=== PATIENT | male | born 1950 | race Caucasian/White ===

== ENCOUNTER → 2019-07-20 | Outpatient (CLI) | payer MEDICARE, BC, SELFPAY ==
[2019-07-20 12:43] LABS: Absolute Neutrophil Count 2.7 X10^3/uL (2.0-7.7); Basophil# 0.05 X10^3/uL; Basophil% 1.1 % (0-1); Eosinophil# 0.22 X10^3/uL; Eosinophils% 4.7 % (0-5); Hematocrit 40.1 % (40-54); Hemoglobin 12.9 g/dL (13.0-16.5); Lymphocyte % 25.7 % (19-41); Mean Corp Hgb Conc 32.2 g/dL (32-36); Mean Corpuscular Hgb 29.8 pg (27.0-32.0); Mean Corpuscular Volume 92.6 fL (80-94); Mean Platelet Vol. 10.9 fl (6.2-12.0); Monocyte# 0.52 X10^3/uL; Monocyte% 11.1 % (0-10); NRBC Flagged by Analyzer 0 % (0-5); Neutrophil # 2.67 X10^3/uL (2.7-7.7); Neutrophil % 57.2 % (47-70); Platelet Count 226 K/mm3 (150-450); RBC Distribution Width CV 13.9 % (11.6-14.6); RBC Distribution Width SD 47.8 fl (35.1-43.9); Red Blood Count 4.33 M/mm3 (4.6-6.2); White Blood Count 4.7 K/mm3 (4.4-11.0)
[2019-07-20 13:26] LABS: BUN 16 mg/dL (7-18); Creatinine, Serum 0.96 mg/dL (0.70-1.30); EST Glomerular Filtration Rate 83 mL/min (>60); Glucose 88 mg/dL (74-106)
[2019-07-20 13:27] LABS: ALB/GLOB Ratio 0.9 RATIO (0.9-2.4); AST(SGOT) 24 U/L (15-37); Alanine Aminotransfer ALT/SGPT 24 U/L (16-61); Albumin, Serum 3.5 g/dL (3.2-5.0); Alkaline Phosphatase 84 U/L (45-117); Anion Gap 6 (5-15); BUN/Creat Ratio 16.8 RATIO (10-20); Calcium,Total 8.5 mg/dL (8.5-10.1); Chloride 108 mmol/L (98-107); Cholesterol 190 mg/dL (200); Est Glom Filt Rate - Afr Amer 101 mL/min (>60); Globulin 3.7 g/dL (2.2-4.2); High Density Lipoprotein 50 mg/dL; PSA,Total - Annual Screen 0.31 ng/mL (0.00-4.00); Potassium 4.1 mmol/L (3.5-5.1); Protein, Total 7.2 g/dL (6.4-8.2); Sodium Level 139 mmol/L (136-145); Triglycerides 67 mg/dL; Very Low Density Lipoprotein 13 mg/dL (5-40)
[2019-07-20 13:55] LABS: Hepatitis C Antibody Non-Reactive (Nonreactive)
== END | disposition home or self-care (01) ==
LOC: BFHLAB 09:26
PROVIDERS: PCP Family Medicine; Visit Provider Family Medicine
DX: I10 Essential (primary) hypertension (principal); Z12.5 Encounter for screening for malignant neoplasm of prostate; Z01.83 Encounter for blood typing; Z92.89 Personal history of other medical treatment
CPT/HCPCS: 36415; 80053; 80061; 84153; 85025; 86803; 86900; 86901; G0103

== ENCOUNTER 2019-11-04 13:02 | Inpatient (IN) | payer MEDICARE, BC, SELFPAY ==
[2019-11-04] VITALS (11 sets, daily range): BP systolic 137–161; BP diastolic 70–123; PULSE 55–86; RESP 10–20; TEMP 36.6–36.9; O2SAT 94–99; BMI 35.9; BMI 35.6; BMI 35.7
--- NOTE | 2019-11-04 13:44 | EKG12_ITS ---
Test Reason : CP Blood Pressure : / mmHG Vent. Rate : 080 BPM Atrial Rate : 080 BPM P-R Int : 182 ms QRS Dur : 098 ms QT Int : 416 ms P-R-T Axes : 044 027 024 degrees QTc Int : 479 ms Normal sinus rhythm with sinus arrhythmia Nonspecific ST abnormality Abnormal ECG Confirmed by REBECA TANNER, MICHAEL ([id number]), editor index DEION BERNARDO ([id number]) on 11/05/2019 1:03:02 PM Referred By: AVELINO Confirmed By:MICHAEL JOSE MD
--- NOTE | 2019-11-04 13:44 | RAD_ITS ---
STUDY: X-RAY CHEST REASON FOR EXAM: Male, 69 years old. chest pain and sob TECHNIQUE: Single AP portable view of the chest. COMPARISON: None. FINDINGS: awake overnight monitor leads are present. The lungs are clear and expanded. There is no demonstrated pleural abnormality. Normal size heart. Normal mediastinum and xu. Normal visualized pulmonary arteries. Normal visualized aortic arch and descending thoracic aorta. Normal visualized thoracic spine. Normal visualized ribs, clavicles, and shoulders. There is no demonstrated abnormality of the visualized soft tissue structures of the upper abdomen. RAD/Chest 1 View (Portable) IMPRESSION: Normal x-ray examination of the chest. Electronically Signed: Juan M Pineda MD at 14:16 EDT , Service support ,
--- NOTE | 2019-11-04 13:46 | ED.VISSUMM ---
- ER Visit Summary Date of Service: 11/04/19 Chief Complaint: Chest pain History of Present Illness: The patient is a 69 M who presents with chest pain that has been getting worse over the past 2 to 3 days. Patient states his pain is worse with exertion. Patient states his pain is been waxing and waning. Patient states he was doing some outside work today when his pain began. Patient admits to some shortness of breath with this. Patient denies any nausea or vomiting. Patient denies any diaphoresis. Patient admits to some lightheadedness. Patient states today while he was doing his work his pain began then he stopped and rested and his pain improved. Patient states that when he went back to doing some activities his pain would return. Patient states he has a history of costochondritis but this feels different than that. Patient denies any cardiac or PE risk factors. Patient states he does have some pain in his neck and upper back. Physical Examination: Vital signs are stable. Patient is afebrile. Patient is in no acute distress. Oral mucosa is pink and moist. Neck is supple. Trachea is midline. There is no JVD noted. Heart was regular rate and rhythm. Lungs are clear and equal bilaterally. Abdomen is soft. Bowel sounds are normal. There is no tenderness. There is no rebound or guarding noted. Skin is warm dry. Cranial nerves II through XII are intact. There are no focal motor or sensory deficits noted. Extremities are intact. There is no calf tenderness or edema. Test Results: EKG showed a normal sinus rhythm with a rate of 80. There is some T wave inversion in leads III and aVF. There are no prior EKGs available for comparison. Portable chest x-ray was obtained. There is no acute cardiopulmonary process. CBC, basic metabolic profile, and troponin were obtained were all within normal limits. Emergency Department Course and Treatment: Patient was not given aspirin due to his allergy which causes hives. Patient was given sublingual nitroglycerin. Patient has a HEART score of 5. Patient was advised of his results. I recommended admission to the hospital overnight for observation for further chest pain evaluation. Patient is agreeable with this. Case was discussed with the hospitalist. He will admit the patient to his service. Patient understood and was agreeable with the plan. All questions were answered. Disposition: Admit to hospital Impression: 1. Chest pain This note was generated with Personal [employer] software. It may contain incorrect words, spelling, and punctuation that were not noted in review of the chart prior to signing ED Disposition - Plan for ED Patient: Disposition: Acute Care Hospital [facility] Diagnosis: Chest pain Referrals: Abisai Bryant DO [Primary Care Provider] -
[2019-11-04 14:04] LABS: Absolute Lymphocyte Count 1.55 X10^3/uL (0.83-4.51); Basophil# 0.03 X10^3/uL; Basophil% 0.5 % (0-1); Eosinophil# 0.23 X10^3/uL; Eosinophils% 3.5 % (0-5); Hemoglobin 13.8 g/dL (13.0-16.5); Lymphocyte # 1.55 X10^3/ul (4.0); Lymphocyte % 23.8 % (19-41); Mean Corp Hgb Conc 33.7 g/dL (32-36); Mean Corpuscular Hgb 30.7 pg (27.0-32.0); Mean Corpuscular Volume 91.3 fL (80-94); Mean Platelet Vol. 10.7 fl (6.2-12.0); Monocyte% 10.8 % (0-10); NRBC Flagged by Analyzer 0 % (0-5); Neutrophil # 3.98 X10^3/uL (2.7-7.7); Neutrophil % 61.1 % (47-70); Platelet Count 219 K/mm3 (150-450); RBC Distribution Width CV 14.7 % (11.6-14.6); Red Blood Count 4.49 M/mm3 (4.6-6.2); White Blood Count 6.5 K/mm3 (4.4-11.0)
[2019-11-04 14:13] LABS: Anion Gap 6 (5-15); BUN 15 mg/dL (7-18); BUN/Creat Ratio 12.5 RATIO (10-20); Calcium,Total 9.2 mg/dL (8.5-10.1); Chloride 107 mmol/L (98-107); EST Glomerular Filtration Rate 64 mL/min (>60); Est Glom Filt Rate - Afr Amer 77 mL/min (>60); Estimated Creatinine Clearance 63.77 ml/min; Glucose 151 mg/dL (74-106); Potassium 4.1 mmol/L (3.5-5.1); Sodium Level 139 mmol/L (136-145)
--- NOTE | 2019-11-04 16:31 | HP.PCM_ITS ---
Problem List (1) Chest pain Status: Acute (2) Osteoarthritis Status: Chronic (3) Obstructive sleep apnea Status: Chronic (4) GERD (gastroesophageal reflux disease) Status: Chronic History of Present Illness Date of Admission: 11/04/19 Chief Complaint: Chest pain. The patient is a 69 year old M with past medical history as mentioned above presented to the emergency room because of chest pain. His symptoms started this morning, retrosternal chest pain, brought in by exertion, described as indigestion, 4 out of 10 in severity, not radiating, aggravated by taking a deep breath and associated with shortness of breath. He does have a history of GERD but he mentioned that the pain that he has today is different from the usual heartburn indigestion that he has with GERD. He has been having similar pain intermittently over the last week which is also brought in by exertion. In the emergency department, his blood pressure was not elevated, other vital signs were stable. Routine blood work was unremarkable. EKG revealed normal sinus rhythm, normal QRS, normal TX interval, normal QTC, no acute segment changes. First troponin is negative. Chest x-ray showed no acute findings. He is being admitted for chest pain for evaluation. Past Medical History Past Medical History (Chronic Problems): Chronic Problems Osteoarthritis (Chronic) Obstructive sleep apnea (Chronic) GERD (gastroesophageal reflux disease) (Chronic) Allergies aspirin Allergy (Verified 11/04/19 13:03) Rash Penicillins [PCN] Allergy (Verified 11/04/19 13:03) Rash wool Allergy (Verified 11/04/19 13:03) Rash Home Medications: Ambulatory Orders Medication Instructions Recorded Ascorbate Calcium [Vitamin C] PO DAILY 11/04/19 Diclofenac [Voltaren] 75 mg PO DAILY 11/04/19 Fexofenadine HCl 60 mg PO DAILY 11/04/19 Glucosamine/Chondr Calderón A Sod 480 ml PO BID 11/04/19 [Glucosamine-Chondroitin Liq] Pantoprazole Sodium [Protonix] 40 mg PO DAILY 11/04/19 Surgical History: total knee arthroplasty, - - Left shoulder surgery, left foot surgery. Psychiatric History: No pertinent psych hx Lives: Spouse/ Significant Other Smoking Status: Never smoker Alcohol: None Drugs: None - *Family History Maternal History Items: Unknown - Patient is adopted. Paternal History Items: No pertinent history - Patient is adopted. Review of Systems Constitutional: Denies: Anorexia, Chills, Fever, Weakness Eyes: Denies: Blurred vision, Double vision, Drainage, Redness HEENT: Denies: Difficulty Hearing, Ear Pain, Eye Pain, Nasal Congestion, Sore Throat Cardiovascular: Reports: Chest Pain, Chest Pressure. Denies: Edema, Heaviness, Light Headedness, Orthopnea, Paroxysmal Noc. Dyspnea, Syncope Respiratory: Reports: Shortness of Breath. Denies: Cough, Hemoptysis, Pleuritic Pain, Sputum production, Wheezing Gastrointestinal: Denies: Abdominal Pain, Constipation, Diarrhea, Nausea, Vomiting Genitourinary: Denies: Dysuria, Frequency, Hematuria Musculoskeletal: Denies: Arm Pain, Back Pain, Foot Pain Skin: Denies: Dryness, Rash Neurological: Denies: Balance problems, Double vision, Change in Speech, Slurred speech, Confusion, Headaches, Incoordination, Numbness Psychiatric: Denies: Anxiety, Depression Endocrine: Denies: Change in Body Habitus, Polydipsia, Polyuria VTE Information - Inpt Only VTE Present on Admission: No VTE Mechan Device Prophylaxis: None VTE Pharm Prophylaxis ordered?: Yes Patient Problems: Active and Suspected Problems Chest pain (Acute) - Physical Exam Vitals/I&O's: Vital Signs Temp Pulse Resp BP Pulse Ox 98.5 F 55 L 11 L 137/83 H 98 11/04/19 13:12 11/04/19 16:10 11/04/19 16:10 11/04/19 16:10 11/04/19 16:10 Oxygen Delivery Method Room Air Weight: 265 lb Body Mass Index (BMI) 35.9 General: Alert, Oriented x3, Cooperative, No apparent distress HEENT: Atraumatic, PERRLA, EOMI, Normocephalic Oral: Moist Mucosa, No Gingival or Mucosal Lesions/ Ulcerations Neck: Supple, No JVD, Negative Carotid Bruits, Trachea Midline, Thyroid Normal Size and Texture Lungs: Clear to auscultation, Normal air movement, No rhonchi, No wheeze, No rales, Diminished Cardiovascular: Regular rate, Regular Rhythm, Normal S1, Normal S2, PMI Normal Abdomen: Bowel Sounds Present, Soft, Non Tender, Non-Distended, No Hepato- splenomegaly, Obese Extremities: No clubbing, No cyanosis, No edema Skin: No rashes, No breakdown Lymphatic: No Cervical, Supraclavicular, or Inguinal Adenopathy Neurological: Cranial nerves II-XII grossly intact, Motor Exam 5/5 strength throughout Psych/Mental Status: Normal Affect, Appropriate, Alert and oriented to time, place, person, mood and affect Laboratory Results 11/04/19 13:10: WBC 6.5, RBC 4.49 L, Hgb 13.8, Hct 41.0, MCV 91.3, MCH 30.7, MCHC 33.7, RDW Std Deviation 49.0 H, RDW Coeff of Rose 14.7 H, Plt Count 219, MPV 10.7, Immature Gran % (Auto) 0.300, Neut % (Auto) 61.1, Lymph % (Auto) 23.8, [place] % (Auto) 10.8 H, Eos % (Auto) 3.5, Baso % (Auto) 0.5, Absolute Neuts (auto) 4.0, Absolute Lymphs (auto) 1.55, Nucleated RBC % 0 11/04/19 13:10: Sodium 139, Potassium 4.1, Chloride 107, Carbon Dioxide 26.0, Anion Gap 6, BUN 15, Creatinine 1.20, Estim Creat Clear Calc 63.77, Est GFR (MDRD) Af Amer 77, Est GFR (MDRD) Non-Af 64, BUN/Creatinine Ratio 12.5, Glucose 151 H, Calcium 9.2, Troponin I < 0.015 Clinical Impression(s) from Imaging Studies Chest X-Ray 11/04/19 13:44 IMPRESSION: Normal x-ray examination of the chest. Electronically Signed: Juan M Pineda MD at 14:16 EDT , Service support , Current Medications Nitroglycerin (Nitrostat) 0.4 mg SUBLINGUAL Q5M PRN PRN Reason: Chest pain Assessment/Plan All Active Problems Chest pain (Acute) This is a 69 years old male patient presented to the emergency room because of chest pain and he is being admitted for evaluation. #1 chest pain: Seems to be atypical, could be due to GERD as patient has been on Voltaren for osteoarthritis but he stated this pain is different from usual GERD symptoms that he had. EKG was unremarkable. Troponin is negative. Chest x-ray without acute findings. He has no risk factors for CAD except recent elevation of blood pressure but he is not on medications. Plan: Admit to PCU observation, cardiac monitoring, serial cardiac enzymes, repeat EKG tomorrow morning, patient is allergic to aspirin, nitroglycerin sublingual as needed, IV fluids, Tylenol PRN, nuclear stress test tomorrow morning if cardiac enzymes are negative, fasting blood profile. #2 elevated blood pressure: Patient mentioned that recently, he has been seeing his PCP and his blood pressure sometimes elevated. In the ED, pressure was up to 160 systolic. Plan: Start lisinopril/HCTZ, IV hydralazine PRN. #3 hyperglycemia: Blood glucose on admission is 151. Will check hemoglobin A1c. #4 GERD: Continue PPI, start Mylanta as needed. #5 obstructive sleep apnea: Continue CPAP with the same home settings. #6 DVT prophylaxis: Subcu Lovenox. This note was generated with YODIL dictation software. It may contain incorrect words, spelling, and punctuation that were not noted in checking the note before signing. OBSV E&M: [id number] Initial observation care L3
[2019-11-04] MEDS: 0.9% Normal Saline 1,000 ML 75 ML IV (17:19)
[2019-11-04] MEDS: Acetaminophen 325 MG Tablet 650 MG PO (17:24)
[2019-11-04 17:38] LABS: Hemoglobin A1c 5.8 % (4.2-6.3)
--- NOTE | 2019-11-04 17:49 | EKG12_ITS ---
Test Reason : CP REPEAT Blood Pressure : / mmHG Vent. Rate : 055 BPM Atrial Rate : 055 BPM P-R Int : 194 ms QRS Dur : 098 ms QT Int : 480 ms P-R-T Axes : 042 019 -18 degrees QTc Int : 459 ms Sinus bradycardia T wave abnormality, consider inferior ischemia Abnormal ECG When compared with ECG of 04-NOV-2019 13:17, MANUAL COMPARISON REQUIRED, DATA IS UNCONFIRMED Confirmed by REBECA TANNER, MICHAEL ([id number]), social media editor DEION BERNARDO ([id number]) on 11/06/2019 3:57:12 PM Referred By: CULLEN Confirmed By:MICHAEL JOSE MD
--- NOTE | 2019-11-04 18:34 | CON.PCM_ITS ---
Problem List (1) MYOCARDIAL INFARCT Status: Acute Reason for Consult Date of Consultation: 11/04/19 Reason for Consultation: Acute myocardial infarct History of Present Illness: The patient is a 69 year old M [] Patient experienced chest tightness substernally with shortness of breath at 10:30 AM today. It did not go away with resting. He was seen emergency room at 1:30 PM. EKG at that time showed possible inferior wall myocardial infarct with minimal ST elevation. First set of enzymes was normal. The second set of enzymes has come back before consulting me was elevated. Repeat EKG has improved. Chest pain now down to minimal. Hemodynamically has been stable. 10 days ago patient started having functional class III angina relieved by resting in 10 minutes. Patient is known to have labile hypertension not on medication. He is a non-smoker and nondrinker. He denies any history of myocardial infarct or CVA. He claims that aspirin gives him indigestion. He is not actually allergic to it. Iodine prep on the left knee surgery 3 years ago gave him rash. Past Medical History Allergies/Adverse Reactions: Allergies Penicillins [PCN] Allergy (Verified 11/04/19 13:03) Rash wool Allergy (Verified 11/04/19 13:03) Rash aspirin Adverse Reaction (Verified 11/04/19 18:42) Upset Stomach Home Medications: Ambulatory Orders Medication Instructions Recorded Ascorbate Calcium [Vitamin C] PO DAILY 11/04/19 Diclofenac [Voltaren] 75 mg PO DAILY 11/04/19 Fexofenadine HCl 60 mg PO DAILY 11/04/19 Glucosamine/Chondr Calderón A Sod 480 ml PO BID 11/04/19 [Glucosamine-Chondroitin Liq] Pantoprazole Sodium [Protonix] 40 mg PO DAILY 11/04/19 Past Medical History (Chronic Problems): Chronic Problems Osteoarthritis (Chronic) Obstructive sleep apnea (Chronic) GERD (gastroesophageal reflux disease) (Chronic) Surgical History: total knee arthroplasty, - - Left shoulder surgery, left foot surgery. Psychiatric History: No pertinent psych hx - *Family History Maternal History Items: Unknown - Patient is adopted. Paternal History Items: No pertinent history - Patient is adopted. Lives: Spouse/ Significant Other Smoking Status: Never smoker Alcohol: None Drugs: None Review of Systems - Review of Systems Cardiovascular: Reports: Chest Discomfort, Shortness of Breath Respiratory: Denies: Cough, Sputum Production, Hemoptysis Gastrointestinal: Denies: Hematemesis, Hematochezia, Melena Genitourinary: Denies: Dysuria, Hematuria Muscoloskeletal: Reports: Joint Pain Objective: Vital Signs Temp Pulse Resp BP Pulse Ox 98.5 F 60 18 160/95 H 97 11/04/19 17:14 11/04/19 17:36 11/04/19 17:14 11/04/19 17:14 11/04/19 17:14 Oxygen Delivery Method Room Air Weight: 263 lb 3.2 oz Body Mass Index (BMI) 35.6 General: Healthy Appearing, Alert, Oriented x 3, No Acute Distress Neck: Supple, No JVD Lungs: Clear to auscultation Cardiovascular: Regular Rhythm, Normal S1, Normal S2, No Murmurs Vascular: No Carotid Bruits, Normal Radial Pulses, Normal Dorsalis Pedal Pulse, Normal Posterior Tibial Pulses Abdomen: Bowel Sounds Present, Soft, Non Tender 11/04/19 13:10: WBC 6.5, RBC 4.49 L, Hgb 13.8, Hct 41.0, MCV 91.3, MCH 30.7, MCHC 33.7, Plt Count 219, MPV 10.7, Immature Gran % (Auto) 0.300, Neut % (Auto) 61.1, Lymph % (Auto) 23.8, [place] % (Auto) 10.8 H, Eos % (Auto) 3.5, Baso % (Auto) 0.5, Absolute Neuts (auto) 4.0, Nucleated RBC % 0 11/04/19 13:10: Sodium 139, Potassium 4.1, Chloride 107, Carbon Dioxide 26.0, Anion Gap 6, BUN 15, Creatinine 1.20, Est GFR (MDRD) Af Amer 77, Est GFR (MDRD) Non-Af 64, BUN/Creatinine Ratio 12.5, Glucose 151 H, Calcium 9.2, Troponin I < 0.015 11/04/19 17:14: Hemoglobin A1c 5.8 11/04/19 17:14: Troponin I 1.970 H* Rhythm: EKG: ECHO: Stress Test: Cardiac Cath: PCI: CT Surgery: Holter monitor: EPS: PPM: CXR: Chest CT Scan: Assessment/Plan #1 possible acute inferior wall myocardial infarct with minimal chest pain at the moment, will proceed with cardiac catheterization tomorrow morning. Patient has eaten a full dinner. The chest pain has improved to a minimum discomfort. Second EKG showed improvement. I would not perform the cardiac catheterization tonight. Because of the allergy to iodine, prednisone and Pepcid will be initiated. Patient will be given 4 baby aspirin to chew tonight. Enoxaparin will be given subcu tonight. Should the chest pain recur, I would definitely go in tonight. The risk and benefit of the procedure have been explained to the patient. Patient has given the consent #2 history of labile hypertension
[2019-11-04] MEDS: Aspirin 81 MG TAB.CHEW 324 MG PO (19:42)
[2019-11-04] MEDS: predniSONE 20 MG Tablet PO (19:42)
[2019-11-04] MEDS: Enoxaparin 80 MG/0.8 ML Syringe SC (19:43)
[2019-11-04] MEDS: 0.45% Normal Saline 1,000 ML 60 ML IV (19:44)
[2019-11-04] MEDS: TICAGRELOR 90 MG TABLET 180 MG PO (20:12)
[2019-11-04] MEDS: 0.9% Saline Lock 10 ML Syringe IV (20:21)
[2019-11-04] MEDS: Atorvastatin Calcium 40 MG Tablet PO (21:41)
[2019-11-04] MEDS: Famotidine 20 MG Tablet PO (21:41)
[2019-11-04] MEDS: Pantoprazole Sodium 40 MG Tablet PO (21:42)
[2019-11-04 22:40] LABS: Magnesium 2.5 mg/dL (1.6-2.6)
[2019-11-05] VITALS (32 sets, daily range): BP systolic 106–181; BP diastolic 62–112; PULSE 60–86; RESP 8–24; TEMP 36.6–37.1; O2SAT 92–100
[2019-11-05] MEDS: 0.9% Saline Lock 10 ML Syringe IV ×2 (03:23→11:26)
[2019-11-05] MEDS: Ondansetron 4 MG/2 ML Vial IV (03:23)
[2019-11-05] MEDS: Acetaminophen 325 MG Tablet 650 MG PO ×2 (03:23→21:41)
--- NOTE | 2019-11-05 05:21 | CCHN_ITS ---
Hospitalist Note Patient with episode on monitor of VT at approximately 5:08 AM noted to have been stable and doing well approximately 10 minutes prior to this with recent evaluation per staff with no complaints including no chest pain or dyspnea however at approximately 5:10 AM following onset of VT with evaluation per staff patient noted to be unresponsive with no pulse with CPR initiation. Patient became again responsive with resumption of pulse and appropriate management of his airway after approximately 2 minutes. Will initiate IV amiodarone bolus and transition to the ICU. [place] Work[employer] Helper updated and cardiology called and also updated on current events. Patient has planned cardiac catheterization this am.
--- NOTE | 2019-11-05 05:22 | ECHOCS_ITS ---
Reason For Study: CAD/ASHD Procedure This was a 2D Doppler, Color Flow transthoracic echocardiogram. The study was technically difficult. Due to body habitus. Contrast injection was performed. Exam performed portable in ICU/CCU. Left Ventricle Normal left ventricle. Left ventricular systolic function is normal. The estimated ejection fraction is 60 %. No regional wall motion abnormalities noted. Right Ventricle Normal RV size. Normal systolic function. Atria The left atrium is mildly enlarged. The right atrium is mildly enlarged. Mitral Valve Normal mitral valve. Tricuspid Valve Normal tricuspid valve. Aortic Valve The aortic valve is not well visualized. Pulmonic Valve The pulmonic valve is not well visualized. Great Vessels Mild to moderately dilated aortic root. The pulmonary artery is normal size. Normal inferior vena cava. Pericardium/Pleural No pericardial effusion. Medication Diluted definity 3.0ml given slow IV push to enhance endocardial definition. MMode/2D Measurements & Calculations LVIDd: 4.3 cm IVSd: 1.1 cm Ao root diam: 4.0 cm LVIDs: 2.9 cm LVPWd: 1.1 cm FS: 32.1 % LAV(MOD-bp): 77.2 ml LA A4 area: 22.8 cm2 LA dimension(2D): 4.3 cm LAV(MOD-bp) Indexed: 32.3 ml/m2 LAV(MOD-sp2): 82.3 ml LAV(MOD-sp4): 71.8 ml RA A4 area: 20.7 cm2 Time Measurements MV dec time: 0.20 sec Doppler Measurements & Calculations MV E max fidel: 67.8 cm/sec Lat Peak E' Fidel: 8.1 cm/sec Med Peak E' Fidel: 6.7 cm/sec MV A max fidel: 89.4 cm/sec E/E' lat: 8.4 E/E' med: 10.2 MV E/A: 0.76 Ao V2 max: 90.9 cm/sec LV V1 max: 81.3 cm/sec Ao max P.3 mmHg LV V1 max P.6 mmHg Interpretation Summary Normal left ventricle. Left ventricular systolic function is normal. The estimated ejection fraction is 60 %. The left atrium is mildly enlarged. Contrast injection was performed. Ordering Physician: Sonia Taylor Referring Physician: Abisai Bryant Performed By: Karly James, SHINE, RVT
[2019-11-05] MEDS: Amiodarone 360 MG in Dextrose 5% Viaflo Bag 192.8 ML 33.3 MG CONT INF (05:54)
--- NOTE | 2019-11-05 05:55 | EKG12_ITS ---
Test Reason : RAPID/CODE BLUE Blood Pressure : / mmHG Vent. Rate : 090 BPM Atrial Rate : 090 BPM P-R Int : 170 ms QRS Dur : 102 ms QT Int : 382 ms P-R-T Axes : 067 051 056 degrees QTc Int : 467 ms Normal sinus rhythm Probable ST elevation in inferior lead Nonspecific ST abnormality Abnormal ECG When compared with ECG of 05-NOV-2019 05:00, MANUAL COMPARISON REQUIRED, DATA IS UNCONFIRMED Confirmed by REBECA TANNER, MICHAEL ([id number]), editor greeting card DEION BERNARDO ([id number]) on 11/06/2019 3:56:15 PM Referred By: MIRIAM Confirmed By:MICHAEL JOSE MD
[2019-11-05 06:13] LABS: Absolute Neutrophil Count 10.8 X10^3/uL (2.0-7.7); Basophil# 0.04 X10^3/uL; Basophil% 0.3 % (0-1); Eosinophil# 0.02 X10^3/uL; Eosinophils% 0.2 % (0-5); Hematocrit 41.6 % (40-54); Hemoglobin 14.1 g/dL (13.0-16.5); Lymphocyte % 10.7 % (19-41); Mean Corp Hgb Conc 33.9 g/dL (32-36); Mean Corpuscular Hgb 30.4 pg (27.0-32.0); Mean Corpuscular Volume 89.7 fL (80-94); Mean Platelet Vol. 10.6 fl (6.2-12.0); Monocyte# 0.71 X10^3/uL; Monocyte% 5.4 % (0-10); NRBC Flagged by Analyzer 0 % (0-5); Neutrophil # 10.83 X10^3/uL (2.7-7.7); Platelet Count 241 K/mm3 (150-450); RBC Distribution Width CV 14.4 % (11.6-14.6); RBC Distribution Width SD 46.7 fl (35.1-43.9); Red Blood Count 4.64 M/mm3 (4.6-6.2); White Blood Count 13.1 K/mm3 (4.4-11.0)
[2019-11-05 06:27] LABS: International Normalized Ratio 1.2; Prothrombin Time (Protime)PT. 14.4 SECONDS (11.7-14.9)
[2019-11-05 06:28] LABS: Partial Thromboplast Time 29.7 Seconds (24.1-36.2)
[2019-11-05 06:29] LABS: Anion Gap 10 (5-15); BUN 14 mg/dL (7-18); BUN/Creat Ratio 12.7 RATIO (10-20); Calcium,Total 8.8 mg/dL (8.5-10.1); Chloride 104 mmol/L (98-107); Cholesterol 218 mg/dL (200); EST Glomerular Filtration Rate 71 mL/min (>60); Est Glom Filt Rate - Afr Amer 85 mL/min (>60); Estimated Creatinine Clearance 69.57 ml/min; Glucose 188 mg/dL (74-106); High Density Lipoprotein 47 mg/dL; Sodium Level 135 mmol/L (136-145); Triglycerides 110 mg/dL; Very Low Density Lipoprotein 22 mg/dL (5-40)
--- NOTE | 2019-11-05 07:15 | CON.PCM_ITS ---
Reason for Consult Date of Consultation: 11/05/19 Reason for Consultation: NSTEMI, status post cardiac arrest History of Present Illness: The patient is a 69-year-old male, with a history as outlined below, who presented to the emergency department on November 03 with complaints of chest pain. On presentation to the emergency department, the patient was noted to be afebrile and hemodynamically stable. He was maintaining appropriate oxygen saturations on room air. Laboratory evaluation revealed no evidence of a leukocytosis. Coagulation profile was within normal limits. Chemistry profile was unremarkable. Initial plain film chest x-ray revealed no acute cardiopulmonary process. The patient was evaluated by cardiology who planned to perform a cardiac catheterization on the morning of November 04. The patient was subsequently admitted to the progressive care unit for further management. During the database manager hours of November 04, the patient developed ventricular tachycardia and was noted to be nonresponsive by nursing staff. A CODE BLUE was called and ACLS was initiated. ROSC was subsequently achieved and the patient was then transferred to the medical intensive care unit for further management. Past Medical History Past Medical History (Chronic Problems): Chronic Problems (Last Updated 11/05/19 @ 12:05 by Ameena Thacker) Hyperlipidemia (Chronic) Obstructive sleep apnea (Chronic) GERD (gastroesophageal reflux disease) (Chronic) Medical History: Medical History (Last Updated 11/05/19 @ 12:05 by Ameena Thacker) History of non-ST elevation myocardial infarction (NSTEMI) (Acute) Onset Date: 11/04/19 I25.2 Atherosclerosis of coronary artery without angina pectoris (Acute) I25.10 Essential (primary) hypertension (Acute) I10 Hyperlipidemia (Chronic) E78.5 Obstructive sleep apnea (Chronic) G47.33 GERD (gastroesophageal reflux disease) (Chronic) K21.9 Obesity (BMI 30-39.9) E66.9 Osteoarthritis M19.90 Allergies Penicillins [PCN] Allergy (Verified 11/04/19 13:03) Rash wool Allergy (Verified 11/04/19 13:03) Rash aspirin Adverse Reaction (Verified 11/04/19 18:42) Upset Stomach Home Medications: Ambulatory Orders Medication Instructions Recorded Ascorbate Calcium [Vitamin C] PO DAILY 11/04/19 Diclofenac [Voltaren] 75 mg PO DAILY 11/04/19 Fexofenadine HCl 60 mg PO DAILY 11/04/19 Glucosamine/Chondr Calderón A Sod 480 ml PO BID 11/04/19 [Glucosamine-Chondroitin Liq] Pantoprazole Sodium [Protonix] 40 mg PO DAILY 11/04/19 Surgical History: Surgical History (Last Updated 11/05/19 @ 12:03 by Ameena Thacker) History of coronary artery stent placement (Acute) Z95.5 SJB-UAA-Uas-Distal RCA w/ 4.00 x 24 mm Synergy MR Stent 11/05/2019 History of foot surgery Z98.890 History of shoulder surgery Z98.890 History of total knee arthroplasty Z96.659 Surgical History: total knee arthroplasty, - - Left shoulder surgery, left foot surgery. Psychiatric History: No pertinent psych hx Lives: Spouse/ Significant Other Smoking Status: Never smoker Alcohol: None Drugs: None - *Family History Maternal Family History: Family History (Last Updated 11/05/19 @ 12:04 by Ameena Thacker) Other Adopted History Items: Unknown - Patient is adopted. Paternal Family History: Family History (Last Updated 11/05/19 @ 12:04 by Ameena Thacker) Other Adopted History Items: No pertinent history - Patient is adopted. Review of Systems Constitutional: Denies: Chills, Fever, Weight Change HEENT: Denies: Head Aches, Sinus Congestion, Sinus Drainage Cardiovascular: Reports: Chest Pain Respiratory: Denies: Cough, Shortness of breath at rest, Sputum production Gastrointestinal: Denies: Abdominal Pain, Nausea, Vomiting Genitourinary: Denies: Dysuria Musculoskeletal: Denies: Joint Pain, Joint Tenderness Skin: Denies: Rash, Wounds Neurological: Denies: Numbness, Tingling, Focal weakness Psychiatric: Denies: Anxiety, Depression, Homicidal Ideations, Suicidal Ideations Hematologic/ Lymphatic: Denies: Easy Bruising, Easy Bleeding Patient Problems: Active and Suspected Problems (Last Updated 11/05/19 @ 12:05 by Ameena Thacker) History of non-ST elevation myocardial infarction (NSTEMI) (Acute 11/04/19) Atherosclerosis of coronary artery without angina pectoris (Acute) History of coronary artery stent placement (Acute) YII-INM-Htt-Distal RCA w/ 4.00 x 24 mm Synergy MR Stent 11/05/2019 Essential (primary) hypertension (Acute) Objective: The patient's most recent lab work, culture data and imaging studies have all been personally reviewed. - Physical Exam Vitals/I&O's: Vital Signs Temp Pulse Resp BP Pulse Ox 97.8 F 85 24 H 167/95 H 99 11/05/19 03:18 11/05/19 05:54 11/05/19 05:29 11/05/19 05:54 11/05/19 05:29 Oxygen Flow Rate (L/min) 15 Oxygen Delivery Method Non-Rebreather Weight: 265 lb 14.04 oz Body Mass Index (BMI) 35.6 Intake and Output for Last 24 Hours 11/03/19 11/04/19 11/05/19 23:59 23:59 23:59 Intake Total 582.5 / 582.5 Balance 582.5 / 582.5 General: Alert, No apparent distress HEENT: Atraumatic, Normocephalic Oral: No Gingival or Mucosal Lesions/ Ulcerations Neck: Supple, No Nodes, Trachea Midline Lungs: Normal air movement Cardiovascular: Regular rate, Regular Rhythm, Normal S1, Normal S2 Abdomen: Bowel Sounds Present, Soft, Non Tender Extremities: No clubbing, No cyanosis, No edema Skin: No breakdown Musculoskeletal: No Muscle Wasting Lymphatic: No Cervical, Supraclavicular, or Inguinal Adenopathy Neurological: Neuro grossly intact Psych/Mental Status: Normal Affect, Appropriate Labs (Last 48 Hours) 11/04/19 11/04/19 11/04/19 13:10 13:10 17:14 WBC 6.5 RBC 4.49 L Hgb 13.8 Hct 41.0 MCV 91.3 MCH 30.7 MCHC 33.7 RDW Std Deviation 49.0 H RDW Coeff of Rose 14.7 H Plt Count 219 MPV 10.7 Immature Gran % (Auto) 0.300 Neut % (Auto) 61.1 Lymph % (Auto) 23.8 [place] % (Auto) 10.8 H Eos % (Auto) 3.5 Baso % (Auto) 0.5 Absolute Neuts (auto) 4.0 Absolute Lymphs (auto) 1.55 Nucleated RBC % 0 PT INR APTT Sodium 139 Potassium 4.1 Chloride 107 Carbon Dioxide 26.0 Anion Gap 6 BUN 15 Creatinine 1.20 Estim Creat Clear Calc 63.77 Est GFR (MDRD) Af Amer 77 Est GFR (MDRD) Non-Af 64 BUN/Creatinine Ratio 12.5 Glucose 151 H Hemoglobin A1c 5.8 Calcium 9.2 Magnesium Troponin I < 0.015 Triglycerides Cholesterol LDL Cholesterol VLDL Cholesterol HDL Cholesterol 11/04/19 11/04/19 11/04/19 17:14 20:23 20:23 WBC RBC Hgb Hct MCV MCH MCHC RDW Std Deviation RDW Coeff of Rose Plt Count MPV Immature Gran % (Auto) Neut % (Auto) Lymph % (Auto) [place] % (Auto) Eos % (Auto) Baso % (Auto) Absolute Neuts (auto) Absolute Lymphs (auto) Nucleated RBC % PT INR APTT Sodium Potassium Chloride Carbon Dioxide Anion Gap BUN Creatinine Estim Creat Clear Calc Est GFR (MDRD) Af Amer Est GFR (MDRD) Non-Af BUN/Creatinine Ratio Glucose Hemoglobin A1c Calcium Magnesium 2.5 Troponin I 1.970 H* 4.020 H* Triglycerides Cholesterol LDL Cholesterol VLDL Cholesterol HDL Cholesterol 11/05/19 11/05/19 11/05/19 06:10 06:10 06:10 WBC 13.1 H RBC 4.64 Hgb 14.1 Hct 41.6 MCV 89.7 MCH 30.4 MCHC 33.9 RDW Std Deviation 46.7 H RDW Coeff of Rose 14.4 Plt Count 241 MPV 10.6 Immature Gran % (Auto) 0.400 Neut % (Auto) 83.0 H Lymph % (Auto) 10.7 L [place] % (Auto) 5.4 Eos % (Auto) 0.2 Baso % (Auto) 0.3 Absolute Neuts (auto) 10.8 H Absolute Lymphs (auto) 1.40 Nucleated RBC % 0 PT 14.4 INR 1.2 APTT 29.7 Sodium 135 L Potassium 4.0 Chloride 104 Carbon Dioxide 21.0 Anion Gap 10 BUN 14 Creatinine 1.10 Estim Creat Clear Calc 69.57 Est GFR (MDRD) Af Amer 85 Est GFR (MDRD) Non-Af 71 BUN/Creatinine Ratio 12.7 Glucose 188 H Hemoglobin A1c Calcium 8.8 Magnesium Troponin I Triglycerides 110 Cholesterol 218 H LDL Cholesterol 149 H VLDL Cholesterol 22 HDL Cholesterol 47 11/05/19 06:10 WBC RBC Hgb Hct MCV MCH MCHC RDW Std Deviation RDW Coeff of Rose Plt Count MPV Immature Gran % (Auto) Neut % (Auto) Lymph % (Auto) [place] % (Auto) Eos % (Auto) Baso % (Auto) Absolute Neuts (auto) Absolute Lymphs (auto) Nucleated RBC % PT INR APTT Sodium Potassium Chloride Carbon Dioxide Anion Gap BUN Creatinine Estim Creat Clear Calc Est GFR (MDRD) Af Amer Est GFR (MDRD) Non-Af BUN/Creatinine Ratio Glucose Hemoglobin A1c Calcium Magnesium Troponin I 6.880 H* Triglycerides Cholesterol LDL Cholesterol VLDL Cholesterol HDL Cholesterol Clinical Impression(s) from Imaging Studies Chest X-Ray 11/04/19 13:44 IMPRESSION: Normal x-ray examination of the chest. Electronically Signed: Juan M Pineda MD at 14:16 EDT , Service support , Current Medications Acetaminophen (Tylenol) 650 mg PO Q6H PRN PRN PRN Reason: Pain Score 1-10/Temp > 100.7 F Last Admin: 11/05/19 03:23 Dose: 650 mg Documented by: Al Hydroxide/Mg Hydroxide (Mylanta Ii) 30 ml PO Q6H PRN PRN PRN Reason: Heartburn, indigestion Atorvastatin Calcium (Lipitor) 40 mg PO QHS [facility] Last Admin: 11/04/19 21:41 Dose: 40 mg Documented by: Famotidine (Pepcid) 20 mg PO BID [facility] Last Admin: 11/04/19 21:41 Dose: 20 mg Documented by: Hydralazine HCl (Apresoline Iv) 10 mg IV Q8H PRN PRN PRN Reason: for SBP>160 Hydrochlorothiazide () 12.5 mg PO DAILY [facility] Sodium Chloride () 1,000 mls @ 60 mls/hr IV .[id number] [facility] Last Infusion: 11/04/19 23:59 Dose: 60 mls/hr Documented by: Amiodarone HCl 360 mg/ (Dextrose) 200 mls @ 33.333 mls/hr CONT INF .Q6H [facility] Stop: 11/05/19 11:29 Last Admin: 11/05/19 05:54 Dose: 1 mg/min, 33.3 mls/hr Documented by: Amiodarone HCl 360 mg/ (Dextrose) 200 mls @ 16.667 mls/hr CONT INF .Q12H [facility] Stop: 11/06/19 05:28 Lisinopril (Zestril) 20 mg PO DAILY [facility] Loratadine (Claritin) 10 mg PO DAILY [facility] Nitroglycerin (Nitrostat) 0.4 mg SUBLINGUAL Q5M PRN PRN Reason: CARDIAC/CHEST PAIN Ondansetron HCl (Zofran) 4 mg IV Q8H PRN PRN PRN Reason: NAUSEA/VOMITING Last Admin: 11/05/19 03:23 Dose: 4 mg Documented by: Pantoprazole Sodium (Protonix) 40 mg PO BID [facility] Last Admin: 11/04/19 21:42 Dose: 40 mg Documented by: [facility] () [facility] Last Admin: 11/04/19 19:42 Dose: 20 mg Documented by: Sodium Chloride () 10 - 40 ml IV UD PRN PRN Reason: SALINE FLUSH Last Admin: 11/05/19 03:23 Dose: 10 ml Documented by: Assessment/Plan Active and Suspected Problems (Last Updated 11/05/19 @ 12:05 by Ameena Thacker) History of non-ST elevation myocardial infarction (NSTEMI) (Acute 11/04/19) Atherosclerosis of coronary artery without angina pectoris (Acute) History of coronary artery stent placement (Acute) ZNO-IWI-Otk-Distal RCA w/ 4.00 x 24 mm Synergy MR Stent 11/05/2019 Essential (primary) hypertension (Acute) RECOMMENDATIONS: 1. Continue primary medical management per cardiology recommendations. 2. Plans for cardiac catheterization this morning. 3. Continue amiodarone as ordered. 4. Encourage incentive spirometer use and mobilize patient as tolerated. IMPRESSIONS: 1. Chest pain/acute coronary syndrome/status post transient cardiac arrest Continue current medical management per cardiology recommendations. Plan for emergent cardiac catheterization this morning. Continue amiodarone given recent VT episode. The patient is currently maintaining appropriate oxygen saturations on room air. 2. Hypertension/GERD/obstructive sleep apnea Complicates care, management, recovery and prognosis. Continue home medications as indicated. Physical therapy evaluation following routine bedrest post catheterization. This note was generated with [employer] dictation software. It may contain incorrect words, spelling, and punctuation that were not noted in checking the note before signing. Inpatient E&M: 34296 Init Hosp L3
--- NOTE | 2019-11-05 09:28 | PCM.PN.CARD ---
Subjectve: Patient seen and evaluated. Was seen by [facility] graduation coach yesterday. Events noted. Patient apparently went into VT and required amiodarone Objective: Vital Signs Temp Pulse Resp BP Pulse Ox 98.8 F 75 13 131/87 H 100 11/05/19 08:00 11/05/19 08:00 11/05/19 08:00 11/05/19 08:00 11/05/19 08:00 Oxygen Flow Rate (L/min) 6 Oxygen Delivery Method Nasal Cannula Weight: 265 lb 14.04 oz Body Mass Index (BMI) 35.6 Intake and Output for Last 24 Hours 11/03/19 11/04/19 11/05/19 23:59 23:59 23:59 Intake Total 582.5 / 582.5 69.93 / 69.93 Output Total 100 / 100 Balance 582.5 / 582.5 -30.07 / -30.07 General: Awake, Alert, Oriented x 3 HEENT: PERRL, EOMI, Sclera Non Icteric Neck: Supple, Good ROM, No Lymph Node Enlargement Lungs: Clear to auscultation Cardiovascular: Regular Rhythm, Normal S1, Normal S2, No Murmurs, No Rubs, No Gallops Vascular: No Carotid Bruits, Normal Femoral Pulses, Normal Radial Pulses, Normal Dorsalis Pedal Pulse, Normal Posterior Tibial Pulses Abdomen: Bowel Sounds Present, Soft, Non Tender, No HSM, No Organomegaly Extremities: No Cyanosis, No Clubbing, No edema Musculoskeletal: No Erythema Skin: No Rashes Lymphatic: No Lymph Node Enlargement Neurological: No Focal Motor or Sensory Deficit Psych/Mental Status: Appropriate 11/04/19 13:10: WBC 6.5, RBC 4.49 L, Hgb 13.8, Hct 41.0, MCV 91.3, MCH 30.7, MCHC 33.7, Plt Count 219, MPV 10.7, Immature Gran % (Auto) 0.300, Neut % (Auto) 61.1, Lymph % (Auto) 23.8, [place] % (Auto) 10.8 H, Eos % (Auto) 3.5, Baso % (Auto) 0.5, Absolute Neuts (auto) 4.0, Nucleated RBC % 0 11/04/19 13:10: Sodium 139, Potassium 4.1, Chloride 107, Carbon Dioxide 26.0, Anion Gap 6, BUN 15, Creatinine 1.20, Est GFR (MDRD) Af Amer 77, Est GFR (MDRD) Non-Af 64, BUN/Creatinine Ratio 12.5, Glucose 151 H, Calcium 9.2, Troponin I < 0.015 11/04/19 17:14: Hemoglobin A1c 5.8 11/04/19 17:14: Troponin I 1.970 H* 11/04/19 20:23: Troponin I 4.020 H* 11/04/19 20:23: Magnesium 2.5 11/05/19 06:10: Sodium 135 L, Potassium 4.0, Chloride 104, Carbon Dioxide 21.0, Anion Gap 10, BUN 14, Creatinine 1.10, Est GFR (MDRD) Af Amer 85, Est GFR (MDRD) Non-Af 71, BUN/Creatinine Ratio 12.7, Glucose 188 H, Calcium 8.8, Triglycerides 110, Cholesterol 218 H, LDL Cholesterol 149 H, VLDL Cholesterol 22, HDL Cholesterol 47 11/05/19 06:10: WBC 13.1 H, RBC 4.64, Hgb 14.1, Hct 41.6, MCV 89.7, MCH 30.4, MCHC 33.9, Plt Count 241, MPV 10.6, Immature Gran % (Auto) 0.400, Neut % (Auto) 83.0 H, Lymph % (Auto) 10.7 L, [place] % (Auto) 5.4, Eos % (Auto) 0.2, Baso % (Auto) 0.3, Absolute Neuts (auto) 10.8 H, Nucleated RBC % 0 11/05/19 06:10: PT 14.4, INR 1.2, APTT 29.7 11/05/19 06:10: Troponin I 6.880 H* Rhythm: EKG: ECHO: Stress Test: Cardiac Cath: PCI: CT Surgery: Holter monitor: EPS: PPM: CXR: Chest CT Scan: Medical Necessity - Tobacco Use Smoking Status: Never smoker Assessment/Plan 1. Recent ST elevation myocardial infarction Patient appears to have had a recent myocardial infarction complicated by VT. Was pain-free in the ICU this morning Patient was brought urgently to the cardiac catheterization lab It demonstrated a totally occluded right coronary artery with [id number] collaterals. Mild disease noted in the left anterior descending artery and circumflex artery system. In light of the fact that the collaterals do not appear to be chronic and there is viability and with the recent VT I would recommend attempted angioplasty and stenting of the right coronary artery. Depending on the findings further recommendations will be made. 2. Left ventricular systolic dysfunction Patient has mild low ventricular systolic dysfunction estimated at 40 to 45% with near akinesis of the mid inferior wall. Would initiate BERT inhibitor Continue beta-gregg 3. Risk factor modification Patient to start high intensity statin. Thank you for allowing me to participate in the care of your patient. Please don't hesitate to call if any issues arise.
--- NOTE | 2019-11-05 09:44 | CL.D_ITS ---
Patient Name: WYATT OTT Study Date: 11/05/2019 Performing: Damian Lion MD Ht: 72.04 inches 183 cm : 1950 Wt: 266.76 lbs 121 kg Age: 69 Gender: male BSA: 2.41 PROCEDURE(S) PERFORMED [id number]/COR/LV [id number] W OR WO PTCA, SINGLE CORONARY ARTERY CLINICAL PROFILE AND INDICATIONS Indications: ACS <= 24 hrs Heart Failure: None Stress/Imaging Stress/Image Study Performed: No CONCLUSIONS Totally occluded mid to distal right coronary artery with [id number] collaterals and mild disease noted in the left anterior descending artery as well as the circumflex artery and ramus intermedius s ystem. Reduced left ventricular systolic function. RECOMMENDATIONS Referred for immediate PCI DESCRIPTION OF PROCEDURE The patient arrived to the procedure lab. The risks and benefits of the procedure as well as a full d escription of our services here and current unavailability of surgical backup were fully explained to the patient and/or their significant other prior to the catheterization. The Timeout was completed, verifying the correct patient and procedure. The patient's procedural site was prepped and draped in the usual fashion. Local anesthetic was given subcutaneously to right radial region with Lidocaine 2% . Using a modified Seldinger technique, arterial access was obtained via the right radial artery, a 6 Fr sheath was inserted. Right Coronary Artery selective angiography was then performed in multiple v iews using a 5 Fr. 4.0 [place] catheter. Left Coronary Artery selective angiography was performed in mu ltiple views using a 5 Fr. 4.0 [place] catheter. Left Ventriculography was performed in SUBRAMANIAN projection using a 5 Fr. Pigtail catheter. LV to AO pullback pressures were then recorded. CORONARY ANGIOGRAPHY DOMINANCE: Right Dominant LEFT HEART ASSESSMENT Left Ventricular Ejection Fraction: by LV Gram 45 % Inferior Mid Akinesis Depressed Left Ventricular systolic function LEFT MAIN: Angiographically normal LEFT ANTERIOR DESCENDING ARTERY: No significant disease noted CIRCUMFLEX ARTERY: MID CIRC: Moderate luminal irregularities up to 50% RAMUS: Mild luminal irregularities less than 30% RIGHT CORONARY ARTERY: DISTAL RCA: is occluded COLLATERAL FLOW: Collateral flow from Left to Right COMPLICATIONS PROCEDURE MEDICATIONS Versed 1 mg IV Fentanyl 50 mcg IV Oxygen: 2 L/min via nasal cannula Baby Aspirin (81mg) 4 Tabs PO,total of 324mg @ 11/05/2019 09:16:07 Heparin 7000 unit(s) IV 11/05/2019 09:39:57 SUMMARY OF HEMODYNAMIC DATA Time AIR REST ECG 08:45:02 AO 135/86 (109) SA 09:09:19 LV 124/17, 19 09:18:18 LV 119/8, 12 09:18:31 LV 0/4, 0 09:19:21 LVp 121/11, 17 09:19:26 AOp 122/72 (94) 09:19:31 Signed By Damian Lion MD On 11/05/2019 09:43:46 Damian Lion MD
--- NOTE | 2019-11-05 10:30 | EKG12_ITS ---
Test Reason : AM EKG Blood Pressure : / mmHG Vent. Rate : 061 BPM Atrial Rate : 061 BPM P-R Int : 186 ms QRS Dur : 100 ms QT Int : 466 ms P-R-T Axes : 045 035 -39 degrees QTc Int : 469 ms Normal sinus rhythm Normal ECG When compared with ECG of 04-NOV-2019 17:52, MANUAL COMPARISON REQUIRED, DATA IS UNCONFIRMED Confirmed by REBECA TANNER, MICHAEL ([id number]), managing editor DEION BERNARDO ([id number]) on 11/06/2019 3:56:30 PM Referred By: CULLEN Confirmed By:MICHAEL JOSE MD
--- NOTE | 2019-11-05 10:47 | CL.I_ITS ---
Patient Name: WYATT OTT Study Date: 11/05/2019 Performing: Carmen Mcgovern MD Ht: 72 inches 183 cm : 1950 Wt: 267.1 lbs 121 kg Age: 69 Gender: male BSA: 2.41 PROCEDURE(S) PERFORMED [id number] W OR WO PTCA, SINGLE CORONARY ARTERY CLINICAL PROFILE AND CO-MORBIDITIES Indications: ACS <= 24 hrs Heart Failure: None Stress/Imaging Stress/Image Study Performed: No CONCLUSIONS Successful PCI with Drug eluting stent and PTCA to the dRCA RECOMMENDATIONS ASA Indefinitlealice Brmaikelta for at least 12 months DESCRIPTION OF PROCEDURE The patient arrived to the procedure lab. The risks and benefits of the procedure as well as a full d escription of our services here and current unavailability of surgical backup were fully explained to the patient and/or their significant other prior to the catheterization. The Timeout was completed, verifying the correct patient and procedure. The patient's procedural site was prepped and draped in the usual fashion. Local anesthetic was given subcutaneously to right radial region with Lidocaine 2% Using a modified Seldinger technique,arterial access was obtained via the right radial artery, a 6Fr sheath was inserted. Right Coronary Artery selective angiography was then performed in multiple view s using a 5 Fr. 4.0 [place] catheter. Left Coronary Artery selective angiography was performed in multi ple views using a 5 Fr. 4.0 [place] catheter. Left Ventriculography was performed in SUBRAMANIAN projection usi ng a 5 Fr. Pigtail catheter. LV to AO pullback pressures were then recorded.The images were reviewed and options discussed. A decision was then made to proceed with an Intervention, IVUS o r other adjunct procedure. Arterial sheath was exchanged for a 6 Fr Sheath, 70cm long rt radial 6fr JR4 Guide catheter was i nserted and engaged into the RCA. Vickery AP inserted Pass # 1 Vickery AP Removed Vickery AP inserted Pa ss # 2 Vickery AP Removed Angiogram performed pre balloon dilatation. Emerge 3.00x12 Balloon catheter was inserted. PTCA balloon inflated at 10 atms for 18 secs. Angiogram performed post balloon dilatati on. Synergy 4.00x24 Drug Eluting stent was inserted. Angiogram performed post stent deployment. NC Em erge 4.00x12 Balloon catheter was inserted. Angiogram performed post balloon dilatation. The arteri al sheath was pulled and a TR Band was applied for hemostasis w/' 12ml air INTERVENTION INFORMATION LESION SITE: RCA (Distal) Lesion Complexity: High/C, chronic total occlusion: No, lesion at bifurcation: No, thrombus present: Yes, lesion length: 20 mm, culprit lesion: Yes, Previously treated lesion: No Pre Stenosis: 100 % Pre intervention GABBIE flow: 0 PROCEDURE: Thrombectomy, Drug Eluting Stent with pre and post dilatation Post Stenosis: 0 % Post intervention GABBIE flow: 3 Lesion Devices: Cardinal 6 Fr JR4 100cm Guide Catheter Loco .014 [employer] [place] Straight 190cm Medtronic 6 Fr. Vickery AP Aspiration Catheter Nader Sci EMERGE MR 3.00x12 BALLOON Nader Sci Synergy MR JANETH 4.00x24 Nader Sci NC EMERGE MR 4.00x12 BALLOON COMPLICATIONS No Complications PROCEDURE MEDICATIONS Versed 1 mg IV Fentanyl 50 mcg IV Versed 1 mg IV Oxygen: 2 L/min via nasal cannula Baby Aspirin (81mg) 4 Tabs PO,total of 324mg 11/05/2019 09:16:07 Brilinta 180 mg PO @ 11/05/2019 10:12:47 Heparin diluted in 23cc Heparinized saline. Patient given 10cc IA of this solution. 11/05/2019 09:07: 56 Heparin 7000 unit(s) IV 11/05/2019 09:39:57 Nitro 200 mcg IC 11/05/2019 10:02:24 Verapamil 2.5mg, Ntg 100mcgs, 2000 units of Heparin diluted in 23cc Heparinized saline. Patient give n 10cc IA of this solution. 11/05/2019 09:07:56 SUMMARY OF HEMODYNAMIC DATA Time AIR REST ECG 08:45:02 AO 135/86 (109) SA 09:09:19 LV 124/17, 19 09:18:18 LV 119/8, 12 09:18:31 LV 0/4, 0 09:19:21 LVp 121/11, 17 09:19:26 AOp 122/72 (94) 09:19:31 Signed By Carmen Mcgovern MD On 11/05/2019 10:46:06 Carmen Mcgovern MD
[2019-11-05] MEDS: 0.9% Normal Saline 1,000 ML 100 ML IV (10:57)
[2019-11-05] MEDS: predniSONE 20 MG Tablet PO ×2 (10:59→16:26)
[2019-11-05] MEDS: Pantoprazole Sodium 40 MG Tablet PO ×2 (11:00→21:42)
[2019-11-05] MEDS: Loratadine 10 MG Tablet PO (11:00)
[2019-11-05] MEDS: Famotidine 20 MG Tablet PO (11:00)
--- NOTE | 2019-11-05 12:20 | CASEMGMT ---
RN CM Assessment Note Presentation: non-STEMI, PCI with stent to dRCA Intro role of CM and purpose of RN CM assessment to pt's daughter. Unable to speak with pt this am. Called to home, was on phone and daughter offered to assist. Demographics, PCP and Pharmacy verified. Daughter states pt is very independent, does not use any ambulatory or oxygen DME, drives and plan is to have him return home on discharge. PCP: Dr. Bryant Specialists: Dr. Lion Preferred Pharmacy: [facility] Insurance: [facility] Prescription Benefit: yes. Brilinta- savings card placed on front of chart to be given to pt on dc. LNOK : Tanisha Soriano Living Arrangements: Lives independently with . Able to complete ADL without assist. No care needs identified. Transportation: drives DME: none HHC: none Patient DC goals: Home DC PLAN: Home on dc. RN CM advised to contact cm for any concerns/needs that may arise. Daughter states she will let her mother know to call if any concerns, but currently none. Herminia XAVIER RN ACM
[2019-11-05] MEDS: Lisinopril 20 MG Tablet PO (14:17)
[2019-11-05] MEDS: hydroCHLOROthiazide 12.5mg 12.5 MG PO (14:17)
[2019-11-05] MEDS: oxyCODONE 5 MG Tablet 10 MG PO (14:18)
--- NOTE | 2019-11-05 14:51 | CRPHASE1_ITS ---
Patient Communication PHII Cardiac Rehab Discussed with Patient:: Yes Guide to Cardiac Rehab Given to Patient:: Yes Cardiac Rehab Facility Choice List Given to Patient:: Yes Choice Program [facility] CR PHII:: Communication Given to CR - Booklet left with MECHANICAL METER TESTER for patient due to not being able to see patient at this time., Refer to [facility] Refer Phase II Cardiac Rehab:: Yes Sessions:: 36 sessions - 3 days/wk, 12 weeks Risk Factors/Lifestyle Family History: Family History (Last Updated 11/05/19 @ 12:04 by Ameena Thacker) Other Adopted Laboratory Values: Cardiac Rehab Phase I Labs Hemoglobin A1c 5.8 % (4.2-6.3) 11/04/19 17:14 Triglycerides 110 mg/dL (-199) 11/05/19 06:10 Cholesterol 218 mg/dL (200) H 11/05/19 06:10 LDL Cholesterol 149 mg/dL (0-130) H 11/05/19 06:10 HDL Cholesterol 47 mg/dL (40-) 11/05/19 06:10 Cardiac Rehabilitation Info Cardiac Rehabilitation Program Information: Cardiac Rehabilitation is important for patients like you who are recovering from a heart problem. Cardiac rehabilitation programs are recognized as integral to the continued care of the patient with coronary heart disease. The cardiac rehabilitation program is designed to optimize a patient's physical, psychological, and social functioning. Health ocular care technologist work in cardiac rehabilitation programs and assist you with getting the treatments you need to get stronger and healthier - like exercise, healthy eating habits, and medications. Cardiac rehabilitation has been show to help people with heart problems live longer and have better life enjoyment than people who do not go to cardiac rehabilitation. Please contact the Cardiac Rehabilitation Program at [facility] at in two weeks if you have not heard from them.
--- NOTE | 2019-11-05 14:52 | CRPH1.INSTRU ---
General Education CAD and cardiac anatomy and function:: Not instructed Explanation of diagnoses and procedures:: Not instructed Sign/Symptoms of [place]:: Not instructed Antiplatelet therapy: Not instructed Proper use of NTG-SL: Not instructed Emergency procedures and activation of EMS: Not instructed Compliance of all prescribed medications: Not instructed - CR staff not able to see pateint per his RN, booklet left with RN for patient.
[2019-11-05] MEDS: Docusate Sodium 100 MG Capsule PO (21:41)
[2019-11-05] MEDS: Atorvastatin Calcium 40 MG Tablet PO (21:42)
[2019-11-05] MEDS: TICAGRELOR 90 MG TABLET PO (21:42)
[2019-11-05] MEDS: Mag Hydrox/Al Hydrox/Simeth 30 ML UDC PO (21:47)
--- NOTE | 2019-11-05 22:54 | PN_ITS ---
Patient Problems: Active and Suspected Problems (Last Updated 11/05/19 @ 12:05 by Ameena Thacker) History of non-ST elevation myocardial infarction (NSTEMI) (Acute 11/04/19) Atherosclerosis of coronary artery without angina pectoris (Acute) History of coronary artery stent placement (Acute) WAD-UOD-Nod-Distal RCA w/ 4.00 x 24 mm Synergy MR Stent 11/05/2019 Essential (primary) hypertension (Acute) Subjective: Patient following a.m. cardiopulmonary arrest this morning at approximately 5:10 AM with CPR initiated x2 minutes with resumption of pulse with episode of VT prior to the indent with initiation of amiodarone and transition from PCU to ICU with cardiology update. Patient following ICU transition with improvement his mental status as previously been very confused and agitated following return of circulation. Patient with ongoing chest discomfort intermittent complaints worsened following recent CPR but also worse with any exertion or certain movements. Cardiac catheterization performed emergently with PCI as noted. Following PCI patient has had resolution of symptoms and is clinically been improving. Patient denies fevers, chills, nausea, emesis, abdominal pain, dyspnea. Objective: Physical Examination: General: Improved from previous examination following cardiopulmonary arrest, awake, alert, oriented x 3, more cooperative, seated upright in the ICU bed, NAD, still intermittent chest pain episodes with exertion. Skin: normal color, turgor, no icterus, cyanosis. HEENT: AT/NC, EOMI, PERRLA, MMM, no carotid bruits or JVD noted. Lungs: CTA bilaterally, moderate effort, mild decrease BL bases, no rales, ronchi or wheezing. Heart: Mildly bradycardic with regular rhythm; no gallop, rub audible, discomfort with any palpation of the anterior chest secondary to recent CPR. Abdomen: soft, obese, NTTP, ND, normal BS, no HSM. Extremities: no cyanosis, clubbing, or edema. Neurological: patient awake, alert, oriented x 3; cognitive function now returned to suspected baseline; pupils equally reactive to light and accomodation; cranial nerves II-XII grossly normal, moving all 4 extremities, no focal deficits, strength moderately to severely globally Mirella secondary to acute presentation and recent events. Psychiatric: affect appears fatigued, no acute evidence of depressive or anxiety feelings. Vitals/I&O's: Vital Signs Temp Pulse Resp BP Pulse Ox 98.5 F 64 17 111/63 95 11/05/19 16:00 11/05/19 18:00 11/05/19 18:00 11/05/19 18:00 11/05/19 18:00 Oxygen Flow Rate (L/min) 2 Oxygen Delivery Method Room Air Weight: 265 lb 14.04 oz Body Mass Index (BMI) 35.6 Intake and Output for Last 24 Hours 11/03/19 11/04/19 11/05/19 23:59 23:59 23:59 Intake Total 582.5 / 582.5 2183.21 / 2183.21 Output Total 550 / 550 Balance 582.5 / 582.5 1633.21 / 1633.21 Laboratory Results 11/05/19 06:10: Sodium 135 L, Potassium 4.0, Chloride 104, Carbon Dioxide 21.0, Anion Gap 10, BUN 14, Creatinine 1.10, Estim Creat Clear Calc 69.57, Est GFR (MDRD) Af Amer 85, Est GFR (MDRD) Non-Af 71, BUN/Creatinine Ratio 12.7, Glucose 188 H, Calcium 8.8, Triglycerides 110, Cholesterol 218 H, LDL Cholesterol 149 H, VLDL Cholesterol 22, HDL Cholesterol 47 11/05/19 06:10: WBC 13.1 H, RBC 4.64, Hgb 14.1, Hct 41.6, MCV 89.7, MCH 30.4, MCHC 33.9, RDW Std Deviation 46.7 H, RDW Coeff of Rose 14.4, Plt Count 241, MPV 10.6, Immature Gran % (Auto) 0.400, Neut % (Auto) 83.0 H, Lymph % (Auto) 10.7 L, Pett[place] % (Auto) 5.4, Eos % (Auto) 0.2, Baso % (Auto) 0.3, Absolute Neuts (auto) 10.8 H, Absolute Lymphs (auto) 1.40, Nucleated RBC % 0 11/05/19 06:10: PT 14.4, INR 1.2, APTT 29.7 11/05/19 06:10: Troponin I 6.880 H* Current Medications Acetaminophen (Tylenol) 650 mg PO Q6H PRN PRN PRN Reason: Pain Score 1-10/Temp > 100.7 F Last Admin: 11/05/19 21:41 Dose: 650 mg Documented by: Al Hydroxide/Mg Hydroxide (Mylanta Ii) 30 ml PO Q6H PRN PRN PRN Reason: Heartburn, indigestion Last Admin: 11/05/19 21:47 Dose: 30 ml Documented by: Aspirin (Ecotrin) 81 mg PO DAILY@0800 [facility] Atorvastatin Calcium (Lipitor) 40 mg PO QHS [facility] Last Admin: 11/05/19 21:42 Dose: 40 mg Documented by: Atropine Sulfate () 0.5 mg IV UD PRN PRN Reason: HR <50 bpm Docusate Sodium (Colace) 100 mg PO BID [facility] Last Admin: 11/05/19 21:41 Dose: 100 mg Documented by: Heparin Sodium (Beef Lung) (Heparin 500 Unit/5 Ml (100/Ml)) 500 unit IV UD PRN PRN Reason: HEPARIN FLUSH Hydralazine HCl (Apresoline Iv) 10 mg IV Q8H PRN PRN PRN Reason: for SBP>160 Hydrochlorothiazide () 12.5 mg PO DAILY [facility] Last Admin: 11/05/19 14:17 Dose: 12.5 mg Documented by: Labetalol HCl (Trandate) 5 mg IV X1 PRN PRN Reason: SBP > 160 when pulling sheath Stop: 11/07/19 10:29 Lisinopril (Zestril) 20 mg PO DAILY [facility] Last Admin: 11/05/19 14:17 Dose: 20 mg Documented by: Loratadine (Claritin) 10 mg PO DAILY [facility] Last Admin: 11/05/19 11:00 Dose: 10 mg Documented by: Nitroglycerin (Nitrostat) 0.4 mg SUBLINGUAL Q5M PRN PRN Reason: CARDIAC/CHEST PAIN Ondansetron HCl (Zofran) 4 mg IV Q8H PRN PRN PRN Reason: NAUSEA/VOMITING Last Admin: 11/05/19 03:23 Dose: 4 mg Documented by: Oxycodone HCl (Oxyir) 10 mg PO Q6H PRN PRN PRN Reason: Pain Score 6-10/10 Last Admin: 11/05/19 14:18 Dose: 10 mg Documented by: Pantoprazole Sodium (Protonix) 40 mg PO BID [facility] Last Admin: 11/05/19 21:42 Dose: 40 mg Documented by: Prednisone () 20 mg PO BIDCM [facility] Last Admin: 11/05/19 16:26 Dose: 20 mg Documented by: Sodium Chloride () 10 - 40 ml IV UD PRN PRN Reason: SALINE FLUSH Last Admin: 11/05/19 11:26 Dose: 10 ml Documented by: Sodium Chloride () 500 ml IV BOLUS PRN PRN Reason: VASO-VAGAL PROTOCOL Ticagrelor (Brilinta) 90 mg PO BID [facility] Last Admin: 11/05/19 21:42 Dose: 90 mg Documented by: Medical Necessity - Tobacco Use Smoking Status: Never smoker Assessment/Plan All Active Problems (Last Updated 11/05/19 @ 12:05 by Ameena Thacker) History of non-ST elevation myocardial infarction (NSTEMI) (Acute 11/04/19) Atherosclerosis of coronary artery without angina pectoris (Acute) History of coronary artery stent placement (Acute) Essential (primary) hypertension (Acute) Chest pain (Resolved) The patient is a 69 y/o M w/ PMHx: LINDSEY, GERD, Obesity who presents to the [facility] ED on 11/04/19 with history of retrosternal chest discomfort, worse with exertion with associated dyspepsia, non-radiating with associated dyspnea prompting ED presentation. 1. Chest Pain w/ Acute NSTEMI complicated by #2: Initially admitted to PCU, transferred to ICU 11/05/19 early AM following VT and cardiac arrest lasting 2 minutes with ROSC following, maintained on a monitored bed, continued serial cardiac enzymes w/ series <0.015->1/970->4.020->6.880, trend EKGs. Mag 2.5, therapeutic lovenox administered initially prior to catheterization. Continue medical management w/ asa, brillinta, lisinopril, add coreg but will defer change of patient regimen to cardiology discretion, statin w/ AM FLP. Cardiology consulted and following during admission. 11/05/2019 a.m. cardiac catheterization with evidence of a total occlusion of the mid to distal RCA with a left to right collaterals and mild disease in the left anterior descending artery as well as in the circumflex artery and ramus intermedius system with reduced LV systolic function 40 to 45% with near akinesis of the mid inferior wall with immediate PCI performed with patient transitioned again back to the ICU following, initiated and continued on an Integrilin drip. Patient with remote history during L knee surgery of possible allergy to iodine dye, thus Cardiology administered pepcid and prednisone therapy. ASA, NG, morphine. 2. Ventricular tachycardia with cardiopulmonary associated arrest with ROSC: Patient with 11/05/2019 early a.m. episode of VT followed by cardiac arrest with CPR x2 minutes with resumption of pulse following with transition to the ICU and initiation of amiodarone with cardiology update. Patient completed amiodarone and this was since discontinued per cardiology. Patient currently not on any beta-gregg therapy, will add low dose coreg given rate freqently 60s, but will defer alterations to cardiology discretion. ECHO w/ normal LV, normal LV systolic function, EF 60%, mildly enlarged LA. As noted patient underwent ca rdiac catheterization with PCI secondary to significant RCA disease. 3. Hyperglycemia: Admission glucose 151 with repeat 188, hemoglobin A1c obtained and noted to be 5.8%. 4. Hypertension: Continue home regimen including hydrochlorothiazide, lisinopril, add low dose coreg but will defer regimen alterations to cardiology discretion especially given heart rate consistently in the 60s, PRN hydralazine. 5. Hyperlipidemia: High dose statin added, FLP with triglycerides 110, total cholesterol 218, LDL 149, VLDL 22, HDL 47. 6. LINDSEY: Continue home CPAP. 7. GERD: Transition off protonix given cardiology usage of pepcid for possible allergy treatment if dye usage. 8. DVT prophylaxis: SCDs, previous to cardiac catheterization was administered therapeutic Lovenox, currently not on agent, recommend adding a.m. Lovenox if appropriate. 9. CODE STATUS: Full. Inpatient E&M: 64060 Subs Hosp L3
[2019-11-06] VITALS (12 sets, daily range): BP systolic 110–142; BP diastolic 62–84; PULSE 60–82; RESP 12–18; TEMP 36.6–37.2; O2SAT 95–100
[2019-11-06 04:56] LABS: Hematocrit 38.1 % (40-54); Hemoglobin 12.6 g/dL (13.0-16.5); Mean Corp Hgb Conc 33.1 g/dL (32-36); Mean Corpuscular Volume 90.7 fL (80-94); Mean Platelet Vol. 10.6 fl (6.2-12.0); Platelet Count 239 K/mm3 (150-450); RBC Distribution Width CV 14.7 % (11.6-14.6); White Blood Count 9.9 K/mm3 (4.4-11.0)
[2019-11-06 05:08] LABS: ALB/GLOB Ratio 0.8 RATIO (0.9-2.4); AST(SGOT) 118 U/L (15-37); Alanine Aminotransfer ALT/SGPT 43 U/L (16-61); Alkaline Phosphatase 78 U/L (45-117); Anion Gap 7 (5-15); BUN 17 mg/dL (7-18); BUN/Creat Ratio 17.3 RATIO (10-20); Calcium,Total 8.5 mg/dL (8.5-10.1); Chloride 104 mmol/L (98-107); Creatinine, Serum 0.98 mg/dL (0.70-1.30); EST Glomerular Filtration Rate 81 mL/min (>60); Est Glom Filt Rate - Afr Amer 97 mL/min (>60); Estimated Creatinine Clearance 78.08 ml/min; Globulin 3.8 g/dL (2.2-4.2); Glucose 117 mg/dL (74-106); Potassium 4.3 mmol/L (3.5-5.1); Protein, Total 6.8 g/dL (6.4-8.2); Sodium Level 136 mmol/L (136-145)
--- NOTE | 2019-11-06 07:09 | PN_ITS ---
Subjective: The patient was seen and examined at the bedside this morning. Events from the last 24 hours have been reviewed. The patient is currently afebrile, hemodynamically stable and maintaining appropriate oxygen saturations on room air. No overnight events were noted by the nursing staff. The patient did undergo cardiac catheterization yesterday with successful drug-eluting stent placement to the distal RCA. Objective: The patient's most recent lab work, culture data and imaging studies have all been personally reviewed. Surface echocardiogram revealed normal LV size and function with an ejection fraction of 60%. General: Alert, Cooperative, No apparent distress HEENT: Atraumatic, Normocephalic Oral: No Gingival or Mucosal Lesions/ Ulcerations Neck: Supple, No Nodes, Trachea Midline Lungs: Normal air movement Cardiovascular: Regular rate, Regular Rhythm, Normal S1, Normal S2 Abdomen: Bowel Sounds Present, Soft, Non Tender Extremities: No clubbing, No cyanosis, No edema Skin: No breakdown Musculoskeletal: No Muscle Wasting Lymphatic: No Cervical, Supraclavicular, or Inguinal Adenopathy Neurological: Neuro grossly intact Psych/Mental Status: Normal Affect, Appropriate Vital Signs Temp Pulse Resp BP Pulse Ox 98.9 F 61 15 117/68 96 11/06/19 04:00 11/06/19 06:00 11/06/19 06:00 11/06/19 06:00 11/06/19 06:00 Oxygen Flow Rate (L/min) 2 Oxygen Delivery Method Room Air Weight: 265 lb 10.512 oz Body Mass Index (BMI) 35.6 Intake and Output for Last 24 Hours 11/04/19 11/05/19 11/06/19 23:59 23:59 23:59 Intake Total 582.5 / 582.5 2183.21 / 2467.60 340.00 / 340.00 Output Total 550 / 1050 850 / 850 Balance 582.5 / 582.5 1633.21 / 1417.60 -510.00 / -510.00 Labs (Last 48 Hours) 11/04/19 11/04/19 11/04/19 13:10 13:10 17:14 WBC 6.5 RBC 4.49 L Hgb 13.8 Hct 41.0 MCV 91.3 MCH 30.7 MCHC 33.7 RDW Std Deviation 49.0 H RDW Coeff of Rose 14.7 H Plt Count 219 MPV 10.7 Immature Gran % (Auto) 0.300 Neut % (Auto) 61.1 Lymph % (Auto) 23.8 [place] % (Auto) 10.8 H Eos % (Auto) 3.5 Baso % (Auto) 0.5 Absolute Neuts (auto) 4.0 Absolute Lymphs (auto) 1.55 Nucleated RBC % 0 PT INR APTT Sodium 139 Potassium 4.1 Chloride 107 Carbon Dioxide 26.0 Anion Gap 6 BUN 15 Creatinine 1.20 Estim Creat Clear Calc 63.77 Est GFR (MDRD) Af Amer 77 Est GFR (MDRD) Non-Af 64 BUN/Creatinine Ratio 12.5 Glucose 151 H Hemoglobin A1c 5.8 Calcium 9.2 Magnesium Total Bilirubin AST ALT Alkaline Phosphatase Troponin I < 0.015 Total Protein Albumin Globulin Albumin/Globulin Ratio Triglycerides Cholesterol LDL Cholesterol VLDL Cholesterol HDL Cholesterol 11/04/19 11/04/19 11/04/19 17:14 20:23 20:23 WBC RBC Hgb Hct MCV MCH MCHC RDW Std Deviation RDW Coeff of Rose Plt Count MPV Immature Gran % (Auto) Neut % (Auto) Lymph % (Auto) [place] % (Auto) Eos % (Auto) Baso % (Auto) Absolute Neuts (auto) Absolute Lymphs (auto) Nucleated RBC % PT INR APTT Sodium Potassium Chloride Carbon Dioxide Anion Gap BUN Creatinine Estim Creat Clear Calc Est GFR (MDRD) Af Amer Est GFR (MDRD) Non-Af BUN/Creatinine Ratio Glucose Hemoglobin A1c Calcium Magnesium 2.5 Total Bilirubin AST ALT Alkaline Phosphatase Troponin I 1.970 H* 4.020 H* Total Protein Albumin Globulin Albumin/Globulin Ratio Triglycerides Cholesterol LDL Cholesterol VLDL Cholesterol HDL Cholesterol 11/05/19 11/05/19 11/05/19 06:10 06:10 06:10 WBC 13.1 H RBC 4.64 Hgb 14.1 Hct 41.6 MCV 89.7 MCH 30.4 MCHC 33.9 RDW Std Deviation 46.7 H RDW Coeff of Rose 14.4 Plt Count 241 MPV 10.6 Immature Gran % (Auto) 0.400 Neut % (Auto) 83.0 H Lymph % (Auto) 10.7 L [place] % (Auto) 5.4 Eos % (Auto) 0.2 Baso % (Auto) 0.3 Absolute Neuts (auto) 10.8 H Absolute Lymphs (auto) 1.40 Nucleated RBC % 0 PT 14.4 INR 1.2 APTT 29.7 Sodium 135 L Potassium 4.0 Chloride 104 Carbon Dioxide 21.0 Anion Gap 10 BUN 14 Creatinine 1.10 Estim Creat Clear Calc 69.57 Est GFR (MDRD) Af Amer 85 Est GFR (MDRD) Non-Af 71 BUN/Creatinine Ratio 12.7 Glucose 188 H Hemoglobin A1c Calcium 8.8 Magnesium Total Bilirubin AST ALT Alkaline Phosphatase Troponin I Total Protein Albumin Globulin Albumin/Globulin Ratio Triglycerides 110 Cholesterol 218 H LDL Cholesterol 149 H VLDL Cholesterol 22 HDL Cholesterol 47 11/05/19 11/06/19 11/06/19 06:10 04:45 04:45 WBC 9.9 RBC 4.20 L Hgb 12.6 L Hct 38.1 L MCV 90.7 MCH 30.0 MCHC 33.1 RDW Std Deviation 49.0 H RDW Coeff of Rose 14.7 H Plt Count 239 MPV 10.6 Immature Gran % (Auto) Neut % (Auto) Lymph % (Auto) [place] % (Auto) Eos % (Auto) Baso % (Auto) Absolute Neuts (auto) Absolute Lymphs (auto) Nucleated RBC % PT INR APTT Sodium 136 Potassium 4.3 Chloride 104 Carbon Dioxide 25.0 Anion Gap 7 BUN 17 Creatinine 0.98 Estim Creat Clear Calc 78.08 Est GFR (MDRD) Af Amer 97 Est GFR (MDRD) Non-Af 81 BUN/Creatinine Ratio 17.3 Glucose 117 H Hemoglobin A1c Calcium 8.5 Magnesium Total Bilirubin 0.70 AST 118 H ALT 43 Alkaline Phosphatase 78 Troponin I 6.880 H* Total Protein 6.8 Albumin 3.0 L Globulin 3.8 Albumin/Globulin Ratio 0.8 L Triglycerides Cholesterol LDL Cholesterol VLDL Cholesterol HDL Cholesterol Clinical Impression(s) from Imaging Studies Chest X-Ray 11/04/19 13:44 IMPRESSION: Normal x-ray examination of the chest. Electronically Signed: Juan M Pineda MD at 14:16 EDT , Service support , Medical Necessity - Tobacco Use Smoking Status: Never smoker Assessment/Plan All Active Problems (Last Updated 11/05/19 @ 12:05 by Ameena Thacker) History of non-ST elevation myocardial infarction (NSTEMI) (Acute 11/04/19) Atherosclerosis of coronary artery without angina pectoris (Acute) History of coronary artery stent placement (Acute) Essential (primary) hypertension (Acute) Chest pain (Resolved) RECOMMENDATIONS: 1. Encourage incentive spirometer use and mobilize patient as tolerated. 2. Continue medical management per cardiology recommendations. 3. As the patient is without further ICU or pulmonary needs, will sign off. Please call with any additional questions. IMPRESSIONS: 1. Chest pain/acute coronary syndrome/status post transient cardiac arrest Continue current medical management per cardiology recommendations. Cardiac catheterization did reveal a totally occluded mid to distal right coronary artery. The patient subsequently underwent drug-eluting stent placement to the distal RCA. The patient is currently maintaining appropriate oxygen saturations on room air. 2. Hypertension/GERD/obstructive sleep apnea Complicates care, management, recovery and prognosis. Continue home medications as indicated. Physical therapy evaluation following routine bedrest post catheterization. This note was generated with [employer] dictation software. It may contain incorrect words, spelling, and punctuation that were not noted in checking the note before signing. Inpatient E&M: 18508 Subs Hosp L2
--- NOTE | 2019-11-06 07:59 | PN.CARD_ITS ---
Subjectve: Patient seen and evaluated. Appears to be doing well. No complaints this morning. He does have mild chest pain from where he had his CPR Objective: Vital Signs Temp Pulse Resp BP Pulse Ox 97.8 F 72 18 142/84 H 96 11/06/19 07:45 11/06/19 07:45 11/06/19 07:45 11/06/19 07:45 11/06/19 07:45 Oxygen Flow Rate (L/min) 2 Oxygen Delivery Method Room Air Weight: 265 lb 10.512 oz Body Mass Index (BMI) 35.6 Intake and Output for Last 24 Hours 11/04/19 11/05/19 11/06/19 23:59 23:59 23:59 Intake Total 582.5 / 582.5 2183.21 / 2467.60 368.95 / 368.95 Output Total 550 / 1050 1050 / 1050 Balance 582.5 / 582.5 1633.21 / 1417.60 -681.05 / -681.05 General: Awake, Alert, Oriented x 3 HEENT: PERRL, EOMI, Sclera Non Icteric Neck: Supple, Good ROM, No Lymph Node Enlargement Lungs: Clear to auscultation Cardiovascular: Regular Rhythm, Normal S1, Normal S2, No Murmurs, No Rubs, No Gallops Vascular: No Carotid Bruits, Normal Femoral Pulses, Normal Radial Pulses, Normal Dorsalis Pedal Pulse, Normal Posterior Tibial Pulses Abdomen: Bowel Sounds Present, Soft, Non Tender, No HSM, No Organomegaly Extremities: No Cyanosis, No Clubbing, No edema Musculoskeletal: No Erythema Skin: No Rashes Lymphatic: No Lymph Node Enlargement Neurological: No Focal Motor or Sensory Deficit Psych/Mental Status: Appropriate 11/06/19 04:45: WBC 9.9, RBC 4.20 L, Hgb 12.6 L, Hct 38.1 L, MCV 90.7, MCH 30.0, MCHC 33.1, Plt Count 239, MPV 10.6 11/06/19 04:45: Sodium 136, Potassium 4.3, Chloride 104, Carbon Dioxide 25.0, Anion Gap 7, BUN 17, Creatinine 0.98, Est GFR (MDRD) Af Amer 97, Est GFR (MDRD) Non-Af 81, BUN/Creatinine Ratio 17.3, Glucose 117 H, Calcium 8.5, Total Bilirubin 0.70 Rhythm: EKG: ECHO: Stress Test: Cardiac Cath: PCI: CT Surgery: Holter monitor: EPS: PPM: CXR: Chest CT Scan: Medical Necessity - Tobacco Use Smoking Status: Never smoker Assessment/Plan 1. Recent ST elevation myocardial infarction * Patient appears to have had a recent myocardial infarction complicated by VT. * Patient was brought urgently to the cardiac catheterization lab yesterday * It demonstrated a totally occluded right coronary artery with [id number] collaterals. * Mild disease noted in the left anterior descending artery and circumflex artery system. He underwent angioplasty and stenting of the right coronary artery. This morning he appears to doing remarkably well. * Plan will be to discharge him on the current medications. 2. Left ventricular systolic dysfunction * Patient has mild low ventricular systolic dysfunction estimated at 40 to 45% with near akinesis of the mid inferior wall. * Would initiate BERT inhibitor * Continue beta-gregg * 3. Risk factor modification * Patient to start high intensity statin. * * Thank you for allowing me to participate in the care of your patient. Please don't hesitate to call if any issues arise. * Follow-up in my office will be arranged.
[2019-11-06] MEDS: hydroCHLOROthiazide 12.5mg 12.5 MG PO (09:15)
[2019-11-06] MEDS: Docusate Sodium 100 MG Capsule PO (09:15)
[2019-11-06] MEDS: Aspirin E.C. 81 MG Tablet PO (09:16)
[2019-11-06] MEDS: Loratadine 10 MG Tablet PO (09:16)
[2019-11-06] MEDS: TICAGRELOR 90 MG TABLET PO (09:16)
[2019-11-06] MEDS: Lisinopril 20 MG Tablet PO (09:16)
[2019-11-06] MEDS: Carvedilol 6.25 MG Tablet PO (09:16)
[2019-11-06] MEDS: predniSONE 20 MG Tablet PO (09:16)
[2019-11-06] MEDS: Famotidine 20 MG Tablet PO (09:16)
--- NOTE | 2019-11-06 10:29 | PCM.DC ---
- Discharge Diagnoses Current Active Problems: Current Active and Chronic Problems (Last Updated 11/05/19 @ 12:05 by Ameena Thacker) History of non-ST elevation myocardial infarction (NSTEMI) (Acute 11/04/19) Atherosclerosis of coronary artery without angina pectoris (Acute) History of coronary artery stent placement (Acute) [id number]-[id number]-Distal RCA w/ 4.00 x 24 mm Synergy MR Stent 11/05/2019 Essential (primary) hypertension (Acute) Hyperlipidemia (Chronic) Obstructive sleep apnea (Chronic) You will use the following diet at home:: Cardiac Your food should be the consistency of: Regular Your liquids should be the consistency of: Regular/Thin Discharge Activity: Return to Normal Activity Weight Bearing Status: Weight bearing as tolerated Call your doctor if you observe: Fever of 101 or Higher, Shortness of breath, Dizziness, Swelling in the ankles, Chest pain, Increased palpitations (irregular heartbeat) Instructions: ED Heart Disease Risk Factors, Understanding Coronary Artery Disease (CAD), Heart Attack, Symptoms of a Heart Attack, Exercising After a Heart Attack, Getting Started With Cardiac Rehab: Exercise, Know the Medications You're Taking Allergies/Adverse Reactions: Allergies iodine Allergy (Verified 11/06/19 03:41) Rash Penicillins [PCN] Allergy (Verified 11/04/19 13:03) Rash wool Allergy (Verified 11/04/19 13:03) Rash aspirin Adverse Reaction (Verified 11/04/19 18:42) Upset Stomach Medications to take at Discharge Ascorbate Calcium [Vitamin C] PO DAILY 11/04/19 Fexofenadine HCl 60 mg PO DAILY 11/04/19 Glucosamine/Chondr Calderón A Sod [Glucosamine-Chondroitin Liq] 480 ml PO BID 11/04/19 Pantoprazole Sodium [Protonix] 40 mg PO DAILY 11/04/19 Aspirin E.C. [Ecotrin] 81 mg PO DAILY@0800 #30 tab 11/06/19 Atorvastatin Calcium [Lipitor] 40 mg PO QHS #30 tab 11/06/19 Carvedilol [Coreg (Beta Kylie)] 6.25 mg PO BIDCM #60 tab 11/06/19 Lisinopril [Zestril] 20 mg PO DAILY #30 tab 11/06/19 Ticagrelor [Brilinta] 90 mg PO BID #60 tab 11/06/19 hydroCHLOROthiazide [Hydrochlorothiazide] 12.5 mg PO DAILY #30 cap 11/06/19 The following prescriptions were given: Ticagrelor [Brilinta] 90 mg PO BID #60 tab Transmission Status: Pending to [facility] Carvedilol [Coreg (Beta Kylie)] 6.25 mg PO BIDCM #60 tab Transmission Status: Pending to [facility] [address] [facility] Aspirin E.C. [Ecotrin] 81 mg PO DAILY@0800 #30 tab Transmission Status: Pending to [facility] hydroCHLOROthiazide [Hydrochlorothiazide] 12.5 mg PO DAILY #30 cap Transmission Status: Pending to [facility] Atorvastatin Calcium [Lipitor] 40 mg PO QHS #30 tab Transmission Status: Pending to [facility] Lisinopril [Zestril] 20 mg PO DAILY #30 tab Transmission Status: Pending to [facility] Primary Care Physician: Abisai Bryant DO [Primary Care Provider] - Please follow up with your Primary Care Physician in: 1-2 weeks Test Results: Test results from this visit will be discussed in further detail at your follow-up appointment, if applicable. Please Follow Up With: Damian Lion MD When: 1-2 weeks Please Follow Up With: Mayo Carbajal DO When: 1-2 weeks Proposed Discharge Date: 11/06/19
--- NOTE | 2019-11-06 10:35 | DS.PCM_ITS ---
Discharge Date and Diagnosis - Problem List Patient Problems: Active and Suspected Problems (Last Updated 11/05/19 @ 12:05 by Ameena Thacker) Essential (primary) hypertension (Acute) Date of Admission: 11/04/19 Date of Discharge: 11/06/19 - Primary Discharge Diagnosis Active and Suspected Problems (Last Updated 11/05/19 @ 12:05 by Ameena Thacker) History of non-ST elevation myocardial infarction (NSTEMI) (Acute 11/04/19) Atherosclerosis of coronary artery without angina pectoris (Acute) History of coronary artery stent placement (Acute) [id number]-Ecm-Distal RCA w/ 4.00 x 24 mm Synergy MR Stent 11/05/2019 Essential (primary) hypertension (Acute) - Secondary Discharge Diagnosis Chronic Problems (Last Updated 11/05/19 @ 12:05 by Ameena Thacker) Hyperlipidemia (Chronic) Obstructive sleep apnea (Chronic) GERD (gastroesophageal reflux disease) (Chronic) Hospital Course and Treatment Imaging Results: Diagnostic Data Chest X-Ray 11/04/19 13:44 IMPRESSION: Normal x-ray examination of the chest. Electronically Signed: Juan M Pineda MD at 14:16 EDT , Service support , Interpretation Summary Normal left ventricle. Left ventricular systolic function is normal. The estimated ejection fraction is 60 %. The left atrium is mildly enlarged. Contrast injection was performed. cardiology Operations: None Procedures: 2-D Echocardiogram, Cardiac catheterization Summary of Care Provided: The patient is a 69 year old M with a past medical history as outlined was admitted through the ED on 11/04/2019 with a complaint of chest pain which started on the morning of admission. It was worsened by exertion and retrosternal and rated at 4 out of 10 in intensity and aggravated by taking in a deep breath. He had assisted shortness of breath. He had thought that his pain was due to indigestion and had been having similar pain intermittently over the past week prior to admission. On admission vitals were stable and EKG showed no acute ST changes. Initial troponin was negative and chest x-ray showed no acute findings. He was admitted to be managed for chest pain rule out ACS. Cardiology was consulted. Patient subsequently developed V. tach the following morning and became unresponsive for about 2 minutes. He subsequently regained spontaneous circulation and was started on IV amiodarone bolus and transferred to the ICU. Cardiology was also updated. Bianca was consulted. He had cardiac cath which showed a totally occluded mid to distal RCA with [id number]-ss-[id number] collaterals and mild disease noted in the left anterior descending artery as well as the circumflex artery and ramus intermedius system with reduced left ventricular systolic function. He had PCI with stent placement in the distal RCA. Patient tolerated procedure well and remained stable afterwards. He was discharged home on 11/06/2019. He was discharged on p.o. aspirin, Brilinta, atorvastatin and lisinopril as well as carvedilol and hydrochlorothiazide. He is to follow-up with his primary care doctor and cardiology within 1 week. Seen and examined prior to discharge. He had no complaints and felt well. Review of systems otherwise negative. Labs and vitals reviewed. Home medication reviewed and reconciled. o/e: Vital Signs Temp Pulse Resp BP Pulse Ox 97.8 F 71 18 129/71 H 100 11/06/19 07:45 11/06/19 10:52 11/06/19 10:52 11/06/19 10:52 11/06/19 10:52 [] Patient Problems: Active and Suspected Problems (Last Updated 11/05/19 @ 12:05 by Ameena Thacker) Essential (primary) hypertension (Acute) - Physical Exam Vitals/I&O's: Vital Signs Temp Pulse Resp BP Pulse Ox 97.8 F 73 18 129/71 H 100 11/06/19 07:45 11/06/19 10:00 11/06/19 10:00 11/06/19 10:00 11/06/19 10:00 Oxygen Flow Rate (L/min) 2 Oxygen Delivery Method Room Air Weight: 265 lb 10.512 oz Body Mass Index (BMI) 35.6 Intake and Output for Last 24 Hours 11/04/19 11/05/19 11/06/19 23:59 23:59 23:59 Intake Total 582.5 / 582.5 2183.21 / 2467.60 368.95 / 368.95 Output Total 550 / 1050 1150 / 1150 Balance 582.5 / 582.5 1633.21 / 1417.60 -781.05 / -781.05 General: Alert, Oriented x3, Cooperative, No apparent distress HEENT: Atraumatic, PERRLA, EOMI, Normocephalic Oral: Moist Mucosa Neck: Supple, No JVD, Negative Carotid Bruits Lungs: Clear to auscultation, Normal air movement Cardiovascular: Regular rate, Regular Rhythm, Normal S1, Normal S2, No murmurs Abdomen: Bowel Sounds Present, Soft, Non Tender Extremities: No clubbing, No cyanosis, No edema Skin: No rashes, No breakdown Musculoskeletal: No Tenderness to Palpation of Joints or Extremities Lymphatic: No Cervical, Supraclavicular, or Inguinal Adenopathy Neurological: Cranial nerves II-XII grossly intact, Neuro grossly intact, Motor Exam 5/5 strength throughout Psych/Mental Status: Normal Affect, Appropriate, Alert and oriented to time, place, person, mood and affect Laboratory Results 11/06/19 04:45: WBC 9.9, RBC 4.20 L, Hgb 12.6 L, Hct 38.1 L, MCV 90.7, MCH 30.0, MCHC 33.1, RDW Std Deviation 49.0 H, RDW Coeff of Rose 14.7 H, Plt Count 239, MPV 10.6 11/06/19 04:45: Sodium 136, Potassium 4.3, Chloride 104, Carbon Dioxide 25.0, Anion Gap 7, BUN 17, Creatinine 0.98, Estim Creat Clear Calc 78.08, Est GFR (MDRD) Af Amer 97, Est GFR (MDRD) Non-Af 81, BUN/Creatinine Ratio 17.3, Glucose 117 H, Calcium 8.5, Total Bilirubin 0.70, AST 118 H, ALT 43, Alkaline Phosphatase 78, Total Protein 6.8, Albumin 3.0 L, Globulin 3.8, Albumin/Globulin Ratio 0.8 L Current Medications Acetaminophen (Tylenol) 650 mg PO Q6H PRN PRN PRN Reason: Pain Score 1-10/Temp > 100.7 F Last Admin: 11/05/19 21:41 Dose: 650 mg Documented by: Al Hydroxide/Mg Hydroxide (Mylanta Ii) 30 ml PO Q6H PRN PRN PRN Reason: Heartburn, indigestion Last Admin: 11/05/19 21:47 Dose: 30 ml Documented by: Aspirin (Ecotrin) 81 mg PO DAILY@0800 DIPAK Last Admin: 11/06/19 09:16 Dose: 81 mg Documented by: Atorvastatin Calcium (Lipitor) 40 mg PO QHS [facility] Last Admin: 11/05/19 21:42 Dose: 40 mg Documented by: Atropine Sulfate () 0.5 mg IV UD PRN PRN Reason: HR <50 bpm [facility] Last Admin: 11/06/19 09:16 Dose: 6.25 mg Documented by: Docusate Sodium (Colace) 100 mg PO BID [facility] Last Admin: 11/06/19 09:15 Dose: 100 mg Documented by: Famotidine (Pepcid) 20 mg PO BID [facility] Last Admin: 11/06/19 09:16 Dose: 20 mg Documented by: Heparin Sodium (Beef Lung) (Heparin 500 Unit/5 Ml (100/Ml)) 500 unit IV UD PRN PRN Reason: HEPARIN FLUSH Hydralazine HCl (Apresoline Iv) 10 mg IV Q8H PRN PRN PRN Reason: for SBP>160 Hydrochlorothiazide () 12.5 mg PO DAILY [facility] Last Admin: 11/06/19 09:15 Dose: 12.5 mg Documented by: Labetalol HCl (Trandate) 5 mg IV X1 PRN PRN Reason: SBP > 160 when pulling sheath Stop: 11/07/19 10:29 Lisinopril (Zestril) 20 mg PO DAILY [facility] Last Admin: 11/06/19 09:16 Dose: 20 mg Documented by: Loratadine (Claritin) 10 mg PO DAILY [facility] Last Admin: 11/06/19 09:16 Dose: 10 mg Documented by: Nitroglycerin (Nitrostat) 0.4 mg SUBLINGUAL Q5M PRN PRN Reason: CARDIAC/CHEST PAIN Ondansetron HCl (Zofran) 4 mg IV Q8H PRN PRN PRN Reason: NAUSEA/VOMITING Last Admin: 11/05/19 03:23 Dose: 4 mg Documented by: Oxycodone HCl (Oxyir) 10 mg PO Q6H PRN PRN PRN Reason: Pain Score 6-10/10 Last Admin: 11/05/19 14:18 Dose: 10 mg Documented by: [facility] () [facility] Last Admin: 11/06/19 09:16 Dose: 20 mg Documented by: Sodium Chloride () 10 - 40 ml IV UD PRN PRN Reason: SALINE FLUSH Last Admin: 11/05/19 11:26 Dose: 10 ml Documented by: Sodium Chloride () 500 ml IV BOLUS PRN PRN Reason: VASO-VAGAL PROTOCOL Ticagrelor (Brilinta) 90 mg PO BID [facility] Last Admin: 11/06/19 09:16 Dose: 90 mg Documented by: Discharge Diet: Low fat/ Low Cholesterol Discharge Activity: Return to Normal Activity Weight Bearing Status: Weight bearing as tolerated Call your doctor if you observe: Fever of 101 or Higher, Shortness of breath, Dizziness, Swelling in the ankles, Chest pain, Increased palpitations (irregular heartbeat) Home Medications: Medications to take at Discharge Ascorbate Calcium [Vitamin C] PO DAILY 11/04/19 Fexofenadine HCl 60 mg PO DAILY 11/04/19 Glucosamine/Chondr Calderón A Sod [Glucosamine-Chondroitin Liq] 480 ml PO BID 11/04/19 Pantoprazole Sodium [Protonix] 40 mg PO DAILY 11/04/19 Aspirin E.C. [Ecotrin] 81 mg PO DAILY@0800 #30 tab 11/06/19 Atorvastatin Calcium [Lipitor] 40 mg PO QHS #30 tab 11/06/19 Carvedilol [Coreg (Beta Kylie)] 6.25 mg PO BIDCM #60 tab 11/06/19 Lisinopril [Zestril] 20 mg PO DAILY #30 tab 11/06/19 Ticagrelor [Brilinta] 90 mg PO BID #60 tab 11/06/19 hydroCHLOROthiazide [Hydrochlorothiazide] 12.5 mg PO DAILY #30 cap 11/06/19 Following Prescrptions Were Given to Patient: Ticagrelor [Brilinta] 90 mg PO BID #60 tab Transmission Status: Received by [facility] Carvedilol [Coreg (Beta Kylie)] 6.25 mg PO BIDCM #60 tab Transmission Status: Received by [facility] Aspirin E.C. [Ecotrin] 81 mg PO DAILY@0800 #30 tab Transmission Status: Received by IVAN[facility] hydroCHLOROthiazide [Hydrochlorothiazide] 12.5 mg PO DAILY #30 cap Transmission Status: Received by IVANIA [facility] Atorvastatin Calcium [Lipitor] 40 mg PO QHS #30 tab Transmission Status: Received by MICHAELDominic SNYDER [facility] Lisinopril [Zestril] 20 mg PO DAILY #30 tab Transmission Status: Received by IVANIA [facility] Primary Care Physician: Abisai Bryant DO [Primary Care Provider] - Please follow up with your Primary Care Physician in: 1-2 weeks Please Follow Up With: Damian Lion MD When: 1-2 weeks Please Follow Up With: Mayo Carbajal DO When: 1-2 weeks Patient Instructions: Symptoms of a Heart Attack, Understanding Coronary Artery Disease (CAD), Heart Attack, Getting Started With Cardiac Rehab: Exercise, Exercising After a Heart Attack, Know the Medications You're Taking, ED Heart Disease Risk Factors Disposition: Home Minutes spent on discharge:: 40 Patient Condition:: Stable Medical Necessity - Tobacco Use Smoking Status: Never smoker Meaningful Use Info Meaningful Use Diagnoses (Choose all that apply): AMI - AMI/Post PCI/Angioplasty Aspirin given w/in 24hrs of arrival?: Yes ASA at discharge?: Yes Antiplatelet Therapy at Discharge:: Yes Statins at discharge?: Yes Ashutosh/ARB at discharge?: Yes Beta Kylie at discharge?: Yes Done w/ Acute VA measure.: Yes Documented LVEF (%): 60 Inpatient E&M: [id number] Disch Hosp
== END 2019-11-06 11:40 | disposition home or self-care (01) | DRG 246 ==
LOC: ED 15:29 → PCU 17:01 → ICU 11-05 05:35
PROVIDERS: Family Medicine; Internal Medicine Cardiovascular Disease; Specialist; Admitting Provider Hospitalist; Emergency Provider Emergency Medicine; PCP Family Medicine; Visit Provider Student in an Organized Health Care Education/Training Program
DX: I21.19 ST elevation (STEMI) myocardial infarction involving other coronary artery of inferior wall (principal); I46.2 Cardiac arrest due to underlying cardiac condition; I47.2 Ventricular tachycardia; I10 Essential (primary) hypertension; I25.10 Atherosclerotic heart disease of native coronary artery without angina pectoris; R73.9 Hyperglycemia, unspecified; M19.90 Unspecified osteoarthritis, unspecified site; G47.33 Obstructive sleep apnea (adult) (pediatric); K21.9 Gastro-esophageal reflux disease without esophagitis; E78.5 Hyperlipidemia, unspecified; E66.9 Obesity, unspecified; Z68.35 Body mass index [BMI] 35.0-35.9, adult; Z79.899 Other long term (current) drug therapy
CPT/HCPCS: 36415; 71045; 80048; 80053; 80061; 83036; 83735; 84484; 85025; 85027; 85610; 85730; 92928; 92950; 93005; 93306; 93458; 99152; 99153; 99285; J7030; Q9957; Q9967; A4216; C1725; C1757; C1769; C1874; C1887; C1894; C8929; C9600; J1327; J2405

== ENCOUNTER → 2019-11-13 10:02 | Outpatient (CLI) | payer MEDICARE, BC, SELFPAY ==
[2019-11-04 17:04] VITALS: BMI 35.6
--- NOTE | 2019-11-13 10:08 | PCM.CR.ITP ---
Diagnosis - General Information Admitting Diagnosis: AMI <12 MOTHS, PCI W/STENTING Secondary Diagnosis: HTN, HLD, LINDSEY, GERD Personal Learning Style:: Audio/Visual, Written Barriers to Learning: No Barriers Gave educational material for:: Treating Heart Disease, Emotions & Heart Disease, Stress Management & Relaxation, Sleep Disorders & Heart Disease, How The Heart Works, What it means to have Heart Disease, How Coronary Artery Disease is Diagnosed, Heart Procedures, What Heart Medications Do, Risk Factors & Modifications, Living an Active Life, Nutrition - Education/Goals Individual Counseling: Initial Assessment: Abnormal Cholesterol Levels, High Blood Pressure, Overweight/Obesity Cardiac Rehabilitation Goals: 1. Maintain the individual as the primary focus of care. 2. To improve the patient's quality of life. 3. Identification of cardiac risk factors and provide cardiac risk factor management. 4. Enhance the psychosocial status of the patient. 5. Reconditioning enough to allow the patient to resume customary activities. 6. Control symptoms of cardiac disease Personal Goals: Initial Assessment: Improve energy level, Get back to work, or to resume activities faster, Improve knowledge of cardiac disease, Improve muscle strength and endurance, Improve diet and eating habits (eat healthier), Control risk factors (learn risk factor modification) Scale for measuring improvement of personal goals: Enter appropriate number in Comments. 2 = Unchanged. 3 = Slightly Better. 4 = Moderate Improvement. 5 = Met my Goal - Diagnosis & Disease Process Outcomes/Goals: Pt IDs own risk factors & lifestyle modifications by Session 10, Verbalizes symptoms of angina & response by session 3., Pt independently manages Plan/Interventions: Assist Pt to ID & engage in lifestyle modification to reduce CVD risk, Instruct on individual risk factors, Review symptoms of angina & emergency actions, Review secondary diagnosis & identify educational needs. - Safety Referral to Physical Therapy: No Referral to [facility] Case Management: No Fall Risk Assessed:: Yes Assistive Devices:: None Exercise - Initial Assessment - Visit Date of Eval: 11/13/19 Session #:: 0 - INITIAL EVALUATION Mets: Pre-: >5 METS for 30 minutes by discharge - Physician Prescribed Exercise Modalities: Treadmill, Rower, Airdyne, NuStep Frequency: 3x/week for 12 weeks [36 sessions] Intensity: 60-80% of age predicted maximum heart rate reserve METs - Progression 0.5-1.0 weekly:: Current METSs:: 3.5 Resting Blood Pressure: 130/70 EKG Type: NORMAL SINUS RHYTHM - Outcomes & Goals Goals:: Verbalizes understanding of THR, RPE & goal METS by session 6, Documents in home exercise log/reports 30 min aerobic 5 day/wk by DC, Demonstrates accurate pulse taking by DC - Intervention & Plan Exercise Program Goals: Instruct on personal THR & RPE, Instruct on MET level & personal MET goal, Show patient to take own pulse /validate performance until accurate, Instruct on home exercise - Physical Activity Home Exercise Physical Activity - Home Exercise: Safe Exercise, Warm-up, Self-monitoring, Cool-Down, Home Exercise > 30 min Daily, Sitting Time <3 hours/daily - Outcomes & Goals Outcomes/Goals: Demonstrates correct Warm-up/exercise Cool-Down (S3) if = 2.5 METs, Verbalizes symptoms of exercise intolerance by Session 3 (S3), Demonstrate safe equipment use (S3) & follows exercise prescrition (6) - Intervention & Plan Plan/Intervention: Instruct warm-up & cool-down if exercising at > 2 METs, Instruct on symptoms of exercise intolerance & actions to take, Instruct & monitor on saf, Assess intial functional capacity & safety risk Nutrition - Initial Assessment - Program Goals Nutrition Program Goals: LDL <100 optimal. 100 - 129 Near optimal. 130 - 159 Borderline High. 160 - 189 High. Total Cholesterol <200 desirable. 200 - 239 Borderline High. >/= 240 High. HDL < 40 Low >/=60 High. Triglycerides <150 desirable. <199 optimal. VlDL 5 - 40. HgbA1C <7%. BMI <25 Patient has diagnosis of Hyperlipidemia (ICD E78)?: Yes - Visit Date of Assessment:: 11/13/19 Session #:: 0 - INITIAL EVALUATION - Cholesterol/Lipids Triglycerides (mg/dL): 110 Total Cholesterol (mg/dL): 218 LDL Cholesterol (mg/dL): 149 HDL Cholesterol (mg/dL): 47 Determine presence & major risk factors that modify LDL goal: Hypertension or hypertensive medication, Age men > 45 years; women >/= 55 years Outcomes/Goals: Pt IDs own risk factors & lifestyle modifications by Session 10, Pt independently manages Intervention/Plan: Instruct on personal lipid levels & lipid goals/NCEP guidelines, Instruct on cholesterol - Diabetes (Other Core Measures) Diabetes Type: Not Applicable - Weight Mgt (Other Care) Not Applicable: Yes Height: 6 ft Weight:: 267 lb BMI: 36.2 Diagnosis Overweight/Obesity BMI> 30% ICD-10 E66: Yes Diagnosis High BMI/Morbid Obesity BMI> 35% ICD-10 Z68: Yes Expected Body Weight: 243 lb Outcomes/Goals: Pt sets, maintains & shows weight loss goal & trend during rehab Intervention/Plan: Instruct on ideal BMI & set weight loss goal w/patient, Assist pt to ID & incorporate diet changes for weight loss by S9, Refer to Structured Weight Loss program as appropriate, Encourage goal of using 250-300dcal per session for weight loss - Healthy Eating Habits Will attend diet classes:: Yes Outcomes/Goals:: Consume diet rich in vegs,fruits,whole grain/high fiber,fish,lean meat, Limit sat/trans fats,cholesterol & added salts & sugars Intervention/Plan:: Assess current eating habits - Education Gave educational materials for:: Healthy eating Medical - Initial Assessment - Visit Date of Eval: 11/13/19 Session #:: 0 - INITIAL EVALUATION - Medication Compliance Preventative Medication(s):: Aspirin, Ticagrelor/P2Y12 inhibitor, Statin/lipid, Beta gregg H/O mental health issues: depression, anxiety, or addiction?: No Doesn?t believe in the benefits of treatment?: No Believes medications are unnecessary or harmful?: No Has a concern about medication side effects?: No Expresses concern over the cost of medications?: No Outcomes/Goals: Verbalizes medications,desired effect & common side effects @ DC, Pt self-reports following medication regimen, Keeps card in wallet w/medications listed by DC Interventions/plans: Instruct on medication effects & side effects, Review medication list w/patient every two weeks, Instruct importance of taking meds as ordered & assist problem solving - Tobacco Use Tobacco Use: Non-smoker - Hypertension Hypertension Diagnosis:: Hypertension ICD-10 I10 Resting Blood Pressure:: 130/70 Citizen Of [place] [employer] Hypertension Guidelines: Citizen [place] [employer] Hypertension Guidelines. Normal BP Less than 120/80. Elevated BP 120/80. Hypertension Stage 1: BP 130-139/80-89. Hypertesnion Stage 2: BP 140 or higher/90 or higher. Hypertension Crisis: BP higher than 180/120 Outcomes/Goals: Able to verbalize/achieve optimal blood pressure <130/80, Incorporates diet changes & exercise for blood pressure control by DC Interventions/plan: Instruct on optimal blood pressure, hypertension & medications, Instruct on effects of sodium, alcohol, stress, exercise &hypertension - Tobacco Cessation Referral Smoking Cessation Referral:: No Individual Education/Counseling:: No Education Schedule Given:: Yes Psychosocial - Initial Assess - VIsit Date of [place]: 11/13/19 Session #:: 0 - INITIAL EVALUATION Not Applicable: Yes History of previous Mental disease:: No - Target Goals Target Goals: Assess presence or absence of depression. Using a valid screening tool, maximizes coping skills. Positive support system - Psychosocial Test Tool Used:: [place] QOL Cardiac, PHQ-9 Questionnaire phq-9 Severity: Severity. 1-4 Minimal Depression. 5-9 Mild Depression. 10-14 Moderate Depression. 15-19 Moderately Sever Depression. 20-27 Severe Depression. Rule: - Referral to Behavioral Health PS - Interventions: Yes Referral to Physician if PHQ-9 if score is 5-9: - REFERRED TO PCP FOR POSITIVE MILD DEPRESSION ON PHQ-9, Yes Attend Stress Management Classes, No Referral to Behavioral Health if PHQ-9 score >9:, No Referral to [facility] - Outcomes/Goals: See list Psychosocial Outcomes/Goals:: ID's personal stressors & 2 strategies to manage stress by discharge - Intervention/Plan: See List Interventions/Plan:: Assess stressors,coping strategies & signs of derpression on admission, Instruct/assist pt to develop coping & personal stress Mgt strategies, Instruct patient to recognize signs & symptoms of depression, Instruct patient to recog Patient Health Questionnaire Initial Assessment 1. Little interest or pleasure in doing things: Nearly every day 2. Feeling down, depressed, or hopeless: Several days 3. Trouble falling or staying asleep, or sleeping too much: Not at all 4. Feeling tired or having little energy: Nearly every day 5. Poor appetite or overeating: Not at all 6. Feeling bad about yourself -- or that you are a failure or have let yourself or your family down: Not at all 7. Trouble concentrating on things, such as reading the newspaper or watching television: Several days 8. Moving or speaking so slowly that other people could have noticed. Or the opposite - being so fidgety or restless that you have been moving around a lot more than usual: Not at all 9. Thoughts that you would be better off , or of hurting yourself in some way: Not at all How difficult have these problems made it for you to do your work, take care of things at home, or get along with other people?: Somewhat difficult Total Score: 8 JESUS-Q SV Test - Statements CAD is a disease of the arteries in the heart: False Examples of risk factors for heart disease: True Angina is chest pain or discomfort: True The benefits of resistance training include: True Eating more meat and dairy products: False Anti-platelet medications such as aspirin are important: True The only effective way to manage stress: False An exercise warm-up slowly increases heart rate: I Don't Know Prepared, processed foods usually have high sodium: True Depression is common after a heart attack: True The statin medications lower cholesterol: I Don't Know To control blood pressure, lower the amount of sodium: I Don't Know If someone gets chest discomfort during walking: False Transfats are partially hydrogenated vegetable oils: True Sleep apnea that is not treated increases the risk: True To control cholesterol, one should become a vegetarian: False Someone knows if he/she is exercising at the right level: I Don't Know Diabetes cannot be prevented with exercise & health eating: True Stress is a large risk for heart attack: True A diet that can help lower blood pressure is rich in: True - Total Score Total Correct Responses: 14 Self-Efficacy Initial Assessment We would like to know how confident you are in doing certain activities. Please select your confidence level for:: Select your confidence level for the following using the scale 1-10 where 1 is not at all confident and 10 is totally confident. Your score is the average of all 6 responses. Fatigue: How confident are you that you can keep the fatigue caused by your disease from interfering with the things you want to do? Select Number: 5 Physical Discomfort or Pain: How confident are you that you can keep the physical discomfort or pain of your disease from interfering with the things you want to do? Select Number: 5 Emotional Distress: How confident are you that you can keep the emotional distress caused by your disease from interfering with the things you want to do? Select Number: 6 Other Symptoms or Health Problems: How confident are you that you can keep other symptoms or health problems from interfering with the things you want to do? Select Number: 6 Different Tasks and Activities: How confident are you that you can do the different tasks and activities needed to manage your health condition so as to reduce your need to see a doctor? Select Number: 5 Medication: How confident are you that you can do things other than just taking medication to reduce how much your illness affects your everyday life? Select Number: 5 Total Score:: 5 Nutrition Survey - Nutrition Survey Instructions Scoring Instructions: Scoring is as follows: Yes = 1 points. No = 0 point. Patient score that is >/=12 is considered to be at potential nutritional risk and could benefit from a referral to a registered dietitian. - Nutrition Survey Initial Have you lost >10 lbs over the past 2 months without trying?: No Are you following a special diet at home for diabetes, low fat, or low salt?: No Are you interested in meeting with a dietitian for help understanding your diet?: No Do you eat less than 3 meals a day?: No Do you eat fatty meats (fields, sausage, ribs, etc), fried foods, desserts, large amounts of salad dressings, margarine, butter, or cheese most days?: Yes Do you have food allergies? [Enter types in comment field]: No Do you eat in restaurants more than 3 times a week?: Yes Do you season food with salt, seasoning salt, or garlic salt?: Yes Do you used canned, boxed, frozen meals, or soups, seasoning packets?: No Total Score:: 3
--- NOTE | 2019-11-13 10:09 | PCM.CR.HP2 ---
CR - History & Physical - General Arrival date:: 11/13/19 Arrival time:: 10:00 Date of Referral:: 11/05/19 Date of CR Evaluation:: 11/13/19 Referring Physician: Dr. Damian Jose Primary Diagnosis: PCI w/stenting - History of Present Cardiac Event Onset Date: Enter Onset Date of cardiac illnesses in Comment field below Acute Myocardial Infarction within 12 months:: Yes - AMI < 12 months PTCA or coronary stenting:: Yes - 11/05/2019 Type of Symptoms:: CHEST PAIN OVER THE COURSE OF 2-3 DAYS, WORSENING WITH EXERTION, PATIENT PRESENTED TO OUR EMERGENCY ROOM DENIED [place] OR VOMITING Interventions with present event:: HEART CATH Were there any complications?: NONE - Medications Home Medications: Ambulatory Orders Medication Instructions Recorded Ascorbate Calcium [Vitamin C] PO DAILY 11/04/19 Fexofenadine HCl 60 mg PO DAILY 11/04/19 Glucosamine/Chondr Calderón A Sod 480 ml PO BID 11/04/19 [Glucosamine-Chondroitin Liq] Pantoprazole Sodium [Protonix] 40 mg PO DAILY 11/04/19 Aspirin E.C. [Ecotrin] 81 mg PO DAILY@0800 #30 tab 11/06/19 Atorvastatin Calcium [Lipitor] 40 mg PO QHS #30 tab 11/06/19 Carvedilol [Coreg (Beta Kylie)] 6.25 mg PO BIDCM #60 tab 11/06/19 Lisinopril [Zestril] 20 mg PO DAILY #30 tab 11/06/19 Ticagrelor [Brilinta] 90 mg PO BID #60 tab 11/06/19 hydroCHLOROthiazide 12.5 mg PO DAILY #30 cap 11/06/19 [Hydrochlorothiazide] - Allergies Allergies/Adverse Reactions: Allergies iodine Allergy (Verified 11/06/19 03:41) Rash Penicillins [PCN] Allergy (Verified 11/04/19 13:03) Rash wool Allergy (Verified 11/04/19 13:03) Rash aspirin Adverse Reaction (Verified 11/04/19 18:42) Upset Stomach - Sleep Disorder Evaluation Hx of Sleep Apnea: Yes Do you snore loudly (louder than talking or can be heard through closed doors)?: Yes - DIAGNOSED LINDSEY HAS HOME CPAP SYSTEM Do you often feel tired/ fatigued/ sleepy during daytime?: No Has anyone observed you stop breathing during sleep?: No History of Hypertension (for STOP score): Yes STOP Results: Positive Advanced Directives - Advanced Directives Power of Manager Of Software: No Living Will: No Advance Directives Information Provided: Yes Advance Directives on File: No DNR Order?:: No - MOLST See MOLST form: No Past Medical History - Past Medical Illness Medical History: Past Medical History (Last Updated 11/05/19 @ 12:05 by Ameena Thacker) History of non-ST elevation myocardial infarction (NSTEMI) (Acute) Onset Date: 11/04/19 I25.2 Atherosclerosis of coronary artery without angina pectoris (Acute) I25.10 Essential (primary) hypertension (Acute) I10 Hyperlipidemia (Chronic) E78.5 Obstructive sleep apnea (Chronic) G47.33 GERD (gastroesophageal reflux disease) (Chronic) K21.9 Obesity (BMI 30-39.9) E66.9 Osteoarthritis M19.90 - Past Surgical History Surgical History: Past Surgical History (Last Updated 11/05/19 @ 12:03 by Ameena Thacker) History of coronary artery stent placement (Acute) Z95.5 DMT-EFI-Keu-Distal RCA w/ 4.00 x 24 mm Synergy MR Stent 11/05/2019 History of foot surgery Z98.890 History of shoulder surgery Z98.890 History of total knee arthroplasty Z96.659 Surgical History: total knee arthroplasty, - - Left shoulder surgery, left foot surgery. 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 Recreational Activities: I am able to engage in most, but not all activities Social Environment - Status Marital Status: - Current Living Arrangements Living Environment:: Spouse - Children How many children do you have?: 2 - SON/DAUGHTER AND 6 GRANDCHILDREN Do any of your children live nearby?: Yes - Safety Do you feel safe in your surroundings?: Yes - Assistance Do you need any assistance at home?: NONE Review of Systems - Review of Systems Hints: Right click = Denies ([place]ash). Left click = Reports ([place]) Review of Present Symptoms: Reports: Shortness of Breath with Exertion, Dizziness/Lightheadedness - IF LAYING DOWN ADN GET UP TO [place], JUST DON'T FEEL I HAVE 100% OF MY BALANCE ALL THE TIME., Fatigue, Appetite - Normal, Appetite - Special Diet, Sleep - Normal. Denies: Shortness of Breath at Rest, Angina, Heart Arrhythmia/Irregularities, Sexual Changes - Pain Is Patient Pain Free?: No Pain Location: chest - RESULT OF CRACKED RIBS FROM CPR RESULT OF TN., lower extremity - NEW LEFT KNEE, PAST FEW MONTHS HAVE TAKEN ULTRAM FOR ARTHRITIS IN THE RIGHT KNEE AND HAS BEEN A PROBLEM. CAN HARDLY WALK ON IT SOMEDAYS BECAUSE OF THE ARTHRITIS. PROBABLY DUE TO HAVE IT REPLACED HERE SOON. Pain Level: 5/10 Risk Factor Assessment - Chief Complaint Chief Complaint: THE PATIENT IS A 69 YR OLD MALE OF DR. JOSE WHO PRESENTS TO CARDIAC REHAB TODAY FOLLOWING RECENT TN AND PCI INTERVENTION. - Vital Signs Temperature: 97.6 F Respiratory Rate: 16 Pulse Ox: 97 Blood Pressure: 130/70 - Pulse Pulse Rate: 68 Pulse Rhythm: Regular - Hypertension Blood Pressure Sitting - Left Arm: 130/70 - Blood Cholesterol/Lipids Total Cholesterol (mg/dL) Goal = less than 200 mg/dL: 218 HDL Cholesterol (mg/dL) Goal = less than 40 mg/dL: 47 LDL Cholesterol (mg/dL) Goal = less than 70 mg/dL: 149 Triglycerides (mg/dL) Goal = less than 150 mg/dL: 110 - Diabetes Nutrition Referral for Diabetes: No - Obesity Height: 6 ft Weight:: 267 lb Weight in Pounds: 267.0 lbs Weight Source: Stated by Patient Body Mass Index (BMI): 36.2 Nutritional Referral for Obesity: Yes - Risk Stratification Risk Guidelines: Lowest Risk: Risk Factor for Smoking, Risk Factor for Diabetes, Risk Factor for Sedentary Lifestyle, Risk Factor for Depression, Moderate Risk: Risk Factor for Dyslipidemia, Risk Factor for Hypertension, Highest Risk: Risk Factor for Obesity - For Smoking Smoking Risk Guidelines: Smoking Low Risk: None or quit greater than 6 months ago. Smoking Moderate Risk: Smoker or quit 6 months or less ago. Smoking High Risk: Smoker - For Dyslipidemia Dyslipidemia Risk Guidelines: Low Risk: Moderate Risk: High Risk: 15-25% fat 25.1-29% fat >/= 30% fat. <7% sat fat 7-9% sat fat >9% sat fat. <150 mg chol 150-299 mg chol >/= 300 mg chol. LDL <100 LDL 100-129 LDL >/= 130. Chol/HDL ratio <5.0 Chol/HDL ratio 5.0-6.0 Chol/HDL ratio >6.0. Triglycerides <100 Triglycerides 100-149 Triglycerides >/= 150 - For Diabetes Mellitus Diabetes Risk Guidelines: Diabetes Low Risk: HgA1c <6.5% and/or FBG <120. Diabetes Moderate Risk: HgA1c 6.6-7.9% and/or FBG 120-180. Diabetes High Risk: HgA1c >/= 8% and/or FBG >180 - For Obesity/Overweight Obesity/Overweight Risk Guidelines: Obesity Low Risk: BMI <25.0. Obesity Moderate Risk: BMI 25-29.9. Obesity High Risk: BMI >/= 30.0 - For Hypertension Hypertension Risk Guidelines: Hypertension Low Risk: Systolic <120 and Diastolic <80. Hypertension Moderate Risk: Systolic 120-139 and Diastolic 80-89. Hypertension High Risk: Systolic >/= 140 and Diastolic >/= 90 - For Sedentary Lifestyle Sedentary Lifestyle Risk Guidelines: Sedentary Lifestyle Low Risk: >/= 1,500 kcal/week. Sedentary Lifestyle Moderate Risk: 700-1,499 kcal/week. Sedentary Lifestyle High Risk: < 700 kcal/week - For Depression Depression Risk Guidelines: Depression Low Risk: Not clinically depressed. Depression Moderate Risk: Mildly depressed. Depression High Risk: Clinically depressed - Family History Family History: Family History (Last Updated 11/05/19 @ 12:04 by Ameena Thacker) Other Adopted Motivation - Motivation to Participate On a scale of 1 to 10, how prepared are you to commit to attending program?: 8 - NEED TO GET SOME ENERGY BACK AND TO GET BETTER What do you see as barriers to successfully being able to complete the program?: THE ARTHRITIS IN THE RIGHT KNEE. What do you see as the benefits of succesfully completing the program? In other words, what do you hope to get out of participating in the program?: HEALTHIER, GETTING BETTER! Are there issues you are dealing with that will interfere with completing the program?: ARTHIRTIS IN RIGHT KNEE, LACK OF STAMINA AND ENERGY. Do you have a spouse or signficant other, family or friends who will help support you to complete the program?: YES.
[2019-11-13 10:31] VITALS: BP 130/70; BMI 36.2
[2019-11-13 10:44] VITALS: BP 130/70; PULSE 68; RESP 16; TEMP 36.4; O2SAT 97; BMI 36.2
== END ==
PROVIDERS: PCP Family Medicine; Referring Provider Internal Medicine Cardiovascular Disease; Visit Provider Internal Medicine Cardiovascular Disease
DX: Z95.5 Presence of coronary angioplasty implant and graft (principal)

== ENCOUNTER 2019-11-16 06:14 | Outpatient (RCR) | payer MEDICARE, BC, SELFPAY ==
[2019-11-13 10:31] VITALS: BMI 36.2
[2019-11-13 10:44] VITALS: BMI 36.2
== END 2019-11-18 23:59 ==
LOC: CR 06:14
PROVIDERS: PCP Family Medicine; Visit Provider Internal Medicine Cardiovascular Disease
DX: I25.10 Atherosclerotic heart disease of native coronary artery without angina pectoris (principal); I25.2 Old myocardial infarction; Z95.5 Presence of coronary angioplasty implant and graft; I10 Essential (primary) hypertension; E78.5 Hyperlipidemia, unspecified; G47.33 Obstructive sleep apnea (adult) (pediatric); K21.9 Gastro-esophageal reflux disease without esophagitis
CPT/HCPCS: 93798

== ENCOUNTER 2019-12-17 08:00 | Outpatient (RCR) | payer MEDICARE, BC, SELFPAY ==
[2019-11-13 10:31] VITALS: BMI 36.2
[2019-11-13 10:44] VITALS: BMI 36.2
--- NOTE | 2019-12-17 13:20 | CR.ITP_ITS ---
Exercise - 30-day Assessment - Visit Date of Eval: 12/17/19 Session #:: 12 - Physician Prescribed Exercise Modalities: Treadmill, Airdyne, NuStep Frequency: 3x/week for 12 weeks [36 sessions] Intensity: 60-80% of age predicted maximum heart rate reserve Current METSs:: 4.5 Target Heart Rate:: 98-128 Current RPE:: 13-14 Maximum Excercise HR:: 111 Resting Blood Pressure: 138/84 Maximum Exercise Blood Pressure: 162/84 EKG Type: SINUS RHYTHM TO SINUS TACHYCARDIA WITH RARE PACs. - Outcomes & Goals Goals:: Verbalizes understanding of THR, RPE & goal METS by session 6, Documents in home exercise log/reports 30 min aerobic 5 day/wk by DC, Demonstrates accurate pulse taking by DC - Intervention & Plan Exercise Program Goals: Instruct on personal THR & RPE, Instruct on MET level & personal MET goal, Show patient to take own pulse /validate performance until accurate, Instruct on home exercise - 30-day Reassessments 30 day Reassessments:: Progressing - Physical Activity Home Exercise Physical Activity - Home Exercise: Safe Exercise, Warm-up, Self-monitoring, Cool-Down, Home Exercise > 30 min Daily, Sitting Time <3 hours/daily - Outcomes & Goals Outcomes/Goals: Demonstrates correct Warm-up/exercise Cool-Down (S3) if = 2.5 METs, Verbalizes symptoms of exercise intolerance by Session 3 (S3), Demonstrate safe equipment use (S3) & follows exercise prescrition (6) - Intervention & Plan Plan/Intervention: Instruct warm-up & cool-down if exercising at > 2 METs, Instruct on symptoms of exercise intolerance & actions to take, Instruct & monitor on saf, Assess intial functional capacity & safety risk - 30-day Reassessments 30 day Reassessments:: Progressing Nutrition - 30-Day Assessment - Program Goals Nutrition Program Goals: LDL <100 optimal. 100 - 129 Near optimal. 130 - 159 Borderline High. 160 - 189 High. Total Cholesterol <200 desirable. 200 - 239 Borderline High. >/= 240 High. HDL < 40 Low >/=60 High. Triglycerides <150 desirable. <199 optimal. VlDL 5 - 40. HgbA1C <7%. BMI <25 Patient has diagnosis of Hyperlipidemia (ICD E78)?: Yes - Visit Date of Assessment:: 12/17/19 Session #:: 12 - Cholesterol/Lipids Determine presence & major risk factors that modify LDL goal: Hypertension or hypertensive medication, Low HDL cholesterol <40 mg/dL*, Age men > 45 years; women >/= 55 years Outcomes/Goals: Pt IDs own risk factors & lifestyle modifications by Session 10, Verbalizes symptoms of angina & response by session 3., Pt independently manages Intervention/Plan: Instruct on personal lipid levels & lipid goals/NCEP guidelines, Instruct on cholesterol Referral to dietitian:: No - PATIENT DECLINED 30-day Reassessments:: Progressing - Diabetes (Other Core Measures) Diabetes Type: Not Applicable - Weight Mgt (Other Care) Not Applicable: No Height: 6 ft Weight:: 272 lb BMI: 36.8 Diagnosis Overweight/Obesity BMI> 30% ICD-10 E66: Yes Diagnosis High BMI/Morbid Obesity BMI> 35% ICD-10 Z68: Yes Outcomes/Goals: Pt sets, maintains & shows weight loss goal & trend during rehab Intervention/Plan: Instruct on ideal BMI & set weight loss goal w/patient, Assist pt to ID & incorporate diet changes for weight loss by S9, Encourage goal of using 250-300dcal per session for weight loss 30 day Reassessments:: Not Met - NO RECENT WEIGHT LOSS - Healthy Eating Habits Will attend diet classes:: Yes Outcomes/Goals:: Limit sat/trans fats,cholesterol & added salts & sugars Intervention/Plan:: Assess current eating habits 30-day Reassessments:: Progressing - Education Gave educational materials for:: Healthy eating Medical- 30-Day Assessment - Visit Date of Eval: 12/17/19 Session #:: 12 - Medication Compliance Preventative Medication(s):: Aspirin, Ticagrelor/P2Y12 inhibitor, Statin/lipid, Beta gregg H/O mental health issues: depression, anxiety, or addiction?: Yes Doesn?t believe in the benefits of treatment?: No Believes medications are unnecessary or harmful?: No Has a concern about medication side effects?: No Expresses concern over the cost of medications?: No Outcomes/Goals: Verbalizes medications,desired effect & common side effects @ DC, Pt self-reports following medication regimen, Keeps card in wallet w/med ications listed by DC Interventions/plans: Instruct on medication effects & side effects, Review medication list w/patient every two weeks, Instruct importance of taking meds as ordered & assist problem solving 30-day Reassessments:: Progressing - Tobacco Use Tobacco Use: Non-smoker - Hypertension Hypertension Diagnosis:: Hypertension ICD-10 I10 Resting Blood Pressure:: 138/84 [place] [employer] Hypertension Guidelines: [place] [employer] Hypertension Guidelines. Normal BP Less than 120/80. Elevated BP 120/80. Hypertension Stage 1: BP 130-139/80-89. Hypertesnion Stage 2: BP 140 or higher/90 or higher. Hypertension Crisis: BP higher than 180/120 Peak Exercise Blood Pressure:: 162/84 Outcomes/Goals: Able to verbalize/achieve optimal blood pressure <130/80, Incorporates diet changes & exercise for blood pressure control by DC Interventions/plan: Instruct on optimal blood pressure, hypertension & medications, Instruct on effects of sodium, alcohol, stress, exercise &hypertension 30 day Reassessments:: Progressing - Tobacco Cessation Referral Smoking Cessation Referral:: No Individual Education/Counseling:: No Education Schedule Given:: Yes Psychosocial - 30-Day Assess - VIsit Date of Eval: 12/17/19 Session #:: 12 Not Applicable: Yes - Target Goals Target Goals: Assess presence or absence of depression. Using a valid screening tool, maximizes coping skills. Positive support system - Psychosocial Test Tool Used:: [employer] QOL Cardiac, PHQ-9 Questionnaire phq-9 Severity: Severity. 1-4 Minimal Depression. 5-9 Mild Depression. 10-14 Moderate Depression. 15-19 Moderately Sever Depression. 20-27 Severe Depression. Rule: - Referral to Behavioral Health PS - Interventions: Yes Attend Stress Management Classes, No Referral to Behavioral Health if PHQ-9 score >9:, No Referral to [facility], No Referral to Physician if PHQ-9 if score is 5-9: - Outcomes/Goals: See list Psychosocial Outcomes/Goals:: ID's personal stressors & 2 strategies to manage stress by discharge - Intervention/Plan: See List Interventions/Plan:: Assess stressors,coping strategies & signs of derpression on admission, Instruct/assist pt to develop coping & personal stress Mgt strategies, Instruct patient to recognize signs & symptoms of depression, Instruct patient to recog Patient Health Questionnaire 30-Day Re-eval Assessment 1. Little interest or pleasure in doing things: More than half the days 2. Feeling down, depressed, or hopeless: Not at all 3. Trouble falling or staying asleep, or sleeping too much: More than half the days 4. Feeling tired or having little energy: Not at all 5. Poor appetite or overeating: Not at all 6. Feeling bad about yourself -- or that you are a failure or have let yourself or your family down: Several days 7. Trouble concentrating on things, such as reading the newspaper or watching television: Not at all 8. Moving or speaking so slowly that other people could have noticed. Or the opposite - being so fidgety or restless that you have been moving around a lot more than usual: Not at all 9. Thoughts that you would be better off , or of hurting yourself in some way: Not at all Total Score: 5 Self-Efficacy 30-Day Re-eval Assessment We would like to know how confident you are in doing certain activities. Please select your confidence level for:: Select your confidence level for the following using the scale 1-10 where 1 is not at all confident and 10 is totally confident. Your score is the average of all 6 responses. Fatigue: How confident are you that you can keep the fatigue caused by your disease from interfering with the things you want to do? Select Number: 6 Physical Discomfort or Pain: How confident are you that you can keep the physical discomfort or pain of your disease from interfering with the things you want to do? Select Number: 6 Emotional Distress: How confident are you that you can keep the emotional distress caused by your disease from interfering with the things you want to do? Select Number: 7 Other Symptoms or Health Problems: How confident are you that you can keep other symptoms or health problems from interfering with the things you want to do? Select Number: 8 Different Tasks and Activities: How confident are you that you can do the different tasks and activities needed to manage your health condition so as to reduce your need to see a doctor? Select Number: 7 Medication: How confident are you that you can do things other than just taking medication to reduce how much your illness affects your everyday life? Select Number: 6 Total Score:: 6
[2019-12-17 13:34] VITALS: BP 138/84; BP 162/84; BMI 36.8
== END 2019-12-18 23:59 ==
LOC: CR 08:00
PROVIDERS: PCP Family Medicine; Visit Provider Internal Medicine Cardiovascular Disease
DX: I25.10 Atherosclerotic heart disease of native coronary artery without angina pectoris (principal); I25.2 Old myocardial infarction; I10 Essential (primary) hypertension; E78.5 Hyperlipidemia, unspecified; G47.33 Obstructive sleep apnea (adult) (pediatric); K21.9 Gastro-esophageal reflux disease without esophagitis; Z95.5 Presence of coronary angioplasty implant and graft
CPT/HCPCS: 93798

== ENCOUNTER 2020-01-18 08:00 | Outpatient (RCR) | payer MEDICARE, BC, SELFPAY ==
[2019-11-30 10:31] VITALS: BMI 37.8
[2019-12-19 00:32] VITALS: BP 138/84; BP 162/84
--- NOTE | 2020-01-14 09:11 | CR.ITP_ITS ---
Diagnosis - General Information Barriers to Learning: No Barriers Stage of change r/t lifestyle modifications:: Action Gave educational material for:: Treating Heart Disease, Emotions & Heart Disease, Stress Management & Relaxation, Sleep Disorders & Heart Disease, How T he Heart Works, What it means to have Heart Disease, How Coronary Artery Disease is Diagnosed, Heart Procedures, What Heart Medications Do, Risk Factors & Modifications, Living an Active Life, Nutrition - Education/Goals Cardiac Rehabilitation Goals: 1. Maintain the individual as the primary focus of care. 2. To improve the patient's quality of life. 3. Identification of cardiac risk factors and provide cardiac risk factor management. 4. Enhance the psychosocial status of the patient. 5. Reconditioning enough to allow the patient to resume customary activities. 6. Control symptoms of cardiac disease Scale for measuring improvement of personal goals: Enter appropriate number in Comments. 2 = Unchanged. 3 = Slightly Better. 4 = Moderate Improvement. 5 = Met my Goal - Diagnosis & Disease Process Outcomes/Goals: Pt IDs own risk factors & lifestyle modifications by Session 10, Verbalizes symptoms of angina & response by session 3., Pt independently manages Plan/Interventions: Assist Pt to ID & engage in lifestyle modification to reduce CVD risk, Instruct on individual risk factors, Review symptoms of angina & emergency actions, Review secondary diagnosis & identify educational needs. 30 day Reassessments:: Progressing 30 day Reassessments:: Progressing - Safety Referral to Physical Therapy: No Referral to [facility] Case Management: No Fall Risk Assessed:: Yes Assistive Devices:: None Exercise - 60-day Assessment - Visit Date of Eval: 01/14/20 Session #:: 23 - Physician Prescribed Exercise Modalities: Treadmill, Airdyne, NuStep Frequency: 3x/week for 12 weeks [36 sessions] Intensity: 60-80% of age predicted maximum heart rate reserve Current METSs:: 5.0 Target Heart Rate:: 98-128 Current RPE:: 11-13 Maximum Excercise HR:: 119 Resting Blood Pressure: 112/60 Maximum Exercise Blood Pressure: 140/84 EKG Type: SINUS RHTYHM TO SINUS TACHYCARDIA WITHOUT ECTOPY. - Outcomes & Goals Goals:: Verbalizes understanding of THR, RPE & goal METS by session 6, Documents in home exercise log/reports 30 min aerobic 5 day/wk by DC, Demonstrates accurate pulse taking by DC - Intervention & Plan Exercise Program Goals: Instruct on personal THR & RPE, Instruct on MET level & personal MET goal, Show patient to take own pulse /validate performance until accurate, Instruct on home exercise - 30-day Reassessments 30 day Reassessments:: Progressing - Physical Activity Home Exercise Physical Activity - Home Exercise: Safe Exercise, Warm-up, Self-monitoring, Cool-Down, Home Exercise > 30 min Daily, Sitting Time <3 hours/daily - Outcomes & Goals Outcomes/Goals: Demonstrates correct Warm-up/exercise Cool-Down (S3) if = 2.5 METs, Verbalizes symptoms of exercise intolerance by Session 3 (S3), Demonstrate safe equipment use (S3) & follows exercise prescrition (6) - Intervention & Plan Plan/Intervention: Instruct warm-up & cool-down if exercising at > 2 METs, Instruct on symptoms of exercise intolerance & actions to take, Instruct & monitor on saf, Assess intial functional capacity & safety risk Nutrition - 60-Day Assessment - Program Goals Nutrition Program Goals: LDL <100 optimal. 100 - 129 Near optimal. 130 - 159 Borderline High. 160 - 189 High. Total Cholesterol <200 desirable. 200 - 239 Borderline High. >/= 240 High. HDL < 40 Low >/=60 High. Triglycerides <150 desirable. <199 optimal. VlDL 5 - 40. HgbA1C <7%. BMI <25 Patient has diagnosis of Hyperlipidemia (ICD E78)?: Yes - Visit Date of Assessment:: 01/14/20 Session #:: 23 - Cholesterol/Lipids Determine presence & major risk factors that modify LDL goal: Hypertension or hypertensive medication, Family history of premature CHD in Male < 55 years: female <65 yearsFa, Age men > 45 years; women >/= 55 years Outcomes/Goals: Pt IDs own risk factors & lifestyle modifications by Session 10, Verbalizes symptoms of angina & response by session 3., Pt independently manages Intervention/Plan: Instruct on personal lipid levels & lipid goals/NCEP guidelines, Instruct on cholesterol Referral to dietitian:: Yes 30-day Reassessments:: Progressing - Diabetes (Other Core Measures) Diabetes Type: Not Applicable - Weight Mgt (Other Care) Not Applicable: Yes Height: 6 ft Weight:: 267 lb 8 oz BMI: 36.3 Diagnosis Overweight/Obesity BMI> 30% ICD-10 E66: Yes Diagnosis High BMI/Morbid Obesity BMI> 35% ICD-10 Z68: Yes Outcomes/Goals: Pt sets, maintains & shows weight loss goal & trend during rehab Intervention/Plan: Instruct on ideal BMI & set weight loss goal w/patient, Assist pt to ID & incorporate diet changes for weight loss by S9, Refer to Structured Weight Loss program as appropriate, Encourage goal of using 250- 300dcal per session for weight loss 30 day Reassessments:: Progressing - Healthy Eating Habits Will attend diet classes:: Yes Outcomes/Goals:: Consume diet rich in vegs,fruits,whole grain/high fiber,fish,lean meat, Limit sat/trans fats,cholesterol & added salts & sugars Intervention/Plan:: Assess current eating habits 30-day Reassessments:: Progressing - Education Gave educational materials for:: Healthy eating Medical- 60-Day Assessment - Visit Date of Eval: 01/14/20 Session #:: 23 - Medication Compliance Preventative Medication(s):: Aspirin, Ticagrelor/P2Y12 inhibitor, Statin/lipid, Beta gregg H/O mental health issues: depression, anxiety, or addiction?: No Doesn?t believe in the benefits of treatment?: No Believes medications are unnecessary or harmful?: No Has a concern about medication side effects?: No Expresses concern over the cost of medications?: No Outcomes/Goals: Verbalizes medications,desired effect & common side effects @ DC, Pt self-reports following medication regimen, Keeps card in wallet w/medications listed by DC Interventions/plans: Instruct on medication effects & side effects, Review medication list w/patient every two weeks, Instruct importance of taking meds as ordered & assist problem solving 30-day Reassessments:: Progressing - Tobacco Use Tobacco Use: Non-smoker 30-day Reassessments:: Progressing - Hypertension Hypertension Diagnosis:: Hypertension ICD-10 I10 Resting Blood Pressure:: 112/60 [place] [employer] Hypertension Guidelines: [place] [employer] Hypertension Guidelines. Normal BP Less than 120/80. Elevated BP 120/80. Hypertension Stage 1: BP 130-139/80-89. Hypertesnion Stage 2: BP 140 or higher/90 or higher. Hypertension Crisis: BP higher than 180/120 Peak Exercise Blood Pressure:: 140/84 Outcomes/Goals: Able to verbalize/achieve optimal blood pressure <130/80, Inco rporates diet changes & exercise for blood pressure control by DC Interventions/plan: Instruct on optimal blood pressure, hypertension & medications, Instruct on effects of sodium, alcohol, stress, exercise &hypertension 30 day Reassessments:: Progressing - Tobacco Cessation Referral Smoking Cessation Referral:: No Individual Education/Counseling:: No Education Schedule Given:: Yes Psychosocial - 60-Day Assess - VIsit Date of Eval: 01/14/20 Session #:: 26 Not Applicable: Yes History of previous Mental disease:: No - Target Goals Target Goals: Assess presence or absence of depression. Using a valid screening tool, maximizes coping skills. Positive support system - Psychosocial Test Tool Used:: [place] QOL Cardiac, PHQ-9 Questionnaire phq-9 Severity: Severity. 1-4 Minimal Depression. 5-9 Mild Depression. 10-14 Moderate Depression. 15-19 Moderately Sever Depression. 20-27 Severe Depression. Rule: - Referral to Behavioral Health PS - Interventions: Yes Attend Stress Management Classes, No Referral to Behavioral Health if PHQ-9 score >9:, No Referral to [facility], No Referral to Physician if PHQ-9 if score is 5-9: - Outcomes/Goals: See list Psychosocial Outcomes/Goals:: ID's personal stressors & 2 strategies to manage stress by discharge - Intervention/Plan: See List Interventions/Plan:: Assess stressors,coping strategies & signs of derpression on admission, Instruct/assist pt to develop coping & personal stress Mgt strategies, Instruct patient to recognize signs & symptoms of depression, Instruct patient to recog - 30-day Reassessments: 30 day Reassessments:: Progressing Patient Health Questionnaire 60-Day Re-eval Assessment 1. Little interest or pleasure in doing things: Several days 2. Feeling down, depressed, or hopeless: Not at all 3. Trouble falling or staying asleep, or sleeping too much: Several days 4. Feeling tired or having little energy: Not at all 5. Poor appetite or overeating: Not at all 6. Feeling bad about yourself -- or that you are a failure or have let yourself or your family down: Several days 7. Trouble concentrating on things, such as reading the newspaper or watching television: Not at all 8. Moving or speaking so slowly that other people could have noticed. Or the opposite - being so fidgety or restless that you have been moving around a lot more than usual: Not at all 9. Thoughts that you would be better off , or of hurting yourself in some way: Not at all How difficult have these problems made it for you to do your work, take care of things at home, or get along with other people?: Not difficult at all Total Score: 3 Self-Efficacy 60-Day Re-eval Assessment We would like to know how confident you are in doing certain activities. Please select your confidence level for:: Select your confidence level for the following using the scale 1-10 where 1 is not at all confident and 10 is totally confident. Your score is the average of all 6 responses. Fatigue: How confident are you that you can keep the fatigue caused by your disease from interfering with the things you want to do? Select Number: 8 Physical Discomfort or Pain: How confident are you that you can keep the physical discomfort or pain of your disease from interfering with the things you want to do? Select Number: 8 Emotional Distress: How confident are you that you can keep the emotional distress caused by your disease from interfering with the things you want to do? Select Number: 9 Other Symptoms or Health Problems: How confident are you that you can keep other symptoms or health problems from interfering with the things you want to do? Select Number: 10 Different Tasks and Activities: How confident are you that you can do the different tasks and activities needed to manage your health condition so as to reduce your need to see a doctor? Select Number: 8 Medication: How confident are you that you can do things other than just taking medication to reduce how much your illness affects your everyday life? Select Number: 9 Total Score:: 8
[2020-01-14 09:21] VITALS: BP 112/60; BP 140/84; BMI 36.3
== END 2020-01-18 23:59 ==
LOC: CR 08:00
PROVIDERS: PCP Family Medicine; Referring Provider Internal Medicine Cardiovascular Disease; Visit Provider Internal Medicine Cardiovascular Disease
DX: I25.10 Atherosclerotic heart disease of native coronary artery without angina pectoris (principal); I25.2 Old myocardial infarction; I10 Essential (primary) hypertension; E78.5 Hyperlipidemia, unspecified; G47.33 Obstructive sleep apnea (adult) (pediatric); K21.9 Gastro-esophageal reflux disease without esophagitis; Z95.5 Presence of coronary angioplasty implant and graft
CPT/HCPCS: 93798

== ENCOUNTER → 2020-01-25 13:36 | Outpatient (CLI) | payer MEDICARE, BC, SELFPAY ==
[2019-11-30 10:31] VITALS: BMI 37.8
[2020-01-14 09:21] VITALS: BMI 36.3
[2020-01-25 15:19] LABS: Hematocrit 37.1 % (40-54); Mean Corp Hgb Conc 32.3 g/dL (32-36); Mean Corpuscular Hgb 31.1 pg (27.0-32.0); Mean Corpuscular Volume 96.1 fL (80-94); Mean Platelet Vol. 10.6 fl (6.2-12.0); Platelet Count 204 K/mm3 (150-450); RBC Distribution Width CV 15.4 % (11.6-14.6); RBC Distribution Width SD 54.4 fl (35.1-43.9); Red Blood Count 3.86 M/mm3 (4.6-6.2); White Blood Count 3.9 K/mm3 (4.4-11.0)
[2020-01-25 16:09] LABS: Anion Gap 7 (5-15); BUN 18 mg/dL (7-18); BUN/Creat Ratio 11.6 RATIO (10-20); Calcium,Total 8.2 mg/dL (8.5-10.1); Chloride 104 mmol/L (98-107); Creatinine, Serum 1.55 mg/dL (0.70-1.30); EST Glomerular Filtration Rate 47 mL/min (>60); Est Glom Filt Rate - Afr Amer 57 mL/min (>60); Glucose 93 mg/dL (74-106); Potassium 3.8 mmol/L (3.5-5.1); Sodium Level 137 mmol/L (136-145)
[2020-01-25 16:11] LABS: BNP,B-Type NATRIURETIC PEPTIDE 19.6 pg/mL (0-100)
== END ==
LOC: LAB.FUTURE 13:38 → LAB 13:41
PROVIDERS: PCP Family Medicine; Referring Provider Nurse Practitioner Family; Visit Provider Nurse Practitioner Family
DX: R06.02 Shortness of breath (principal); I10 Essential (primary) hypertension; I25.10 Atherosclerotic heart disease of native coronary artery without angina pectoris; I25.2 Old myocardial infarction; Z86.79 Personal history of other diseases of the circulatory system; Z95.5 Presence of coronary angioplasty implant and graft; E78.5 Hyperlipidemia, unspecified; G47.33 Obstructive sleep apnea (adult) (pediatric); K21.9 Gastro-esophageal reflux disease without esophagitis
CPT/HCPCS: 36415; 80048; 83880; 85027; 93798

== ENCOUNTER 2020-02-06 08:00 | Outpatient (RCR) | payer MEDICARE, BC, SELFPAY ==
[2019-11-30 10:31] VITALS: BMI 37.8
[2020-01-14 09:21] VITALS: BMI 36.3
[2020-01-19 00:31] VITALS: BP 112/60; BP 140/84
== END 2020-02-18 23:59 ==
LOC: CR 08:00
PROVIDERS: PCP Family Medicine; Referring Provider Internal Medicine Cardiovascular Disease; Visit Provider Internal Medicine Cardiovascular Disease
DX: I25.10 Atherosclerotic heart disease of native coronary artery without angina pectoris (principal); I25.2 Old myocardial infarction; I10 Essential (primary) hypertension; E78.5 Hyperlipidemia, unspecified; G47.33 Obstructive sleep apnea (adult) (pediatric); K21.9 Gastro-esophageal reflux disease without esophagitis; Z95.5 Presence of coronary angioplasty implant and graft
CPT/HCPCS: 93798

== ENCOUNTER → 2020-02-07 | Outpatient (CLI) | payer MEDICARE, BC, SELFPAY ==
[2019-11-30 10:31] VITALS: BMI 37.8
[2020-01-14 09:21] VITALS: BMI 36.3
--- NOTE | 2020-02-07 12:26 | STRESSREP_ITS ---
Stress Test Report Exercise myocardial perfusion stress test 69-year-old man with a history of previous inferior wall myocardial infarction. Stress protocol: Resting EKG demonstrates normal sinus rhythm with a rate of 75 bpm normal intervals are noted resting blood pressure is 108/60 mmHg. The patient exercised according to the regular Umer protocol for a total duration of 4 minutes and 32 seconds. The maximum heart rate attained was 1 and 33 bpm which was 88% of max impacted heart rate the maximum workload was 6.4 metabolic equivalents. At rest there were no ST or T wave changes noted to suggest ischemia at peak exercise upsloping ST changes only were noted with no meet the criteria for ischemia. The patient did experience slight tightness in the mid chest which remained the same. The resting blood pressure was 180/60 mmHg and a peak blood pressure of 152/74 mmHg. Myocardial perfusion protocol. 14.2 mCi of technetium 99m sestamibi was injected at rest. The patient then exercised according to regular Umer protocol for 4 minutes and 32 seconds. At peak infusion 44.5 mCi of technetium 99m sestamibi was injected stress images were obtained stress and rest images were reconstructed and compared in the short axis vertical and horizontal long axis. Gated images were also obtained Perfusion SPECT analysis: Review of the stress images demonstrate a defect noted in the basal inferior wall and also in the mid inferior wall. This is present on the stress images the resting images demonstrate mild improvement suggestive of maninder-infarct ischemia. Gated ejection fraction is 62%. Conclusion: Exercise myocardial perfusion stress test with no EKG criteria for ischemia. Myocardial perfusion scan suggestive of previous inferior infarct and mild maninder- infarct ischemia. Preserved ejection fraction. Chest discomfort noted of unclear significance.
== END | disposition home or self-care (01) ==
LOC: CVS 06:36
PROVIDERS: PCP Family Medicine; Referring Provider Internal Medicine Cardiovascular Disease; Visit Provider Internal Medicine Cardiovascular Disease
DX: I25.10 Atherosclerotic heart disease of native coronary artery without angina pectoris (principal); Z95.5 Presence of coronary angioplasty implant and graft
CPT/HCPCS: 78452; 93017; A9500; A4216

== ENCOUNTER → 2020-02-08 | Outpatient (CLI) | payer MEDICARE, BC, SELFPAY ==
[2019-11-30 10:31] VITALS: BMI 37.8
[2020-01-14 09:21] VITALS: BMI 36.3
--- NOTE | 2020-02-08 08:17 | RAD_ITS ---
STUDY: X-RAY CHEST REASON FOR EXAM: Male, 69 years old. DYSPNEA PATIENT IS HAVING A HEART CATH SOON. TECHNIQUE: PA and lateral views of the chest. COMPARISON: 11/04/2019 FINDINGS: Patchy alveolar opacities in both lungs greater on the right than left consistent with bilateral pneumonia. There is no demonstrated pleural abnormality. Normal size heart. Normal mediastinum and xu. Normal visualized pulmonary arteries. Normal visualized aortic arch and descending thoracic aorta. Normal visualized thoracic spine. Normal visualized ribs, clavicles, and shoulders. There is no demonstrated abnormality of the visualized soft tissue structures of the upper abdomen. RAD/Chest PA and Lateral IMPRESSION: Bilateral pneumonia greater on the right than the left. Electronically Signed: Yordy Burnett MD at 9:00 EDT Tel , Service support ,
[2020-02-08 10:10] LABS: Anion Gap 4 (5-15); BUN 18 mg/dL (7-18); BUN/Creat Ratio 16.1 RATIO (10-20); Calcium,Total 8.7 mg/dL (8.5-10.1); Chloride 105 mmol/L (98-107); Creatinine, Serum 1.12 mg/dL (0.70-1.30); EST Glomerular Filtration Rate 69 mL/min (>60); Est Glom Filt Rate - Afr Amer 84 mL/min (>60); Glucose 96 mg/dL (74-106); Potassium 4.4 mmol/L (3.5-5.1); Sodium Level 137 mmol/L (136-145)
== END | disposition home or self-care (01) ==
LOC: RAD 08:17
PROVIDERS: PCP Family Medicine; Referring Provider Internal Medicine Cardiovascular Disease; Visit Provider Internal Medicine Cardiovascular Disease
DX: E78.5 Hyperlipidemia, unspecified (principal); G47.33 Obstructive sleep apnea (adult) (pediatric); I10 Essential (primary) hypertension; I25.10 Atherosclerotic heart disease of native coronary artery without angina pectoris; I25.2 Old myocardial infarction; I46.9 Cardiac arrest, cause unspecified; R94.39 Abnormal result of other cardiovascular function study; Z86.79 Personal history of other diseases of the circulatory system; Z95.5 Presence of coronary angioplasty implant and graft
CPT/HCPCS: 36415; 71046; 80048

== ENCOUNTER 2020-02-09 11:37 | Emergency (ER) | payer MEDICARE, BC, SELFPAY ==
[2019-11-30 10:31] VITALS: BMI 37.8
[2020-01-14 09:21] VITALS: BMI 36.3
[2020-02-09 11:38] VITALS: BP 120/71; PULSE 78; RESP 16; TEMP 36.1; O2SAT 98; BMI 35.5
--- NOTE | 2020-02-09 11:55 | CT_ITS ---
STUDY: CT CHEST WITHOUT CONTRAST REASON FOR EXAM: Male, 69 years old. PNEUMONIA PER CXR RADIATION DOSAGE (If Supplied By Facility): CTDIvol = ( 20.01 ) mGy, DLP = ( 710.07 ) mGycm TECHNIQUE: Transaxial imaging was performed without the administration of intravenous contrast material. Individualized dose optimization techniques were used for this CT. COMPARISON: Chest x-ray 02/08/2020 FINDINGS: Patchy alveolar opacities within the periphery the right upper lobe, right lower lobe, and left lower lobe likely consistent with bilateral pneumonia. Other possibility includes alveolar proteinosis. There is no demonstrated pleural abnormality. Normal heart and pericardium. There are calcifications of the coronary arteries. Normal mediastinum. Normal hilar regions. Normal unenhanced pulmonary arteries. Normal aorta arch and descending thoracic aorta. Normal osseous structures. There is no demonstrated abnormality of the visualized upper abdomen. CT/Chest without Contrast IMPRESSION: Bilateral pneumonia or possibly alveolar proteinosis. Electronically Signed: Yordy Burnett MD at 12:47 EDT Tel , Service support ,
--- NOTE | 2020-02-09 11:59 | ED.VIS.GEN ---
History of Present Illness Chief Complaint: Shortness of Breath Informant: Patient Narrative: 69-year-old male presents the emergency department dyspnea. He tells me that in October he had an WA and had a stent placed. He reports that he has been doing cardiac rehab and over the past 3-4 weeks has been more short of breath with exertion. He states that he underwent a nuclear stress test that was abnormal he has plans to have a heart catheterization next week. As part of this work-up he had a chest x-ray yesterday that was read as bilateral patchy infiltrates. He states he has not had any fever or cough. 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 At one point in the preceding couple months it was felt that some of the dyspnea could be related to the Brilinta so he was switched to Plavix. He states that has not changed. He has come to cardiac rehab about 3 times per week and has had decrease his exercise amount but he is not had any abnormal vital signs when he is checked in. Past Medical History - Allergies and Home Meds Allergies/Adverse Reactions: Allergies iodine Allergy (Verified 02/09/20 11:37) Rash Penicillins [PCN] Allergy (Verified 02/09/20 11:37) Rash wool Allergy (Verified 02/09/20 11:37) Rash aspirin Adverse Reaction (Verified 02/09/20 11:37) Upset Stomach Primary Care Physician: Abisai Bryant DO [Primary Care Provider] - As Needed Surgical History: total knee arthroplasty, - - Left shoulder surgery, left foot surgery. Smoking Status: Never smoker - Family History Maternal Family History: Family History (Last Reviewed 11/30/19 @ 10:[address] Damian Lion MD) Other Adopted Family History: Reports: Unknown - Patient is adopted. Paternal Family History: Family History (Last Reviewed 11/30/19 @ 10:[address] Damian Lion MD) Other Adopted Family History: Reports: No pertinent history - Patient is adopted. Review of Systems General: Denies: Chills, Fever, Sweats Eyes: Denies: Visual changes - bilaterally, Diplopia ENT: Denies: Rhinorrhea, Sore throat Cardiovascular: Denies: Chest pain, Palpitations Respiratory: Reports: Dyspnea, Dyspnea on exertion. Denies: Cough Gastrointestinal: Denies: Abdominal pain, Nausea, Vomiting, Diarrhea, Melena, Hematochezia Genitourinary: Denies: Dysuria, Hematuria, Frequency Musculoskeletal: Denies: Back pain, Extremity Pain Skin: Denies: Rash, Wounds Neurological: Denies: Headache, Weakness, Numbness Physical Exam Vital Signs/Narrative: Vital Signs Temp Pulse Resp BP Pulse Ox 02/09/20 11:38 96.9 F L 78 16 120/71 98 Inital Vital Signs reviewed: Yes General: Well nourished, Well developed, No Acute Distress Head: Normocephalic, Atraumatic Eyes: Perrl, EOMI ENT: Moist mucous membranes, No rhinorrhea Neck: Supple, Nontender Cardiovascular: Regular rate, Regular rhythm, No murmurs Respiratory: No distress, CTA bilaterally, Chest nontender Abdomen: Soft, Nontender, Nondistended, Normal bowel sounds Back: Nontender, Normal Inspection Extremities: Nontender, No edema Skin: Normal color, No rash Neurological: Alert, Oriented x3, Cranial nerves II-XII grossly intact, Normal Strength, Normal Sensation Psychological: Normal affect, Normal Mood Diagnostic/Tx/Re-eval Laboratory Last Values WBC 6.3 K/mm3 (4.4-11.0) 02/09/20 12:10 RBC 3.66 M/mm3 (4.6-6.2) L 02/09/20 12:10 Hgb 11.3 g/dL (13.0-16.5) L 02/09/20 12:10 Hct 34.2 % (40-54) L 02/09/20 12:10 MCV 93.4 fL (80-94) 02/09/20 12:10 MCH 30.9 pg (27.0-32.0) 02/09/20 12:10 MCHC 33.0 g/dL (32-36) 02/09/20 12:10 RDW Std Deviation 48.0 fl (35.1-43.9) H 02/09/20 12:10 RDW Coeff of Rose 13.8 % (11.6-14.6) 02/09/20 12:10 Plt Count 334 K/mm3 (150-450) 02/09/20 12:10 MPV 10.2 fl (6.2-12.0) 02/09/20 12:10 Immature Gran % (Auto) 0.500 % (0.0-0.9) 02/09/20 12:10 Neut % (Auto) 62.6 % (47-70) 02/09/20 12:10 Lymph % (Auto) 16.1 % (19-41) L 02/09/20 12:10 Wagoner % (Auto) 16.1 % (0-10) H 02/09/20 12:10 Eos % (Auto) 4.1 % (0-5) 02/09/20 12:10 Baso % (Auto) 0.6 % (0-1) 02/09/20 12:10 Absolute Neuts (auto) 3.9 X10^3/uL (2.0-7.7) 02/09/20 12:10 Absolute Lymphs (auto) 1.01 X10^3/uL (0.83-4.51) 02/09/20 12:10 Nucleated RBC % 0 % (0-5) 02/09/20 12:10 Sodium 136 mmol/L (136-145) 02/09/20 12:10 Potassium 4.4 mmol/L (3.5-5.1) 02/09/20 12:10 Chloride 105 mmol/L (98-107) 02/09/20 12:10 Carbon Dioxide 28.0 mmol/L (21.0-32.0) 02/09/20 12:10 Anion Gap 3 (5-15) L 02/09/20 12:10 BUN 20 mg/dL (7-18) H 02/09/20 12:10 Creatinine 1.28 mg/dL (0.70-1.30) 02/09/20 12:10 Estim Creat Clear Calc 58.01 ml/min 02/09/20 12:10 Est GFR (MDRD) Af Amer 72 mL/min (>60) 02/09/20 12:10 Est GFR (MDRD) Non-Af 59 mL/min (>60) L 02/09/20 12:10 BUN/Creatinine Ratio 15.6 RATIO (10-20) 02/09/20 12:10 Glucose 90 mg/dL (74-106) 02/09/20 12:10 Calcium 8.3 mg/dL (8.5-10.1) L 02/09/20 12:10 Total Bilirubin 0.50 mg/dL (0.20-1.00) 02/09/20 12:10 AST 21 U/L (15-37) 02/09/20 12:10 ALT 19 U/L (16-61) 02/09/20 12:10 Alkaline Phosphatase 71 U/L (45-117) 02/09/20 12:10 Troponin I < 0.015 ng/mL (<0.045) 02/09/20 12:10 B-Natriuretic Peptide 31.7 pg/mL (0-100) 02/09/20 12:10 Total Protein 7.1 g/dL (6.4-8.2) 02/09/20 12:10 Albumin 2.9 g/dL (3.2-5.0) L 02/09/20 12:10 Globulin 4.2 g/dL (2.2-4.2) 02/09/20 12:10 Albumin/Globulin Ratio 0.7 RATIO (0.9-2.4) L 02/09/20 12:10 - Medical Decision Making CT of the chest demonstrates patchy alveolar opacities bilaterally. Basic labs are negative. Interestingly earlier in the month he was neutropenic. I do wonder if he has had a viral illness like COVID over the preceding weeks and is slowly getting better. We are going to send off a COVID and as I cannot guarantee that he will get this result back before his heart cath we can do it in-house. I hope that it is negative so that he can have his heart catheterization that he needs. In the interim we are going to place him on antibiotics. His vital signs are stable and he is otherwise asymptomatic other than the dyspnea on exertion. Current respirations are 16 with a pulse ox 98%. Patient's COVID test returns positive and the patient was updated. ED Disposition - Plan for ED Patient: Disposition: Home or Assisted Living Diagnosis: Bilateral pneumonia, COVID-19, Coronary artery disease Instructions: Pneumonia Prescriptions: Azithromycin [Zithromax Z-Min] 250 mg PO UD #1 box Transmission Status: Received by [facility] Referrals: Abisai Bryant, [Primary Care Provider] - As Needed
[2020-02-09 12:16] LABS: Absolute Lymphocyte Count 1.01 X10^3/uL (0.83-4.51); Absolute Neutrophil Count 3.9 X10^3/uL (2.0-7.7); Basophil# 0.04 X10^3/uL; Basophil% 0.6 % (0-1); Eosinophil# 0.26 X10^3/uL; Eosinophils% 4.1 % (0-5); Hematocrit 34.2 % (40-54); Hemoglobin 11.3 g/dL (13.0-16.5); Lymphocyte # 1.01 X10^3/ul (4.0); Lymphocyte % 16.1 % (19-41); Mean Corpuscular Hgb 30.9 pg (27.0-32.0); Mean Corpuscular Volume 93.4 fL (80-94); Mean Platelet Vol. 10.2 fl (6.2-12.0); Monocyte# 1.01 X10^3/uL; Monocyte% 16.1 % (0-10); NRBC Flagged by Analyzer 0 % (0-5); Neutrophil # 3.94 X10^3/uL (2.7-7.7); Neutrophil % 62.6 % (47-70); Platelet Count 334 K/mm3 (150-450); RBC Distribution Width CV 13.8 % (11.6-14.6); Red Blood Count 3.66 M/mm3 (4.6-6.2); White Blood Count 6.3 K/mm3 (4.4-11.0)
[2020-02-09 12:20] VITALS: O2SAT 97
[2020-02-09 12:51] LABS: ALB/GLOB Ratio 0.7 RATIO (0.9-2.4); AST(SGOT) 21 U/L (15-37); Alanine Aminotransfer ALT/SGPT 19 U/L (16-61); Albumin, Serum 2.9 g/dL (3.2-5.0); Alkaline Phosphatase 71 U/L (45-117); Anion Gap 3 (5-15); BUN 20 mg/dL (7-18); BUN/Creat Ratio 15.6 RATIO (10-20); Calcium,Total 8.3 mg/dL (8.5-10.1); Chloride 105 mmol/L (98-107); Creatinine, Serum 1.28 mg/dL (0.70-1.30); EST Glomerular Filtration Rate 59 mL/min (>60); Est Glom Filt Rate - Afr Amer 72 mL/min (>60); Estimated Creatinine Clearance 58.01 ml/min; Globulin 4.2 g/dL (2.2-4.2); Glucose 90 mg/dL (74-106); Potassium 4.4 mmol/L (3.5-5.1); Protein, Total 7.1 g/dL (6.4-8.2); Sodium Level 136 mmol/L (136-145)
[2020-02-09 12:52] LABS: BNP,B-Type NATRIURETIC PEPTIDE 31.7 pg/mL (0-100)
[2020-02-09 14:29] VITALS: BP 119/74; PULSE 73; RESP 18; O2SAT 96
[2020-02-09 15:34] LABS: Probe Check PASS
== END 2020-02-09 14:33 | disposition home or self-care (01) ==
PROVIDERS: Emergency Provider Emergency Medicine; PCP Family Medicine
DX: U07.1 COVID-19 (principal); J12.89 Other viral pneumonia; I25.10 Atherosclerotic heart disease of native coronary artery without angina pectoris; I25.2 Old myocardial infarction; Z95.5 Presence of coronary angioplasty implant and graft
CPT/HCPCS: 71250; 80053; 83880; 84484; 85025; 87635; 94799; 96360; 96361; 99284; J7040; A4216; U0003

== ENCOUNTER → 2020-07-31 06:53 | Outpatient (CLI) | payer MEDICARE, BC, SELFPAY ==
[2020-01-14 09:21] VITALS: BMI 36.3
[2020-04-23 11:19] VITALS: BMI 37.7
--- NOTE | 2020-07-31 11:21 | STRESSREP ---
Stress Test Report Exercise myocardial perfusion stress test. 69-year-old male with a history of previous right coronary artery stenting. Stress protocol: Resting KG demonstrates sinus bradycardia with a rate of 55 bpm T wave inversions noted in lead III. Resting blood pressure is 112/62 mmHg. The patient exercised according to regular Umer protocol for a total duration of 6 minutes and 12 seconds. The maximum heart rate attained was 146 bpm which was 96% of maximum predicted heart rate the maximum workload was 7.3 metabolic equivalents. At rest there were no ST or T wave changes noted to suggest abnormal flow reserve or ischemia and at peak infusion nonspecific ST changes were noted with no meet the criteria for ischemia. The test was terminated due to the target heart rate being achieved. The peak blood pressure was 160/78 mmHg which was a normal blood pressure response to exercise. Myocardial perfusion protocol. 14.5 mCi of technetium 99m sestamibi was injected at rest. Patient exercised according to regular Umer protocol for total duration of 6 minutes and 12 seconds at peak exercise 44.5 mCi of technetium 99m sestamibi was injected stress images were obtained stress and rest images were reconstructed and compared in the short axis vertical long horizontal long axis. Gated images were also obtained Perfusion SPECT analysis: Review of the stress images demonstrate normal uptake of tracer noted in all areas of the myocardium, except for the mid inferior wall with reduced perfusion. Of the resting images similar demonstrate normal uptake of tracer noted in all areas of the myocardium with improvement noted in the inferior wall suggesting inferior ischemia present. There is unfortunately significant motion artifact and this could be accounting for some of the changes. Gated SPECT analysis: The gated ejection fraction is 61%. Conclusion: Abnormal exercise myocardial perfusion stress test with evidence of mid inferior ischemia. Good functional aerobic capacity.
== END ==
PROVIDERS: PCP Family Medicine; Visit Provider Nurse Practitioner Family
DX: I25.10 Atherosclerotic heart disease of native coronary artery without angina pectoris (principal); R94.39 Abnormal result of other cardiovascular function study; R06.00 Dyspnea, unspecified; I10 Essential (primary) hypertension; E78.5 Hyperlipidemia, unspecified; Z95.5 Presence of coronary angioplasty implant and graft
CPT/HCPCS: 78452; 93017; A9500; A4216

== ENCOUNTER → 2020-08-15 13:04 | Outpatient (CLI) | payer MEDICARE, BC, SELFPAY ==
[2020-01-14 09:21] VITALS: BMI 36.3
[2020-04-23 11:19] VITALS: BMI 37.7
[2020-08-15 14:12] LABS: Absolute Lymphocyte Count 1.48 X10^3/uL (0.83-4.51); Absolute Neutrophil Count 3.2 X10^3/uL (2.0-7.7); Basophil# 0.04 X10^3/uL; Basophil% 0.7 % (0-1); Eosinophil# 0.24 X10^3/uL; Eosinophils% 4.3 % (0-5); Hematocrit 39.6 % (40-54); Hemoglobin 12.3 g/dL (13.0-16.5); Lymphocyte # 1.48 X10^3/ul (4.0); Lymphocyte % 26.4 % (19-41); Mean Corp Hgb Conc 31.1 g/dL (32-36); Mean Corpuscular Hgb 30.3 pg (27.0-32.0); Mean Corpuscular Volume 97.5 fL (80-94); Mean Platelet Vol. 10.6 fl (6.2-12.0); Monocyte% 10.7 % (0-10); NRBC Flagged by Analyzer 0 % (0-5); Neutrophil # 3.22 X10^3/uL (2.7-7.7); Neutrophil % 57.5 % (47-70); Platelet Count 221 K/mm3 (150-450); RBC Distribution Width CV 14.1 % (11.6-14.6); RBC Distribution Width SD 51.1 fl (35.1-43.9); Red Blood Count 4.06 M/mm3 (4.6-6.2); White Blood Count 5.6 K/mm3 (4.4-11.0)
[2020-08-15 15:01] LABS: Anion Gap 4 (5-15); BUN 16 mg/dL (7-18); BUN/Creat Ratio 12.3 RATIO (10-20); Calcium,Total 8.9 mg/dL (8.5-10.1); Chloride 105 mmol/L (98-107); EST Glomerular Filtration Rate 58 mL/min (>60); Est Glom Filt Rate - Afr Amer 70 mL/min (>60); Glucose 161 mg/dL (74-106); Potassium 4.1 mmol/L (3.5-5.1); Sodium Level 138 mmol/L (136-145)
== END ==
PROVIDERS: PCP Family Medicine; Referring Provider Nurse Practitioner Family; Visit Provider Nurse Practitioner Family
DX: E78.5 Hyperlipidemia, unspecified (principal); G47.33 Obstructive sleep apnea (adult) (pediatric); I10 Essential (primary) hypertension; I25.10 Atherosclerotic heart disease of native coronary artery without angina pectoris; I25.2 Old myocardial infarction; I46.9 Cardiac arrest, cause unspecified; R06.00 Dyspnea, unspecified; U07.1 COVID-19; J12.89 Other viral pneumonia; Z86.79 Personal history of other diseases of the circulatory system; Z95.5 Presence of coronary angioplasty implant and graft
CPT/HCPCS: 36415; 80048; 85025

== ENCOUNTER 2020-08-19 06:43 | Day surgery (SDC) | payer MEDICARE, BC, SELFPAY ==
[2019-11-30 10:31] VITALS: BMI 37.8
[2020-01-14 09:21] VITALS: BMI 36.3
[2020-04-23 11:19] VITALS: BMI 37.7
--- NOTE | 2020-08-15 13:19 | RAD_ITS ---
STUDY: X-RAY CHEST REASON FOR EXAM: Male, 69 years old. chest pain TECHNIQUE: 2 views COMPARISON: Prior chest radiograph of 02/08/[address] of 02/09/2020. Prior baseline film of 11/04/2019 FINDINGS: Acute infiltrates have resolved. No new consolidation, focal atelectasis or pleural effusion. Calcified granuloma in the superior segment of the right lower lobe. Normal size heart. Normal mediastinum and xu. Normal visualized pulmonary arteries. Mild elongation of the thoracic aorta. There are diffuse degenerative changes of the visualized thoracic spine. Normal visualized ribs, clavicles, and shoulders. There is no demonstrated abnormality of the visualized soft tissue structures of the upper abdomen. RAD/Chest PA and Lateral IMPRESSION: Prior acute infiltrates have completely resolved with no new consolidation, focal atelectasis or pleural effusion. Stigmata of old granulomatous disease. Normal cardiac size without pulmonary venous congestion. Mild atherosclerotic changes of the thoracic aorta. Electronically Signed: Deidre Galan MD at 17:00 EST , Service support ,
[2020-08-18 08:44] VITALS: BMI 37.7
--- NOTE | 2020-08-22 13:08 | HP.PCM_ITS ---
History and Physical Date of Admission: 08/19/20 This is a 69-year-old male who presents here today for a diagnostic heart cath. He has a history of atherosclerotic coronary artery disease with a non-ST elevated myocardial infarction in October 2019 status post drug-eluting stent to mid distal RCA on 11/05/2019, ventricular tachycardia arrest, hypertension, hyperlipidemia, obstructive sleep apnea with CPAP therapy, and obesity. He states this is the best he has felt in several years. He denies chest, arm, jaw, or neck discomfort. His exercise tolerance is stable. He denies symptoms of palpitations, lightheadedness, dizziness, near syncope, or syncopal episodes. He denies edema or claudication issues. He denies orthopnea, PND, cough, blood in urine, blood in stool, epistaxis, myalgia, or unexplainable fatigue (he states this is improving). He does acknowledge SOB when carrying heavy object up steps. This is not new and is improving. He denies SOB with ADLs. 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 It demonstrated Abnormal exercise myocardial perfusion stress test with evidence of mid inferior ischemia. Good functional aerobic capacity. Allergies iodine Allergy (Verified 04/23/20 11:15) Rash Penicillins [PCN] Allergy (Verified 04/23/20 11:15) Rash wool Allergy (Verified 04/23/20 11:15) Rash aspirin Adverse Reaction (Verified 04/23/20 11:15) Upset Stomach Medications Ascorbate Calcium [Vitamin C] PO DAILY 11/04/19 [History Confirmed 04/23/20] Fexofenadine HCl 60 mg PO DAILY 11/04/19 [History Confirmed 04/23/20] Glucosamine/Chondr Calderón A Sod [Glucosamine-Chondroitin Liq] 480 ml PO BID 11/04/19 [History Confirmed 04/23/20] Aspirin E.C. [Ecotrin] 81 mg PO DAILY@0800 #30 tab 11/06/19 [Rx Confirmed 04/23/20] atorvastatin 40 mg tablet 40 mg PO QHS #90 tab 11/30/19 [Rx Confirmed 04/23/20] carvedilol 6.25 mg tablet 6.25 mg PO BID #180 tab 11/30/19 [Rx Confirmed 04/23/20] hydrochlorothiazide 12.5 mg capsule 12.5 mg PO DAILY #90 cap 11/30/19 [Rx Confirmed 04/23/20] lisinopril 20 mg tablet 20 mg PO DAILY #90 tab 11/30/19 [Rx Confirmed 04/23/20] pantoprazole 40 mg tablet,delayed release 40 mg PO DAILY #90 tab 11/30/19 [Rx Confirmed 04/23/20] clopidogrel 75 mg tablet 75 mg PO DAILY #34 tab 01/25/20 [Rx Confirmed 04/23/20] acetaminophen 650 mg tablet,extended release 1,300 mg PO Q12H tab 02/09/20 [History Confirmed 04/23/20] diclofenac sodium 75 mg tablet,delayed release 75 mg PO .COMPLEX 04/23/20 [History Confirmed 04/23/20] [facility] Medical History (Updated 04/23/20 @ 13:06 by [place] HEALTH SERVICES COORDINATOR, HEALTH SERVICES COORDINATOR-C) Atherosclerosis of coronary artery without angina pectoris (Chronic) History of non-ST elevation myocardial infarction (NSTEMI) (Resolved 11/04/19) Cardiac arrest (Resolved 11/05/19) History of sustained ventricular tachycardia (Resolved 11/05/19) Essential (primary) hypertension (Chronic) Hyperlipidemia (Chronic) Obstructive sleep apnea (Chronic) GERD (gastroesophageal reflux disease) (Chronic) Obesity (BMI 30-39.9) (Chronic) Osteoarthritis (Chronic) Surgical History (Updated 02/09/20 @ 12:[address] Milton Cespedes DO) History of coronary artery stent placement (Resolved 11/05/19) History of foot surgery (Resolved) History of shoulder surgery (Resolved) History of total knee arthroplasty (Resolved) Family History Other Adopted Social History (Updated 04/30/20 @ 12:44 by [place] HEALTH SERVICES COORDINATOR, HEALTH SERVICES COORDINATOR-C) Smoking Status: Never smoker ROS Const Const: Negative for fatigue, weakness, body ache, fever(s) or chills ENT ENT: Negative for dizziness Cardio Chest Pain: No Palpitations: No Edema: None Muscle aches with walking: None Resp Respiratory: Positive for SOB with activity; negative for SOB at rest, SOB orthopnea\SOB lying down or paroxysmal nocturnal dyspnea GI GI: Negative nausea, vomiting blood/hematemesis, bright, red blood in stools or black,tarry stools : Negative for hematuria or frequent nighttime urination/ nocturia Musc Musc: Negative for muscle aches/ myalgia Skin Skin: Negative non-healing lesions or rash Neuro Neuro: Negative for dizziness, lightheadedness, near syncope, syncope, orthostatic symptoms or weakness Endo Endo: Negative for fatigue Allergy Allergy/Immunology: Negative for rash Cardiology Exam Const Appearance: cooperative, healthy appearing, comfortable and no acute distress Nutritional Appearance: well nourished and obese Orientation: alert, awake and oriented x3 Head Head: normal to inspection Ears: hearing grossly normal bilaterally Nose: external nose normal Face and Sinus: face symmetric Mouth: oral mucosae normal Eyes General: appearance normal, both eyes and all related structures Eyelids: eyelids normal EOM: EOM intact bilaterally Neck Neck: normal visual inspection and no JVD Carotids: normal carotid upstroke Chest Chest inspection: normal inspection of the chest, symmetric chest movement and normal respiratory effort; negative cough Auscultation: Bilateral: Clear to Auscultation Cardio Palpation: normal PMI Rate: regular rate Rhythm: regular rhythm Heart sounds: S1 normal and S2 normal; negative rub, gallop or murmur GI GI: normal to inspection and obese Neuro General: alert, awake, oriented x3 and CN's II-XI intact bilaterally Skin Skin: no rashes or lesions noted Extremities Pulses: Normal: Right Posterior Tibial Pulse, Left Posterior Tibial Pulse, Right Radial Pulse, Left Radial Pulse Lower Extremity Edema: None: Bilateral Psych Psychological: normal affect Assessment & Plan 1. Atherosclerosis of [place] coronary artery of [place] heart without angina pectoris I25.10 Plan With his abnormal stress test will undergo a diagnostic heart cath. 2. History of coronary artery stent placement Z95.5 [id number] RCA w/ 4.00 x 24 mm Synergy MR Stent 11/05/2019 Plan He will continue current medical therapy. He will continue risk factor and lifestyle modification. 3. Essential hypertension I10 Plan His blood pressure slightly elevated today in office. His blood pressure throughout cardiac rehab was much better controlled and at times was on the lower end of expected range. He was asked to continue to monitor his blood pressure routinely and contact our office if he notes that is consistently elevated. If this occurs, we can consider further medication adjustment. 4. Hyperlipidemia, unspecified hyperlipidemia type E78.5 Plan Lipid panel from 11/05/2019 showed Cholesterol: 218, HDL: 47, LDL: 149, and Triglycerides: 110. He will continue current statin medication. Procedure Criteria Procedure Type: Elective COVID Risk Discussion: The surgeon/proceduralist and patient have discussed in detail the risk of exposure to and/or potential harm posed by the COVID-19 virus with having a surgery/procedure at this time versus the risk of delaying the surgery/procedure. It is not possible to know either the risk of delaying the surgery or procedure or chance of getting an infection with perfect accuracy, but a joint decision was made between the patient and the surgeon/proceduralist to proceed at this time with the scheduled surgery/procedure as indicated on the consent form.
--- NOTE | 2020-08-25 13:13 | CL.D_ITS ---
Patient Name: WYATT OTT Study Date: 08/19/2020 Performing: Damian Lion MD Ht: 72 inches 183 cm : 1950 Wt: 278.1 lbs 126 kg Age: 69 Gender: male BSA: 2.45 PROCEDURE(S) PERFORMED [id number] CLINICAL PROFILE AND INDICATIONS Indications: Suspected CAD Heart Failure: None Stress/Imaging Date: 08/03/20ress Test with SPECT MPI: Positive Low Risk CAD Presentations: Symptom unlikely to be ischemic. CONCLUSIONS Mild coronary disease with previously placed stent in the right coronary artery which is noted to be patent. RECOMMENDATIONS Medical therapy DESCRIPTION OF PROCEDURE The patient arrived to the procedure lab. The risks and benefits of the procedure as well as a full d escription of our services here and current unavailability of surgical backup were fully explained to the patient and/or their significant other prior to the catheterization. The Timeout was completed, verifying the correct patient and procedure. The patient's procedural site was prepped and draped in the usual fashion. Local anesthetic was given subcutaneously to right radial region with Lidocaine 2% . Using a modified Seldinger technique, arterial access was obtained via the right radial artery, a 6 Fr sheath was inserted. Left Coronary Artery selective angiography was performed in multiple views u sing a 5 Fr. 4.0 Walsh catheter. Right Coronary Artery selective angiography was then performed in mu ltiple views using a 5 Fr. 4.0 Walsh catheter. Left Ventriculography was performed in SUBRAMANIAN projection using a 5 Fr. Pigtail catheter. LV to AO pullback pressures were then recorded.The arterial sheath was pulled and a TR Band was applied for hemostasis - 12cc air CORONARY ANGIOGRAPHY DOMINANCE: Right Dominant LEFT HEART ASSESSMENT Left Ventricular Ejection Fraction: by LV Gram 47 % Global Hypokinesis - Mild Normal Left Ventricular systolic function LEFT MAIN: Angiographically normal LEFT ANTERIOR DESCENDING ARTERY: Mild luminal irregularities less than 30% CIRCUMFLEX ARTERY: Mild luminal irregularities less than 30% RIGHT CORONARY ARTERY: Previously placed stent is patent COMPLICATIONS No Complications PROCEDURE MEDICATIONS Fentanyl 50 mcg IV Versed 1 mg IV Versed 1 mg IV Oxygen: 2 L/min via nasal cannula Benadryl 25 mg IV @ 08/19/2020 07:48:03 Heparin diluted in 23cc Heparinized saline. Patient given 10cc IA of this solution. 08/19/2020 08:09:5 7 Solu-cortef 100 mg IV 08/19/2020 07:47:41 SUMMARY OF HEMODYNAMIC DATA Time AIR REST ECG 07:50:27 AO 141/82 (108) SA 08:11:49 LV 139/9, 18 08:22:07 LV 143/11, 21 08:22:53 LVp 140/12, 23 08:23:17 LV 139/13, 24 08:23:19 AOp 86/-63 (18) 08:23:22 Signed By Damian Lion MD On 08/25/2020 1:12:54 PM Damian Lion MD
== END 2020-08-19 10:30 | disposition home or self-care (01) ==
LOC: CLSP 06:43
PROVIDERS: PCP Family Medicine; Referring Provider Internal Medicine Cardiovascular Disease; Visit Provider Internal Medicine Cardiovascular Disease
DX: I25.10 Atherosclerotic heart disease of native coronary artery without angina pectoris (principal); I25.2 Old myocardial infarction; I10 Essential (primary) hypertension; E78.5 Hyperlipidemia, unspecified; E66.9 Obesity, unspecified; K21.9 Gastro-esophageal reflux disease without esophagitis; M19.90 Unspecified osteoarthritis, unspecified site; Z95.5 Presence of coronary angioplasty implant and graft; Z79.899 Other long term (current) drug therapy
CPT/HCPCS: 71046; 93458; 99152; 99153; J7040; Q9967; A4216; C1769; C1894

== ENCOUNTER 2021-07-21 10:43 | Outpatient (CLI) | payer MEDICARE, BC, SELFPAY ==
[2020-01-14 09:21] VITALS: BMI 36.3
[2021-07-21 11:44] LABS: BNP,B-Type NATRIURETIC PEPTIDE 23.4 pg/mL (0-100)
[2021-07-21 11:54] LABS: AST(SGOT) 22 U/L (15-37); Alanine Aminotransfer ALT/SGPT 26 U/L (16-61); Albumin, Serum 3.3 g/dL (3.2-5.0); Alkaline Phosphatase 75 U/L (45-117); Bilirubin, Direct 0.16 mg/dL (0.00-0.30); Cholesterol 120 mg/dL (200); Globulin 3.7 g/dL (2.2-4.2); High Density Lipoprotein 51 mg/dL; Triglycerides 103 mg/dL; Very Low Density Lipoprotein 21 mg/dL (5-40)
== END 2021-07-21 23:59 | disposition short-term general hospital (02) ==
PROVIDERS: PCP Family Medicine; Referring Provider Internal Medicine Cardiovascular Disease; Visit Provider Internal Medicine Cardiovascular Disease
DX: R06.00 Dyspnea, unspecified (principal); E78.00 Pure hypercholesterolemia, unspecified
CPT/HCPCS: 36415; 80061; 80076; 83880

== ENCOUNTER → 2022-01-20 | Outpatient (CLI) | payer MEDICARE, BC, SELFPAY ==
[2020-01-14 09:21] VITALS: BMI 36.3
[2022-01-20 08:52] LABS: AST(SGOT) 26 U/L (15-37); Alanine Aminotransfer ALT/SGPT 29 U/L (16-61); Albumin, Serum 3.4 g/dL (3.2-5.0); Alkaline Phosphatase 79 U/L (45-117); Bilirubin, Direct 0.12 mg/dL (0.00-0.30); Cholesterol 121 mg/dL (200); Globulin 3.5 g/dL (2.2-4.2); High Density Lipoprotein 50 mg/dL; Protein, Total 6.9 g/dL (6.4-8.2); Triglycerides 66 mg/dL; Very Low Density Lipoprotein 13 mg/dL (5-40)
== END | disposition home or self-care (01) ==
LOC: LAB 08:12
PROVIDERS: PCP Family Medicine; Referring Provider Nurse Practitioner Family; Visit Provider Nurse Practitioner Family
DX: I25.10 Atherosclerotic heart disease of native coronary artery without angina pectoris (principal); E78.5 Hyperlipidemia, unspecified; E66.9 Obesity, unspecified
CPT/HCPCS: 36415; 80061; 80076

== ENCOUNTER → 2022-04-20 | Outpatient (CLI) | payer MEDICARE, BC, SELFPAY ==
[2020-01-14 09:21] VITALS: BMI 36.3
[2022-04-20 15:31] LABS: Absolute Neutrophil Count 3.4 X10^3/uL (2.0-7.7); Basophil# 0.06 X10^3/uL; Basophil% 1.1 % (0-1); Eosinophil# 0.27 X10^3/uL; Eosinophils% 4.7 % (0-5); Hematocrit 37.8 % (40-54); Hemoglobin 12.4 g/dL (13.0-16.5); Mean Corp Hgb Conc 32.8 g/dL (32-36); Mean Corpuscular Hgb 32.4 pg (27.0-32.0); Mean Corpuscular Volume 98.7 fL (80-94); Mean Platelet Vol. 11.1 fl (6.2-12.0); Monocyte# 0.75 X10^3/uL; Monocyte% 13.1 % (0-10); NRBC Flagged by Analyzer 0 % (0-5); Neutrophil # 3.41 X10^3/uL (2.7-7.7); Neutrophil % 59.7 % (47-70); Platelet Count 219 K/mm3 (150-450); RBC Distribution Width CV 13.3 % (11.6-14.6); Red Blood Count 3.83 M/mm3 (4.6-6.2); White Blood Count 5.7 K/mm3 (4.4-11.0)
[2022-04-20 15:40] LABS: Anion Gap 1 (5-15); BUN 22 mg/dL (7-18); BUN/Creat Ratio 17.7 RATIO (10-20); Chloride 108 mmol/L (98-107); Creatinine, Serum 1.24 mg/dL (0.70-1.30); EST Glomerular Filtration Rate 61 mL/min (>60); Est Glom Filt Rate - Afr Amer 74 mL/min (>60); Glucose 99 mg/dL (74-106); PSA,Total - Annual Screen 0.34 ng/mL (0.00-4.00); Potassium 4.7 mmol/L (3.5-5.1); Sodium Level 139 mmol/L (136-145)
== END | disposition home or self-care (01) ==
LOC: BFHLAB 11:42
PROVIDERS: PCP Family Medicine; Visit Provider Family Medicine
DX: I25.10 Atherosclerotic heart disease of native coronary artery without angina pectoris (principal); Z51.81 Encounter for therapeutic drug level monitoring; Z12.5 Encounter for screening for malignant neoplasm of prostate
CPT/HCPCS: 36415; 80048; 84153; 85025; G0103

== ENCOUNTER → 2022-07-29 | Outpatient (CLI) | payer MEDICARE, BC, SELFPAY ==
[2020-01-14 09:21] VITALS: BMI 36.3
[2022-07-29 11:28] LABS: Absolute Lymphocyte Count 1.13 X10^3/uL (0.83-4.51); Absolute Neutrophil Count 4.3 X10^3/uL (2.0-7.7); Basophil# 0.06 X10^3/uL; Basophil% 0.9 % (0-1); Eosinophil# 0.23 X10^3/uL; Eosinophils% 3.5 % (0-5); Hematocrit 40.1 % (40-54); Hemoglobin 12.7 g/dL (13.0-16.5); Lymphocyte # 1.13 X10^3/ul (0.83-4.51); Lymphocyte % 17.2 % (19-41); Mean Corp Hgb Conc 31.7 g/dL (32-36); Mean Corpuscular Hgb 31.1 pg (27.0-32.0); Mean Corpuscular Volume 98.3 fL (80-94); Mean Platelet Vol. 10.8 fl (6.2-12.0); Monocyte% 12.2 % (0-10); NRBC Flagged by Analyzer 0 % (0-5); Neutrophil # 4.33 X10^3/uL (2.7-7.7); Platelet Count 237 K/mm3 (150-450); RBC Distribution Width CV 13.4 % (11.6-14.6); RBC Distribution Width SD 48.5 fl (35.1-43.9); Red Blood Count 4.08 M/mm3 (4.6-6.2); White Blood Count 6.6 K/mm3 (4.4-11.0)
[2022-07-29 12:17] LABS: BNP,B-Type NATRIURETIC PEPTIDE 17.9 pg/mL (0-100)
[2022-07-29 12:40] LABS: AST(SGOT) 28 U/L (15-37); Alanine Aminotransfer ALT/SGPT 25 U/L (16-61); Albumin, Serum 3.5 g/dL (3.2-5.0); Alkaline Phosphatase 86 U/L (45-117); Anion Gap 6 (5-15); BUN 22 mg/dL (7-18); BUN/Creat Ratio 15.9 RATIO (10-20); Bilirubin, Direct 0.16 mg/dL (0.00-0.30); Calcium,Total 8.8 mg/dL (8.5-10.1); Chloride 103 mmol/L (98-107); Cholesterol 120 mg/dL (200); Creatinine, Serum 1.38 mg/dL (0.70-1.30); EST Glomerular Filtration Rate 54 mL/min (>60); Est Glom Filt Rate - Afr Amer 65 mL/min (>60); Globulin 3.5 g/dL (2.2-4.2); Glucose 96 mg/dL (74-106); High Density Lipoprotein 52 mg/dL; Potassium 4.7 mmol/L (3.5-5.1); Sodium Level 137 mmol/L (136-145); Triglycerides 85 mg/dL; Very Low Density Lipoprotein 17 mg/dL (5-40)
== END | disposition home or self-care (01) ==
LOC: LAB 10:20
PROVIDERS: PCP Family Medicine; Visit Provider Nurse Practitioner Family
DX: E78.5 Hyperlipidemia, unspecified (principal); R06.00 Dyspnea, unspecified
CPT/HCPCS: 36415; 80048; 80061; 80076; 83880; 85025

== ENCOUNTER 2022-10-15 15:51 | Emergency (ER) | payer MEDICARE, BC, SELFPAY ==
[2020-01-14 09:21] VITALS: BMI 36.3
[2022-10-15] VITALS (7 sets, daily range): BP systolic 89–146; BP diastolic 63–98; PULSE 72–79; RESP 9–22; TEMP 36.3–36.9; O2SAT 92–100; BMI 38.6
--- NOTE | 2022-10-15 16:30 | EX.ED.UPPERE ---
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 They were giving a Taryn shots when it roxatidine knocked him down and injured his right shoulder. Other than aspirin he is not on any blood thinners. Denies any LOC. Denies any head or neck pain. Denies any chest, abdominal or back pain. He is right-hand dominant. He is never had any significant injury or surgery to his right shoulder. Chief Complaint: Upper Extremity Injury Informant: patient Occured/Mechanism Mechanism/Context: Yes injury and Yes blunt trauma Onset/Context/Timing Onset: Today and Hours Context: Sudden Onset Timing: Continuous Quality of Pain: Sharp and Stabbing Current Severity: Moderate Maximum Severity: Moderate Narrative Narrative: 72-year-old male hit by a cow and injured his right shoulder. He is right-hand dominant. No LOC. No blood thinners besides aspirin. Prior similar symptoms: No Recent Illness/Hospitalization: No PFSH PFSH Medical History Atherosclerosis of coronary artery without angina pectoris Bilateral pneumonia (02/08/20) Cardiac arrest (11/05/19) COVID-19 virus infection (02/08/20) Essential (primary) hypertension GERD (gastroesophageal reflux disease) History of non-ST elevation myocardial infarction (NSTEMI) (11/04/19) History of sustained ventricular tachycardia (11/05/19) Hyperlipidemia Obesity (BMI 30-39.9) Obstructive sleep apnea Osteoarthritis Home Medications ascorbate calcium (vitamin C) 814 mg/gram oral powder PO DAILY 11/04/19 [History Last Taken Unknown] fexofenadine 60 mg tablet 60 mg PO DAILY 11/04/19 [History Last Taken Unknown] glucosamine-chondroitin 1,500 mg -1,200 mg/30 mL oral liquid 480 ml PO BID 11/04/19 [History Last Taken Unknown] aspirin 81 mg tablet,delayed release 81 mg PO DAILY@0800 #30 tabs 11/06/19 [Rx Last Taken 08/19/20] hydrochlorothiazide 12.5 mg capsule 12.5 mg PO DAILY #90 caps 11/09/21 [Rx Last Taken Unknown] pantoprazole 40 mg tablet,delayed release 40 mg PO DAILY #90 tabs 11/09/21 [Rx Last Taken Unknown] carvedilol 6.25 mg tablet 6.25 mg PO BID #180 tabs 12/04/21 [Rx Last Taken Unknown] lisinopril 20 mg tablet 20 mg PO DAILY #90 tabs 12/04/21 [Rx Last Taken Unknown] acetaminophen 650 mg tablet,extended release (Tylenol Arthritis Pain) 1,300 mg PO Q8H 01/18/22 [History Last Taken Unknown] atorvastatin 40 mg tablet 40 mg PO QHS #90 tabs 01/18/22 [Rx Last Taken Unknown] diclofenac sodium 75 mg tablet,delayed release 75 mg PO .COMPLEX 01/18/22 [History Last Taken Unknown] famotidine 40 mg tablet (Pepcid) 40 mg PO DAILY 01/18/22 [History Last Taken Unknown] Allergy/AdvReac Type Severity Reaction Status Date / Time iodine Allergy Rash Verified 10/15/22 15:54 Penicillins [PCN] Allergy Rash Verified 10/15/22 15:54 wool Allergy Rash Verified 10/15/22 15:54 Family History Other Adopted Surgical History History of coronary artery stent placement (11/05/19) History of foot surgery History of left heart catheterization (08/19/20) History of shoulder surgery History of total knee arthroplasty Social History Smoking Status: Never smoker alcohol intake: never substance use type: does not use caffeine: Yes Type: coffee Number of servings: 1 ROS ROS ED ROS Narrative No recent illness. Review of Systems ROS Unobtainable: Denies due to encephalopathy Constitutional Constitutional ED: Denies chills or fever(s) Eyes Eyes: Denies blurry vision ENT ENT ED: Denies ear pain Cardiovascular Cardiovascular: Denies chest pain Respiratory/Chest Respiratory/Chest: Denies cough or dyspnea Gastrointestinal Gastrointestinal: Denies abdominal pain Genitourinary Genitourinary ED: Denies dysuria or hematuria Musculoskeletal Musculoskeletal: Denies back pain Integumentary Denies abscess or Abrasions Neurologic Neurologic: Denies headache(s) Psychiatric Psychiatric: Denies anxiety or depression Endocrine Endocrinology: Denies cold intolerance Hematologic/Lymphatic Hematologic/Lymphatic: Denies easy bleeding Allergic/Immunologic Allergic/Immunologic ED: Denies mouth swelling or tongue swelling EXAM Physical Exam Narrative Exam Narrative: 72-year-old male vital signs stable afebrile. Holding his right arm. HEENT exam unremarkable atraumatic. Pupils round reactive light. No signs of trauma to his face or scalp. Neck nontender. Back and spine nontender. Lungs clear. Heart regular rhythm no murmur. Rate about 70. Chest wall nontender. Ribs nontender. Abdomen soft nontender. Pelvic girdle intact. Left upper and both lower extremities he has normal range of motion no deformity or tenderness. Right shoulder limited range of motion. Tender to palpation. His distal humerus, elbow, forearm, wrist and hand are nontender. 5 out of 5 port engineer strength. Normal radial pulse. Normal sensation. Const Vital Signs: 10/15/22 15:52 Temperature 97.3 F L Temperature Source Temporal Pulse Rate 75 Respiratory Rate 18 Blood Pressure 146/86 H Blood Pressure Mean 106 Pulse Ox 99 Oxygen Delivery Method Room Air Positive well nourished and well developed; Negative for obese, cachectic, contractures or unkempt General Appearance ED: well developed and NAD; Negative for unkempt, cachectic, contractures, cyanotic or diaphoretic Nutritional Appearance: Negative for cachectic or obese HEENT Reports moist mucous membranes normocephalic and atraumatic; Negative for trauma or tenderness Eyes PERRL and EOMs intact bilaterally General Eye ED: Negative for other Neck full ROM and supple General: Negative for tenderness or other Lymph Lymphatic: Negative for other Chest Wall inspection of chest normal and palpation of chest normal Chest: Negative for other Resp normal respiratory effort and clear to auscultation bilaterally Effort and Inspection: Negative for pain with movement Auscultation: Negative for rales, rhonchi or wheezes Cardio regular rate, regular rhythm, S1 normal heart sound, S2 normal heart sound and no murmurs Rate: Negative for bradycardia or tachycardic Rhythm: Negative for abnormal rhythm GI non-tender, non-distended and no masses Inspection: Negative for abdominal distention Auscultation: normoactive bowel sounds Palpation: soft; Negative for tender or guarding Bladder / Kidney Exam: No other Back/Spine no CVA tenderness General Back: Negative for CVA tenderness Cervical Spine: Negative for cervical spine tenderness and Negative for other Thoracic Spine / Upper Back: Negative for thoracic spinal tenderness Lumbar Spine / Lower Back: Negative for lumbar spinal tenderness Extremity normal to inspection and full ROM Extremity Narrative: Except right shoulder. Tender. Decreased range of motion due to pain. Distal humerus, elbow, forearm, wrist and hand are nontender neurovascular intact with normal radial pulse. [employer] strength. Sensation. General Extremety ED: Negative for edema or other findings General Extremity: Negative for edema or other findings Neuro oriented x3, CN's II-XII intact bilaterally, moves all extremities, no focal motor deficits and no sensory deficits noted Sensorium / Orientation: alert, oriented to person, oriented to place and oriented to time Motor Exam: strength 5/5 throughout Psych mental status grossly normal Appearance: Negative for unkempt Attitude: No agitated Mood & Affect: Negative for depressed, anxious, tearful or other Skin General Skin Exam: Negative for petechiae Rashes: no rashes Trauma: no lacerations or abrasions; Negative for abrasion or laceration MDM MDM MDM Narrative Medical decision making narrative: 72-year-old male knocked over by a cow injuring his right shoulder fracture versus dislocation. IV morphine and Zofran. X-ray of his shoulder. Otherwise his exam is unremarkable there is no other significant injuries at this time. Patient doing well on repeat exam at 7 PM. He is awake and alert. His is present in the room. His conscious sedation is worn off well. He is in a sling. His right shoulder is relocated. He is not having any significant pain whatsoever. Nurses were ambulating as well as he walks well and his vital signs are good which he currently already will be discharged home. Outpatient follow-up with orthopedics for dislocated shoulder. History & Record Review Discussion w/independent historian: Patient and Family Radiography Diagnostic Testing: Right shoulder x-ray 2 views shows a inferior dislocation. No fracture. Right shoulder x-ray #2 posterior reduction the right shoulder appears to be in appropriate placement. Dislocation resolved. No fracture. 2 views interpreted both by myself and the radiologist. Procedures Procedural Sedation Right dislocated shoulder: Consent Signed: Yes Any Problems With Anesthesia: No You/Your family experience fever (hyperthermia) w/anesthesia: No Sedation medication: Propofol Dose: 210 Route: IV Total Moderate Sedation Units: 15 Maliampati Score: Class III ASA Classification: II Comment:: 72-year-old male. Right shoulder dislocation. Initially given 5 cc or 50 mg of propofol IV. He did not obtain good conscious sedation to attempt. He was then given 60 of propofol again he was still too awake. He was then given 10 mg IV of propofol for total of 210 mg. That was over 10 to 15-minute. And then I could manually reduce his right shoulder dislocation. Tolerated well. Vital signs stayed stable. His pulse ox stayed in the mid 90s the entire time. Discharge Plan Triage Chief Complaint: Upper Extremity Injury ED Provider: Marquis Solano Dx/Rx/DC Orders Clinical Impression: Anterior dislocation of right shoulder Instructions: ED Dislocation: Shoulder (Reduced) Prescriptions: No Action famotidine [Pepcid] 40 mg tablet 40 mg PO DAILY diclofenac sodium 75 mg tablet,delayed release (DR/EC) 75 mg PO .COMPLEX Rx Instructions: Takes Tuesday- Tuesday atorvastatin 40 mg tablet 40 mg PO QHS Qty: 90 3RF Hold Instructions: Leg Heaviness 01/08/2021 fexofenadine 60 MG tablet 60 mg PO DAILY glucosamine-chondroitin 480 ML liquid 480 ml PO BID ascorbate calcium (vitamin C) 120 GM powder PO DAILY aspirin 81 MG tablet 81 mg PO DAILY@0800 Qty: 30 1RF hydrochlorothiazide 12.5 mg capsule 12.5 mg PO DAILY Qty: 90 3RF pantoprazole 40 mg tablet,delayed release (DR/EC) 40 mg PO DAILY Qty: 90 3RF carvedilol 6.25 mg tablet 6.25 mg PO BID Qty: 180 3RF lisinopril 20 mg tablet 20 mg PO DAILY Qty: 90 3RF acetaminophen [Tylenol Arthritis Pain] 650 mg tablet extended release 1,300 mg PO Q8H Primary Care Provider: Abisai Bryant Referrals: Abisai Bryant DO [Primary Care Provider] - Giovanni Cornejo DO [Med Staff - Active Staff] - As soon as possible Activity Restrictions/Additional Instructions: ice to your shoulder. Tylenol and limited Motrin for pain. Call and follow-up with orthopedic doctor soon as possible. Leave your sling on except in the shower or you can take it off under sleep. You can really dislocate this if you move your shoulder too much. Disposition Disposition: Home, Self Care
--- NOTE | 2022-10-15 16:40 | RAD_ITS ---
STUDY: X-RAY - RIGHT SHOULDER REASON FOR EXAM: Male, 72 years old. trauma TECHNIQUE: 2 view(s) of the shoulder. COMPARISON: None. FINDINGS: There is a demonstrated anterior-inferior glenohumeral dislocation. Normal acromioclavicular joint. Normal acromion. Normal humeral head and visualized proximal humerus. The soft tissue structures are unremarkable. Normal visualized pulmonary apex. RAD/Shoulder min 2 Views IMPRESSION: Anterior inferior glenohumeral dislocation, recommend follow-up imaging post reduction to exclude underlying fracture. Electronically Signed: Lester Fatima DO at 17:11 EDT ,
[2022-10-15] MEDS: Ondansetron 4 MG/2 ML Vial IV (16:44)
[2022-10-15] MEDS: morphine 8 MG/ML Syringe IV (16:44)
[2022-10-15] MEDS: Propofol 200 MG/20 ML Vial IV BOLUS (17:28)
--- NOTE | 2022-10-15 18:04 | RAD_ITS ---
STUDY: X-RAY - RIGHT SHOULDER REASON FOR EXAM: Male, 72 years old. post reduction TECHNIQUE: 2 view(s) of the shoulder. COMPARISON: 10/15/2022 FINDINGS: There is mild degenerative arthrosis of the glenohumeral articulation. There is degenerative arthrosis of the acromioclavicular joint without inferior osseous spur formation. Normal acromion. There is demineralization of the humerus and visualized osseous structures. The soft tissue structures are unremarkable. Normal visualized pulmonary apex. RAD/Shoulder min 2 Views IMPRESSION: Findings consistent with successful post reduction of the glenohumeral joint with no evidence of underlying fracture. Electronically Signed: Lester Fatima DO at 18:14 EDT ,
== END 2022-10-15 19:18 | disposition home or self-care (01) ==
PROVIDERS: Emergency Provider Emergency Medicine; PCP Family Medicine; Visit Provider Emergency Medicine
DX: S43.014A Anterior dislocation of right humerus, initial encounter (principal); I25.10 Atherosclerotic heart disease of native coronary artery without angina pectoris; E78.5 Hyperlipidemia, unspecified; I10 Essential (primary) hypertension; X58.XXXA Exposure to other specified factors, initial encounter
CPT/HCPCS: 23650; 73030; 96374; 96375; 99152; 99153; 99284; J7030; A4216; J2405

== ENCOUNTER 2023-10-31 12:01 | Observation (INO) | payer MEDICARE, BC, SELFPAY ==
[2020-01-14 09:21] VITALS: BMI 36.3
[2023-10-31 12:07] VITALS: BP 180/83; PULSE 80; RESP 18; TEMP 36.8; O2SAT 99; BMI 37.9
--- NOTE | 2023-10-31 12:13 | VDLE_ITS ---
Reason For Study: RLE Pain RIGHT LEFT GSV is normal. CFV is compressible, spontaneous, phasic, CFV is compressible, spontaneous, phasic, competent, and demonstrates normal competent and demonstrates normal augmentation. augmentation. FV is compressible, spontaneous, phasic, competent and demonstrates normal augmentation. POP V is compressible, spontaneous, phasic, competent and demonstrates normal augmentation. T/P Trunk is compressible. PTV is compressible. RT PerV is compressible. Procedure This is a venous duplex using B-mode, color flow and spectral Doppler. Exam performed portable in ED. The exam was diagnostic. The study was technically difficult. A preliminary report was called and/or faxed to ED RN. VL/Venous Duplex US, Unilateral Interpretation Summary There is no evidence of right lower extremity deep vein thrombosis. Right great saphenous vein appears patent and compressible segmentally. Normal flow patterns left common f emoral vein This exam was noted to be technically difficult Ordering Physician: Radha Wayne Referring Physician: Abisai Bryant Performed By: Kevin Brooks RVT
--- NOTE | 2023-10-31 12:17 | EDS_ITS ---
HPI History of Present Illness Chief Complaint: Lower Extremity Injury Detail of Chief Complaint: Right leg pain Informant: patient Narrative Narrative: Patient presents with right leg pain. He tells me he fell 2 weeks ago and injured his right leg. He is has seen his primary care physician and chiropractor. It was thought maybe he had torn his hamstring. Or last 3 days the pain has gotten worse over the last 24 hours unbearable. He was able to bear weight. EMS was called. They gave him 100 mcg of fentanyl and still having severe pain. Pain worse with certain movements. He denies chest pain or shortness of breath. He has a hard time describing exactly where the pain is and at times it is lateral right hip and at times into the groin area and upper medial thigh. [facility] Medical History Atherosclerosis of coronary artery without angina pectoris Bilateral pneumonia (02/08/20) Cardiac arrest (11/05/19) COVID-19 virus infection (02/08/20) Essential (primary) hypertension GERD (gastroesophageal reflux disease) History of non-ST elevation myocardial infarction (NSTEMI) (11/04/19) History of sustained ventricular tachycardia (11/05/19) Hyperlipidemia Obesity (BMI 30-39.9) Obstructive sleep apnea Osteoarthritis Home Medications fexofenadine 60 mg tablet 60 mg PO DAILY 11/04/19 [History Last Taken 10/31/23] glucosamine-chondroitin 1,500 mg -1,200 mg/30 mL oral liquid 480 ml PO BID 11/04/19 [History Last Taken 10/31/23] aspirin 81 mg tablet,delayed release 81 mg PO DAILY@0800 #30 tabs 11/06/19 [Rx Last Taken 10/31/23] acetaminophen 650 mg tablet,extended release (Tylenol Arthritis Pain) 1,300 mg PO Q8H 01/18/22 [History Last Taken 10/31/23] famotidine 40 mg tablet (Pepcid) 40 mg PO DAILY 01/18/22 [History Last Taken 10/31/23] hydrochlorothiazide 12.5 mg capsule See Rx Instructions .Route .COMPLEX #90 caps 11/22/22 [Rx Last Taken 10/31/23] pantoprazole 40 mg tablet,delayed release See Rx Instructions .Route .COMPLEX #90 tabs 11/22/22 [Rx Last Taken 10/31/23] carvedilol 6.25 mg tablet 6.25 mg PO BID #180 tabs 12/06/22 [Rx Last Taken 10/31/23] lisinopril 20 mg tablet 20 mg PO DAILY #90 tabs 12/06/22 [Rx Last Taken 10/31/23] atorvastatin 40 mg tablet 40 mg PO QHS #90 tabs 01/16/23 [Rx Last Taken 10/30/23] cyanocobalamin (vitamin B-12) 1,000 mcg sublingual tablet 1,000 mcg sublingual DAILY 03/08/23 [History Last Taken 10/31/23] diclofenac sodium 75 mg tablet,delayed release 75 mg PO TUTHSA 03/08/23 [History Last Taken 10/29/23] ciclopirox 0.77 % topical cream 1 applic topical DAILY 10/31/23 [History Last Taken 10/31/23] omega-3 fatty acids-fish oil 360 mg-1,200 mg capsule (Fish Oil) 1 cap PO DAILY 10/31/23 [History Last Taken 10/31/23] tramadol 50 mg tablet 50 - 100 mg PO Q8H PRN PRN pain 10/31/23 [History Last Taken 10/31/23] Allergy/AdvReac Type Severity Reaction Status Date / Time iodine Allergy Rash Verified 03/08/23 11:34 Penicillins [PCN] Allergy Rash Verified 03/08/23 11:34 wool Allergy Rash Verified 03/08/23 11:34 Family History Other Adopted Surgical History History of coronary artery stent placement (11/05/19) History of foot surgery History of left heart catheterization (08/19/20) History of shoulder surgery History of total knee arthroplasty Social History Smoking Status: Never smoker alcohol intake: never substance use type: does not use caffeine: Yes Type: coffee Number of servings: 1 ROS ROS ED Review of Systems ROS Unobtainable: other Constitutional Constitutional ED: Reports lethargy; Denies chills, fever(s), sweats or weight loss Eyes Eyes: Denies blurry vision, change in vision or diplopia ENT ENT ED: Denies rhinorrhea or sore throat Cardiovascular Cardiovascular: Denies chest pain, orthopnea or racing heartbeat Respiratory/Chest Respiratory/Chest: Denies cough, dyspnea, dyspnea on exertion, orthopnea or sputum Gastrointestinal Gastrointestinal: Denies abdominal pain, diarrhea, nausea or vomiting Genitourinary Genitourinary ED: Denies dysuria, hematuria or urinary frequency Musculoskeletal Musculoskeletal: Reports other Details: Right leg pain ; Denies arthralgias, back pain, myalgias or neck pain Integumentary Denies abscess, Abrasions or rash Neurologic Neurologic: Denies headache(s) or weakness Psychiatric Psychiatric: Denies anxiety, depression or suicidal thoughts Endocrine Endocrinology: Denies polydipsia, polyphagia or polyuria Hematologic/Lymphatic Hematologic/Lymphatic: Denies easy bleeding, easy bruising or lymphadenopathy Allergic/Immunologic Allergic/Immunologic ED: Denies mouth swelling, tongue swelling or urticaria EXAM Physical Exam Const Vital Signs: 10/31/23 12:07 10/31/23 14:07 Temperature 98.2 F Temperature Source Temporal Pulse Rate 80 78 Respiratory Rate 18 16 Blood Pressure 180/83 H 142/65 H Blood Pressure Mean 115 90 Pulse Ox 99 98 Oxygen Delivery Method Room Air Room Air Positive well nourished and well developed General Appearance ED: well developed and NAD HEENT Reports TM's clear and moist mucous membranes normocephalic and atraumatic; Negative for trauma or tenderness Tympanic Membrane ED: Yes TM's clear Eyes PERRL and EOMs intact bilaterally General Eye ED: Negative for pale conjunctiva or scleral icterus Neck no lymphadenopathy, supple and no JVD General: Negative for tenderness Chest Wall inspection of chest normal and palpation of chest normal Chest: Negative for tenderness Resp normal respiratory effort and clear to auscultation bilaterally Effort and Inspection: Negative for respiratory distress or pain with movement Auscultation: Negative for rhonchi, wheezes or diminished lung sounds Cardio regular rate, regular rhythm, S1 normal heart sound, S2 normal heart sound and no murmurs Peripheral Pulses: pulses 2+ throughout GI normal to inspection, nondistended, normoactive bowel sounds, soft to palpation, non-tender, non-distended and no masses Back/Spine no CVA tenderness and no thoracic nor lumbar tenderness Extremity Extremity Narrative: Right lower extremity-patient has pain with straight leg raising and logrolling of the right hip. He has tenderness over the lateral aspect of the hip as well as the medial upper thigh and groin. Neurovascularly intact with normal pulses and normal cap refill. There is no erythema or warmth noted to the skin of the hip. He is able to move his hip and flex it and extend it without assistance. General Extremety ED: Negative for edema General Extremity: Negative for edema Neuro oriented x3, CN's II-XII intact bilaterally, no sensory deficits noted and gait normal Sensorium / Orientation: awake, alert, oriented to person, oriented to place and oriented to time Motor Exam: strength 5/5 throughout and strength abnormal Psych mental status grossly normal Skin no rashes or lesions noted and no wounds MDM MDM MDM Narrative Medical decision making narrative: Patient presents to the emergency department with complaint of pain in his right leg after a fall 10 days ago. He has been seen by his PCP and chiropractor. Was thought initially he may have a hamstring tear. Patient had been able to walk and do his activities with had been painful but 3 days ago started having more significant pain and over the last 24 hours severe pain having hard time walking EMS was called. Patient denies weakness to extremity. In the differential would be hip fracture or hip strain versus soft tissue muscle injury versus sciatica/lumbar radiculopathy. IV line established. He was medicated with Dilaudid and Zofran. CBC with differential obtained was normal. Chemistries normal. X-rays of the right hip and pelvis showed no evidence of fracture. Patient was reevaluated and continues to have significant pain with movement. He was given another milligram of Dilaudid. Discussed case with hosp italist will evaluate patient for admission for intractable right hip and leg pain. Lab Data Attestation: I reviewed the patient's lab results. Labs: Laboratory Results - last 24 hr 10/31/23 12:35 WBC 9.1 RBC 4.02 L Hgb 12.4 L Hct 37.4 L MCV 93.0 MCH 30.8 MCHC 33.2 RDW Std Deviation 45.1 H RDW Coeff of Rose 13.1 Plt Count 247 MPV 10.3 Immature Gran % (Auto) 0.300 Neut % (Auto) 69.2 Lymph % (Auto) 18.7 L [place] % (Auto) 9.5 Eos % (Auto) 1.6 Baso % (Auto) 0.7 Absolute Neuts (auto) 6.3 Absolute Lymphs (auto) 1.71 Nucleated RBC % 0 Sodium 134 L Potassium 3.9 Chloride 103 Carbon Dioxide 23.0 Anion Gap 8 BUN 19 H Creatinine 1.20 Estim Creat Clear Calc 75.44 Est GFR (MDRD) Af Amer 76 Est GFR (MDRD) Non-Af 63 BUN/Creatinine Ratio 15.8 Glucose 107 H Calcium 9.1 Total Creatine Kinase 188 Radiography Diagnostic Testing: Clinical Impression(s) from Imaging Studies Venous Doppler Study 10/31/23 12:13 Interpretation Summary There is no evidence of right lower extremity deep vein thrombosis. Right great saphenous vein appears patent and compressible segmentally. Normal flow patterns left common femoral vein This exam was noted to be technically difficult Ordering Physician: Radha Wayne Referring Physician: Abisai Bryant Performed By: Kevin Brooks, T Hip/Pelvis X-Ray 10/31/23 13:30 IMPRESSION: 1. No evidence of displaced pelvic or hip fracture. 2. Degenerative arthrosis of the right hip. Electronically Signed: Cy Mallory MD at 13:56 EDT , Three-view x-rays of the right hip and pelvis obtained interpreted by myself as no evidence of fracture or dislocation Discharge Plan Dx/Rx/DC Orders Clinical Impression: Acute pain of right hip, Intractable pain Disposition Disposition: [facility]
[2023-10-31] MEDS: HYDROmorphone 1 MG/ML Syringe IV ×2 (12:32→14:00)
[2023-10-31] MEDS: Ondansetron 4 MG/2 ML Vial IV (12:32)
[2023-10-31 12:51] LABS: Absolute Lymphocyte Count 1.71 X10^3/uL (0.83-4.51); Absolute Neutrophil Count 6.3 X10^3/uL (2.0-7.7); Basophil# 0.06 X10^3/uL; Basophil% 0.7 % (0-1); Eosinophil# 0.15 X10^3/uL; Eosinophils% 1.6 % (0-5); Hematocrit 37.4 % (40-54); Hemoglobin 12.4 g/dL (13.0-16.5); Lymphocyte # 1.71 X10^3/ul (0.83-4.51); Lymphocyte % 18.7 % (19-41); Mean Corp Hgb Conc 33.2 g/dL (32-36); Mean Corpuscular Hgb 30.8 pg (27.0-32.0); Mean Platelet Vol. 10.3 fl (6.2-12.0); Monocyte# 0.87 X10^3/uL; Monocyte% 9.5 % (0-10); NRBC Flagged by Analyzer 0 % (0-5); Neutrophil # 6.31 X10^3/uL (2.7-7.7); Neutrophil % 69.2 % (47-70); Platelet Count 247 K/mm3 (150-450); RBC Distribution Width CV 13.1 % (11.6-14.6); RBC Distribution Width SD 45.1 fl (35.1-43.9); Red Blood Count 4.02 M/mm3 (4.6-6.2); White Blood Count 9.1 K/mm3 (4.4-11.0)
[2023-10-31 13:13] LABS: CPK Total, Creatine Kinase 188 U/L (39-308)
--- NOTE | 2023-10-31 13:30 | RAD_ITS ---
INDICATION: pain, fall EXAMINATION/TECHNIQUE: X-RAY - XR Hip Unilateral with Pelvis when performed; 2-3 Views COMPARISON: No relevant prior comparison study available FINDINGS: PELVIC BONES: No displaced fracture, destructive or sclerotic lesions. Note that overlapping bowel shadows may however obscure fine detail. Sacroiliac joints are unremarkable. No widening of the pubic symphysis. HIPS: Moderate to severe narrowing of the right hip joint with sclerosis of the articular surfaces and mild subchondral cystic changes. Mild to moderate narrowing of the left hip joint. No displaced fracture seen in this frontal view. SOFT TISSUES: No soft tissue swelling or gas. RAD/HIP, UNI W/ Pelvis 2-3 Views IMPRESSION: 1. No evidence of displaced pelvic or hip fracture. 2. Degenerative arthrosis of the right hip. Electronically Signed: Cy Mallory MD at 13:56 EDT ,
[2023-10-31 14:07] VITALS: BP 142/65; PULSE 78; RESP 16; O2SAT 98
[2023-10-31 14:37] LABS: Anion Gap 8 (5-15); BUN 19 mg/dL (7-18); BUN/Creat Ratio 15.8 RATIO (10-20); Calcium,Total 9.1 mg/dL (8.5-10.1); Chloride 103 mmol/L (98-107); EST Glomerular Filtration Rate 63 mL/min (>60); Est Glom Filt Rate - Afr Amer 76 mL/min (>60); Estimated Creatinine Clearance 75.44 ml/min; Glucose 107 mg/dL (74-106); Potassium 3.9 mmol/L (3.5-5.1); Sodium Level 134 mmol/L (136-145)
--- NOTE | 2023-10-31 14:39 | HP.PCM.HOS_ITS ---
HPI - General General Date of Admission: 10/31/23 Date of Service: 10/31/23 Chief Complaint: Fall, R Hip pain HPI Narrative The patient is a 73 y/o M w/ PMHx: Obesity, CAD s/p PCI w/ history of cardiac arrest, HTN, HLD, GERD, Hx SVT, LINDSEY on CPAP q HS who presents to the [facility] ED on 10/31/23 with history of ongoing persistent right leg pain with mechanical fall (over a log) ~ 2 weeks prior evaluated by his primary care physician as well as his chiropractor with at that time concern for possibly a torn hamstring however over the last 3 days his pain has significantly worsened and more so over the last 24 hours he has been able to bear weight prompting EMS call with pain worse with certain movements primarily in the lateral right hip and sometimes into the groin as well as upper medial thigh region prompting ED evaluation given intract able pain. Workup in the ED included T98.2, heart rate 80, BP initially 180/83 with most recent repeat 142/65, respiratory rate 18, 99% on room air, CBC with WC 9.1, hemoglobin 12.4, MCV 93, platelet 247 without marked shift, pending BMP upon requested evaluation of patient, total creatinine kinase 118, duplex ultrasound right lower extremity with no evidence of right lower extremity DVT with vessels compressible and patent, plain film right hip and pelvis with no evidence of displaced pelvic or hip fracture with degenerative arthrosis of the right hip. In the ED patient ministered Zofran 4 mg IV x 1 as well as Dilaudid 1 mg IV x 2. [facility] Medical History Atherosclerosis of coronary artery without angina pectoris Bilateral pneumonia (02/08/20) Cardiac arrest (11/05/19) COVID-19 virus infection (02/08/20) Essential (primary) hypertension GERD (gastroesophageal reflux disease) History of non-ST elevation myocardial infarction (NSTEMI) (11/04/19) History of sustained ventricular tachycardia (11/05/19) Hyperlipidemia Obesity (BMI 30-39.9) Obstructive sleep apnea Osteoarthritis Home Medications fexofenadine 60 mg tablet 60 mg PO DAILY 11/04/19 [History Last Taken 10/31/23] glucosamine-chondroitin 1,500 mg -1,200 mg/30 mL oral liquid 480 ml PO BID 11/04/19 [History Last Taken 10/31/23] aspirin 81 mg tablet,delayed release 81 mg PO DAILY@0800 #30 tabs 11/06/19 [Rx Last Taken 10/31/23] acetaminophen 650 mg tablet,extended release (Tylenol Arthritis Pain) 1,300 mg PO Q8H 01/18/22 [History Last Taken 10/31/23] famotidine 40 mg tablet (Pepcid) 40 mg PO DAILY 01/18/22 [History Last Taken 10/31/23] hydrochlorothiazide 12.5 mg capsule See Rx Instructions .Route .COMPLEX #90 caps 11/22/22 [Rx Last Taken 10/31/23] pantoprazole 40 mg tablet,delayed release See Rx Instructions .Route .COMPLEX #90 tabs 11/22/22 [Rx Last Taken 10/31/23] carvedilol 6.25 mg tablet 6.25 mg PO BID #180 tabs 12/06/22 [Rx Last Taken 10/31/23] lisinopril 20 mg tablet 20 mg PO DAILY #90 tabs 12/06/22 [Rx Last Taken 10/31/23] atorvastatin 40 mg tablet 40 mg PO QHS #90 tabs 01/16/23 [Rx Last Taken 10/30/23] cyanocobalamin (vitamin B-12) 1,000 mcg sublingual tablet 1,000 mcg sublingual DAILY 03/08/23 [History Last Taken 10/31/23] diclofenac sodium 75 mg tablet,delayed release 75 mg PO TUTHSA 03/08/23 [History Last Taken 10/29/23] ciclopirox 0.77 % topical cream 1 applic topical DAILY 10/31/23 [History Last Taken 10/31/23] omega-3 fatty acids-fish oil 360 mg-1,200 mg capsule (Fish Oil) 1 cap PO DAILY 10/31/23 [History Last Taken 10/31/23] tramadol 50 mg tablet 50 - 100 mg PO Q8H PRN PRN pain 10/31/23 [History Last Taken 10/31/23] Allergy/AdvReac Type Severity Reaction Status Date / Time iodine Allergy Rash Verified 03/08/23 11:34 Penicillins [PCN] Allergy Rash Verified 03/08/23 11:34 wool Allergy Rash Verified 03/08/23 11:34 Family History Other Adopted Surgical History History of coronary artery stent placement (11/05/19) History of foot surgery History of left heart catheterization (08/19/20) History of shoulder surgery History of total knee arthroplasty Social History (Updated 10/31/23 @ 20:[address] Sonia Taylor MD) household members: spouse Smoking Status: Never smoker alcohol intake: never substance use type: does not use caffeine: Yes Type: coffee Number of servings: 1 ROS ROS Narrative Admission Review of Systems: CONSTITUTIONAL: No weight loss, fever, chills, + weakness or fatigue. HEENT: Eyes: No visual loss, blurred vision, double vision or yellow sclerae. Ears, Nose, Throat: No hearing loss, sneezing, congestion, runny nose or sore throat. SKIN: No rash or itching, lesions, wounds. CARDIOVASCULAR: No chest pain, chest pressure or chest discomfort, palpitations, edema, orthopnea, syncopal events. RESPIRATORY: No shortness of breath, cough or sputum, wheezing, hemoptysis. GASTROINTESTINAL: No anorexia, nausea, vomiting or diarrhea, abdominal pain, melena, BRBPR. GENITOURINARY: No dysuria, frequency, urgency or retention. NEUROLOGICAL: + Difficulty ambulating with R hip/RLE intractable pain. No headache, dizziness, syncope, paralysis, ataxia, numbness or tingling in the extremities, focal weakness, change in bowel or bladder control, seizure. MUSCULOSKELETAL: + muscle, back pain, joint pain or stiffness. HEMATOLOGIC: + Chronic anemia. No reported easy/bleeding bleeding or bruising. LYMPHATICS: No enlarged nodes. No history of splenectomy. PSYCHIATRIC: No history of depression or anxiety. ENDOCRINOLOGIC: No reports of sweating, cold or heat intolerance. No polyuria or polydipsia. ALLERGIES: + History of allergic rhinitis. Vital Signs Vital Signs Vital Signs: 10/31/23 12:07 10/31/23 14:07 Temperature 98.2 F Temperature Source Temporal Pulse Rate 80 78 Respiratory Rate 18 16 Blood Pressure 180/83 H 142/65 H Blood Pressure Mean 115 90 Pulse Ox 99 98 Oxygen Delivery Method Room Air Room Air Weight Weight: 279 lb 8.738 oz Body Mass Index (BMI) 37.9 Physical Exam Narrative Physical Examination: General: Awake, alert, oriented x 3 and cooperative, seated upright in the ED bed, notes pain improved, now down to 2-3/10. Skin: Normal color, normal turgor, no icterus, no cyanosis. HEENT: AT/NC, EOMI, PERRLA, mildly dry MM, no carotid bruits or JVD noted. Lungs: CTA bilaterally, appropriate effort, mild decrease BL bases, no rales, ronchi or wheezing. Heart: Regular rate and rhythm; no gallop, rub audible. Abdomen: Soft, obese, NTTP, ND, distant normal BS, no HSM. Extremities: No cyanosis, no clubbing, more marked peripheral edema, pain to palpation RLE medially upper thigh, pain in the R lateral hip/right anterior and medial thigh more so with movement, rotation attempts. Neurological: Patient awake, alert, oriented as noted, cognitive function intact; pupils equally reactive to light and accommodation, cranial nerves grossly normal, moving all 4 extremities but limited RLE movement given intractable pain, strenght according moderately to severely globally decreased. Psychiatric: Affect appears fatigued otherwise normal, no acute evidence of depressive or anxiety feelings. Results Lab / Micro Data 10/31/23 12:35 10/31/23 12:35 Labs: Laboratory Results - last 24 hr 10/31/23 12:35: WBC 9.1, RBC 4.02 L, Hgb 12.4 L, Hct 37.4 L, MCV 93.0, MCH 30.8, MCHC 33.2, RDW Std Deviation 45.1 H, RDW Coeff of Rose 13.1, Plt Count 247, MPV 10.3, Immature Gran % (Auto) 0.300, Neut % (Auto) 69.2, Lymph % (Auto) 18.7 L, Coffey % (Auto) 9.5, Eos % (Auto) 1.6, Baso % (Auto) 0.7, Absolute Neuts (auto) 6.3, Absolute Lymphs (auto) 1.71, Nucleated RBC % 0, Sodium 134 L, Potassium 3.9, Chloride 103, Carbon Dioxide 23.0, Anion Gap 8, BUN 19 H, Creatinine 1.20, Estim Creat Clear Calc 75.44, Est GFR (MDRD) Af Amer 76, Est GFR (MDRD) Non-Af 63, BUN/Creatinine Ratio 15.8, Glucose 107 H, Calcium 9.1, Total Creatine Kinase 188 Imaging Radiology Impression Venous Doppler Study 10/31/23 12:13 Interpretation Summary There is no evidence of right lower extremity deep vein thrombosis. Right great saphenous vein appears patent and compressible segmentally. Normal flow patterns left common femoral vein This exam was noted to be technically difficult Ordering Physician: Radha Wayne Referring Physician: Abisai Bryant Performed By: Kevin Brooks, T Hip/Pelvis X-Ray 10/31/23 13:30 IMPRESSION: 1. No evidence of displaced pelvic or hip fracture. 2. Degenerative arthrosis of the right hip. Electronically Signed: Cy Mallory MD at 13:56 EDT , Assessment & Plan Assessment/Plan (1) Intractable pain: PLAN: Plan The patient is a 73 y/o M w/ PMHx: Obesity, CAD s/p PCI w/ history of cardiac arrest, HTN, HLD, GERD, Hx SVT, LINDSEY on CPAP q HS who presents to the [facility] ED on 10/31/23 with history of ongoing persistent right leg pain with mechanical fall (over a log) ~ 2 weeks prior evaluated by his primary care physician as well as his chiropractor with at that time concern for possibly a torn hamstring however over the last 3 days his pain has significantly worsened and more so over the last 24 hours he has been able to bear weight prompting EMS call with pain worse with certain movements primarily in the lateral right hip and sometimes into the groin as well as upper medial thigh region prompting ED evaluation given intractable pain. #1. Mechanical fall with intractable right hip pain, unclear etiology: Will admit to [facility], maintain on fall precautions, frequent positioning, initiate IV toradol, lidoacine patches, scheduled low dose gabapentin 100 mg TID, PRN tizanidine, PRN po/IV narcotic pain regimen, anti-emetics, bowel regimen. Will request consultation with Dr. James orthopedic surgery given unclear etiology. Will request CT right hip to further elucidate but will defer to discretion of orthopedic surgery for additional or other type of imaging modality. Will also obtain more precise plain films of the femur region. PT/OT/CM consultation for discharge planning. #2. Chronic normocytic anemia: Admission hemoglobin 12.4, MCV 93, baseline hemoglobin similar range primarily 12, will continue to trend. #3. Hypertension: Continue home regimen including lisinopril, h ydrochlorothiazide, Coreg, PRN hydralazine. #4. Hyperlipidemia: We will continue patient on statin therapy. #5. CAD: Status post PCI ([id number] RCA w/ 4.00 x 24 mm Synergy MR Stent 11/05/2019) and history of cardiac arrest, will continue aspirin, statin, Coreg and lisinopril therapy. #6. History of SVT: We will continue patient home Coreg regimen. #7. Obesity: Weight loss and lifestyle changes encouraged. #8. GERD: We will continue patient on PPI. #9. Allergic rhinitis: We will continue patient on fexofenadine regimen. #10. LINDSEY: CPAP q HS. #11. DVT prophylaxis: Lovenox. #12. CODE status: Patient MAHESH is his and living will is currently in place. Discussed CODE status at length including difference between FULL code, DNR-CCA and DNR-CC status. Following discussions about the differences in these status, requested Full Code status. Advanced Care Planning Face to Face Time: 16 minutes. Charges/Coding Visit Charges Inpatient E&M: 59735 Init Hosp L2 Procedures Hospitalists Procedures: 61394 Advncd Care Plan 30 Min
[2023-10-31 16:00] VITALS: BP 159/64; PULSE 64; RESP 16; O2SAT 98
--- NOTE | 2023-10-31 16:16 | CT_ITS ---
CT RIGHT LOWER EXTREMITY WITH 3-D IMAGING CLINICAL INDICATION: Fall, trauma, pain TECHNIQUE: Axial CT images of the RIGHT lower extremity was performed IV contrast material. Coronal and sagittal reformats were provided. RADIATION DOSAGE (If Supplied By Facility): CTDIvol = ( 76.49 ) mGy, DLP = ( 3886.77 ) mGycm COMPARISON: FINDINGS: Bones: No evidence for acute fracture or dislocation. Mild narrowing of the superolateral aspect of the joint with periarticular soft tissue calcification.. No lytic or blastic osseous masses. Soft Tissues: The deep soft tissue structures are unremarkable. The superficial soft tissues are unremarkable without evidence of edema, hematoma, or foreign body. CT/Extremity Lower without Contra IMPRESSION: Degenerative changes of the right hip without evidence for acute fracture or other significant bone pathology. Electronically Signed: Weston Matos MD at 17:09 EDT Reading Location ID and State: [facility] / [place] Tel , Service support ,
[2023-10-31 18:12] VITALS: BP 159/73; PULSE 65; RESP 18; TEMP 36.4; O2SAT 97
[2023-10-31 18:30] VITALS: BMI 38.5
[2023-10-31] MEDS: oxyCODONE 5 MG Tablet PO (19:09)
[2023-10-31] MEDS: Acetaminophen 325 MG Tablet 650 MG PO (19:10)
[2023-10-31] MEDS: 0.9% Normal Saline (1000mL) 1,000 ML 100 ML IV (19:19)
[2023-10-31 19:29] VITALS: BP 128/98; PULSE 78; RESP 16; TEMP 36.5; O2SAT 98
[2023-10-31 20:05] VITALS: O2SAT 98
--- NOTE | 2023-10-31 20:05 | CPS ---
pt brought own cpap machine in
[2023-10-31] MEDS: Ketorolac 15 MG/ML Vial IV (21:01)
[2023-10-31] MEDS: Gabapentin 100 MG Capsule PO (21:01)
[2023-10-31] MEDS: Carvedilol 6.25 MG Tablet PO (21:01)
[2023-10-31] MEDS: Atorvastatin Calcium 40 MG Tablet PO (21:01)
[2023-11-01 00:22] VITALS: BP 157/91; PULSE 69; RESP 18; TEMP 36.2; O2SAT 98
[2023-11-01] MEDS: tiZANidine HCl 2 MG Tablet 4 MG PO (00:26)
[2023-11-01] MEDS: oxyCODONE 5 MG Tablet PO ×2 (00:26→08:02)
[2023-11-01] MEDS: Acetaminophen 325 MG Tablet 650 MG PO ×2 (00:27→08:02)
[2023-11-01 05:23] VITALS: BP 115/56; PULSE 60; RESP 16; TEMP 36.4; O2SAT 98
[2023-11-01] MEDS: Ketorolac 15 MG/ML Vial IV ×2 (05:28→13:53)
[2023-11-01] MEDS: Gabapentin 100 MG Capsule PO ×2 (05:28→13:53)
[2023-11-01 06:00] VITALS: BMI 38.6
[2023-11-01 07:02] VITALS: O2SAT 90
[2023-11-01 07:41] LABS: Absolute Lymphocyte Count 0.92 X10^3/uL (0.83-4.51); Absolute Neutrophil Count 4.4 X10^3/uL (2.0-7.7); Basophil# 0.03 X10^3/uL; Basophil% 0.5 % (0-1); Eosinophils% 3.1 % (0-5); Hematocrit 36.4 % (40-54); Hemoglobin 11.7 g/dL (13.0-16.5); Lymphocyte # 0.92 X10^3/ul (0.83-4.51); Lymphocyte % 14.3 % (19-41); Mean Corp Hgb Conc 32.1 g/dL (32-36); Mean Corpuscular Hgb 31.2 pg (27.0-32.0); Mean Corpuscular Volume 97.1 fL (80-94); Mean Platelet Vol. 9.9 fl (6.2-12.0); Monocyte# 0.88 X10^3/uL; Monocyte% 13.6 % (0-10); NRBC Flagged by Analyzer 0 % (0-5); Neutrophil % 68.2 % (47-70); Platelet Count 208 K/mm3 (150-450); RBC Distribution Width CV 13.3 % (11.6-14.6); RBC Distribution Width SD 48.1 fl (35.1-43.9); Red Blood Count 3.75 M/mm3 (4.6-6.2); White Blood Count 6.5 K/mm3 (4.4-11.0)
[2023-11-01 07:51] VITALS: BP 144/87; PULSE 64; RESP 18; TEMP 36.9; O2SAT 100
[2023-11-01] MEDS: Aspirin E.C. 81 MG Tablet PO (08:02)
[2023-11-01 08:17] LABS: ALB/GLOB Ratio 0.9 RATIO (0.9-2.4); AST(SGOT) 23 U/L (15-37); Alanine Aminotransfer ALT/SGPT 18 U/L (16-61); Alkaline Phosphatase 89 U/L (45-117); Anion Gap 3 (5-15); BUN 20 mg/dL (7-18); BUN/Creat Ratio 16.8 RATIO (10-20); Calcium,Total 8.8 mg/dL (8.5-10.1); Chloride 103 mmol/L (98-107); Creatinine, Serum 1.19 mg/dL (0.70-1.30); EST Glomerular Filtration Rate 64 mL/min (>60); Est Glom Filt Rate - Afr Amer 77 mL/min (>60); Estimated Creatinine Clearance 74.49 ml/min; Globulin 3.5 g/dL (2.2-4.2); Glucose 101 mg/dL (74-106); Potassium 4.7 mmol/L (3.5-5.1); Protein, Total 6.5 g/dL (6.4-8.2); Sodium Level 134 mmol/L (136-145)
[2023-11-01] MEDS: hydroCHLOROthiazide 12.5mg 12.5 MG PO (10:15)
[2023-11-01] MEDS: Lisinopril 20 MG Tablet PO (10:15)
[2023-11-01] MEDS: Loratadine 10 MG Tablet 5 MG PO (10:15)
[2023-11-01] MEDS: Famotidine 20 MG Tablet 40 MG PO (10:15)
[2023-11-01] MEDS: Pantoprazole Sodium 40 MG Tablet PO (10:15)
[2023-11-01] MEDS: Carvedilol 6.25 MG Tablet PO (10:15)
[2023-11-01] MEDS: Lidocaine 5% Patch 2 PATCH TOPICAL (10:16)
[2023-11-01] MEDS: Senna/Docusate Sodium 1 Tablet 2 TABLET PO (10:22)
[2023-11-01 13:44] VITALS: BP 138/75; PULSE 65; RESP 18; TEMP 36.6; O2SAT 95
[2023-11-01] MEDS: 0.9% Saline Lock 10 ML Syringe IV (13:53)
--- NOTE | 2023-11-01 15:11 | CASEMGMT ---
Met with patient to complete SERNA form. SERNA form explained to patient who voiced understanding and signed form. Original form placed in pt?s chart and copy provided to?patient. Shellie Jesus, Discharge Planning Asst
--- NOTE | 2023-11-01 15:35 | CHAPLAIN ---
Type of Pastoral Visit _x__ Initial Visit ___ Follow-up Visit ___ On-call Visit ___ General Patient Visit ___ Spiritual Assessment ___ Family Conference ___ Bereavement ___ Rapid Response ___ Code Blue ___ Other (describe below) Pastoral Care Referral From _x__ Patient ___ Family ___ Nurse ___ Physician ___ Security Expert ___ Theatrical Performer ___ Other (describe below) Sacrament/Intervention _x__ Active listening ___ Anointing ___ Jainism ___ Bereavement ___ Communion _x__ Delores exploration ___ _x__ Life review _x__ Prayer ___ Reconciliation ___ Sacrament of Sick _x__ Supportive presence ___ Wedding ___ Other (describe below) Pastoral Comments patient and spouse are in the room; both are interactive and talkative; pt is getting some relief from his pain and is hopeful about going home; spouse speaks of their [place] community and how well connected they are to people and God; both welcome spiritual care support and prayer at this time; pt asks for prayer about a family member
--- NOTE | 2023-11-01 16:08 | RAD_ITS ---
STUDY: X-RAY - RIGHT TIBIA AND FIBULA REASON FOR EXAM: Male, 73 years old. pain, fall TECHNIQUE: 4 view(s) of the tibia and fibula were obtained. COMPARISON: None. FINDINGS: There is a focal lucent lesion in the distal tibial shaft with small focal areas of central sclerosis but no evidence for cortical destruction. Etiology is indeterminate. Normal visualized fibula. The soft tissue structures are unremarkable. RAD/Tibia & Fibula 2 Views IMPRESSION: No evidence for acute fracture. Incidental finding is a lesion within the distal tibial shaft of indeterminate etiology. CT or MRI would be helpful for further evaluation if clinically warranted especially if patient has known malignancy.. Electronically Signed: Weston Matos MD at 17:35 EDT ,
--- NOTE | 2023-11-01 16:10 | CON.PCM.OR_ITS ---
HPI Consult Data Date of Consult: 11/01/23 HPI Narrative Reason for Consultation: Right leg pain HPI Narrative: WYATT OTT, is a 73 M who presents today with right medial thigh and leg pain. Patient notes that he has been without pain in the past he does take Tylenol in the morning and evening for generalized aches and pains of his joints however, pain is experiencing today has not had prior to his fall. Patient felt roughly 2 weeks ago while working in his [employer]. He notes he was able to finish cutting up some wood but has shortened his day. He notes that the pain was moderately progressive and he did see his primary care physician and given tramadol and also saw his chiropractor did some laser treatments. However, he continued to have worsening pain and presented to the emergency department yesterday. X-rays and CAT scan were performed. Patient notes that he did weight-bear during the entire 2 weeks. He is been weightbearing all day today. He did have a Doppler to rule out a DVT. Patient traces the pain down his medial thigh and into the top of his medial tibia. He notes pain increased with weightbearing. He now knows that he is having a hard time reaching down to put on his socks and shoes on that leg. Additionally, patient reports increa patient notes that after the initial injury he had ecchymosis over the medial thigh and knee. Ed difficulty navigating stairs [facility] Medical History COVID-19 virus infection (02/08/20) Bilateral pneumonia (02/08/20) History of sustained ventricular tachycardia (11/05/19) Cardiac arrest (11/05/19) Essential (primary) hypertension Hyperlipidemia Obesity (BMI 30-39.9) Atherosclerosis of coronary artery without angina pectoris History of non-ST elevation myocardial infarction (NSTEMI) (11/04/19) Osteoarthritis Obstructive sleep apnea GERD (gastroesophageal reflux disease) Home Medications ?Medication ?Instructions ?Recorded ?Last Taken ?Type fexofenadine 60 mg tablet 60 mg PO DAILY 11/04/19 10/31/23 History glucosamine-chondroitin 1,500 mg 480 ml PO BID 11/04/19 10/31/23 History -1,200 mg/30 mL oral liquid aspirin 81 mg tablet,delayed 81 mg PO DAILY@0800 #30 tabs 11/06/19 10/31/23 Rx release acetaminophen 650 mg 1,300 mg PO Q8H 01/18/22 10/31/23 History tablet,extended release (Tylenol Arthritis Pain) famotidine 40 mg tablet (Pepcid) 40 mg PO DAILY 01/18/22 10/31/23 History hydrochlorothiazide 12.5 mg capsule See Rx Instructions .Route 11/22/22 10/31/23 Rx .COMPLEX #90 caps pantoprazole 40 mg tablet,delayed See Rx Instructions .Route 11/22/22 10/31/23 Rx release .COMPLEX #90 tabs carvedilol 6.25 mg tablet 6.25 mg PO BID #180 tabs 12/06/22 10/31/23 Rx lisinopril 20 mg tablet 20 mg PO DAILY #90 tabs 12/06/22 10/31/23 Rx atorvastatin 40 mg tablet 40 mg PO QHS #90 tabs 01/16/23 10/30/23 Rx cyanocobalamin (vitamin B-12) 1,000 mcg sublingual DAILY 03/08/23 10/31/23 History 1,000 mcg sublingual tablet diclofenac sodium 75 mg 75 mg PO TUTHSA 03/08/23 10/29/23 History tablet,delayed release ciclopirox 0.77 % topical cream 1 applic topical DAILY 10/31/23 10/31/23 History omega-3 fatty acids-fish oil 360 1 cap PO DAILY 10/31/23 10/31/23 History mg-1,200 mg capsule (Fish Oil) tramadol 50 mg tablet 50 - 100 mg PO Q8H PRN PRN pain 10/31/23 10/31/23 History Allergy/AdvReac Type Severity Reaction Status Date / Time iodine Allergy Rash Verified 03/08/23 11:34 Penicillins (PCN) Allergy Rash Verified 03/08/23 11:34 wool Allergy Rash Verified 03/08/23 11:34 Family History Other Adopted no significant family history Surgical History History of left heart catheterization (08/19/20) History of foot surgery History of shoulder surgery History of total knee arthroplasty History of coronary artery stent placement (11/05/19) Social History household members: spouse Smoking Status: Never smoker alcohol intake: never substance use type: does not use caffeine: Yes Type: coffee Number of servings: 1 ROS ROS Narrative Outside of what is mentioned in the HPI the 14 point review of systems is negative. Vital Signs Vital Signs Vital Signs: 10/31/23 18:12 10/31/23 19:29 10/31/23 20:05 Temperature 97.6 F L 97.7 F L Temperature Source Oral Pulse Rate 65 78 Pulse Strength Respiratory Rate 18 16 Respiratory Effort Respiratory Depth Respiratory Pattern Blood Pressure 159/73 H 128/98 H Blood Pressure Mean 101 108 Blood Pressure Source Monitor Blood Pressure Position Sitting Blood Pressure Location Right Arm Pulse Ox 97 98 98 Oxygen Delivery Method Room Air Room Air 10/31/23 20:54 10/31/23 22:00 11/01/23 00:22 Temperature 97.2 F L Temperature Source Temporal Pulse Rate 69 Pulse Strength Normal (2+) Respiratory Rate 18 Respiratory Effort Normal Non-Labored Respiratory Depth Normal Respiratory Pattern Normal Blood Pressure 157/91 H Blood Pressure Mean 113 Blood Pressure Source Monitor Blood Pressure Position Sitting Blood Pressure Location Left Arm Pulse Ox 98 Oxygen Delivery Method Room Air 11/01/23 05:23 11/01/23 07:02 11/01/23 07:51 Temperature 97.5 F L 98.4 F Temperature Source Oral Temporal Pulse Rate 60 64 Pulse Strength Respiratory Rate 16 18 Respiratory Effort Respiratory Depth Respiratory Pattern Blood Pressure 115/56 L 144/87 H Blood Pressure Mean 75 106 Blood Pressure Source Monitor Monitor Blood Pressure Position Semi-Fowlers Sitting Blood Pressure Location Right Arm Right Arm Pulse Ox 98 90 100 Oxygen Delivery Method Room Air Room Air Room Air 11/01/23 07:51 11/01/23 13:44 Temperature 97.8 F Temperature Source Oral Pulse Rate 65 Pulse Strength Normal (2+) Respiratory Rate 18 Respiratory Effort Respiratory Depth Respiratory Pattern Blood Pressure 138/75 H Blood Pressure Mean 96 Blood Pressure Source Monitor Blood Pressure Position Sitting Blood Pressure Location Right Arm Pulse Ox 95 Oxygen Delivery Method Room Air Weight Weight: 276 lb 0.3 oz Body Mass Index (BMI) 38.6 Physical Exam Const alert and oriented x3 General Appearance: cooperative Eyes PERRL Neck no JVD Resp normal respiratory effort Cardio Cardio Narrative: Regular pulse rate GI GI Narrative: Nondistended Extremity Extremity Narrative: Right lower extremity: Patient does have some moderate pain with internal ex rotation of the right hip with limited internal and external rotation.Patient has tenderness palpation along the medial thigh musculature as well as over the proximal tibia medially and medial knee. No pain with passive knee range of motion. Positive dorsiflexion EHL plantarflexion. Sensations intact light touch saphenous, sural, superficial peroneal, deep peroneal tibial nerve distributions. Negative logroll test. No appreciable ecchymosis today. Skin no rashes or lesions noted Neuro CN's II-XII intact bilaterally Neuro Narrative: Antalgic gait Psych affect normal Medical Records Data Attestation: I reviewed the patient's medical records Lab / Micro Data Attestation: I reviewed the patient's lab results. 11/01/23 07:25 11/01/23 07:25 Labs: Laboratory Results - last 24 hr 11/01/23 07:25: WBC 6.5, RBC 3.75 L, Hgb 11.7 L, Hct 36.4 L, MCV 97.1 H, MCH 31.2, MCHC 32.1, RDW Std Deviation 48.1 H, RDW Coeff of Rose 13.3, Plt Count 208, MPV 9.9, Immature Gran % (Auto) 0.300, Neut % (Auto) 68.2, Lymph % (Auto) 14.3 L , [place] % (Auto) 13.6 H, Eos % (Auto) 3.1, Baso % (Auto) 0.5, Absolute Neuts (auto) 4.4, Absolute Lymphs (auto) 0.92, Nucleated RBC % 0, Sodium 134 L, Potassium 4.7, Chloride 103, Carbon Dioxide 28.0, Anion Gap 3 L, BUN 20 H, Creatinine 1.19, Estim Creat Clear Calc 74.49, Est GFR (MDRD) Af Amer 77, Est GFR (MDRD) Non-Af 64, BUN/Creatinine Ratio 16.8, Glucose 101, Calcium 8.8, Total Bilirubin 0.50, AST 23, ALT 18, Alkaline Phosphatase 89, Total Protein 6.5, A lbumin 3.0 L, Globulin 3.5, Albumin/Globulin Ratio 0.9 Imaging Radiology Impression Lower Extremity CT 10/31/23 16:16 IMPRESSION: Degenerative changes of the right hip without evidence for acute fracture or other significant bone pathology. Electronically Signed: Weston Matos MD at 17:09 EDT Reading Location ID and State: [facility] / [place] Tel , Service support , MRI and right hip radiographs were reviewed. Findings are consistent with severe stage IV [id number] osteoarthritis, prescript formed of the proximal femur concerning for chronic femoral acetabular impingement associated changes. Assessment & Plan Assessment/Plan (1) Contusion of right thigh, initial encounter: (2) Contusion of right lower leg, initial encounter: PLAN: Plan Patient has acute pain in his right medial thigh and proximal tibia consistent with an acute contusion. He has reports of previous ecchymosis which have resolved. He also has severe right hip osteoarthritis noted on radiographs. Likely this is a acute contusion with exacerbation of hip osteoarthritis. I did discuss the patient these findings and he was agreeable. Patient has been walking on this for 2 weeks, I have a very low suspicion for any clinical fracture at this time. Radiographs and CT scan rule out fracture. There was discussion is whether or not proceed with an MRI however, based on patient's ability to ambulate over the last 2 weeks I do not feel an MRI is necessary at this time. Clinically patient does not present as a hip fracture. Additionally his pain is more over the medial musculature of the thigh and knee and less with logroll again presenting low suspicion for any acute occult hip fracture. I recommended we proceed with x-rays of the knee and tibia-fibula to rule out any fractures in these areas. If they are negative talk with medicine team they will be able to send him home. Patient is able to be discharged from the hospital. He is in street close at this time. Would recommend use of nonsteroidal anti-inflammatories and steroids were appropriate. Would limit use of narcotics. Patient's PCP has already prescribed tramadol patient questions continuing this prescription. Additionally intra-articular corticosteroid injection could be discussed however I do not feel this is acute source of his pain I did not recommend this at this time. Please call orthopedics for any questions or concerns beyond today's consultation. Will discuss x-ray findings with attending physician when they return. [facility] Office:
--- NOTE | 2023-11-01 16:30 | RAD_ITS ---
STUDY: X-RAY - RIGHT KNEE REASON FOR EXAM: Male, 73 years old. pain fall TECHNIQUE: 4 view(s) of the knee. COMPARISON: None. FINDINGS: Normal visualized distal femur. Normal visualized proximal tibia and fibula. Normal proximal tibiofibular articulation. Mildly narrowed medial femorotibial compartment. Normal lateral femorotibial compartment. Narrowed patellofemoral articulation. Chondrocalcinosis is observed. RAD/Knee 3 Views IMPRESSION: Degenerative changes. No acute fracture or dislocation Electronically Signed: Weston Matos MD at 17:32 EDT ,
--- NOTE | 2023-11-01 17:59 | DCINST_ITS ---
Discharge Instructions Diet Discharge Diet: No restrictions Activity Discharge Activity: Return to Normal Activity Weight Bearing Status: Full weight bearing Follow Up Care Test Results: Test results from this visit will be discussed in further detail at your follow- up appointment, if applicable. Discharge Plan Admission Admit Date/Time: 10/31/23 14:52 Primary Reason for Your Visit: contusion of right leg/thigh Attending Provider: Abisai Sheldon Primary Care Provider: Abisai Bryant Consulting Providers: Jay Anne; Sonia Taylor Discharge Orders/Prescriptions Prescriptions: New tramadol 50 mg tablet 50 mg PO Q6H PRN (Reason: pain) Qty: 30 0RF Rx Instructions: one or two every six hours as needed for pain prednisone 20 mg tablet 20 mg PO DAILY Qty: 7 0RF Continued famotidine [Pepcid] 40 mg tablet 40 mg PO DAILY diclofenac sodium 75 mg tablet,delayed release (DR/EC) 75 mg PO TUTHSA cyanocobalamin (vitamin B-12) 1,000 mcg tablet, sublingual 1,000 mcg sublingual DAILY fexofenadine 60 MG tablet 60 mg PO DAILY glucosamine-chondroitin 480 ML liquid 480 ml PO BID aspirin 81 MG tablet 81 mg PO DAILY@0800 Qty: 30 1RF ciclopirox 0.77 % cream 1 applic topical DAILY omega-3 fatty acids-fish oil [Fish Oil] 360-1,200 mg capsule 1 cap PO DAILY acetaminophen [Tylenol Arthritis Pain] 650 mg tablet extended release 1,300 mg PO Q8H pantoprazole 40 mg tablet,delayed release (DR/EC) See Rx Instructions .ROUTE .COMPLEX Qty: 90 3RF Dose Instruction: take 1 tablet by mouth once daily Rx Instructions: take 1 tablet by mouth once daily hydrochlorothiazide 12.5 mg capsule See Rx Instructions .ROUTE .COMPLEX Qty: 90 3RF Dose Instruction: take 1 capsule by mouth once daily Rx Instructions: take 1 capsule by mouth once daily carvedilol 6.25 mg tablet 6.25 mg PO BID Qty: 180 3RF lisinopril 20 mg tablet 20 mg PO DAILY Qty: 90 3RF atorvastatin 40 mg tablet 40 mg PO QHS Qty: 90 3RF Discontinued tramadol 50 mg tablet 50 - 100 mg PO Q8H PRN PRN (Reason: pain) Referrals / Follow Up: Abisai Bryant, [Primary Care Provider] - Jay Anne MD [Med Staff - Active Staff] - See Referral Note (call to make follow up appointment) Disposition Disposition (needs filled in before D/C Order can be placed): Home, Self Care
--- NOTE | 2023-11-01 18:09 | PCM.DC.SUM ---
Providers Date of Admission: 10/31/23 Date of Discharge: 11/01/23 Primary Care Physician: Dr. Abisai Bryant, DO Consultations 10/31/23 18:26 Consult: Orthopedics Routine Consulting Provider: Jay Anne Reason for Consult: Fall, R hip/upper leg pain EMERGENT Consult: No MD Notified: Yes Date Notified: 10/31/23 Time Notified: 16:04 Method of Notification: Verbal Reason For Visit: INTRACTABLE RLE/HIP PAIN Diagnosis Discharge Diagnosis (1) Contusion of right thigh, initial encounter: Status: Acute Code(s): S70.11XA - Contusion of right thigh, initial encounter (2) Contusion of right lower leg, initial encounter: Status: Acute Code(s): S80.11XA - Contusion of right lower leg, initial encounter Plan 1. Contusion of the right thigh #2 contusion of the proximal tibia #3 atherosclerotic heart disease #4 essential hypertension Medications at Discharge Home Medications fexofenadine 60 mg tablet 60 mg PO DAILY 11/04/19 glucosamine-chondroitin 1,500 mg -1,200 mg/30 mL oral liquid 480 ml PO BID 11/04/19 aspirin 81 mg tablet,delayed release 81 mg PO DAILY@0800 #30 tabs 11/06/19 acetaminophen 650 mg tablet,extended release (Tylenol Arthritis Pain) 1,300 mg PO Q8H 01/18/22 famotidine 40 mg tablet (Pepcid) 40 mg PO DAILY 01/18/22 hydrochlorothiazide 12.5 mg capsule See Rx Instructions .Route .COMPLEX #90 caps 11/22/22 pantoprazole 40 mg tablet,delayed release See Rx Instructions .Route .COMPLEX #90 tabs 11/22/22 carvedilol 6.25 mg tablet 6.25 mg PO BID #180 tabs 12/06/22 lisinopril 20 mg tablet 20 mg PO DAILY #90 tabs 12/06/22 atorvastatin 40 mg tablet 40 mg PO QHS #90 tabs 01/16/23 cyanocobalamin (vitamin B-12) 1,000 mcg sublingual tablet 1,000 mcg sublingual DAILY 03/08/23 diclofenac sodium 75 mg tablet,delayed release 75 mg PO TUTHSA 03/08/23 ciclopirox 0.77 % topical cream 1 applic topical DAILY 10/31/23 omega-3 fatty acids-fish oil 360 mg-1,200 mg capsule (Fish Oil) 1 cap PO DAILY 10/31/23 prednisone 20 mg tablet 20 mg PO DAILY #7 tabs 11/01/23 tramadol 50 mg tablet 50 mg PO Q6H PRN pain #30 tabs 11/01/23 Hospital Course Operations None Procedures None Summary of Care Provided Minutes Spent on Discharge: 31 Hospital Course: This 73-year-old white male was seen in the emergency room at [facility] with complaints of right leg pain chiefly in the medial aspect of the right thigh and some pain in the proximal lower leg. Patient related to a fall proximately 2 weeks prior, he had been following up with his PCP and his chiropractor. Patient related to the pain increasing over the last 3 days prior to being seen in the ER. Labs were obtained in the emergency room which were unremarkable, venous Doppler study was obtained which showed no evidence of right lower extremity deep venous thrombosis, hip and pelvic x-rays were performed which showed no evidence of displaced pelvic or hip fracture and evidence of degenerative arthrosis of the right hip. Patient was given narcotic analgesics in the emergency room, he was placed in observation status on [facility] 3 and seen in consultation by orthopedic surgery. Patient was also seen by PT and OT. Orthopedic surgery felt the patient had a contusion of his right leg and right proximal tibial area, it was recommended the patient follow-up with orthopedics as an outpatient. On 11/01/2023, patient was seen and examined: On examination he appeared in good health and spirits. Vital signs as documented. Skin warm and dry and without overt rashes. Neck without JVD, neck was supple, trachea midline, thyroid was normal. Lungs clear bilaterally, normal air movement was noted. Heart exam notable for regular rhythm, normal sounds and absence of murmurs, rubs or gallops. Abdomen unremarkable and without evidence of organomegaly, masses, or abdominal aortic enlargement. Bowel sounds are present, abdomen is not distended. Extremities nonedematous, no cyanosis was noted, no clubbing was noted. Patient has pain to palpation over the medial aspect of the right mid thigh area near the hamstring muscles neuro: Cranial nerves II through XII are grossly intact, no focal motor deficits were noted, sensation to light touch and pinprick intact, motor exam 5/5 throughout. Psych: Patient is alert and oriented x3, he does not appear anxious or depressed, he does not appear agitated. Patient appears stable for discharge home on 11/01/2023. Weight / BMI Weight Weight: 125.2 kg Body Mass Index (BMI) 38.6 ABG / Lab / Microbiology Data 11/01/23 07:25 11/01/23 07:25 Laboratory: Laboratory Results - last 24 hr 11/01/23 07:25: WBC 6.5, RBC 3.75 L, Hgb 11.7 L, Hct 36.4 L, MCV 97.1 H, MCH 31.2, MCHC 32.1, RDW Std Deviation 48.1 H, RDW Coeff of Rose 13.3, Plt Count 208, MPV 9.9, Immature Gran % (Auto) 0.300, Neut % (Auto) 68.2, Lymph % (Auto) 14.3 L, [place] % (Auto) 13.6 H, Eos % (Auto) 3.1, Baso % (Auto) 0.5, Absolute Neuts (auto) 4.4, Absolute Lymphs (auto) 0.92, Nucleated RBC % 0, Sodium 134 L, Potassium 4.7, Chloride 103, Carbon Dioxide 28.0, Anion Gap 3 L, BUN 20 H, Creatinine 1.19, Estim Creat Clear Calc 74.49, Est GFR (MDRD) Af Amer 77, Est GFR (MDRD) Non-Af 64, BUN/Creatinine Ratio 16.8, Glucose 101, Calcium 8.8, Total Bilirubin 0.50, AST 23, ALT 18, Alkaline Phosphatase 89, Total Protein 6.5, Albumin 3.0 L, Globulin 3.5, Albumin/Globulin Ratio 0.9 Radiography Diagnostic Testing: Radiology Impression Tibia/Fibula X-Ray 11/01/23 16:08 IMPRESSION: No evidence for acute fracture. Incidental finding is a lesion within the distal tibial shaft of indeterminate etiology. CT or MRI would be helpful for further evaluation if clinically warranted especially if patient has known malignancy.. Electronically Signed: Weston Matos MD at 17:35 EDT , Knee X-Ray 11/01/23 16:30 IMPRESSION: Degenerative changes. No acute fracture or dislocation Electronically Signed: Weston Matos MD at 17:32 EDT Reading Location ID and State: [facility] / [place] Tel , Service support , D/C Instructions Discharge Diet: No restrictions Weight Bearing Status: Full weight bearing Meaningful Use Info Meaningful Use Meaningful Use Diagnoses (Choose all that apply): None applicable Ischemic Stroke Statin Dosing Therapy Reference: STATIN DOSE THERAPY REFERENCE: * Patients > 75 years receive moderate or high dose statin therapy. * Patients 75 years or YOUNGER should receive HIGH intensity statin dose unless contraindicated. You will be required to document reason for non-treatment if statin daily dose does not meet guidelines. HIGH DOSE STATIN THERAPY DAILY Atorvastatin > than or = to 40 mg Rosuvastatin > than or = to 20 mg Amlodipine + Atorvastatin > than or = to 2.5/40 mg Ezetimibe + Simvastatin 10/80 mg Simvastatin 80mg Discharge Plan Admission Admit Date/Time: 10/31/23 14:52 Primary Reason for Your Visit: contusion of right leg/thigh Attending Provider: Abisai Sheldon Primary Care Provider: Abisai Bryant Consulting Providers: Jay Anne; Sonia Taylor Discharge Orders/Prescriptions Prescriptions: New tramadol 50 mg tablet 50 mg PO Q6H PRN (Reason: pain) Qty: 30 0RF Rx Instructions: one or two every six hours as needed for pain prednisone 20 mg tablet 20 mg PO DAILY Qty: 7 0RF Continued famotidine [Pepcid] 40 mg tablet 40 mg PO DAILY diclofenac sodium 75 mg tablet,delayed release (DR/EC) 75 mg PO TUTHSA cyanocobalamin (vitamin B-12) 1,000 mcg tablet, sublingual 1,000 mcg sublingual DAILY fexofenadine 60 MG tablet 60 mg PO DAILY glucosamine-chondroitin 480 ML liquid 480 ml PO BID aspirin 81 MG tablet 81 mg PO DAILY@0800 Qty: 30 1RF ciclopirox 0.77 % cream 1 applic topical DAILY omega-3 fatty acids-fish oil [Fish Oil] 360-1,200 mg capsule 1 cap PO DAILY acetaminophen [Tylenol Arthritis Pain] 650 mg tablet extended release 1,300 mg PO Q8H pantoprazole 40 mg tablet,delayed release (DR/EC) See Rx Instructions .ROUTE .COMPLEX Qty: 90 3RF Dose Instruction: take 1 tablet by mouth once daily Rx Instructions: take 1 tablet by mouth once daily hydrochlorothiazide 12.5 mg capsule See Rx Instructions .ROUTE .COMPLEX Qty: 90 3RF Dose Instruction: take 1 capsule by mouth once daily Rx Instructions: take 1 capsule by mouth once daily carvedilol 6.25 mg tablet 6.25 mg PO BID Qty: 180 3RF lisinopril 20 mg tablet 20 mg PO DAILY Qty: 90 3RF atorvastatin 40 mg tablet 40 mg PO QHS Qty: 90 3RF Discontinued tramadol 50 mg tablet 50 - 100 mg PO Q8H PRN PRN (Reason: pain) Referrals / Follow Up: Abisai Bryant DO [Primary Care Provider] - Jay Anne MD [Med Staff - Active Staff] - See Referral Note (call to make follow up appointment) Disposition Disposition (needs filled in before D/C Order can be placed): Home, Self Care Charges/Coding Visit Charges Inpatient E&M: 23115 Disch Hosp >30min
[2023-11-01 18:26] VITALS: BP 121/68; PULSE 62; RESP 18; TEMP 36.8; O2SAT 97
== END 2023-11-01 18:30 | disposition home or self-care (01) ==
LOC: ED 14:53 → MS3 18:04
PROVIDERS: Admitting Provider Family Medicine; Emergency Provider Emergency Medicine; PCP Family Medicine; Visit Provider Internal Medicine
DX: S70.11XA Contusion of right thigh, initial encounter (principal); S80.11XA Contusion of right lower leg, initial encounter; I10 Essential (primary) hypertension; I25.10 Atherosclerotic heart disease of native coronary artery without angina pectoris; Z79.82 Long term (current) use of aspirin; K21.9 Gastro-esophageal reflux disease without esophagitis; E78.5 Hyperlipidemia, unspecified; W19.XXXA Unspecified fall, initial encounter; Z79.899 Other long term (current) drug therapy; M16.11 Unilateral primary osteoarthritis, right hip; E66.9 Obesity, unspecified; Z68.37 Body mass index [BMI] 37.0-37.9, adult; J30.9 Allergic rhinitis, unspecified; G47.33 Obstructive sleep apnea (adult) (pediatric); I47.10 Supraventricular tachycardia, unspecified; D64.9 Anemia, unspecified; M79.604 Pain in right leg
CPT/HCPCS: 36415; 73502; 73562; 73590; 73700; 80048; 80053; 82550; 85025; 93971; 96361; 96374; 96375; 96376; 97161; 97165; 99221; 99285; J7030; A4216; G0378; J2405

== ENCOUNTER → 2023-11-10 | Outpatient (CLI) | payer MEDICARE, BC, SELFPAY ==
[2020-01-14 09:21] VITALS: BMI 36.3
[2023-11-10 17:09] LABS: Creatinine, Serum 1.51 mg/dL (0.70-1.30); EST Glomerular Filtration Rate 48 mL/min (>60); Est Glom Filt Rate - Afr Amer 59 mL/min (>60)
== END | disposition home or self-care (01) ==
LOC: LAB 15:33
PROVIDERS: PCP Family Medicine; Visit Provider Physician Assistant Surgical
DX: Z01.812 Encounter for preprocedural laboratory examination (principal)
CPT/HCPCS: 36415; 82565

== ENCOUNTER → 2024-02-01 | Outpatient (CLI) | payer MEDICARE, BC, SELFPAY ==
[2020-01-14 09:21] VITALS: BMI 36.3
[2024-02-01 10:31] LABS: AST(SGOT) 26 U/L (15-37); Alanine Aminotransfer ALT/SGPT 18 U/L (16-61); Albumin, Serum 3.4 g/dL (3.2-5.0); Alkaline Phosphatase 90 U/L (45-117); Anion Gap 4 (5-15); BUN 21 mg/dL (7-18); BUN/Creat Ratio 17.2 RATIO (10-20); Bilirubin, Direct 0.18 mg/dL (0.00-0.30); Calcium,Total 8.8 mg/dL (8.5-10.1); Chloride 105 mmol/L (98-107); Cholesterol 112 mg/dL (200); Creatinine, Serum 1.22 mg/dL (0.70-1.30); EST Glomerular Filtration Rate 62 mL/min (>60); Est Glom Filt Rate - Afr Amer 75 mL/min (>60); Globulin 3.5 g/dL (2.2-4.2); Glucose 84 mg/dL (74-106); High Density Lipoprotein 48 mg/dL; Potassium 4.6 mmol/L (3.5-5.1); Protein, Total 6.9 g/dL (6.4-8.2); Sodium Level 137 mmol/L (136-145); Triglycerides 86 mg/dL; Very Low Density Lipoprotein 17 mg/dL (5-40)
== END | disposition home or self-care (01) ==
LOC: MTLAB 08:52
PROVIDERS: Nurse Practitioner Family; PCP Family Medicine; Referring Provider Family Medicine; Visit Provider Family Medicine
DX: N18.31 Chronic kidney disease, stage 3a (principal); E78.00 Pure hypercholesterolemia, unspecified
CPT/HCPCS: 36415; 80048; 80061; 80076

== ENCOUNTER → 2024-07-04 | Outpatient (CLI) | payer MEDICARE, BC, SELFPAY ==
[2020-01-14 09:21] VITALS: BMI 36.3
--- NOTE | 2024-07-04 13:22 | CT_ITS ---
CT RIGHT LOWER EXTREMITY WITH 3-D IMAGING CLINICAL INDICATION: KNEE PAIN TECHNIQUE: Axial CT images of the right lower extremity (including right hip, right knee, and right ankle) was performed without IV contrast material. Coronal and sagittal reformats were provided. The protocol utilizes one or more of the following dose reduction techniques: automated exposure control, adjustment of mA and/or kV according to patient size, and/or use of iterative reconstruction technique. RADIATION DOSAGE (If Supplied By Facility): CTDIvol = ( 18.81 ) mGy, DLP = ( 1354.24 ) mGycm COMPARISON: Right knee radiographs dated 11/01/2023. FINDINGS: Bones: There is severe degenerative arthrosis of the right hip joint with joint space narrowing, small marginal osteophyte formation, and subchondral sclerosis/cyst formation. There is pubic symphysis arthrosis. There is mild tricompartment degenerative arthrosis of the right knee with small marginal osteophyte formation. There is a 7 mm ossified loose body in the intercondylar notch the right knee. There is a partially visualized intertarsal osteoarthritis with ORIF hardware in the midfoot. Osseous structures are intact without evidence of fracture or dislocation. There are intraosseous lipomas with central calcification in the proximal and distal tibial metadiaphyses. Soft Tissues: There is chondrocalcinosis of the medial and lateral menisci of the right knee. There is chronic sigmoid diverticulosis without acute diverticulitis. The deep soft tissue structures are otherwise unremarkable. The superficial soft tissues are unremarkable without evidence of edema, hematoma, or foreign body. CT/Extremity Lower without Contra IMPRESSION: Mild tricompartment degenerative arthrosis of the right knee. 7 mm ossified loose body in the intercondylar notch the right knee. Chondrocalcinosis of the medial and lateral menisci of the right knee. Electronically Signed: Matheus Campbell MD at 14:08 EST ,
== END | disposition home or self-care (01) ==
LOC: CT 12:00
PROVIDERS: PCP Family Medicine; Referring Provider Specialist; Visit Provider Specialist
DX: M17.11 Unilateral primary osteoarthritis, right knee (principal); M21.061 Valgus deformity, not elsewhere classified, right knee; I10 Essential (primary) hypertension
CPT/HCPCS: 73700

== ENCOUNTER → 2024-07-09 | Outpatient (CLI) | payer MEDICARE, BC, SELFPAY ==
[2020-01-14 09:21] VITALS: BMI 36.3
[2024-07-09 12:04] LABS: Anion Gap 2 (5-15); BUN 23 mg/dL (7-18); BUN/Creat Ratio 17.4 RATIO (10-20); Calcium,Total 9.2 mg/dL (8.5-10.1); Chloride 107 mmol/L (98-107); Creatinine, Serum 1.32 mg/dL (0.70-1.30); EST Glomerular Filtration Rate 56 mL/min (>60); Est Glom Filt Rate - Afr Amer 68 mL/min (>60); Glucose 106 mg/dL (74-106); Potassium 4.8 mmol/L (3.5-5.1); Sodium Level 136 mmol/L (136-145)
== END | disposition home or self-care (01) ==
LOC: BFHLAB 10:33
PROVIDERS: PCP Family Medicine; Visit Provider Family Medicine
DX: N18.32 Chronic kidney disease, stage 3b (principal)
CPT/HCPCS: 36415; 80048

== ENCOUNTER 2024-07-23 07:16 | Observation (INO) | payer MEDICARE, BC, SELFPAY ==
[2020-01-14 09:21] VITALS: BMI 36.3
[2024-07-04 12:41] LABS: Absolute Lymphocyte Count 1.59 X10^3/uL (0.83-4.51); Absolute Neutrophil Count 6.4 X10^3/uL (2.0-7.7); Basophil# 0.04 X10^3/uL; Basophil% 0.4 % (0-1); Eosinophil# 0.17 X10^3/uL; Eosinophils% 1.9 % (0-5); Hematocrit 36.6 % (40-54); Hemoglobin 11.9 g/dL (13.0-16.5); Lymphocyte # 1.59 X10^3/ul (0.83-4.51); Lymphocyte % 17.5 % (19-41); Mean Corp Hgb Conc 32.5 g/dL (32-36); Mean Corpuscular Hgb 31.3 pg (27.0-32.0); Mean Corpuscular Volume 96.3 fL (80-94); Mean Platelet Vol. 10.4 fl (6.2-12.0); Monocyte# 0.84 X10^3/uL; Monocyte% 9.2 % (0-10); NRBC Flagged by Analyzer 0 % (0-5); Neutrophil # 6.42 X10^3/uL (2.7-7.7); Neutrophil % 70.7 % (47-70); Platelet Count 242 K/mm3 (150-450); RBC Distribution Width CV 12.7 % (11.6-14.6); RBC Distribution Width SD 45.4 fl (35.1-43.9); White Blood Count 9.1 K/mm3 (4.4-11.0)
[2024-07-04 13:19] LABS: Albumin, Serum 3.5 g/dL (3.2-5.0); Anion Gap 6 (5-15); BUN 24 mg/dL (7-18); BUN/Creat Ratio 13.3 RATIO (10-20); Chloride 105 mmol/L (98-107); EST Glomerular Filtration Rate 39 mL/min (>60); Est Glom Filt Rate - Afr Amer 48 mL/min (>60); Glucose 115 mg/dL (74-106); Potassium 4.4 mmol/L (3.5-5.1); Sodium Level 136 mmol/L (136-145)
--- NOTE | 2024-07-05 15:07 | PAT.ANE_ITS ---
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 When Was Last Pacemaker Check QUESTION #4 FULL TEXT: You/Your Family Experience fever (hyperthermia) with Anesthesia Last Oral Intake Last Oral intake: Last Oral Intake NPO since Meds taken in AM with sips of water? Meds patient instructed to take am of surgery PONV PONV - commercial real estate attorney: PONV - commercial real estate attorney Female No 07/02/24 14:23 HX of Motion Sickness Yes 07/02/24 14:23 HX of N/V After Surgery Yes 07/02/24 14:23 Non-Smoker Yes 07/02/24 14:23 Duration of Surgery greater Yes 07/02/24 14:23 than 60 minutes Number of Risk Factors 4 07/02/24 14:23 PONV Score Severe Risk 07/02/24 14:23 Height & Weight Height & Weight: Anesthesia: Height & Weight Height 5 ft 11 in 03/05/24 11:20 Respiratory Assessment Respiratory Assessment - commercial real estate attorney: Respiratory Tract Infection Hx - commercial real estate attorney Hx Respiratory Tract Infection Yes: RUNNY NOSE 07/02/24 14:23 STOP Sleep Apnea STOP Sleep Apnea - commercial real estate attorney: STOP Sleep Apnea - commercial real estate attorney Hx Hypertension No 07/02/24 14:23 Hx Sleep Apnea Yes 07/02/24 14:23 CPAP Yes: spouse will bring in 07/02/24 14:23 BIPAP No 07/02/24 14:23 Do you snore loudly (louder than talking or can be heard Do you often feel tired/ fatigued/ sleepy during daytime? Has anyone observed you stop breathing during sleep? STOP Results Positive 07/02/24 14:23 QUESTION #5 FULL TEXT : Do you snore loudly (louder than talking or can be heard through closed doors)? 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 Specify any problems Hx of Preganancy in last 3 N/A 07/02/24 14:23 Months Nurse Filling Out Transfusion VCHRISTIN 07/02/24 14:23 & Questions: Date: 07/02/24 07/02/24 14:23 Time: 14:27 07/02/24 14:23 Patient unable to answer at this time (ie. confused, unrespo /Reproduction History /Reproductive History - commercial real estate attorney: /Reproductive Hx- commercial real estate attorney Hx Now No 07/02/24 14:23 Gestational Age (in weeks): EDC: Hx Hx Para Hx Section SAB No 07/02/24 14:23 [facility] Medical History (Updated 07/02/24 @ 14:23 by Sakshi Vargas) Wears hearing aid Wears glasses History of steroid therapy Ambulates with cane Arthritis High cholesterol Back pain Difficulty swallowing Gastric reflux Non-smoker Sleep apnea Shortness of breath on exertion History of pain when walking History of stress test Cardiology follow-up encounter History of heart attack Intractable pain Acute pain of right hip COVID-19 virus infection (02/08/20) Bilateral pneumonia (02/08/20) History of sustained ventricular tachycardia (11/05/19) Cardiac arrest (11/05/19) Essential (primary) hypertension Hyperlipidemia Obesity (BMI 30-39.9) Atherosclerosis of coronary artery without angina pectoris History of non-ST elevation myocardial infarction (NSTEMI) (11/04/19) Osteoarthritis Obstructive sleep apnea GERD (gastroesophageal reflux disease) Home Medications ?Medication ?Instructions ?Recorded ?Last Taken ?Type fexofenadine 60 mg tablet 60 mg PO DAILY 11/04/19 10/31/23 History glucosamine-chondroitin 1,500 mg 480 ml PO BID 11/04/19 10/31/23 History -1,200 mg/30 mL oral liquid aspirin 81 mg tablet,delayed 81 mg PO DAILY@0800 #30 tabs 11/06/19 10/31/23 Rx release acetaminophen 650 mg 1,300 mg PO DAILY 01/18/22 10/31/23 History tablet,extended release (Tylenol Arthritis Pain) cyanocobalamin (vitamin B-12) 1,000 mcg sublingual DAILY 03/08/23 10/31/23 History 1,000 mcg sublingual tablet hydrochlorothiazide 12.5 mg capsule See Rx Instructions .Route 11/18/23 Unknown Rx .COMPLEX #90 caps pantoprazole 40 mg tablet,delayed See Rx Instructions .Route 11/18/23 Unknown Rx release .COMPLEX #90 tabs lisinopril 20 mg tablet 20 mg PO DAILY #90 tabs 12/14/23 Unknown Rx carvedilol 6.25 mg tablet 6.25 mg PO BID #180 tabs 12/27/23 Unknown Rx atorvastatin 40 mg tablet 40 mg PO QHS #90 tabs 01/09/24 Unknown Rx ascorbate calcium (vitamin C) 500 500 mg PO QDAY 03/05/24 Unknown History mg tablet ciclopirox 0.77 % topical cream 1 applic topical DAILY PRN rash 03/05/24 Unknown History diclofenac sodium 75 mg 75 mg PO DAILY 03/05/24 Unknown History tablet,delayed release cholecalciferol (vitamin D3) 25 25 mcg PO DAILY 07/02/24 Unknown History mcg (1,000 unit) capsule (Vitamin D3) diphenhydramine 25 2 tab PO QHS 07/02/24 Unknown History mg-acetaminophen 500 mg tablet (Acetaminophen PM) Allergy/AdvReac Type Severity Reaction Status Date / Time iodine Allergy Rash Verified 07/02/24 14:01 Penicillins (PCN) Allergy Rash Verified 07/02/24 14:01 wool Allergy Rash Verified 07/02/24 14:01 Family History Other Adopted Surgical History (Updated 07/02/24 @ 14:23 by Sakshi Vargas) History of left heart catheterization (08/19/20) History of foot surgery History of shoulder surgery History of total knee arthroplasty History of coronary artery stent placement (11/05/19) Social History household members: spouse Smoking Status: Never smoker alcohol intake: never substance use type: does not use caffeine: Yes Type: coffee Number of servings: 1 Audit: Pertinent Findings Pertinent Findings EKG Perinent findings: 07/04/2024 normal sinus rhythm 67 normal EKG Stress test pertinent findings: 07/31/2020 abnormal perfusion stress test evidence of mid inferior ischemia good functional capacity Echo (EF%) pertinent findings: 11/05/2019 normal left ventricle EF 60% Heart catheterization pertinent findings: 08/25/2020 mild coronary artery disease with previously placed stent right coronary artery noted to be patent Consult pertinent findings: Cardiology 03/05/2024 coronary coronary artery disease status post mid distal RCA stent stable hypertension stable Recommendation Anesthesia Recommendation Anesthesia recommendation: OPTIMIZED for anesthesia
--- NOTE | 2024-07-19 14:16 | HP.PCM_ITS ---
History and Physical History and Physical Patient Name: Benson Soriano : 1950From:? IVONE CHAN PA-C DATE OF PRE-OPERATIVE EXAM: 07/18/2024 DATE OF SURGERY:? 07/23/2024 SCHEDULED PROCEDURE:? Robotic-assisted right total knee arthroplasty HISTORY OF PRESENT ILLNESS: Preoperative history and physical exam was performed on July 18, 2024.? This is a 73-year-old male who is having ongoing pain for the 9 months.? Patient's pain is been aching and sore.? Pain is located in the medial aspect of the knee extending down to the ankle.? He has increased pain with standing, walking and going up and down stairs.? Pain can reach 8/10.? 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 He has been using a cane for ambulation.? He has attempted bracing.? He has fallen secondary to the knee pain.? He has tried rest, heat, elevation with minimal relief.? He has tried previous corticosteroid injections without relief.? He has been on Tylenol and nonsteroidal anti-inflammatories without relief.? Patient denies past history of surgery on the right.? He has obtain surgical clearance from the primary care provider Dr. Bryant and [facility] with Dr. Lion.? Patient has medical history pertinent for hypertension, hypercholesterolemia, previous heart attack, heart stents, chronic kidney disease, gastroesophageal reflux disease, sleep apnea with use of CPAP.? He denies past history of DVT or pulmonary embolism.? There is been no recent fevers, chills or recent infections.? He has undergone a previous left total knee arthroplasty in 2016 at [facility]. REVIEW OF SYSTEMS: Review Of Systems: Constitutional: Denies change in appetite, fever and weight change. Cardiovasular: Denies chest pain, heart murmur and irregular heartbeat. Respiratory: Denies cough, pneumonia, shortness of breath, tuberculosis and wheezing. Gastrointestinal: Denies constipation, diarrhea, heartburn, nausea, rectal itching, bloody stools and vomiting. Musculoskeletal: Denies leg swelling, pain, trouble walking and weakness. Skin: Denies Raynaud's, history of shingles and tattoo. Neurological: Denies ambulatory dysfunction, dizziness, numbness/tingling and tremor. Psychiatric: Denies anxiety, insomnia and stress. Hematologic/Lymphatic: Denies anemia, bleeding/bruising tendency and past transfusion. Reviewed and updated. PAST MEDICAL HISTORY: Advance Care Plan: Other Directive, LIVING WILL Effective Date: 10/20/2022 Past Medical History: Medical Problems: Acid Reflux, Arthritis, Hard of Hearing, Heart Attack, Sleep Apnea, High Blood Pressure, Hypercholesterolemia, chronic kidney disease Accidents: Other - (10/15/2022) RT SHOULDER DISLOCATION Other - LT SHOULDER, MULTIPLE DISLOCATIONS Other - (10/2023) fall right leg injury Surgical Hx: Heart Stent - (2018) Knee Replacement Lt - (2015) [facility] Shoulder Arthroscopy Lt - (1975) Bilat Ankle Fusions - NUMEROUS Anesthesia Complications: None Assistive Devices: Hearing Aid Reviewed and updated. SOCIAL HISTORY: Social History: Marital: .Occupation: Retired.Work Status: Retired.Hand Dominance: Right- handed. Personal Habits:? Cigarette Use: Never Smoked Cigarettes.Smokeless Tobacco: Never Used Smokeless Tobacco.E-Cigarette Use: Never used.Alcohol: Denies use.Drug Use: Denies Use.Enjoy Exercising: Daily. Reviewed and updated. VITALS: Ht: 72 Wt: 273lb Wt k.833 BMI: 37.0 BP: 126/80 Pulse: 68 Resp: 16 T: 97.7 T: 36.5C Pain Level: 8 O2SatR: 98 ALLERGIES: Iodine / Sodium Iodide - Rash Wool - Rash Betadine - Rash MEDICATIONS: Folic Acid 1 mg 1 by mouth every day, Ferrous Sulfate 325 (65 Fe) MG take 1 tablet by mouth twice a day, Carvedilol 6.25 mg one tab po bid, Aspirin 81 81 mg one tab po once daily, Hydrochlorothiazide 12.5 mg 1 by mouth every day, Atorvastatin Calcium 40 mg 1 by mouth every day, Lisinopril 20 mg 1 by mouth every day, Fexofenadine HCL 60 mg one tab po once daily, Pantoprazole Sodium 40 mg 1 by mouth every day, Tylenol 8 Hour Arthritis Pain 650 mg two tabs po once daily, [facility] Vitamin B12 1000 mcg one tab po once daily, Diclofenac Sodium 75 mg one tab po once daily, Vitamin C 250 mg daily, Glucosamine Chondroitin 1500 Complex 1500 Com 1x/day, Pepcid 20 mg 1 by mouth every day PRE-OP EXAM: General appearance:NORMAL? Other: Eyes: Conjunctivae and lids: NORMAL? Pupils: ERR Ears, Nose, Mouth, and Throat: NORMAL? Other: Inspection of lips, teeth and gums: NORMAL?? Other: Neck: Examination of neck: no masses noted. Respiratory: Assessment of respiratory effort: NORMAL?? Other: ? Auscultation of lungs: clear to auscultation no wheezes, rhonchi or rales. Cardiovascular:? Auscultation of heart: regular rate and rhythm, positive systolic murmur PHYSICAL EXAMINATION: Patient ambulates with antalgic gait with use of cane.? The left knee is without any urinary edema or signs of infection.? He has tenderness to palpation over the medial joint line.? There is tenderness to palpation also on the lateral joint line.? Range of motion 0 extension to 120 flexion.? Stable to varus/valgus stress test, stable to anterior/posterior drawer exam. IMAGING STUDIES: Previous x-rays of the left knee reveal valgus alignment with lateral joint space narrowing, subchondral sclerosis, osteophyte formation consistent with severe stage IV osteoarthritis with bony erosions. IMPRESSION: 1.? Severe right knee osteoarthritis with valgus alignment 2.? Presence of left total knee arthroplasty 2016 3.? Hypertension 4.? Previous heart attack with heart stents 5.? Coronary artery disease 6.? Gastroesophageal reflux disease 7.? Sleep apnea with use of CPAP 8.? Hypercholesterolemia 9.? Obesity with BMI 37.0 10.? Pre-op Anemia PLAN: Dr. Jay Anne did discuss and review with the patient all treatment options including surgical versus nonsurgical options.? I will continue plan established by Dr. Jay Anne.? Patient does wish to proceed with the above-stated procedure.? Potential risks, benefits, and complications of the procedure were discussed in detail including but not limited to , infection, nerve and blood vessel damage, persistent pain, numbness, tingling, paresthesias, blood clot, pulmonary embolism, and requirement for possible further surgery.? The patient expressed full understanding and has no further questions for the doctor.? Patient does agree to proceed with the above-stated procedure and has signed the surgery consent form. POST-OP MEDICATION PLAN: Pain Medications: Postoperative pain regimen will be initiated by Dr. Jay Anne in the hospital.? Patient did not tolerate oxycodone very well as it caused dizziness and dropped his blood pressure.? We will attempt to use tramadol and Tylenol postoperatively.? We are avoiding nonsteroidal anti- inflammatories due to his medical history.? Patient has been following our anemia protocol.? I did advise him postoperatively will most likely require follow-up with primary care physician for continued monitoring and management.? He has a walker that he will bring to the hospital. DVT Prophylaxis:? Aspirin 81 mg twice daily for 4 weeks postoperatively.? Denies past history of DVT or pulmonary embolism This dictation was created using voice recognition software. Phonetic and/or grammatical errors may exist. ___? I have re-examined the patient.? There are no clinical changes since date of exam. ___? See progress notes for changes. ___? Dictated on admission Date: ? Time: Signature:
[2024-07-23] VITALS (16 sets, daily range): BP systolic 118–155; BP diastolic 61–86; PULSE 70–85; RESP 14–18; TEMP 36.2–37; O2SAT 94–100; BMI 37.8
[2024-07-23] MEDS: Magnesium 1 GM over 15 mins IV (06:24)
[2024-07-23] MEDS: Lactated Ringers 1,000 ML 999 ML IV (06:24)
[2024-07-23] MEDS: Acetaminophen 500 MG Tablet 1000 MG PO ×3 (06:35→21:57)
[2024-07-23] MEDS: Gabapentin 600 MG Tablet PO (06:35)
--- NOTE | 2024-07-23 07:11 | PCM.PRE.AN2 ---
ASA Classification* ASA Classification ASA Classification: 3 Assessment & Plan Anesthesia* Anesthesia Assessment Anesthesia Assessment: Discussed sedation and/or anesthesia options, risks, benefits, and alternatives with patient/parents/legal guardian/POA. Questions invited. The patient/parents/legal guardian/POA seems to understand and agrees to proceed with anesthesia plan. Reviewed the physical assessment, medical history, allergy history and patient home medications list prior to surgery/procedure/anesthetic and documented any changes. Performed airway and anesthesia risk assessments. Anesthesia Type Anesthesia Type: Spinal and Block Anesthesia Focused Assessment* Temperature: 98.0 F Pulse Rate: 81 Blood Pressure: 131/81 Respiratory Rate: 18 Pulse Ox: 100 Airway Assessment Mouth opens: >3 cm Mallampati Score: II Focused Labs Anesthesia Preop lab: CBC WBC 9.1 K/mm3 (4.4-11.0) 07/04/24 12:20 07/04/24 RBC 3.80 M/mm3 (4.6-6.2) L 07/04/24 12:20 07/04/24 Hgb 11.9 g/dL (13.0-16.5) L 07/04/24 12:20 07/04/24 Hct 36.6 % (40-54) L 07/04/24 12:20 07/04/24 Plt Count 242 K/mm3 (150-450) 07/04/24 12:20 07/04/24 CHEMISTRY Potassium 4.8 mmol/L (3.5-5.1) 07/09/24 10:34 07/09/24 Sodium 136 mmol/L (136-145) 07/09/24 10:34 07/09/24 Magnesium 2.0 mg/dL (1.6-2.6) 07/04/24 12:20 07/04/24 BUN 23 mg/dL (7-18) H 07/09/24 10:34 07/09/24 Creatinine 1.32 mg/dL (0.70-1.30) H 07/09/24 10:34 07/09/24 Glucose 106 mg/dL (74-106) 07/09/24 10:34 07/09/24 TSH 1.23 uIU/mL (0.358-3.74) 12/24/15 13:46 07/06/16 COAG PT 14.4 SECONDS (11.7-14.9) 11/05/19 06:10 11/05/19 Pre-Assessment Diagnosis/Proposed Procedure Planned Operative Procedure(s): (R) ERAS, Total Knee Replacement Robotic Arm Assist Anesthesia History 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: 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 Hx Hospitalization Yes: 10/2023-KNEE 07/02/24 14:23 INFLAMMATION Any Problems With Anesthesia [ No 10/15/22 18:00 Right dislocated shoulder] Any Problems With Anesthesia Yes: HARD TO PUT ASLEEP, 07/02/24 14:23 REQUIRES EXTRA Cholinesterase deficiency No 07/02/24 14:23 You/Your Family Experience No: ADOPTED 07/02/24 14:23 fever (hyperthermia) with Relationship Recent Exposure to Contagious No 07/23/24 06:29 Disease Does patient have nerve No 07/02/24 14:23 stimulator Patient instructed to have device shut off --Does patient have Pacemaker No 07/23/24 06:29 or ICD? When Was Last Pacemaker Check QUESTION #4 FULL TEXT: You/Your Family Experience fever (hyperthermia) with Anesthesia Last Oral Intake Last Oral intake: Last Oral Intake NPO since 19:00 07/23/24 06:29 Meds taken in AM with sips of Yes 07/23/24 06:29 water? Meds patient instructed to take am of surgery PONV PONV - peoplesoft consultant: PONV - peoplesoft consultant Female No 07/02/24 14:23 HX of Motion Sickness Yes 07/02/24 14:23 HX of N/V After Surgery Yes 07/02/24 14:23 Non-Smoker Yes 07/02/24 14:23 Duration of Surgery greater Yes 07/02/24 14:23 than 60 minutes Number of Risk Factors 4 07/02/24 14:23 PONV Score Severe Risk 07/02/24 14:23 Height & Weight Height & Weight: Anesthesia: Height & Weight Height 5 ft 11 in 07/23/24 06:29 Weight: 123.2 kg 07/23/24 06:29 Body Mass Index (BMI) 37.8 07/23/24 06:29 Respiratory Assessment Respiratory Assessment - peoplesoft consultant: Respiratory Tract Infection Hx - peoplesoft consultant Hx Respiratory Tract Infection Yes: RUNNY NOSE 07/02/24 14:23 STOP Sleep Apnea STOP Sleep Apnea - peoplesoft consultant: STOP Sleep Apnea - peoplesoft consultant Hx Hypertension No 07/02/24 14:23 Hx Sleep Apnea Yes 07/02/24 14:23 CPAP Yes: spouse will bring in 07/02/24 14:23 BIPAP No 07/02/24 14:23 Do you snore loudly (louder than talking or can be heard Do you often feel tired/ fatigued/ sleepy during daytime? Has anyone observed you stop breathing during sleep? STOP Results Positive 07/02/24 14:23 QUESTION #5 FULL TEXT : Do you snore loudly (louder than talking or can be heard through closed doors)? 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 Specify any problems Hx of Preganancy in last 3 N/A 07/02/24 14:23 Months Nurse Filling Out Transfusion VCHRISTIN 07/02/24 14:23 & Questions: Date: 07/02/24 07/02/24 14:23 Time: 14:27 07/02/24 14:23 Patient unable to answer at this time (ie. confused, unrespo /Reproduction History /Reproductive History - peoplesoft consultant: /Reproductive Hx- peoplesoft consultant Hx Now No 07/02/24 14:23 Gestational Age (in weeks): EDC: Hx Hx Para Hx Section SAB No 07/02/24 14:23 Active Medications Active Medications: Current Medications Generic Name Dose Route Start Last Admin Trade Name Freq PRN Reason Stop Dose Admin Acetaminophen 1,000 mg 07/23/24 07:30 07/23/24 06:35 Acetaminophen 500 Mg Tablet PO 07/23/24 07:31 1,000 mg X1 ONE Administration Tranexamic Acid 2,000 mg/ 0 mg 07/23/24 07:30 Sodium Chloride 100 ml OPERA.SITE 07/23/24 07:31 X1 ONE Sodium Chloride 77.4 ml/ 0 ml 07/23/24 07:30 Ropivacaine 200 mg/ OPERA.SITE 07/23/24 07:31 Epinephrine HCl 0.6 mg/ X1 ONE Ketorolac Tromethamine 30 mg/ Morphine Sulfate 5 mg Dexamethasone Sodium Phosphate 10 mg 07/23/24 07:30 Dexamethasone 10 Mg/Ml Vial IV 07/23/24 07:31 X1 ONE Gabapentin 600 mg 07/23/24 07:30 07/23/24 06:35 Gabapentin 600 Mg Tablet PO 07/23/24 07:31 600 mg X1 ONE Administration Lactated Ringer's 1,000 mls @ 999 mls/hr 07/23/24 07:30 07/23/24 06:24 IV 07/23/24 08:30 999 mls/hr .Q1H1M DIPAK Administration Cefazolin Sodium 3 gm/ N/A 30 mls @ 600 mls/hr 07/23/24 07:30 IV 07/23/24 07:32 PREOP ONE Magnesium Sulfate 1 gm/ 102 mls @ 408 mls/hr 07/23/24 07:30 07/23/24 06:24 Dextrose IV 07/23/24 07:44 408 mls/hr X1 ONE Administration Insulin Human Lispro 1 - 6 unit 07/23/24 07:30 Insulin Lispro 100 Unit/Ml Insuln.Pen SC 07/23/24 13:30 Q4H PRN PRN BG>/= 180, SEE PROTOCOL Protocol PFSH Medical History Wears hearing aid Wears glasses History of steroid therapy Ambulates with cane Arthritis High cholesterol Back pain Difficulty swallowing Gastric reflux Non-smoker Sleep apnea Shortness of breath on exertion History of pain when walking History of stress test Cardiology follow-up encounter History of heart attack Intractable pain Acute pain of right hip COVID-19 virus infection (02/08/20) Bilateral pneumonia (02/08/20) History of sustained ventricular tachycardia (11/05/19) Cardiac arrest (11/05/19) Essential (primary) hypertension Hyperlipidemia Obesity (BMI 30-39.9) Atherosclerosis of coronary artery without angina pectoris History of non-ST elevation myocardial infarction (NSTEMI) (11/04/19) Osteoarthritis Obstructive sleep apnea GERD (gastroesophageal reflux disease) Home Medications ?Medication ?Instructions ?Recorded ?Last Taken ?Type fexofenadine 60 mg tablet 60 mg PO DAILY 11/04/19 07/22/24 History glucosamine-chondroitin 1,500 mg 480 ml PO BID 11/04/19 07/22/24 History -1,200 mg/30 mL oral liquid aspirin 81 mg tablet,delayed 81 mg PO DAILY@0800 #30 tabs 11/06/19 07/15/24 Rx release acetaminophen 650 mg 1,300 mg PO DAILY 01/18/22 10/31/23 History tablet,extended release (Tylenol Arthritis Pain) cyanocobalamin (vitamin B-12) 1,000 mcg sublingual DAILY 03/08/23 07/22/24 History 1,000 mcg sublingual tablet hydrochlorothiazide 12.5 mg capsule See Rx Instructions .Route 11/18/23 07/22/24 Rx .COMPLEX #90 caps pantoprazole 40 mg tablet,delayed See Rx Instructions .Route 11/18/23 07/23/24 Rx release .COMPLEX #90 tabs lisinopril 20 mg tablet 20 mg PO DAILY #90 tabs 12/14/23 07/22/24 Rx carvedilol 6.25 mg tablet 6.25 mg PO BID #180 tabs 12/27/23 07/23/24 Rx atorvastatin 40 mg tablet 40 mg PO QHS #90 tabs 01/09/24 07/22/24 Rx ascorbate calcium (vitamin C) 500 500 mg PO QDAY 03/05/24 07/22/24 History mg tablet ciclopirox 0.77 % topical cream 1 applic topical DAILY PRN rash 03/05/24 Unknown History diclofenac sodium 75 mg 75 mg PO DAILY 03/05/24 Unknown History tablet,delayed release cholecalciferol (vitamin D3) 25 25 mcg PO DAILY 07/02/24 07/22/24 History mcg (1,000 unit) capsule (Vitamin D3) diphenhydramine 25 2 tab PO QHS 07/02/24 Unknown History mg-acetaminophen 500 mg tablet (Acetaminophen PM) Allergy/AdvReac Type Severity Reaction Status Date / Time iodine Allergy Rash Verified 07/23/24 06:22 Penicillins (PCN) Allergy Rash Verified 07/23/24 06:22 wool Allergy Rash Verified 07/23/24 06:22 Family History Other Adopted Surgical History History of left heart catheterization (08/19/20) History of foot surgery History of shoulder surgery History of total knee arthroplasty History of coronary artery stent placement (11/05/19) Social History household members: spouse Smoking Status: Never smoker alcohol intake: never substance use type: does not use caffeine: Yes Type: coffee Number of servings: 1 Review of Systems (Anesthesia) ROS Narrative System reviewed and no additional complaints, except as documented.
[2024-07-23 07:37] LABS: Bedside Glucose 109 mg/dL (74-106)
--- NOTE | 2024-07-23 07:45 | KNEE_PTH ---
PATIENT: WYATT OTT LOC: [facility] U#:[id number] AGE/SX: 73/M ROOM: IA318 RE07/23/[address]: Dr. Jay Anne MD : 1950 BED: 1 DIS: 07/24/2024 SPEC #: [id number] RECD: 07/23/24 10:42 STATUS: FLORA ROQUE #: [id number] RAGHU: 07/23/24 07:[address]: Jay Anne DEPT: SURGICAL PATHOLOGY RECD BY: Marce Peng ENTERED: 07/23/24 11:08 SP TYPE: TOTAL KNEE OTHR DR: Dr. Abisai Bryant, DO Tissues: Knee, NOS Procedures: Decalcification bone/plaque Surgery Specimen Level IV HEADER OPERATION: Total knee replacment [facility] arm assist PRE-OP DIAGNOSIS: Severe right knee osteoarthritis with valgus alignment TISSUE SUBMITTED: Right knee bone and tissue MICROSCOPIC DIAGNOSIS Bone and soft tissue, right knee, total knee replacement/resection: Pieces of bone with degenerative osteoarthritic changes. Fibroadipose tissue, fibroconnective tissue, fibrocartilaginous tissue and reactive synovial tissue. Focal changes consistent with pseudogout. SJ: 07/26/2024 MICROSCOPIC DESCRIPTION Slides are reviewed. GROSS DESCRIPTION Received is one container designated bone and soft tissue right knee. The specimen consists of multiple fragments of hurtado-yellow bone measuring in aggregate 9 x 10 x 3.5 cm. Also in the specimen container is soft tissue that entirely consists of fibrocartilaginous tissue measuring in aggregate 7 x 4.5 x 2cm. Soft tissue also shows focal chalky-white deposits. A number of bony fragments contain articular surfaces consistent with tibial plateau and femoral condyle and displaying prominent osteophyte formation, eburnation and bone erosion. Baker Chef sections are submitted in two cassettes as follows: 1 - soft tissue, 2 - bone after decalcification. / SJ. 07/23/2024 TC:5 CPT: 01768, 16644
[2024-07-23] MEDS: Cefazolin 3 GM in Syringe 15 ML IV (08:19)
[2024-07-23] MEDS: TXA in NS 100ml (Placed in Wound) OPERA.SITE (08:32)
[2024-07-23] MEDS: dexAMETHasone 10 MG/ML Vial IV (08:32)
[2024-07-23] MEDS: JPS (Morphine 10mg/ml) OPERA.SITE (09:20)
--- NOTE | 2024-07-23 09:25 | OP.PCM_ITS ---
Operative Report (Standard) Operative Information Date of Procedure: 07/23/24 Pre-Operative Diagnosis: Right knee primary osteoarthritis Post-Operative Diagnosis: Right knee primary osteoarthritis Surgery/Procedure Performed: Right knee minimally invasive robotic assisted total knee replacement barge master: Yes Factory Supervisor: Sia Pulido Tasks completed by social worker assistant: Other (See body of operative report) Additional assistant manager of operations?: Yes Additional Assistant Softball Coach #2: Santana Brown Tasks completed by assistant manager of operations #2: Other (See body of operative report) Additional assistant manager of operations?: No Type of Anesthesia: General RN Documented Start/Stop Times: Operation Date: 07/23/24 07:45 Case Time Into Pre-Op 07/23/24 05:44 Anesthesia Start 07/23/24 08:00 Into Room 07/23/24 08:00 Procedure Start 07/23/24 08:32 Procedure End 07/23/24 09:59 Anesthesia End 07/23/24 10:06 Out of Room 07/23/24 10:06 Into Recovery 07/23/24 10:07 Procedure Start Time: 08:32 Procedure Stop Time: 09:59 Select all DRAINS/GRAFTS/IMPLANTS that apply: Prosthetic device Prosthetic device details: See operative report Special Medications: 2 g Ancef, 1 g TXA at incision, 1 g TXA closure, 10 mg Decadron, joint cocktail (5 mg Duramorph, 30 mL of 0.5% Ropivicaine, 1000 units of epinephrine, 30 mg of Toradol) Estimated Blood Loss: 50 mL Fluids Replaced: 1000 mL crystalloid Specimen collected: Yes Description of specimen(s) removed: Bony cuts Description of surgery: Implants used: 1. [place] size 5 triathlon cruciate retaining distal femoral press-fit component 2. [place] size 6 press-fit tritanium tibial baseplate 3. Memo X3 9 mm polyethylene 4. Memo X3 35 mm asymmetric patella Brief history operative indications: 73-year-old M with history of right knee osteoarthritis with radiographic findings with loss of joint space, osteophyte formation and subchondral sclerosis. Failed conservative measures as mentioned in the H&P. Discussion of total knee arthroplasty as well as risk and benefits were discussed the patient including but not limited to blood loss, DVTs, PEs, neurovascular damage, g eneral risk of anesthesia including loss of life, and stiffness or instability were discussed with patient. Patient demonstrated understanding and was able to sign informed consent. Procedure: On the date of procedure patient's right lower extremity was marked in the preoperative area. The patient was then taken back to the operating room where the patient was placed on the table in the supine position. All bony prominences were identified a well-padded. Anesthesia assumed control of the C-spine and airway and remained controlled throughout the remainder of the procedure. A tourniquet was placed on the right upper thigh and the leg was prepped in a sterile fashion. The surgeon then scrubbed at this time .Upon reentering the room right lower extremity was draped in a standard orthopedic fashion. A timeout was then called and everyone agreed upon the side, the site, the procedure to be performed, patient's identity and antibiotics given. Esmarch bandage was used to exsanguinate the extremity and the tourniquet was placed up to 250 mmHg with the knee in flexion. A midline skin incision was made and sharp dissection was taken down through skin subcutaneous tissue and fat. The standard medial parapatellar incision was made and the patella was subluxed laterally. An Appropriate deep MCL release was done and the fat pad was resected. Our attention was then directed to the patella. The patella was everted and a flat resection was made. The knee was then flexed up in 2 femoral pins were placed inside the incision and 2 tibial pins were placed outside the incision in the medial tibia bicortically. Once this was completed the 2 checkpoints in the femur and tibia were placed. Knee was then flexed up and the bony landmarks were registered. Once this was completed knee was taken through range of motion and manually stressed allowing us to a plan for an appropriate tibial cut. The robotic arm was brought into the field sterilely and checkpoint and saw were registered. Based on the patient's deformity the tibial cut was made in 1 degree of varus. At this time the tensioner was then placed in the joint and ligament tension was checked at 90 degrees and full extension. Based on the patient's ligamentous tension appropriate adjustments were made to the operative plan and ligament releases were done. Once we were happy with our operative plan with balanced flexion and extension gaps our attention was directed to the femur. The robot was brought into the field sterilely and registered. Posterior condylar cuts, anterior chamfer cuts and anterior cuts were appropriately made for a size 5 femur. When these were completed the saws were switched out in the distal femoral and posterior chamfer cuts were made. Protecting the soft tissue throughout this time. A size 6 tibial base plate was selected. the knee was flexed to 90 degrees and the soft tissues and posterior osteophytes were removed from the joint. 40 cc of the periarticular injection was injected into the posterior medial corner of the joint. The appropriate trials were then placed on the femur and tibia. A trial polyethylene was trialed to ensure proper balancing and stability of the knee. The appropriate tibial internal rotation was then marked with a bovie. Our attention was then directed to the patella. The lug holes were drilled and the patella trial was placed. Patellar tracking was checked and deemed appropriate. Once we were happy lug holes were drilled for the femur and trial components were removed. The tibia was subluxed and pinned into place and the keel was punched and drilled appropriately. Final components were verified and opened. The wound was copiously irrigated with normal saline. When the cement was ready the components were impacted into place starting with the tibia then the femur, finally the patella was compressed into place. The trial poly component was placed and the knee was placed in full extension. Once the the implants were secured, the tracking, alignment and balance were verified and a size 9 mm CS polyethylene component was placed. Once the final components were placed a 3-minute dilute Betadine lavage was performed followed by an Irrisept lavage was performed and the wound was copiously irrigated with normal saline solution and the periarticular injection was given. The wound was closed in a layer prakash fashion using #1 vicryl inte rrupted sutures for the arthrotomy, 2-0 interrupted Vicryl suture for the subcuticular layer and martha for final skin closure. A sterile compressive dressing was then placed. The patient was then awakened from anesthesia, transferred to the [facility] and transferred to the PACU for recovery. Post op plan DVT ppx: ASA 81mg BID, thigh high compression stockings Follow up: in office in 2 weeks for wound check PT: to start POD #0 at hospital, outpatient PT should be arranged. My physician assistant manager of operations was a vital part of this case, they was important because there was not another skilled set of hands available to their training and aptitude needed for safe and appropriate completion of this case. They were important in appropriate retraction during the case, and protection of soft tissues during bony cuts. In particular the experience and skill of this assistant manager of operations made for safe retraction and exposure during implantation of medical implants without damage to vital soft tissues or structures. His intimate knowledge of the case and my steps aided in safe and expedient completion of the procedure as well as appropriate position of the leg during the case. He was also vital in assisting with closure under my direct supervision. Due to the complexity of this case robotic arm was used to assist in the surgery to improve accuracy and clinical outcomes. Surgical Findings: Stable knee with good patella tracking. Stage IV osteoarthritis Complications Complications: No Admit VTE Documentation VTE Present on Admission: No VTE Mechan Device Prophylaxis: SCD's and Thigh High GILBERT Hose VTE Pharm Prophylaxis ordered?: Yes
--- NOTE | 2024-07-23 10:20 | RAD_ITS ---
EXAM: XR Right Knee, 1 or 2 Views CLINICAL INDICATION: TECHNIQUE: Frontal and/or lateral views of the right knee. COMPARISON: No relevant prior studies available. FINDINGS: BONES/JOINTS: Total knee replacement. Intact hardware. No acute fracture. No dislocation. SOFT TISSUES: Soft tissue emphysema and swelling. RAD/Knee 1 or 2 Views IMPRESSION: Status post total knee replacement in anatomic position. Reading Location: [facility]
[2024-07-23] MEDS: Lactated Ringers 1,000 ML 15 ML IV (11:06)
--- NOTE | 2024-07-23 11:55 | PN.HOSP_ITS ---
Reason for Visit Reason for Visit: Diagnoses Encounter for other preprocedural examination (07/23/24) Subjective Subjective Patient is a 73-year-old gentleman who underwent minimally invasive robotic assisted total knee replacement involving the right knee on account of primary osteoarthritis having failed conservative management. Hospitalist service was consulted to assist with management of patient medical comorbidities. Objective Data Objective Data Vital Signs: Vital Signs Temp Pulse Resp BP Pulse Ox O2 Del Method O2 Flow Rate 97.1 F L 72 16 138/76 H 99 Nasal Cannula 4 07/23/24 11:28 07/23/24 11:28 07/23/24 11:28 07/23/24 11:28 07/23/24 11:28 07/23/24 11:28 07/23/24 11:28 Oxygen Flow Rate (L/min) 4 Oxygen Delivery Method Nasal Cannula Weight: 123.2 kg Body Mass Index (BMI) 37.8 Intake & Output: Intake and Output for Last 24 Hours 07/21/24 07/22/24 07/23/24 23:59 23:59 23:59 Intake Total 2131 Balance 2131 Lab / Micro Data 07/04/24 12:20 07/04/24 12:20 Labs: Laboratory Results - last 24 hr 07/23/24 06:26: POC Glucose 109 H Micro: Microbiology 07/04/24 12:20 Swab (Method) Nasal Screen MRSA/MSSA - Final Radiography Diagnostic Testing: Radiology Impression Knee X-Ray 07/23/24 10:20 IMPRESSION: Status post total knee replacement in anatomic position. Reading Location: [facility] Physical Exam Narrative GENERAL: cooperative HEENT: Atraumatic; normocephalic EYES; Anicteric, Normal Conjunctiva NECK; supple, normal thyroid, RESPIRATORY: Diminished to auscultation CARDIOVASCULAR: Regular S1 S2, GI: soft, normoactive bowel sounds, : No Renal angle tenderness; EXTREMITIES: No edema, no clubbing, MUSCULOSKELETAL: Right knee in surgical dressing NEURO: Awake; no lateralizing signs. SKIN: No Rash PSYCH; Flat affect Assessment & Plan Assessment/Plan (1) S/P total knee arthroplasty: PLAN: Plan Patient is a 73-year-old gentleman who underwent minimally invasive robotic assisted total knee replacement involving the right knee on account of primary osteoarthritis having failed conservative management. Hospitalist service was consulted to assist with management of patient medical comorbidities. 1.minimally invasive robotic assisted total knee replacement ? Involving the right knee on account of primary osteoarthritis having failed conservative management by Dr. Anne on 07/23/2024. Patient postoperative orders regarding pain management, PT OT DVT prophylaxis deferred to primary service 2. Coronary artery disease ? With previous PCI plan is to continue patient's guideline directed medical therapy 3. Dyslipidemia ?Patient is on statin therapy, continued at home dose 4. Hypertension ? Blood pressure controlled, home medications continued with dose adjustment as needed 5. Class II obesity with BMI of 37.8 Complicating care weight loss advised 6. GERD ? On PPI 7. DVT prophylaxis ? Defer to primary service will recommend low molecular weight heparin if no contraindication Time spent in the patient's overall evaluation,decision-making process, review of diagnostic data, adjustment of management, discussion with other providers, nursing nursing and ancillary staff involved in patient's care documentation, 50 minutes Advance planning; did discuss with the patient and family regarding advanced directives as well as CODE STATUS. Did explain the various scenarios involved ( FULL CODE, DNR CCA, DNR CCA with no intubation, and DNR CC and what each meant) patient elected to remain full code with CPR and intubation if needed. Order was placed. Time spent on discussion 16 minutes. Charges/Coding Multi Select Codes Visit Charges Visit Charges: [address] [place] [id number] Hospitalists' Procedures Procedures: 96468 Advncd Care Plan 30 Min
--- NOTE | 2024-07-23 13:10 | PCM.POST.ANE ---
Anesthesia: Postop Eval I Current Vital Signs Temperature: 97.5 F Pulse Rate: 71 Blood Pressure: 141/86 Respiratory Rate: 16 Pulse Ox: 97 Oxygen Delivery Method: Nasal Cannula Oxygen Flow Rate (L/min): 4 Assessment Airway patent: Yes Spontaneous unlabored respirations: Yes nausea: No Vomiting: No Anesthesia Complication: No Fluid Hydration Crystalloid volume administer (ml): 500 Total IV fluid infused: 500 Progress Note Anesthesia document: Postop Eval 1 completed: Yes
--- NOTE | 2024-07-23 13:13 | PCM.POSTANE2 ---
Anesthesia Postop Eval I Sum Postop Eval Completion status Anesthesia document: Postop Eval 1 completed: Yes Anesthesia Postop Eval I Summary Anesthesia Postop Eval I Summary: Anesthesia Postop Eval I: Assessment Summary Airway patent Yes 07/23/24 13:13 Spontaneous unlabored Yes 07/23/24 13:13 respirations Mental status nausea No 07/23/24 13:13 Vomiting No 07/23/24 13:13 Anesthesia Postop Eval I: Fluid Summary Crystalloid volume administer 500 07/23/24 13:13 (ml) Colloids volume administered ( ml) Blood Product volume administered (ml) Total IV fluid infused 500 07/23/24 13:13 Anesthesia Postop Eval I: Summary Notes Anesthesia Complication No 07/23/24 13:13 Anesthesia Complication Comment: Post-operative progress note Anesthesia: Postop Eval II Evaluation Mental status: Awake Pain Level: 2 nausea: No Vomiting: No
[2024-07-23] MEDS: traMADol 50 MG Tablet PO (13:55)
[2024-07-23] MEDS: Lisinopril 20 MG Tablet PO (13:56)
[2024-07-23] MEDS: hydroCHLOROthiazide 12.5mg 12.5 MG PO (13:56)
[2024-07-23] MEDS: Pantoprazole Sodium 40 MG Tablet PO (13:56)
[2024-07-23] MEDS: 0.9% Saline Lock 10 ML Syringe IV (13:56)
[2024-07-23] MEDS: Cefazolin 1 GM/50 ML BAG IV ×2 (15:27→21:57)
[2024-07-23] MEDS: Aspirin 81 MG TAB.CHEW PO (16:28)
[2024-07-23] MEDS: Carvedilol 6.25 MG Tablet PO (16:28)
[2024-07-23] MEDS: Atorvastatin Calcium 40 MG Tablet PO (21:57)
[2024-07-23] MEDS: Senna/Docusate Sodium 1 Tablet 2 TABLET PO (21:57)
[2024-07-23] MEDS: DiphenhydrAMINE 25 MG Capsule 50 MG PO (21:57)
[2024-07-24 00:19] VITALS: BP 144/72; PULSE 80; RESP 18; TEMP 36.4; O2SAT 98
[2024-07-24 06:00] VITALS: BP 126/62; PULSE 67; RESP 16; TEMP 36.1; O2SAT 98
[2024-07-24] MEDS: Acetaminophen 500 MG Tablet 1000 MG PO ×2 (06:16→13:01)
--- NOTE | 2024-07-24 06:55 | PN.ORTHO_ITS ---
Subjective Subjective Patient appears to be comfortable and bedside chair. Patient stated that he has been up working with physical therapy and has been doing his exercises in his chair. Patient denies any shortness of breath, chest pain, calf pain, fever, chills, dizziness, nausea and vomiting. Patient denies any adverse events overnight. Patient states that while working with physical therapy yesterday he did have a little bit of lightheadedness but that has since subsided. Objective Data Objective Data Vital Signs: Vital Signs Temp Pulse Resp BP Pulse Ox O2 Del Method O2 Flow Rate 97.0 F L 67 16 126/62 H 98 Room Air 2 07/24/24 06:00 07/24/24 06:00 07/24/24 06:00 07/24/24 06:00 07/24/24 06:00 07/24/24 06:00 07/23/24 16:23 Oxygen Flow Rate (L/min) 2 Oxygen Delivery Method Room Air Weight: 123.2 kg Body Mass Index (BMI) 37.8 Intake & Output: Intake and Output for Last 24 Hours 07/22/24 07/23/24 07/24/24 23:59 23:59 23:59 Intake Total 2298 / 2298 Balance 2298 / 2298 Lab / Micro Data 07/04/24 12:20 07/04/24 12:20 Labs: Laboratory Results - last 24 hr 07/23/24 06:26: POC Glucose 109 H Micro: Microbiology 07/04/24 12:20 Swab (Method) Nasal Screen MRSA/MSSA - Final Radiography Diagnostic Testing: Radiology Impression Knee X-Ray 07/23/24 10:20 IMPRESSION: Status post total knee replacement in anatomic position. [facility] Physical Exam Narrative 1. GILBERT hose in place bilaterally. 2. SCDs are in place bilaterally. 3. Dressing is with minimal drainage in the middle one third. 4. Dorsiflexion and plantarflexion are performed actively without pain or restriction. 5. Sensation is intact to light touch. 6. Neurovascularly intact. 7. Negative Homans' sign bilaterally. Const alert and oriented x3 Assessment & Plan Assessment/Plan (1) S/P total knee arthroplasty: PLAN: Postoperative right total knee arthroplasty day 1. 1. DVT prophylaxis: Patient will be on aspirin 81 mg 2 times per day for 4 weeks postoperatively. As well as wearing GILBERT hose for 2 weeks postoperatively. Patient was educated that he is able to take his GILBERT hose off during sleep. 2. Pain medications: Patient was instructed to take Tylenol 1000 mg every 8 hours [id number] taking no more than 3000 mg in 24 hours. Patient was then instructed to take them at all as needed for breakthrough pain. Patient will not be on oxycodone due to a history of lightheadedness when taking oxycodone. OARRS report was reviewed today. The risk of abuse potential for narcotic pain medication was discussed and reviewed. Patient was advised not to drive motor vehicle or operate heavy equipment while taking narcotic pain medication. Patient voiced understanding. 3. Constipation: Patient has not yet had a bowel movement. Patient was instructed to take senna as instructed until her first bowel movement to decrease risk of impaction following surgery. Patient was also educated on the risk of constipation while taking ferrous sulfate and folic acid. Patient was instructed if they have not had a bowel movement in 3 days to call our office for reevaluation. 4. Physical therapy: Patient states he has worked with physical therapy already once yesterday. Patient does have physical therapy scheduled as an outpatient for 07/26/2024. 5. Labs: Labs have not yet been reported. Labs will be reviewed once reported and if stable will be good for discharge. 6. Incentive spirometry: Patient was encouraged to use incentive spirometer every hour that they are awake for the first week to exercise along decrease risk of postoperative lung infection. 7. Dressings: Patient was educated that he can take a shower over his dressing this evening. Patient was educated to take the dressing off on day 5 postop. If incision is clean dry and intact patient is able to leave open to air. 8. Patient will be following anemia protocol and will be on ferrous sulfate and folic acid postoperatively. Patient was educated on the risk of constipation while taking these medications. Patient will follow-up with primary care provider in 2 weeks to review labs and to continue managing chronic anemia. 9. Appreciate medicine's involvement and recommendations. 10. Patient is okay for discharge from an orthopedic standpoint as long as pain maintains adequately controlled can tolerate physical therapy, is okay per medicine doctors instructions following review of labs. 11. Disposition: Patient will follow-up per postoperative instructions. Patient does have outpatient physical therapy scheduled for 07/26/2024. Patient will be following the anemia protocol. Patient will follow-up with primary care provider in 2 weeks for reevaluation of CBC and BMP to review. Primary care provider will manage chronic anemia from here on out. Patient would like his medication sent to [facility].
--- NOTE | 2024-07-24 07:08 | DCINST_ITS ---
Discharge Instructions Diet Discharge Diet: No restrictions DC O2, CPAP, BIPAP needs Home O2 Discharge instructions: No Dressing / Incision Discharge Activity: Return to Normal Activity, May Not Drive (Patient may not drive for 6 weeks with a right total knee replacement.) and May Shower (Patient may take a shower over the waterproof bandage.) Weight Bearing Status: Weight bearing as tolerated (Weightbearing as tolerated with walker with right leg.) Keep extremity elevated above heart level: Operative Extremity Dressing / Incision Call your doctor if your incision/area has: Continuous Slow Oozing, Sudden Increased Bleeding, Increased Pain/ Swelling and Foul Smelling Discharge Call your doctor if you observe: Fever of 101 or Higher, Numbness or Tingling, Inability to urinate, Inability to have a bowel movement, Shortness of breath, Dizziness, Fainting spells, Chest pain, Increased palpitations (irregular heartbeat), Calf discomfort and Uncontrolled pain Remove Dressing in: 4 days (Patient can remove dressing on postoperative day 5- 07/25/24.) Cleanse incision/area with: Soap & Water Additional Dressing/Incision Instructions:: Follow [facility] Post-op Instructions. Once postoperative dressing has been removed, only use gentle soap and water over the incision. Do not use any ointments, Neosporin, salves, alcohol pads over the incision for 6 weeks postoperatively. Do not submerge underwater for 6 weeks postoperatively. Continue with GILBERT hose/elastic stockings for 2 weeks postoperatively. May remove at nighttime but needs to be placed back on the leg during the day. Anemia protocol: Patient will be placed on ferrous sulfate and folic acid postoperatively. Patient will be given an outpatient lab order and a follow-up appointment with primary care provider in 2 weeks to continue monitoring chronic anemia. DVT prophylaxis plan: You will use aspirin 81 mg twice daily with food for 4 weeks postoperatively for DVT prevention. After 4 weeks you will then go back to your normal 81 mg aspirin daily as prescribed. Do NOT use alcohol with narcotic pain medication. Do NOT make important decisions while taking narcotic medication. If you have problems with taking your medication (rash, itching, nausea, etc.) call the office at once. Follow Up Care Test Results: Test results from this visit will be discussed in further detail at your follow- up appointment, if applicable. Discharge Plan Admission Admit Date/Time: 07/23/24 07:16 Attending Provider: Jay Anne Primary Care Provider: Abisai Bryant Consulting Providers: Christopher Carmona Discharge Orders/Prescriptions Prescriptions: New acetaminophen 500 mg Tablet 1,000 mg PO TID 14 Days Qty: 90 0RF Rx Instructions: Do not exceed more than 3000 mg in 24 hours. aspirin 81 mg capsule 81 mg PO BIDCM 30 Days Qty: 0 0RF Rx Instructions: Take aspirin 81 mg 2 times per day with food for 4 weeks postoperatively. Following 4 weeks patient can resume preoperative dose of aspirin. sennosides-docusate sodium [Stimulant Laxative Plus] 8.6-50 mg Tablet 2 tab PO BID 3 Days Qty: 12 0RF Rx Instructions: Take until first bowel movement and then as needed. ferrous sulfate [FeroSul] 325 mg (65 mg iron) Tablet 325 mg PO 1200,1700 Qty: 0 0RF folic acid 1 mg Tablet 1 mg PO BREAKFAST Qty: 0 0RF tramadol 50 mg Tablet 50 - 100 mg PO Q6H PRN PRN (Reason: As needed for pain) 7 Days Qty: 36 0RF Continued cyanocobalamin (vitamin B-12) 1,000 mcg tablet, sublingual 1,000 mcg sublingual DAILY ascorbate calcium (vitamin C) 500 mg tablet 500 mg PO QDAY fexofenadine 60 MG tablet 60 mg PO DAILY glucosamine-chondroitin 480 ML liquid 480 ml PO BID diphenhydramine-acetaminophen [Acetaminophen PM] 25-500 mg tablet 2 tab PO QHS cholecalciferol (vitamin D3) [Vitamin D3] 25 mcg (1,000 unit) capsule 25 mcg PO DAILY ciclopirox 0.77 % cream 1 applic topical DAILY PRN (Reason: rash) pantoprazole 40 mg tablet,delayed release (DR/EC) See Rx Instructions .ROUTE .COMPLEX Qty: 90 3RF Dose Instruction: take 1 tablet by mouth once daily Rx Instructions: take 1 tablet by mouth once daily hydrochlorothiazide 12.5 mg capsule See Rx Instructions .ROUTE .COMPLEX Qty: 90 3RF Dose Instruction: take 1 capsule by mouth once daily Rx Instructions: take 1 capsule by mouth once daily lisinopril 20 mg tablet 20 mg PO DAILY Qty: 90 3RF carvedilol 6.25 mg tablet 6.25 mg PO BID Qty: 180 3RF atorvastatin 40 mg tablet 40 mg PO QHS Qty: 90 3RF Held diclofenac sodium 75 mg tablet,delayed release (DR/EC) 75 mg PO DAILY Hold Instructions: Resume on 08/14/24. Hold until follow-up with primary care provider. Discontinued aspirin 81 MG tablet 81 mg PO DAILY@0800 Qty: 30 1RF Patient Comments: LAST DOSE 07/15/24 acetaminophen [Tylenol Arthritis Pain] 650 mg tablet extended release 1,300 mg PO DAILY Other Ambulatory Orders: Basic Metabolic Profile (BMP) (Routine) Timeframe: 3 Weeks Facility: [facility] - Location: Laboratory Ordered By: Sia Pulido CBC-Complete Blood Cnt No Diff (Routine) Timeframe: 3 Weeks Facility: [facility] - Location: Laboratory Ordered By: Sia Pulido Referrals / Follow Up: physical, therapy [Other] - 07/26/24 11:00 am Abisai Bryant DO [Primary Care Provider] - Santana Brown PA-C [Med Staff - [facility] Practice Prof] - 08/03/24 10:45 am Disposition Disposition (needs filled in before D/C Order can be placed): Home, Self Care
[2024-07-24 07:41] LABS: Hematocrit 33.6 % (40-54); Hemoglobin 10.9 g/dL (13.0-16.5); Mean Corp Hgb Conc 32.4 g/dL (32-36); Mean Corpuscular Hgb 32.3 pg (27.0-32.0); Mean Corpuscular Volume 99.7 fL (80-94); Mean Platelet Vol. 10.7 fl (6.2-12.0); Platelet Count 190 K/mm3 (150-450); RBC Distribution Width CV 13.2 % (11.6-14.6); RBC Distribution Width SD 48.1 fl (35.1-43.9); Red Blood Count 3.37 M/mm3 (4.6-6.2); White Blood Count 10.9 K/mm3 (4.4-11.0)
[2024-07-24 08:10] LABS: Anion Gap 7 (5-15); BUN 23 mg/dL (7-18); BUN/Creat Ratio 20.7 RATIO (10-20); Calcium,Total 8.8 mg/dL (8.5-10.1); Chloride 104 mmol/L (98-107); Creatinine, Serum 1.11 mg/dL (0.70-1.30); EST Glomerular Filtration Rate 69 mL/min (>60); Est Glom Filt Rate - Afr Amer 83 mL/min (>60); Estimated Creatinine Clearance 79.19 ml/min; Glucose 106 mg/dL (74-106); Magnesium 2.4 mg/dL (1.6-2.6); Sodium Level 134 mmol/L (136-145)
--- NOTE | 2024-07-24 08:51 | PN.HOSP_ITS ---
Reason for Visit Reason for Visit: Diagnoses Anemia, unspecified (07/23/24) Essential (primary) hypertension (07/23/24) Encounter for other preprocedural examination (07/23/24) Presence of unspecified artificial knee joint (07/23/24) Subjective Subjective Postoperative day 1 pain is tolerable. Plan is for patient to be discharged following PT eval this a.m. Objective Data Objective Data Vital Signs: Vital Signs Temp Pulse Resp BP Pulse Ox O2 Del Method O2 Flow Rate 97.0 F L 67 16 126/62 H 98 Room Air 2 07/24/24 06:00 07/24/24 06:00 07/24/24 06:00 07/24/24 06:00 07/24/24 06:00 07/24/24 06:00 07/23/24 16:23 Oxygen Flow Rate (L/min) 2 Oxygen Delivery Method Room Air Weight: 123.2 kg Body Mass Index (BMI) 37.8 Intake & Output: Intake and Output for Last 24 Hours 07/22/24 07/23/24 07/24/24 23:59 23:59 23:59 Intake Total 2298 / 2298 Balance 2298 / 2298 Lab / Micro Data 07/24/24 07:11 07/24/24 07:11 Labs: Laboratory Results - last 24 hr 07/24/24 07:11: WBC 10.9, RBC 3.37 L, Hgb 10.9 L, Hct 33.6 L, MCV 99.7 H, MCH 32.3 H, MCHC 32.4, RDW Std Deviation 48.1 H, RDW Coeff of Rose 13.2, Plt Count 190, MPV 10.7, Sodium 134 L, Potassium 4.0, Chloride 104, Carbon Dioxide 24.0, Anion Gap 7, BUN 23 H, Creatinine 1.11, Estim Creat Clear Calc 79.19, Est GFR (MDRD) Af Amer 83, Est GFR (MDRD) Non-Af 69, BUN/Creatinine Ratio 20.7 H, Glucose 106, Calcium 8.8, Magnesium 2.4 Micro: Microbiology 07/04/24 12:20 Swab (Method) Nasal Screen MRSA/MSSA - Final Radiography Diagnostic Testing: Radiology Impression Knee X-Ray 07/23/24 10:20 IMPRESSION: Status post total knee replacement in anatomic position. Reading Location: [facility] Physical Exam Narrative GENERAL: cooperative HEENT: Atraumatic; normocephalic EYES; Anicteric, Normal Conjunctiva NECK; supple, normal thyroid, RESPIRATORY: Diminished to auscultation CARDIOVASCULAR: Regular S1 S2, GI: soft, normoactive bowel sounds, : No Renal angle tenderness; EXTREMITIES: No edema, no clubbing, MUSCULOSKELETAL: Right knee in surgical dressing NEURO: Awake; no lateralizing signs. SKIN: No Rash PSYCH; Flat affect Assessment & Plan Assessment/Plan (1) S/P total knee arthroplasty: PLAN: Plan Patient is a 73-year-old gentleman who underwent minimally invasive robotic assisted total knee replacement involving the right knee on account of primary osteoarthritis having failed conservative management. Hospitalist service was consulted to assist with management of patient medical comorbidities. 1.minimally invasive robotic assisted total knee replacement ? Involving the right knee on account of primary osteoarthritis having failed conservative management by Dr. Anne on 07/23/2024. Patient postoperative orders regarding pain management, PT OT DVT prophylaxis deferred to primary service ? 07/2024; postoperative day 1 pain levels tolerable. Primary service anticipating discharge 2. Coronary artery disease ? With previous PCI plan is to continue patient's guideline directed medical therapy 3. Dyslipidemia ?Patient is on statin therapy, continued at home dose 4. Hypertension ? Blood pressure controlled, home medications continued with dose adjustment as needed 5. Class II obesity with BMI of 37.8 Complicating care weight loss advised 6. GERD ? On PPI 7. DVT prophylaxis ? Defer to primary service will recommend low molecular weight heparin if no contraindication Time spent in the patient's overall evaluation,decision-making process, review of diagnostic data, adjustment of management, discussion with other providers, nursing nursing and ancillary staff involved in patient's care documentation, 35 minutes Charges/Coding Visit Charges Inpatient E&M: 87030 Subs Hosp L2
[2024-07-24 09:09] VITALS: BP 111/61; PULSE 109; RESP 16; TEMP 2.7; TEMP 36.1; TEMP 37; O2SAT 97
[2024-07-24] MEDS: Carvedilol 6.25 MG Tablet PO (09:46)
[2024-07-24] MEDS: Aspirin 81 MG TAB.CHEW PO (09:46)
[2024-07-24] MEDS: hydroCHLOROthiazide 12.5mg 12.5 MG PO (09:47)
[2024-07-24] MEDS: Lisinopril 20 MG Tablet PO (09:47)
[2024-07-24] MEDS: Famotidine 20 MG Tablet PO (09:47)
[2024-07-24] MEDS: Senna/Docusate Sodium 1 Tablet 2 TABLET PO (09:47)
[2024-07-24] MEDS: Cholecalciferol (VIT D3) 25 MCG TABLET (1,000 UNITS) PO (09:47)
[2024-07-24] MEDS: Pantoprazole Sodium 40 MG Tablet PO (09:47)
[2024-07-24] MEDS: Ascorbic Acid 500 MG Tablet PO (09:47)
[2024-07-24] MEDS: Loratadine 10 MG Tablet PO (09:47)
[2024-07-24] MEDS: Cyanocobalamin 500 MCG Tablet 1000 MCG PO (09:48)
[2024-07-24] MEDS: Folic Acid 1 MG Tablet PO (09:53)
--- NOTE | 2024-07-24 10:18 | CASEMGMT ---
GALINDO BROWN Assessment: Face to Face with pt for initial transition planning/care coordination assessment. GALINDO BROWN introduced self and role at [facility], pt voices understanding and consents to assessment. Pt is A&O x4 and answers all questions appropriately at this time. Pt sitting up in chair in no distress. Care providers, pharmacy, and demographics verified/updated. Admitting Dx: R TKR Strata Score: 1 PCP:Annette Specialists:Omid, ortho; Amisha, cardio; Ramila pulm; Aman, pod Preferred Pharmacy: [facility] Retail Insurance: [employer] Daisha Prescription Benefit: yes LNOK: Tanisha Soriano, ; Sandra Matthews, dtr Living Arrangements: Pt lives with in a two story home with 2 steps to enter with a rail. Pt reports he was I in ADL and IADLs prior to surgery but it was a struggle. Pt was still doing chores. Pt denies concerns at home. Transportation: Pt drives self and denies concerns with transportation. Pt or dtr will transport him until he can drive again. DME:CPAP, FWW, cane, shower chair, walk in shower, grab bars at toilet, [facility] care HHC/SNF: Denies hx of Pt states no concerns with going home at time of dc. Pt has outpt therapy set up on at [facility]. When GALINDO BROWN walked into pt room, pt states he was listening to a vm from his doctor's office about scheduling a follow up appt. Pt is aware that he needs to have labs redrawn in 3wks with his PCP. Pt states he will call them back and obtain an appt, he denies a need for help with this. Pharmacy called at the end of the assessment and pt meds will be delivered to the room. Pt states no further concerns/needs. CM to follow. Advised pt to ask CM if any further questions/concerns/needs arise, voices understanding. Pt Goal: Home with outpt therapy Plan: Home with outpt therapy Ady MEDLEY CM
[2024-07-24 10:54] LABS: Phosphorus 4.1 mg/dL (2.5-4.9)
[2024-07-24] MEDS: Ferrous Sulfate 325 MG Tablet PO (11:39)
--- NOTE | 2024-07-24 12:13 | CASEMGMT ---
Met with patient to complete SRENA form. SERNA form explained to patient who voiced understanding and signed form. Original form placed in pt?s chart. Pt declined copy. Shellie Jesus, Discharge Planning Asst
[2024-07-24] MEDS: Diclofenac 75 MG Tablet PO (12:59)
--- NOTE | 2024-07-24 14:29 | PHA.DC.MC.R ---
Pharmacy [facility] Pharmacy Service has performed discharge medication reconciliation and counseling for this patient. 1. ACETAMINOPHEN 1000MG PO Q8 2. ASPIRIN 81MG PO BID X 4 WEEKS THEN RESUME ONCE DAILY 3. FERROUS SULFATE 325MG PO BID 4. FOLIC ACID 1MG PO BREAKFAST 5. SENNA/DOCUSATE 2T PO BID UNTIL FIRST BM, THEN PRN CONSTIPATION 6. TRAMADOL 50-100MG PO Q6H PRN PAIN 7. HOLD DICLOFENAC UNTIL PCP FOLLOW-UP The patient's discharge medication list was reviewed for discrepancies and discrepancies were resolved. The patient was counseled on the following discharge medications and changes in medications for homegoing were reviewed. The Reason for Use, instructions for use, and potential side effects were reviewed for all new medications. The patient's questions regarding all of their medications were answered. The patient was able to verbally demonstrate an understanding of their discharge medications. Medications at Discharge Home Medications fexofenadine 60 mg tablet 60 mg PO DAILY 11/04/19 glucosamine-chondroitin 1,500 mg -1,200 mg/30 mL oral liquid 480 ml PO BID 11/04/19 cyanocobalamin (vitamin B-12) 1,000 mcg sublingual tablet 1,000 mcg sublingual DAILY 03/08/23 hydrochlorothiazide 12.5 mg capsule See Rx Instructions .Route .COMPLEX #90 caps 11/18/23 pantoprazole 40 mg tablet,delayed release See Rx Instructions .Route .COMPLEX #90 tabs 11/18/23 lisinopril 20 mg tablet 20 mg PO DAILY #90 tabs 12/14/23 carvedilol 6.25 mg tablet 6.25 mg PO BID #180 tabs 12/27/23 atorvastatin 40 mg tablet 40 mg PO QHS #90 tabs 01/09/24 ascorbate calcium (vitamin C) 500 mg tablet 500 mg PO QDAY 03/05/24 ciclopirox 0.77 % topical cream 1 applic topical DAILY PRN rash 03/05/24 diclofenac sodium 75 mg tablet,delayed release 75 mg PO DAILY 03/05/24 Held on 07/24/24. Instructions: Resume on 08/14/24. Hold until follow-up with primary care provider. cholecalciferol (vitamin D3) 25 mcg (1,000 unit) capsule (Vitamin D3) 25 mcg PO DAILY 07/02/24 diphenhydramine 25 mg-acetaminophen 500 mg tablet (Acetaminophen PM) 2 tab PO QHS 07/02/24 acetaminophen 500 mg tablet 1,000 mg (2 x 500 mg) PO TID 14 days #90 tabs 07/24/24 aspirin 81 mg capsule 81 mg PO BIDCM 30 days #0 caps 07/24/24 ferrous sulfate 325 mg (65 mg iron) tablet (FeroSul) 325 mg PO 1200,1700 #0 tabs 07/24/24 folic acid 1 mg tablet 1 mg PO BREAKFAST #0 tabs 07/24/24 sennosides 8.6 mg-docusate sodium 50 mg tablet (Stimulant Laxative Plus) 2 tab PO BID 3 days #12 tabs 07/24/24 tramadol 50 mg tablet 50 - 100 mg (1 - 2 x 50 mg) PO Q6H PRN PRN As needed for pain 7 days #36 tabs 07/24/24
== END 2024-07-24 14:25 | disposition home or self-care (01) ==
LOC: SDC 11:41 → MS3 11:41
PROVIDERS: Anesthesiology; Internal Medicine; Admitting Provider Specialist; PCP Family Medicine; Referring Provider Specialist; Visit Provider Specialist
PROC: 0SRC0JZ Replacement of Right Knee Joint with Synthetic Substitute, Open Approach (ICD-10-PCS; CPT 27447; principal; 2024-07-23 07:15)
DX: M17.11 Unilateral primary osteoarthritis, right knee (principal); N18.9 Chronic kidney disease, unspecified; I12.9 Hypertensive chronic kidney disease with stage 1 through stage 4 chronic kidney disease, or unspecified chronic kidney disease; E78.00 Pure hypercholesterolemia, unspecified; H91.90 Unspecified hearing loss, unspecified ear; G47.30 Sleep apnea, unspecified; K21.9 Gastro-esophageal reflux disease without esophagitis; Z79.899 Other long term (current) drug therapy; Z79.82 Long term (current) use of aspirin; E66.812 Obesity, class 2; Z68.37 Body mass index [BMI] 37.0-37.9, adult; I25.10 Atherosclerotic heart disease of native coronary artery without angina pectoris
CPT/HCPCS: 27447; S2900; 01402; 64447; 36415; 73560; 80048; 82040; 82962; 83735; 84100; 85025; 85027; 87081; 88305; 88311; 93005; 94668; 96365; 96366; 97110; 97162; 97166; 97530; 97535; 99221; 99252; C1776; A4216; G0378; G0463; J2405; J3475

== ENCOUNTER → 2024-08-01 | Outpatient (CLI) | payer MEDICARE, BC, SELFPAY ==
[2020-01-14 09:21] VITALS: BMI 36.3
[2024-08-01 15:13] LABS: Hematocrit 34.4 % (40-54); Hemoglobin 10.5 g/dL (13.0-16.5); Mean Corp Hgb Conc 30.5 g/dL (32-36); Mean Corpuscular Hgb 30.4 pg (27.0-32.0); Mean Corpuscular Volume 99.7 fL (80-94); Mean Platelet Vol. 10.6 fl (6.2-12.0); Platelet Count 395 K/mm3 (150-450); RBC Distribution Width CV 13.2 % (11.6-14.6); RBC Distribution Width SD 48.3 fl (35.1-43.9); Red Blood Count 3.45 M/mm3 (4.6-6.2); White Blood Count 11.7 K/mm3 (4.4-11.0)
[2024-08-01 15:21] LABS: Anion Gap 5 (5-15); BUN 22 mg/dL (7-18); BUN/Creat Ratio 19.5 RATIO (10-20); Calcium,Total 9.2 mg/dL (8.5-10.1); Chloride 103 mmol/L (98-107); Creatinine, Serum 1.13 mg/dL (0.70-1.30); EST Glomerular Filtration Rate 67 mL/min (>60); Est Glom Filt Rate - Afr Amer 82 mL/min (>60); Glucose 90 mg/dL (74-106); Potassium 4.6 mmol/L (3.5-5.1); Sodium Level 135 mmol/L (136-145)
[2024-08-01 16:32] LABS: AST(SGOT) 18 U/L (15-37); Alanine Aminotransfer ALT/SGPT 21 U/L (16-61); Alkaline Phosphatase 83 U/L (45-117); Bilirubin, Direct 0.12 mg/dL (0.00-0.30); Cholesterol 117 mg/dL (200); Globulin 3.3 g/dL (2.2-4.2); High Density Lipoprotein 39 mg/dL; Protein, Total 6.3 g/dL (6.4-8.2); Triglycerides 108 mg/dL; Very Low Density Lipoprotein 22 mg/dL (5-40)
== END | disposition home or self-care (01) ==
LOC: BFHLAB 12:10
PROVIDERS: Nurse Practitioner Family; PCP Family Medicine; Visit Provider Family Medicine
DX: D64.9 Anemia, unspecified (principal); I10 Essential (primary) hypertension
CPT/HCPCS: 36415; 80048; 80061; 80076; 85027

== ENCOUNTER → 2024-08-01 | Outpatient (CLI) | payer MEDICARE, BC, SELFPAY ==
[2020-01-14 09:21] VITALS: BMI 36.3
--- NOTE | 2024-08-01 14:13 | VDLE_ITS ---
Reason For Study Reason For Study: Swelling RIGHT LEFT GSV is normal. CFV is compressible, spontaneous, phasic, competent, CFV is compressible, spontaneous, phasic, competent and demonstrates normal augmentation. and demonstrates normal augmentation. FV is compressible, spontaneous, phasic, competent and demonstrates normal augmentation. POP V is compressible, spontaneous, phasic, competent and demonstrates normal augmentation. T/P Trunk is compressible. PTV is compressible. RT PerV is compressible. Procedure This is a venous duplex using B-mode, color flow and spectral Doppler. Exam performed in department. A preliminary report was called and/or faxed to Jay Anne MD. VL/Venous Duplex US, Unilateral Interpretation Summary Deep veins of the right lower extremity are patent and compressible segmentally . There is no evidence of right lower extremity deep vein thrombosis. The right great saphenous vein appears patent a nd compressible segmentally. Ordering Physician: Jay Anne Referring Physician: Abisai Bryant Performed By: Ariella Thompson RVT and Student
== END | disposition home or self-care (01) ==
LOC: CVS 14:10
PROVIDERS: PCP Family Medicine; Referring Provider Specialist; Visit Provider Specialist
DX: R22.41 Localized swelling, mass and lump, right lower limb (principal)
CPT/HCPCS: 93971

== ENCOUNTER 2024-10-29 07:16 | Inpatient (IN) | payer MEDICARE, BC, SELFPAY ==
[2020-01-14 09:21] VITALS: BMI 36.3
--- NOTE | 2024-10-01 13:02 | PAT.ANESEVAL ---
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 When Was Last Pacemaker Check QUESTION #4 FULL TEXT: You/Your Family Experience fever (hyperthermia) with Anesthesia Last Oral Intake Last Oral intake: Last Oral Intake NPO since Meds taken in AM with sips of water? 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 Female No 10/01/24 11:14 HX of Motion Sickness No 10/01/24 11:14 HX of N/V After Surgery No 10/01/24 11:14 Non-Smoker Yes 10/01/24 11:14 Duration of Surgery greater Yes 10/01/24 11:14 than 60 minutes Number of Risk Factors 2 10/01/24 11:14 PONV Score Moderate Risk 10/01/24 11:14 Height & Weight Height & Weight: Anesthesia: Height & Weight Height 5 ft 11 in 07/23/24 12:21 Respiratory Assessment Respiratory Assessment - charging car operator: Respiratory Tract Infection Hx - charging car operator Hx Respiratory Tract Infection No 10/01/24 11:14 STOP Sleep Apnea STOP Sleep Apnea - charging car operator: STOP Sleep Apnea - charging car operator Hx Hypertension Yes: CONTROLLED WITH MED 10/01/24 11:14 Hx Sleep Apnea Yes 10/01/24 11:14 CPAP Yes: spouse will bring in 10/01/24 11:14 BIPAP No 10/01/24 11:14 Do you snore loudly (louder than talking or can be heard Do you often feel tired/ fatigued/ sleepy during daytime? Has anyone observed you stop breathing during sleep? STOP Results Positive 10/01/24 11:14 QUESTION #5 FULL TEXT : Do you snore loudly (louder than talking or can be heard through closed doors)? 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 Specify any problems Hx of Preganancy in last 3 N/A 10/01/24 11:14 Months Nurse Filling Out Transfusion NBUCHER 10/01/24 11:14 & Questions: Date: 10/01/24 10/01/24 11:14 Time: 11:16 10/01/24 11:14 Patient unable to answer at this time (ie. 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: /Reproductive Hx- charging car operator Hx Now Gestational Age (in weeks): EDC: Hx Hx Para Hx Section SAB No 10/01/24 11:14 [facility], [facility] Medical History Wears hearing aid Wears glasses History of steroid therapy Ambulates with cane Arthritis High cholesterol Back pain Difficulty swallowing Gastric reflux Non-smoker Sleep apnea Shortness of breath on exertion History of pain when walking History of stress test Cardiology follow-up encounter History of heart attack Intractable pain Acute pain of right hip COVID-19 virus infection (02/08/20) Bilateral pneumonia (02/08/20) History of sustained ventricular tachycardia (11/05/19) Cardiac arrest (11/05/19) Essential (primary) hypertension Hyperlipidemia Obesity (BMI 30-39.9) Atherosclerosis of coronary artery without angina pectoris History of non-ST elevation myocardial infarction (NSTEMI) (11/04/19) Osteoarthritis Obstructive sleep apnea GERD (gastroesophageal reflux disease) Home Medications ?Medication ?Instructions ?Recorded ?Last Taken ?Type fexofenadine 60 mg tablet 60 mg PO DAILY 11/04/19 07/22/24 History glucosamine-chondroitin 1,500 mg 480 ml PO BID 11/04/19 07/22/24 History -1,200 mg/30 mL oral liquid cyanocobalamin (vitamin B-12) 1,000 mcg sublingual DAILY 03/08/23 07/22/24 History 1,000 mcg sublingual tablet hydrochlorothiazide 12.5 mg capsule See Rx Instructions .Route 11/18/23 07/22/24 Rx .COMPLEX #90 caps pantoprazole 40 mg tablet,delayed See Rx Instructions .Route 11/18/23 07/23/24 Rx release .COMPLEX #90 tabs lisinopril 20 mg tablet 20 mg PO DAILY #90 tabs 12/14/23 07/22/24 Rx carvedilol 6.25 mg tablet 6.25 mg PO BID #180 tabs 12/27/23 07/23/24 Rx atorvastatin 40 mg tablet 40 mg PO QHS #90 tabs 01/09/24 07/22/24 Rx ascorbate calcium (vitamin C) 500 500 mg PO QDAY 03/05/24 07/22/24 History mg tablet ciclopirox 0.77 % topical cream 1 applic topical DAILY PRN rash 03/05/24 Unknown History diclofenac sodium 75 mg 75 mg PO DAILY 03/05/24 Unknown History tablet,delayed release cholecalciferol (vitamin D3) 25 25 mcg PO DAILY 07/02/24 07/22/24 History mcg (1,000 unit) capsule (Vitamin D3) diphenhydramine 25 2 tab PO QHS 07/02/24 Unknown History mg-acetaminophen 500 mg tablet (Acetaminophen PM) acetaminophen 500 mg tablet 1,000 mg (2 x 500 mg) PO TID 14 07/24/24 Unknown Rx days #90 tabs aspirin 81 mg capsule 81 mg PO BIDCM 30 days #0 caps 07/24/24 Unknown Rx folic acid 1 mg tablet 1 mg PO BREAKFAST #0 tabs 07/24/24 Unknown Rx tramadol 50 mg tablet 50 - 100 mg (1 - 2 x 50 mg) PO Q6H 07/24/24 Unknown Rx PRN PRN As needed for pain 7 days #36 tabs Allergy/AdvReac Type Severity Reaction Status Date / Time iodine Allergy Rash Verified 10/01/24 11:08 Penicillins (PCN) Allergy Rash Verified 10/01/24 11:08 wool Allergy Rash Verified 10/01/24 11:08 Family History Other Adopted Surgical History (Updated 10/01/24 @ 11:23 by Keisha Platt) S/P total knee arthroplasty History of left heart catheterization (08/19/20) History of foot surgery History of shoulder surgery History of total knee arthroplasty History of coronary artery stent placement (11/05/19) Social History household members: spouse Smoking Status: Never smoker alcohol intake: never substance use type: does not use caffeine: Yes Type: coffee Number of servings: 1 Audit: Pertinent Findings Pertinent Findings EKG Perinent findings: July 04, 2024. Normal sinus rhythm 67 bpm. Normal EKG. Echo (EF%) pertinent findings: 11/05/2019. EF 60%. Consult pertinent findings: Cardiology 03/05/2024. Coronary artery disease. RCA stent 2019. Hypertension. Chronic. Stable. Preop exam for 2024 hip replacement. No further studies may proceed from a cardiac standpoint. Recommendation Anesthesia Recommendation Anesthesia recommendation: OPTIMIZED for anesthesia
[2024-10-04 11:37] LABS: Absolute Lymphocyte Count 1.25 X10^3/uL (0.83-4.51); Absolute Neutrophil Count 4.7 X10^3/uL (2.0-7.7); Basophil# 0.07 X10^3/uL; Basophil% 0.9 % (0-1); Eosinophil# 0.39 X10^3/uL; Eosinophils% 5.3 % (0-5); Hematocrit 35.7 % (40-54); Hemoglobin 11.6 g/dL (13.0-16.5); Lymphocyte # 1.25 X10^3/ul (0.83-4.51); Mean Corp Hgb Conc 32.5 g/dL (32-36); Mean Corpuscular Hgb 31.7 pg (27.0-32.0); Mean Corpuscular Volume 97.5 fL (80-94); Mean Platelet Vol. 10.3 fl (6.2-12.0); Monocyte# 0.93 X10^3/uL; Monocyte% 12.6 % (0-10); NRBC Flagged by Analyzer 0 % (0-5); Neutrophil % 63.8 % (47-70); Platelet Count 220 K/mm3 (150-450); RBC Distribution Width CV 13.7 % (11.6-14.6); RBC Distribution Width SD 49.2 fl (35.1-43.9); Red Blood Count 3.66 M/mm3 (4.6-6.2); White Blood Count 7.4 K/mm3 (4.4-11.0)
[2024-10-04 12:04] LABS: Anion Gap 10 (5-15); BUN 29 mg/dL (4-19); BUN/Creat Ratio 18.1 RATIO (10-20); Calcium,Total 9.3 mg/dL (7.6-11.0); Carbon Dioxide 25.6 mmol/L (21.0-32.0); Chloride 103 mmol/L (98-108); Creatinine, Serum 1.61 mg/dL (0.70-1.20); EST Glomerular Filtration Rate 45 (>60); Glucose 92 mg/dL (70-99); Magnesium 2.2 mg/dL (1.5-2.2); Potassium 5.1 mmol/L (3.3-5.1); Sodium Level 138 mmol/L (133-145)
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
[2024-10-29] VITALS (21 sets, daily range): BP systolic 66–141; BP diastolic 43–84; PULSE 67–94; RESP 12–17; TEMP 35.4–36.7; O2SAT 92–100; BMI 38.2; BMI 37.1
--- NOTE | 2024-10-29 07:10 | RAD_ITS ---
PROCEDURE: HIP MIN 2 VIEWS (PORTABLE) 10/29/2024 REASON FOR EXAM: POST OP TECHNIQUE: Two views of the right hip were obtained. COMPARISON: Prior study dated October 31, 2023. FINDINGS: The patient is status post right total hip replacement. There is good alignment. Postoperative soft tissue changes. RAD/Hip Min 2 Views (Portable) IMPRESSION: Status post right total hip replacement. There is good alignment. Postoperative soft tissue changes. Reading Location: [facility]
[2024-10-29] MEDS: Lactated Ringers 1,000 ML 999 ML IV ×2 (07:49→12:54)
[2024-10-29] MEDS: Magnesium 1 GM over 15 mins IV (07:49)
[2024-10-29] MEDS: Gabapentin 600 MG Tablet PO (07:50)
[2024-10-29] MEDS: Vancomycin HCl 2,000 MG in 0.9% Normal Saline (500mL Bag) 500 ML 250 MG IV (07:56)
--- NOTE | 2024-10-29 08:00 | RAD_ITS ---
PROCEDURE: HIP MIN 2 VIEWS (PORTABLE) 10/29/2024 REASON FOR EXAM: ANTERIOR RT TOTAL HIP ARTHROPLASTY TECHNIQUE: Fluoroscopy with 4 intraoperative spot views FINDINGS: Fluoroscopy time 18.1 seconds Cumulative dose 3.89 mGy Right hip replacement exchange/revision appears intact and anatomic. No fracture or dislocation identified. RAD/Hip Min 2 Views (Portable) IMPRESSION: Fluoroscopy as above. Reading Location: [id number]
--- NOTE | 2024-10-29 08:25 | PCM.PRE.AN2 ---
ASA Classification* ASA Classification ASA Classification: 3 Assessment & Plan Anesthesia* Anesthesia Assessment Anesthesia Assessment: Discussed sedation and/or anesthesia options, risks, benefits, and alternatives with patient/parents/legal guardian/POA. Questions invited. The patient/parents/legal guardian/POA seems to understand and agrees to proceed with anesthesia plan. Reviewed the physical assessment, medical history, allergy history and patient home medications list prior to surgery/procedure/anesthetic and documented any changes. Performed airway and anesthesia risk assessments. Anesthesia Type Anesthesia Type: Spinal History Source History Obtained from:: Patient and Chart Anesthesia Focused Assessment* Temperature: 98.1 F Pulse Rate: 74 Blood Pressure: 133/70 Respiratory Rate: 16 Pulse Ox: 99 Oxygen Delivery Method: Room Air Airway Assessment Mouth opens: >3 cm Mallampati Score: II Teeth Condition: Caps/Crowns (multiple) Neck Range of motion (ROM): Full ROM Focused Labs Anesthesia Preop lab: CBC WBC 7.4 K/mm3 (4.4-11.0) 10/04/24 11:10 10/04/24 RBC 3.66 M/mm3 (4.6-6.2) L 10/04/24 11:10 10/04/24 Hgb 11.6 g/dL (13.0-16.5) L 10/04/24 11:10 10/04/24 Hct 35.7 % (40-54) L 10/04/24 11:10 10/04/24 Plt Count 220 K/mm3 (150-450) 10/04/24 11:10 10/04/24 CHEMISTRY Potassium 5.1 mmol/L (3.3-5.1) 10/04/24 11:10 10/04/24 Sodium 138 mmol/L (133-145) 10/04/24 11:10 10/04/24 Magnesium 2.2 mg/dL (1.5-2.2) 10/04/24 11:10 10/04/24 Phosphorus 4.1 mg/dL (2.5-4.9) 07/24/24 07:11 07/24/24 BUN 29 mg/dL (4-19) H 10/04/24 11:10 10/04/24 Creatinine 1.61 mg/dL (0.70-1.20) H 10/04/24 11:10 10/04/24 Glucose 92 mg/dL (70-99) 10/04/24 11:10 10/04/24 POC Glucose 109 mg/dL (74-106) H 07/23/24 06:26 07/23/24 TSH 1.23 uIU/mL (0.358-3.74) 12/24/15 13:46 12/24/15 COAG PT 14.4 SECONDS (11.7-14.9) 11/05/19 06:10 11/05/19 Pre-Assessment Diagnosis/Proposed Procedure Planned Operative Procedure(s): (R) ANTERIOR RIGHT TOTAL HIP ARTHROPLASTY, ERAS Anesthesia History Anesthesia History - vice president research: Anesthesia History - vice president research Hx Hospitalization Yes: 10/2023-KNEE 10/01/24 11:14 INFLAMMATION, 07/2024 AFTER TKA Any Problems With Anesthesia [ No 10/15/22 18:00 Right dislocated shoulder] Any Problems With Anesthesia Yes: HARD TO PUT ASLEEP, 10/01/24 11:14 REQUIRES EXTRA Cholinesterase deficiency No 10/01/24 11:14 You/Your Family Experience No: ADOPTED 10/01/24 11:14 fever (hyperthermia) with Relationship Recent Exposure to Contagious No 10/29/24 07:39 Disease Does patient have nerve No 10/01/24 11:14 stimulator Patient instructed to have device shut off --Does patient have Pacemaker No 10/29/24 07:39 or ICD? When Was Last Pacemaker Check QUESTION #4 FULL TEXT: You/Your Family Experience fever (hyperthermia) with Anesthesia Any additional information?: No Last Oral Intake Last Oral intake: Last Oral Intake NPO since 18:00 10/29/24 07:39 Meds taken in AM with sips of Yes 10/29/24 07:39 water? Meds patient instructed to protonix, coreg, flomax, 10/29/24 07:39 take am of surgery tylenol Any additional information?: No PONV PONV - vice president research: PONV - vice president research Female No 10/01/24 11:14 HX of Motion Sickness No 10/01/24 11:14 HX of N/V After Surgery No 10/01/24 11:14 Non-Smoker Yes 10/01/24 11:14 Duration of Surgery greater Yes 10/01/24 11:14 than 60 minutes Number of Risk Factors 2 10/01/24 11:14 PONV Score Moderate Risk 10/01/24 11:14 Any additional information?: No Height & Weight Height & Weight: Anesthesia: Height & Weight Height 5 ft 11 in 10/29/24 07:39 Weight: 124.2 kg 10/29/24 07:39 Body Mass Index (BMI) 38.2 10/29/24 07:39 Respiratory Assessment Respiratory Assessment - vice president research: Respiratory Tract Infection Hx - vice president research Hx Respiratory Tract Infection No 10/01/24 11:14 Any additional information?: No STOP Sleep Apnea STOP Sleep Apnea - vice president research: STOP Sleep Apnea - vice president research Hx Hypertension Yes: CONTROLLED WITH MED 10/01/24 11:14 Hx Sleep Apnea Yes 10/01/24 11:14 CPAP Yes: spouse will bring in 10/01/24 11:14 BIPAP No 10/01/24 11:14 Do you snore loudly (louder than talking or can be heard Do you often feel tired/ fatigued/ sleepy during daytime? Has anyone observed you stop breathing during sleep? STOP Results Positive 10/01/24 11:14 QUESTION #5 FULL TEXT : Do you snore loudly (louder than talking or can be heard through closed doors)? 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 Specify any problems Hx of Preganancy in last 3 N/A 10/01/24 11:14 Months Nurse Filling Out Transfusion NBUCHER 10/01/24 11:14 & Questions: Date: 10/01/24 10/01/24 11:14 Time: 11:16 10/01/24 11:14 Patient unable to answer at this time (ie. confused, unrespo Any additional information?: No /Reproduction History /Reproductive History - vice president research: /Reproductive Hx- vice president research Hx Now Gestational Age (in weeks): EDC: Hx Hx Para Hx Section SAB No 10/01/24 11:14 Any additional information?: No Active Medications Active Medications: Current Medications Generic Name Dose Route Start Last Admin Trade Name Freq PRN Reason Stop Dose Admin Acetaminophen 1,000 mg 10/29/24 09:00 10/29/24 08:08 Acetaminophen 500 Mg Tablet PO 10/29/24 09:01 Not Given PREOP ONE Acetaminophen 1,000 mg 10/29/24 14:00 Acetaminophen 500 Mg Tablet PO Q8 [facility] Aspirin 81 mg 10/29/24 10:00 Aspirin 81 Mg Tab.Chew PO BID [facility] Tranexamic Acid 2,000 mg/ 0 mg 10/29/24 09:00 Sodium Chloride 100 ml OPERA.SITE 10/29/24 09:01 X1 ONE Sodium Chloride 77.4 ml/ 0 ml 10/29/24 09:00 Ropivacaine 200 mg/ OPERA.SITE 10/29/24 09:01 Epinephrine HCl 0.6 mg/ INTRAOP ONE Ketorolac Tromethamine 30 mg/ Morphine Sulfate 5 mg Dexamethasone Sodium Phosphate 10 mg 10/29/24 09:00 Dexamethasone 10 Mg/Ml Vial IV 10/29/24 09:01 INTRAOP ONE Doxycycline Monohydrate 100 mg 10/30/24 13:00 Doxycycline 100 Mg Capsule PO BID [facility] Enteral Nutritional Formula 237 ml 10/29/24 08:00 Ensure Surgery 237 Ml Liquid PO TIDCM [facility] Famotidine 20 mg 10/29/24 10:00 Famotidine 20 Mg Tablet PO DAILY [facility] Gabapentin 600 mg 10/29/24 09:00 10/29/24 07:50 Gabapentin 600 Mg Tablet PO 10/29/24 09:01 600 mg PREOP ONE Administration Lactated Ringer's 1,000 mls @ 999 mls/hr 10/29/24 09:00 10/29/24 07:49 IV 10/29/24 10:00 999 mls/hr .Q1H1M DIPAK Administration Cefazolin Sodium 3 gm/ Sodium 115 mls @ 150 mls/hr 10/29/24 09:00 Chloride IV 10/29/24 09:45 INTRAOP ONE Lactated Ringer's 1,000 mls @ 999 mls/hr 10/29/24 09:00 IV 10/29/24 10:00 .Q1H1M [facility] Lactated Ringer's 1,000 mls @ 125 mls/hr 10/29/24 09:00 IV 10/29/24 16:59 .Q8H [facility] Vancomycin HCl 2,000 mg/ 540 mls @ 250 mls/hr 10/29/24 09:00 10/29/24 07:56 Sodium Chloride IV 10/29/24 11:09 250 mls/hr PREOP ONE Administration Magnesium Sulfate 1 gm/ 102 mls @ 408 mls/hr 10/29/24 09:00 10/29/24 07:49 Dextrose IV 10/29/24 09:14 408 mls/hr INTRAOP ONE Administration Cefazolin Sodium 1 gm in 50 mls @ 150 mls/hr 10/29/24 07:10 IV 10/29/24 15:29 Q8H [facility] Insulin Human Lispro 1 - 6 unit 10/29/24 09:00 Insulin Lispro 100 Unit/Ml Insuln.Pen SC Q4H PRN PRN BG>/= 180, SEE PROTOCOL Protocol Morphine Sulfate 2 - 4 mg 10/29/24 07:08 Morphine 2 Mg/Ml Syringe IV Q2H PRN PRN Pain Score 4-10 Morphine Sulfate 2 - 4 mg 10/29/24 07:15 Morphine 4 Mg/Ml Syringe IV Q2H PRN PRN Pain Score 4-10 Non-Formulary Medication 1 mg 10/29/24 08:00 Folic Acid PO BREAKFAST [facility] Ondansetron HCl 4 mg 10/29/24 07:08 Ondansetron 4 Mg/2 Ml Vial IV Q8H PRN PRN NAUSEA Oxycodone HCl 2.5 mg 10/29/24 07:08 Oxycodone 5 Mg Tablet PO Q4H PRN PRN Pain Score 4-10 Promethazine HCl 12.5 mg 10/29/24 07:08 Promethazine 25 Mg/Ml Syringe IM Q6H PRN PRN NAUSEA/VOMITING Protocol Senna/Docusate Sodium 2 tablet 10/29/24 10:00 Senna/Docusate Sodium 1 Tablet PO BID [facility] PFSH Medical History Wears hearing aid Wears glasses History of steroid therapy Ambulates with cane Arthritis High cholesterol Back pain Difficulty swallowing Gastric reflux Non-smoker Sleep apnea Shortness of breath on exertion History of pain when walking History of stress test Cardiology follow-up encounter History of heart attack Intractable pain Acute pain of right hip COVID-19 virus infection (02/08/20) Bilateral pneumonia (02/08/20) History of sustained ventricular tachycardia (11/05/19) Cardiac arrest (11/05/19) Essential (primary) hypertension Hyperlipidemia Obesity (BMI 30-39.9) Atherosclerosis of coronary artery without angina pectoris History of non-ST elevation myocardial infarction (NSTEMI) (11/04/19) Osteoarthritis Obstructive sleep apnea GERD (gastroesophageal reflux disease) Home Medications ?Medication ?Instructions ?Recorded ?Last Taken ?Type fexofenadine 60 mg tablet 60 mg PO DAILY 11/04/19 07/22/24 History glucosamine-chondroitin 1,500 mg 480 ml PO BID 11/04/19 07/22/24 History -1,200 mg/30 mL oral liquid cyanocobalamin (vitamin B-12) 1,000 mcg sublingual DAILY 03/08/23 07/22/24 History 1,000 mcg sublingual tablet hydrochlorothiazide 12.5 mg capsule See Rx Instructions .Route 11/18/23 07/22/24 Rx .COMPLEX #90 caps pantoprazole 40 mg tablet,delayed See Rx Instructions .Route 11/18/23 10/29/24 05:30 Rx release .COMPLEX #90 tabs lisinopril 20 mg tablet 20 mg PO DAILY #90 tabs 12/14/23 07/22/24 Rx carvedilol 6.25 mg tablet 6.25 mg PO BID #180 tabs 12/27/23 10/29/24 05:30 Rx atorvastatin 40 mg tablet 40 mg PO QHS #90 tabs 01/09/24 07/22/24 Rx ascorbate calcium (vitamin C) 500 500 mg PO QDAY 03/05/24 07/22/24 History mg tablet ciclopirox 0.77 % topical cream 1 applic topical DAILY PRN rash 03/05/24 Unknown History diclofenac sodium 75 mg 75 mg PO DAILY 03/05/24 Unknown History tablet,delayed release cholecalciferol (vitamin D3) 25 25 mcg PO DAILY 07/02/24 07/22/24 History mcg (1,000 unit) capsule (Vitamin D3) diphenhydramine 25 2 tab PO QHS 07/02/24 Unknown History mg-acetaminophen 500 mg tablet (Acetaminophen PM) acetaminophen 500 mg tablet 1,000 mg (2 x 500 mg) PO TID 14 07/24/24 10/29/24 05:30 Rx days #90 tabs aspirin 81 mg capsule 81 mg PO BIDCM 30 days #0 caps 07/24/24 10/24/24 Rx folic acid 1 mg tablet 1 mg PO BREAKFAST #0 tabs 07/24/24 Unknown Rx tramadol 50 mg tablet 50 - 100 mg (1 - 2 x 50 mg) PO Q6H 07/24/24 Unknown Rx PRN PRN As needed for pain 7 days #36 tabs tamsulosin 0.4 mg capsule 0.4 mg PO DAILY 10/29/24 10/29/24 06:30 History Allergy/AdvReac Type Severity Reaction Status Date / Time iodine Allergy Rash Verified 10/29/24 07:32 Penicillins (PCN) Allergy Rash Verified 10/29/24 07:32 wool Allergy Rash Verified 10/29/24 07:32 chlorhexidine (From AdvReac Mild Itching Verified 10/29/24 07:33 Hibiclens) Family History Other Adopted Surgical History S/P total knee arthroplasty History of left heart catheterization (08/19/20) History of foot surgery History of shoulder surgery History of total knee arthroplasty History of coronary artery stent placement (11/05/19) Social History household members: spouse Smoking Status: Never smoker alcohol intake: never substance use type: does not use caffeine: Yes Type: coffee Number of servings: 1 Review of Systems (Anesthesia) ROS Narrative System reviewed and no additional complaints, except as documented.
[2024-10-29] MEDS: TRANEXAMIC ACID 2,000 MG, 0.9% Normal Saline (100mL Bag) 100 ML OPERA.SITE (08:39)
[2024-10-29] MEDS: Cefazolin 3 GM in 0.9% Normal Saline (100mL Bag) 100 ML IV (08:55)
[2024-10-29 08:58] LABS: Bedside Glucose 96 mg/dL (74-106)
[2024-10-29] MEDS: dexAMETHasone 10 MG/ML Vial IV (09:00)
--- NOTE | 2024-10-29 09:00 | FEM._PTH ---
PATIENT: WYATT OTT LOC: [facility] U#:[id number] AGE/SX: 74/M ROOM: [facility] RE10/30/[address]: Dr. Jay Anne MD : 1950 BED: 1 DIS: 10/31/2024 SPEC #: [id number] RECD: 10/29/24 12:55 STATUS: FLORA RENicole #: [id number] RAGHU: 10/29/24 09:[address]: Jay Anne DEPT: SURGICAL PATHOLOGY RECD BY: Robin Bowen ENTERED: 10/29/24 13:32 SP TYPE: FEM HEAD OTHR DR: Dr. Abisai Bryant, DO Tissues: A - Hip, NOS Procedures: Decalcification bone/plaque Surgery Specimen Level III HEADER OPERATION: Anterior right total hip arthroplasty PRE-OP DIAGNOSIS: Severe right hip osteoarthritis TISSUE SUBMITTED: A- Right femoral head MICROSCOPIC DIAGNOSIS A. Right femoral head, arthroplasty: * Benign bone with degenerative changes MICROSCOPIC DESCRIPTION Slides are reviewed. GROSS DESCRIPTION A. Received in formalin in a container labeled with the patient's name, date of , and right femoral head is a 5 x 4.8 x 4.1 cm femoral head with a smooth margin. Received in the same container is a 5 cm in diameter by 1.4 cm in length smooth and firm femoral neck. The cortical surface is markedly pitted and granular with smooth eburnation. Sectioning reveals firm and unremarkable surfaces. Received in the same container are multiple hemorrhagic bone curettings measuring 6.5 x 5.5 x 1.8 cm in aggregate. Software Implementation Specialist sections are submitted in A1 following decalcification. [facility] 10-29-2024 CPT:[id number]
[2024-10-29] MEDS: JPS (Morphine 10mg/ml) OPERA.SITE (10:30)
--- NOTE | 2024-10-29 10:31 | PCM.OPRPT ---
Operative Report (Standard) Operative Information Date of Procedure: 10/29/24 Pre-Operative Diagnosis: Right hip primary osteoarthritis with femoral head collapse Post-Operative Diagnosis: Right hip primary osteoarthritis with femoral head collapse Surgery/Procedure Performed: Right direct anterior total replacement assistant associate professor: Yes Law Enforcement Director: Sia Pulido Tasks completed by environmental engineering assistant: Other (See body of operative report) Additional environmental services assistant?: Yes Additional Patented Hogshead Assembler #2: Marquis Pickett Tasks completed by environmental services assistant #2: Opening, Implanting device, Hemostasis: Electrocautery and Retracting Additional environmental services assistant?: No Type of Anesthesia: General RN Documented Start/Stop Times: Operation Date: 10/29/24 09:00 Case Time Into Pre-Op 10/29/24 07:12 Anesthesia Start 10/29/24 08:39 Into Room 10/29/24 08:39 Out of Pre-Op 10/29/24 08:39 Procedure Start 10/29/24 09:08 Procedure End 10/29/24 12:03 Anesthesia End 10/29/24 12:24 Out of Room 10/29/24 12:24 Into Recovery 10/29/24 12:27 Procedure Start Time: 09:08 Procedure Stop Time: 13:45 Select all DRAINS/GRAFTS/IMPLANTS that apply: Prosthetic device Prosthetic device details: See body of operative report Special Medications: 2 g Ancef, 1 g TXA at incision, 1 g TXA closure, 10 mg Decadron, joint cocktail (5 mg Duramorph, 30 mL of 0.5% Ropivicaine, 1000 units of epinephrine, 30 mg of Toradol) Estimated Blood Loss: 300 mL Fluids Replaced: 1500 mL crystalloid Specimen collected: Yes Description of specimen(s) removed: Bony cuts Description of surgery: Components used: 1. Accolade 2 Memo femoral stem size 5/127 2. [place] trident 2 acetabular shell size 56 mm 3. Memo X3 polyethylene MDM liner F 4. Memo cobalt-chromium 28 mm, plus a mm femoral head 5. [place] MDM metal cobalt-chromium liner cementless alpha code F Brief history operative indications: 74 yo m who failed conservative measures for their hip osteoarthritis. X-rays were consistent with osteoarthritis including joint space narrowing, osteophyte formation and subchondral cysts. Total hip replacement was discussed with the patient with risks and benefits including but not limited to blood loss, DVTs, PEs, neurovascular damage, dislocation, general risks of anesthesia including loss of life. Patient demonstrated an understanding medical clearance is obtained the patient was consented for surgery. Procedure: On the date of procedure the patient's R hip was marked in the preoperative area. Patient was then taken back to the operating room where anesthesia assumed control of the C-spine and airway and administered anesthetic. Patient was transferred to the operating table and placed in the supine position. The hips were placed at the break of the bed and a sacral bump was placed. The R lower extremity was then prepped out in a sterile fashion using chlorhexidine while the surgeon scrubbed. The PA was vital in the positioning of the patient. Upon reentering the room the R lower extremity was draped in the standard orthopedic fashion and the incision was marked. A timeout was called and everyone agreed upon the side, the site, the procedure be performed, antibody given, and patient's identity. At this time incision was made through skin, subcutaneous tissue, and fat down to fascia. The fascia was then incised and the TFL was retracted laterally. A retractor was placed on the lateral border of the femoral neck. Attention was directed to the inferior portion of the approach and all crossing vessels were identified and appropriately coagulated. A retractor was then placed on the medial portion of the femoral neck. The anterior capsule was then cleared of all soft tissue and then H shaped capsulotomy was made. The retractors were then placed inside the capsule. The femoral neck was identified and a cleanup cut was made. At this time a power corkscrew was used to remove the femoral head. Attention was then turned toward the acetabulum where the soft tissues were appropriately retracted and the acetabulum was sequentially reamed to 56 mm. A 56 mm cup was then selected and impacted into place. Acetabular liner was impacted into place and locking mechanism was verified. The position of the acetabular cup was then verified under live fluoroscopy. Attention was then turned to the femur. Soft tissue releases on the medial and lateral femoral neck were appropriately done, the leg was externally rotated and lateralized. A Ojrdan retractor was placed medially and proximally to the greater trochanter this allowed appropriate visualization and exposure of the femoral canal. Rongeour was then used to remove excess lateral bone. A canal finder and entry broach were used to open the proximal canal. Once we verified we were down the femoral canal we subsequently broached up to a size 5 femur. The appropriate neck was placed in the previously selected head was trialed with a 7.5 mm neck. Traction was pulled and the hip was reduced with internal rotation. Once it was appropriately reduced and stability was checked. There was minimal shuck, equal leg lengths and appropriate stability with hyperextension and external rotation as well as with 90? flexion and internal rotation. Fluoroscopy was then also used to verify the position of the components and leg lengths using the contralateral side for comparison. The trial components were then dislocated the proximal femur was again exposed and the components were removed from the wound. The final components were verified and opened. The wound was copiously irrigated out with normal saline. The acetabulum was checked for any residual debris. The final components were placed and impacted. Traction and internal rotation were again used to reduce the hip. At this time the hip was taken through range of motion again. Unfortunately, he did dislocate posteriorly. After repositioning the femur from the posterior position which did take some effort we elected to change course and using MDM component. Femoral component was removed. We could not separate the trunnion from the femur the femur from the femoral component. New femoral component was open. Davenport-chromium 28 mm +8 mm femoral head was consistent with a we previously used. Acetabulum was exposed polyethylene liner was removed acetabulum was given slightly more anteversion in order to prevent posterior dislocation. MDM liner was placed alpha code F. Femur was again exposed new femur was placed. MDM femoral head was assembled on the back table. Trunnion was cleaned. Femoral head was impacted into place. Hip was reduced. Hip remained stable on external rotation and flexion with internal rotation to 40 degrees. After adequate reduction the hip remained stable with appropriate leg lengths. The final components were once again checked with live fluoroscopy and were found to be satisfactory. The wound was then copiously irrigated with normal saline once more, and hemostasis was obtained. Closure was then done using #1 Vicryl runner to close the fascia. Deep fatty layer was closed with #1 Vicryl A 2-0 vicryl interuppted sutures were used to close the subcutaneous skin. A 3-0 strata fix and final skin closure was done with 2-0 nylon sutures were used for final skin closure. A Silverlon dressing was placed. Patient was awakened by anesthesia and transferred to the [facility]. Patient was then transferred to the PACU for recovery. Postoperative plan: Patient will get 24 hours postop antibiotics. Patient will get in-house physical therapy and will be weight-bear as tolerated. Patient will follow up in office in 2 weeks for a wound check and x-rays. Aspirin 81 mg twice daily. Patient was staph positive preoperatively. Will be placed on doxycycline for 2 weeks due to increased postoperative risk. During the course of the procedure the physician new product trainer (PE) played a vital role. Their intimate knowledge of my steps in the procedure aided in safe and expedient completion of the procedure. The PE played a vital rolls in positioning particularly in obtaining the appropriate positioning of the sacral bump. The PE was also vital in the retraction of soft tissues during the exposure and especially the femoral work as this is a vital part of the procedure to prevent complications and fractures. The PE was also vital and protecting soft tissues during times of bony cuts and reaming. He also played a vital role in closure with my direct supervision. The PE was also important during reduction and dislocation of the joint and trials intraoperatively. Surgical Findings: Stable hip. Equal leg lengths. Complications Complications: No Admit VTE Documentation VTE Present on Admission: No VTE Mechan Device Prophylaxis: SCD's and Thigh High GILBERT Hose VTE Pharm Prophylaxis ordered?: Yes
--- NOTE | 2024-10-29 12:35 | PCM.POST.ANE ---
Anesthesia: Postop Eval I Current Vital Signs Temperature: 97.5 F Pulse Rate: 90 Blood Pressure: 96/63 Respiratory Rate: 14 Pulse Ox: 95 Oxygen Delivery Method: Nasal Cannula Assessment Airway patent: Yes Spontaneous unlabored respirations: Yes Mental status: Awake nausea: No Vomiting: No Anesthesia Complication: No Fluid Hydration Crystalloid volume administer (ml): 2,200 Total IV fluid infused: 2,200 Progress Note Anesthesia document: Postop Eval 1 completed: Yes
[2024-10-29] MEDS: Lactated Ringers 1,000 ML 125 ML IV (13:30)
[2024-10-29] MEDS: Famotidine 200 MG/20 ML MDV 20 MG in 0.9% Normal Saline (Pres. free 8 ML 300 MG IV ×2 (13:37→20:41)
--- NOTE | 2024-10-29 13:41 | PCM.PN.HOSP ---
Reason for Visit Reason for Visit: Diagnoses Encounter for other preprocedural examination (10/29/24) Subjective Subjective The patient is a 74 y/o M w/ PMHx: LINDSEY, HTN, HLD, GERD, OA, Hx STEMI s/p cardiac arrest with sustained VT s/p PCI, Severe OA who presents to the [facility] on 10/29/2024 with history of ongoing persistent right hip pain for planned right total hip replacement per Dr. Anne. Patient evaluated in PACU and per discussion with anesthesia who was also present unfortunately he had an intraoperative significant allergic reaction with diffuse hives which was noted upon removal of the sheet. He had initially been utilizing Hibiclens and chlorhexidine wipes/wash previous to OR and had a known reaction but also has an iodine issue as well thus even told to also just take Benadryl and had seem to have a lightened hive appearance upon arrival in preop however his appearance was more diffuse covering the whole body following removal of the drape. Patient did receive Ancef and he has had this before but given this new reaction and more diffuse appearance with penicillin allergy concern for also allergic reaction secondary to the antibiotic therapy. Patient also had hypotension receiving several liters of IV fluids to maintain a systolic in the 90s. He denies any chest pain or dyspnea. He notes currently hip pain mild. Patient denies fevers, chills, nausea, emesis, abdominal pain, chest pain or dyspnea. Objective Data Objective Data Vital Signs: Vital Signs Temp Pulse Resp BP Pulse Ox O2 Del Method O2 Flow Rate 97.5 F L 77 16 93/50 L 100 Nasal Cannula 4 10/29/24 12:36 10/29/24 13:30 10/29/24 13:30 10/29/24 13:30 10/29/24 13:30 10/29/24 13:30 10/29/24 13:30 Oxygen Flow Rate (L/min) 4 Oxygen Delivery Method Nasal Cannula Weight: 273 lb 13.026 oz Body Mass Index (BMI) 38.2 Intake & Output: Intake and Output for Last 24 Hours 10/27/24 10/28/24 10/29/24 23:59 23:59 23:59 Intake Total 3440 / 3440 Balance 3440 / 3440 Lab / Micro Data 10/04/24 11:10 10/04/24 11:10 Labs: Laboratory Results - last 24 hr 10/29/24 07:41: POC Glucose 96 Micro: Microbiology 10/04/24 11:10 Swab (Method) Nasal Screen MRSA/MSSA - Final Radiography Diagnostic Testing: Radiology Impression Hip X-Ray 10/29/24 07:10 IMPRESSION: Status post right total hip replacement. There is good alignment. Postoperative soft tissue changes. Reading Location: [facility] Physical Exam Narrative Physical Examination: General: Awake, alert, oriented x 3 and cooperative, laying in the PACU bed, fatigued but arousable and answers questions appropriately. Skin: Normal color, normal turgor, no icterus, no cyanosis except occasional stage ecchymoses, abrasion, status post recent OR with right hip replacement with dressing placement and drainage. HEENT: AT/NC, EOMI, PERRLA, mildly dry MM, no carotid bruits or JVD noted. Lungs: Mildly diminished, greater bases, poor effort, no rales, ronchi or wheezing. Heart: Regular rate and rhythm; no gallop, rub audible. Abdomen: Soft, obese, NTTP, ND, mildly hyperactive BS, no HSM. Extremities: No cyanosis, no clubbing, mild bilateral ankle not markedly pitting edema, status post OR with right total hip replacement dressing in place with no drainage. Neurological: Patient awake, alert, oriented as noted, fatigued as expected status post OR, cognitive function intact; pupils equally reactive to light and accommodation, cranial nerves grossly normal, moving all 4 extremities although limited given recent OR with right total hip replacement, strength accordingly moderately to severely globally decreased. Psychiatric: Affect appears fatigued, no acute evidence of depressive or anxiety feelings. Assessment & Plan Assessment/Plan (1) S/P total knee arthroplasty: PLAN: Plan The patient is a 74 y/o M w/ PMHx: LINDSEY, HTN, HLD, GERD, OA, Hx STEMI s/p cardiac arrest with sustained VT s/p PCI, Severe OA who presents to the [facility] on 10/29/2024 with history of ongoing persistent right hip pain for planned right total hip replacement per Dr. Anne. #1. Severe Osteoarthritis, R Hip: Failed conservative therapies and treatments, admitted per Dr. Anne, s/p R THR, post-operative pain management, bowel regimen, DVT Prophylaxis, PT/OT/CM per Orthopedic surgery discretion. #2. Hypotension, Hives concerning for potential chlorhexidine/preop wipes in addition to potential Ancef allergic reaction: Per discussion with anesthesia patient had already been given 4 L of normal saline transition to PACU now on the fifth, systolic blood pressure maintaining in the 90s, does have known allergic reaction to Hibiclens and chlorhexidine wipes/wash but had to use these because it was also noted iodine allergy and had taken Benadryl at home, did not seem as severe upon arrival however once the sheet was removed postoperatively patient had a full body hive reaction thus concerned that he is potentially allergic to Ancef although he has had this in the past per discussion with surgery. Will maintain on Solu-Medrol, famotidine, Benadryl scheduled and de-escalate off as clinically improves. To be safe Ancef has been listed as an allergy until clarified further. #3. History STEMI s/p cardiac arrest with sustained VT: Status post PCI 10/2019, continue aspirin per discretion of orthopedic surgery given recent intervention, continue statin therapy, temporarily holding Coreg and lisinopril as noted given low blood pressure in PACU potential elated with #2. #4. Hypertension: Given current low BP will temporally hold home Coreg, lisinopril and hydrochlorothiazide, add back once clinically appropriate. #5. Hyperlipidemia: Will continue patient on statin therapy. #6. GERD: As noted above maintained on IV famotidine given high reaction, outpatient on PPI. #7. BPH with obstructive pathology: Will continue patient on Flomax regimen #8. LINDSEY: CPAP nightly. #9. DVT prophylaxis: SCDs, chemoprophylaxis per surgery discretion given recent OR. Charges/Coding Visit Charges Inpatient E&M: 05293 Subs Hosp L3
--- NOTE | 2024-10-29 13:45 | PCM.POSTANE2 ---
Anesthesia Postop Eval I Sum Postop Eval Completion status Anesthesia document: Postop Eval 1 completed: Yes Anesthesia Postop Eval I Summary Anesthesia Postop Eval I Summary: Anesthesia Postop Eval I: Assessment Summary Airway patent Yes 10/29/24 12:36 INSTRUMENT TECHNICIAN APPRENTICE.[email or web address] Spontaneous unlabored Yes 10/29/24 12:36 INSTRUMENT TECHNICIAN APPRENTICE.HBARR respirations Mental status Awake 10/29/24 12:36 INSTRUMENT TECHNICIAN APPRENTICE.HBARR nausea No 10/29/24 12:36 INSTRUMENT TECHNICIAN APPRENTICE.[email or web address] Vomiting No 10/29/24 12:36 INSTRUMENT TECHNICIAN APPRENTICE.[email or web address] Anesthesia Postop Eval I: Fluid Summary Crystalloid volume administer 2,200 10/29/24 12:36 INSTRUMENT TECHNICIAN APPRENTICE.HBARR (ml) Colloids volume administered ( ml) Blood Product volume administered (ml) Total IV fluid infused 2,200 10/29/24 12:36 INSTRUMENT TECHNICIAN APPRENTICE.HBARR Anesthesia Postop Eval I: Summary Notes Anesthesia Complication No 10/29/24 12:36 INSTRUMENT TECHNICIAN APPRENTICE.HBARR Anesthesia Complication Comment: Post-operative progress note Anesthesia: Postop Eval II Evaluation Mental status: Calm and Asleep (Arousable) Pain Level: 1 nausea: No Vomiting: No Progress Note Post-operative progress note: Patient arrived in PACU with a rash on multiple areas of the body. This was noted since the drapes were removed after surgery. Patient has had Benadryl and Decadron during surgery. Dr. Anne is aware. Unclear if this is due to the Ancef or the surgical prep. In PACU the rash has slightly diminished. I ordered additional Pepcid to counter the rash as well. Blood pressures were likewise low and required IV bolus fluid and ephedrine 10 mg +10 mg were given as supportive measures. Saturations are still 100% on nasal cannula oxygen. Patient feels no shortness of breath. Complications Anesthesia Complication: No
--- NOTE | 2024-10-29 13:55 | PCM.POST.ANE ---
Anesthesia: Postop Eval I Current Vital Signs Temperature: 97 F Pulse Rate: 72 Blood Pressure: 84/58 Respiratory Rate: 12 Pulse Ox: 97 Oxygen Delivery Method: Nasal Cannula Assessment Airway patent: Yes Spontaneous unlabored respirations: Yes Mental status: Awake nausea: No Vomiting: No Anesthesia Complication: No Fluid Hydration Crystalloid volume administer (ml): 1,000 (1000 additional fluids given in PACU in addition to the OR fluids administered ) Total IV fluid infused: 1,000 Progress Note Post-operative progress note: at 1315 it was noted patient was starting to have a decrease in BPs, MAP<65, 20 mg ephedrine given , Dr. Pizano and Dr. Anne both made aware. Anesthesia document: Postop Eval 1 completed: Yes
[2024-10-29] MEDS: DiphenhydrAMINE 50 MG/ML Syringe 25 MG IV (18:48)
[2024-10-29] MEDS: Cefazolin 1 GM/50 ML BAG IV (18:48)
[2024-10-29] MEDS: Aspirin 81 MG TAB.CHEW PO (18:48)
[2024-10-29] MEDS: Atorvastatin Calcium 40 MG Tablet PO (20:28)
[2024-10-29] MEDS: Senna/Docusate Sodium 1 Tablet 2 TABLET PO (20:28)
[2024-10-29] MEDS: Acetaminophen 500 MG Tablet 1000 MG PO (20:28)
[2024-10-29] MEDS: 0.9% Saline Lock 10 ML Syringe IV (20:29)
[2024-10-30] VITALS (10 sets, daily range): BP systolic 109–142; BP diastolic 57–87; PULSE 43–107; RESP 16–18; TEMP 36.5–36.9; O2SAT 93–99; BMI 38.2
[2024-10-30] MEDS: Clindamycin 600 MG/50 ML BAG 100 MG IV ×2 (00:35→06:12)
[2024-10-30] MEDS: 0.9% Saline Lock 10 ML Syringe IV ×6 (00:35→21:49)
[2024-10-30] MEDS: DiphenhydrAMINE 50 MG/ML Syringe 25 MG IV ×2 (00:37→08:44)
[2024-10-30 06:05] LABS: Absolute Lymphocyte Count 0.57 X10^3/uL (0.83-4.51); Absolute Neutrophil Count 10.9 X10^3/uL (2.0-7.7); Basophil# 0.01 X10^3/uL; Basophil% 0.1 % (0-1); Hematocrit 31.9 % (40-54); Hemoglobin 10.5 g/dL (13.0-16.5); Lymphocyte # 0.57 X10^3/ul (0.83-4.51); Lymphocyte % 4.7 % (19-41); Mean Corp Hgb Conc 32.9 g/dL (32-36); Mean Corpuscular Hgb 32.1 pg (27.0-32.0); Mean Corpuscular Volume 97.6 fL (80-94); Mean Platelet Vol. 10.4 fl (6.2-12.0); Monocyte# 0.74 X10^3/uL; NRBC Flagged by Analyzer 0 % (0-5); Neutrophil # 10.86 X10^3/uL (2.7-7.7); Neutrophil % 88.7 % (47-70); POSITIVE DIFFERENTIAL YES; Platelet Count 229 K/mm3 (150-450); RBC Distribution Width CV 13.2 % (11.6-14.6); RBC Distribution Width SD 47.1 fl (35.1-43.9); Red Blood Count 3.27 M/mm3 (4.6-6.2); White Blood Count 12.2 K/mm3 (4.4-11.0)
[2024-10-30] MEDS: Acetaminophen 500 MG Tablet 1000 MG PO ×3 (06:11→21:52)
[2024-10-30 06:30] LABS: Anion Gap 13 (5-15); BUN 20 mg/dL (4-19); BUN/Creat Ratio 16.8 RATIO (10-20); Calcium,Total 8.5 mg/dL (7.6-11.0); Carbon Dioxide 19.5 mmol/L (21.0-32.0); Chloride 100 mmol/L (98-108); EST Glomerular Filtration Rate 63 (>60); Estimated Creatinine Clearance 73.52 ml/min (50-250); Glucose 155 mg/dL (70-99); Potassium 4.6 mmol/L (3.3-5.1); Sodium Level 132 mmol/L (133-145)
--- NOTE | 2024-10-30 07:50 | PCM.PN.HOSP ---
Reason for Visit Reason for Visit: Diagnoses Encounter for other preprocedural examination (10/29/24) Presence of unspecified artificial knee joint (10/29/24) Subjective Subjective Rash resolved. Began after Hibiclens. Objective Data Objective Data Vital Signs: Vital Signs Temp Pulse Resp BP Pulse Ox O2 Del Method O2 Flow Rate 36.6 C 43 L 16 122/77 H 93 Room Air 2 10/30/24 06:19 10/30/24 07:00 10/30/24 06:19 10/30/24 06:19 10/30/24 06:19 10/30/24 06:19 10/29/24 15:06 Oxygen Flow Rate (L/min) 2 Oxygen Delivery Method Room Air Weight: 124.2 kg Body Mass Index (BMI) 37.1 Intake & Output: Intake and Output for Last 24 Hours 10/28/24 10/29/24 10/30/24 23:59 23:59 23:59 Intake Total 5750 / 5750 100 / 100 Balance 5750 / 5750 100 / 100 Lab / Micro Data 10/30/24 05:36 10/30/24 05:36 Labs: Laboratory Results - last 24 hr 10/29/24 07:41: POC Glucose 96 10/30/24 05:36: WBC 12.2 H, RBC 3.27 L, Hgb 10.5 L, Hct 31.9 L, MCV 97.6 H, MCH 32.1 H, MCHC 32.9, RDW Std Deviation 47.1 H, RDW Coeff of Rose 13.2, Plt Count 229, MPV 10.4, Immature Gran % (Auto) 0.500, Neut % (Auto) 88.7 H, Lymph % (Auto) 4.7 L, Cook % (Auto) 6.0, Eos % (Auto) 0.0, Baso % (Auto) 0.1, Absolute Neuts (auto) 10.9 H, Absolute Lymphs (auto) 0.57 L, Nucleated RBC % 0, Sodium 132 L, Potassium 4.6, Chloride 100, Carbon Dioxide 19.5 L, Anion Gap 13, BUN 20 H, Creatinine 1.20, Estim Creat Clear Calc 73.52, Est GFR (MDRD) Non-Af 63, BUN/Creatinine Ratio 16.8, Glucose 155 H, Calcium 8.5 Micro: Microbiology 10/04/24 11:10 Swab (Method) Nasal Screen MRSA/MSSA - Final Radiography Diagnostic Testing: Radiology Impression Hip X-Ray 10/29/24 07:10 IMPRESSION: Status post right total hip replacement. There is good alignment. Postoperative soft tissue changes. Reading Location: [facility] Hip X-Ray 10/29/24 08:00 IMPRESSION: Fluoroscopy as above. Reading Location: [facility] Physical Exam Const alert and no apparent distress HEENT head/scalp atraumatic and moist oral mucous membranes Skin Skin Narrative: no rash. no urticaria. Assessment & Plan Assessment/Plan (1) Anaphylactic reaction: PLAN: hibiclens v cefazolin v other urticaria and hypotension received diphenhyramine, dexamethasone, IVF and now on methylprednisonolone. Will change to prednisone. Strongly advise following up with Allergy and Immunology. prednisone 40 mg/d for 5 days upon discharge. PLAN: Plan s/p right hip replacement: per orthopaedics. DW patient's daughter at bedside. Charges/Coding Visit Charges Inpatient E&M: 42283 Subs Hosp L2
[2024-10-30] MEDS: Aspirin 81 MG TAB.CHEW PO ×2 (08:44→16:42)
[2024-10-30] MEDS: Folic Acid 1 MG Tablet PO (08:44)
--- NOTE | 2024-10-30 09:31 | PCM.PN.ORT ---
Subjective Subjective Patient is sitting comfortably in bedside chair. Patient states that he is feeling much better today. Patient states that his rash is much better today. Patient states that he broke out after using the wipes and his washes. Patient states at this point his pain is controlled. Patient does admit to some lightheadedness. Patient states that he had a lot of lightheadedness yesterday and continues to have some when getting up today. Patient denies any shortness of breath, chest pain, calf pain. Patient denies any nausea, vomiting, dizziness. Patient denies any new numbness or tingling. Patient denies any fevers, chills, signs of infection. Patient denies any adverse events overnight. Objective Data Objective Data Vital Signs: Vital Signs Temp Pulse Resp BP Pulse Ox O2 Del Method O2 Flow Rate 98.2 F 85 18 109/57 L 98 Room Air 2 10/30/24 08:27 10/30/24 08:27 10/30/24 08:27 10/30/24 08:27 10/30/24 08:27 10/30/24 08:37 10/29/24 15:06 Oxygen Flow Rate (L/min) 2 Oxygen Delivery Method Room Air Weight: 124.2 kg Body Mass Index (BMI) 37.1 Intake & Output: Intake and Output for Last 24 Hours 10/28/24 10/29/24 10/30/24 23:59 23:59 23:59 Intake Total 5750 / 5750 100 / 100 Balance 5750 / 5750 100 / 100 Lab / Micro Data 10/30/24 05:36 10/30/24 05:36 Labs: Laboratory Results - last 24 hr 10/30/24 05:36: WBC 12.2 H, RBC 3.27 L, Hgb 10.5 L, Hct 31.9 L, MCV 97.6 H, MCH 32.1 H, MCHC 32.9, RDW Std Deviation 47.1 H, RDW Coeff of Rose 13.2, Plt Count 229, MPV 10.4, Immature Gran % (Auto) 0.500, Neut % (Auto) 88.7 H, Lymph % (Auto) 4.7 L, [place] % (Auto) 6.0, Eos % (Auto) 0.0, Baso % (Auto) 0.1, Absolute Neuts (auto) 10.9 H, Absolute Lymphs (auto) 0.57 L, Nucleated RBC % 0, Sodium 132 L, Potassium 4.6, Chloride 100, Carbon Dioxide 19.5 L, Anion Gap 13, BUN 20 H, Creatinine 1.20, Estim Creat Clear Calc 73.52, Est GFR (MDRD) Non-Af 63, BUN/Creatinine Ratio 16.8, Glucose 155 H, Calcium 8.5 Micro: Microbiology 10/04/24 11:10 Swab (Method) Nasal Screen MRSA/MSSA - Final Radiography Diagnostic Testing: Radiology Impression Hip X-Ray 10/29/24 07:10 IMPRESSION: Status post right total hip replacement. There is good alignment. Postoperative soft tissue changes. Reading Location: [id number] Hip X-Ray 10/29/24 08:00 IMPRESSION: Fluoroscopy as above. Reading Location: [id number] Physical Exam Narrative GILBERT hose in place bilaterally SCDs in place bilaterally Dressing is clean dry and intact Right hip is soft and supple. Dorsiflexion and plantarflexion are performed but pain or restriction Sensation intact to light touch Neurovascularly intact overall Negative Homans bilaterally Const alert, oriented x3 and no apparent distress Assessment & Plan Assessment/Plan (1) Status post total hip replacement, right: PLAN: Status post right anterior hip arthroplasty day 1. 1 DVT prophylaxis: Patient will be on aspirin 81 mg twice daily for 4 weeks postoperatively. Patient denies history of DVT, PE. Patient will be wearing GILBERT hose bilaterally for 2 weeks postoperatively removing at night and with showering. Patient was educated to do 5 minutes of movement per every hour. 2. Pain medications: Patient will be taking Tylenol 1000 mg every 8 hours taking no more than 3000 mg in 24 hours, patient will also have oxycodone to take as needed for pain medication. OARRS report was reviewed today. Risk of abuse potential was discussed with patient. Patient was educated not to use while driving motor vehicle or operating equipment. Patient voiced understanding. 3. Constipation: Patient will be taking senna postoperatively. Patient was instructed to take until first bowel movement and then take as needed to decrease risk of impaction following surgery. Patient was educated if she has not had a bowel movement in 3 days to contact our office. 4. Reactive leukocytosis: White blood cell count is currently 12.2. Vital signs are stable and patient is afebrile. Patient did receive Decadron intraoperatively. 5. H&H: .11/17.9. Patient is to continue following anemia protocol. Patient is currently taking ferrous sulfate and folic acid as he was prior to surgery. Patient was educated to continue this and will likely need to be seen within a week to get outpatient labs and have primary care provider follow anemia. 6. Doxycycline: Patient will be taking doxycycline due to positive staph prior to surgery. Patient will be taking doxycycline for 2 weeks postoperatively. Patient was educated on risk of sunburn. Patient was educated to take with probiotic. Patient voiced understanding. 7. Physical therapy: Patient will be weightbearing as tolerated with walker with physical therapy. Patient does have outpatient physical therapy scheduled. 8. Incentive spirometry: Patient was encouraged to use incentive spirometer every hour that he is awake for the first week to exercise lungs and decrease risk of postoperative infection. Patient voiced understanding. 9. Prevena wound VAC: Patient was educated that someone would be down to change his dressing to a Prevena wound VAC. Wound VAC was placed by Mela on 10/30/2024. Patient was educated while wound VAC is on to keep area clean and dry. Patient was educated that the wound VAC will be on for 1 week postoperatively. Patient was educated that he could remove wound VAC on 11/06/2024. Patient was understanding. 10. Patient is to follow-up per postoperative instructions. 11. Patient will have a follow-up appointment with [facility] in 2 weeks. 12. Medicine is involved at this point and appreciate recommendations from medicine. 13. I do believe patient would benefit in another night stay in the hospital due to postoperative complications such as hypotension and severe rash, continued lightheadedness, and lack of working with physical therapy. Patient agrees and does not feel that he is ready to go home at this point. Patient session with physical therapy did not go well yesterday as patient was very lightheaded. Patient states eventually he does want to go home and states that he feels safe stating that he has made a handicap bathroom upstairs for him to use. We will plan to observe patient for overnight. Medicine is on board to help manage patient. Appreciate recommendations from medicine as well as case management for safe and proper discharge. Patient does have 2-week follow-up appointment as well as outpatient physical therapy scheduled at this point. Patient was encouraged to call us with any questions, concerns, new problems.
[2024-10-30] MEDS: Famotidine 200 MG/20 ML MDV 20 MG in 0.9% Normal Saline (Pres. free 8 ML 300 MG IV ×2 (10:24→21:49)
[2024-10-30] MEDS: Tamsulosin HCl 0.4 MG Capsule PO (10:24)
[2024-10-30] MEDS: Senna/Docusate Sodium 1 Tablet 2 TABLET PO ×2 (10:24→21:50)
[2024-10-30] MEDS: Pantoprazole Sodium 40 MG Tablet PO (10:24)
[2024-10-30] MEDS: Doxycycline 100 MG CAPSULE PO ×2 (10:24→21:51)
[2024-10-30] MEDS: Loratadine 10 MG Tablet PO (10:24)
--- NOTE | 2024-10-30 11:59 | CASEMGMT ---
Met with patient to complete SERNA form. SERNA form explained to patient who voiced understanding and signed form. Original form placed in pt?s chart and copy provided to patient. Shellie Jesus, Discharge Planning Asst
--- NOTE | 2024-10-30 12:45 | EKG12_ITS ---
Test Reason : EKG CHANGES Blood Pressure : */* mmHG Vent. Rate : 95 BPM Atrial Rate : 95 BPM P-R Int : 176 ms QRS Dur : 92 ms QT Int : 354 ms P-R-T Axes : 45 13 33 degrees QTcB Int : 444 ms Normal sinus rhythm with sinus arrhythmia Normal ECG When compared with ECG of 04-Jul-2024 12:09, T wave amplitude has decreased in Anterolateral leads Confirmed by MICHAEL JOSE MD ([id number]), writer editor NATALY OCHOA ([id number]) on 11/05/2024 9:34:29 AM Referred By: Jay Anne Confirmed By: MICHAEL JOSE MD
--- NOTE | 2024-10-30 14:13 | CHAPLAIN ---
Type of Pastoral Visit _x__ Initial Visit ___ Follow-up Visit ___ On-call Visit ___ General Patient Visit ___ Spiritual Assessment ___ Family Conference ___ Bereavement ___ Rapid Response ___ Code Blue ___ Other (describe below) Pastoral Care Referral From _x__ Patient ___ Family ___ Nurse ___ Physician ___ Dry Pan Charger ___ Management Trainee Program Stores ___ Other (describe below) Sacrament/Intervention _x__ Active listening ___ Anointing ___ Yazidism ___ Bereavement ___ Communion _x__ Delores exploration ___ _x__ Life review _x__ Prayer ___ Reconciliation ___ Sacrament of Sick _x__ Supportive presence ___ Wedding ___ Other (describe below) Pastoral Comments patient is very welcoming and kind to invite this 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
--- NOTE | 2024-10-30 15:00 | CASEMGMT ---
RN CM Face to Face with patient for initial transition planning/care coordination assessment. RN CM introduced self and role at [facility]. Patient lying in bed, alert and oriented. Patient willing to participate in assessment and is able to answer all questions appropriately. Care providers, pharmacy, and demographics verified. Strata: 1 PCP: Annette Specialists: Omid, ortho; Amisha, president college or university; Ramila, material spreader Preferred Pharmacy: [facility], [facility] retail at discharge. [facility]: yes Living Will/HPOA: yes, Tanisha Soriano LNOK: , daughter Living Arrangements: Patient lives with in a 3 story home, 13 steps and railing to second floor. Patient is independent and able to ambulate stairs. Transportation: , daughter DME/HHC: Patient has shower chair, raised toilet, cane, walker, grab bars, cpap at home. No previous HHC or SNF. Patient is schedule for outpatient therapy MWF at [facility]. Patient wishes to discharge home with outpatient therapy at [facility]. Patient states he has no further needs or concerns at this time. CM to follow for discharge planning needs that may arise. Disposition Plan: Patient to discharge home with outpatient therapy, family support, and follow-up plans in place. Ariella XAVIER, RN, CM
[2024-10-30] MEDS: Atorvastatin Calcium 40 MG Tablet PO (21:51)
[2024-10-31 03:00] VITALS: PULSE 78
[2024-10-31 03:47] VITALS: BP 136/85; PULSE 87; RESP 17; TEMP 36.5; O2SAT 96
[2024-10-31] MEDS: Acetaminophen 500 MG Tablet 1000 MG PO (06:49)
[2024-10-31 07:05] LABS: Hematocrit 28.5 % (40-54); Hemoglobin 9.4 g/dL (13.0-16.5); Mean Corpuscular Hgb 32.2 pg (27.0-32.0); Mean Corpuscular Volume 97.6 fL (80-94); Mean Platelet Vol. 10.7 fl (6.2-12.0); Platelet Count 201 K/mm3 (150-450); RBC Distribution Width CV 13.6 % (11.6-14.6); RBC Distribution Width SD 48.1 fl (35.1-43.9); Red Blood Count 2.92 M/mm3 (4.6-6.2); White Blood Count 12.7 K/mm3 (4.4-11.0)
[2024-10-31 08:17] LABS: Anion Gap 11 (5-15); BUN 25 mg/dL (4-19); BUN/Creat Ratio 21.4 RATIO (10-20); Calcium,Total 8.7 mg/dL (7.6-11.0); Carbon Dioxide 20.8 mmol/L (21.0-32.0); Chloride 104 mmol/L (98-108); Creatinine, Serum 1.17 mg/dL (0.70-1.20); EST Glomerular Filtration Rate 65 (>60); Glucose 134 mg/dL (70-99); Potassium 4.7 mmol/L (3.3-5.1); Sodium Level 136 mmol/L (133-145)
[2024-10-31 09:37] VITALS: BP 140/78; PULSE 87; RESP 18; TEMP 37; O2SAT 97
[2024-10-31] MEDS: Pantoprazole Sodium 40 MG Tablet PO (09:38)
[2024-10-31] MEDS: Tamsulosin HCl 0.4 MG Capsule PO (09:38)
[2024-10-31] MEDS: Folic Acid 1 MG Tablet PO (09:38)
[2024-10-31] MEDS: Senna/Docusate Sodium 1 Tablet 2 TABLET PO (09:38)
[2024-10-31] MEDS: Loratadine 10 MG Tablet PO (09:38)
[2024-10-31] MEDS: predniSONE 20 MG Tablet 40 MG PO (09:38)
[2024-10-31] MEDS: Aspirin 81 MG TAB.CHEW PO (09:39)
[2024-10-31] MEDS: Doxycycline 100 MG CAPSULE PO (09:40)
--- NOTE | 2024-10-31 10:05 | PCM.PN.ORT ---
Subjective Subjective The patient was sitting in bed upon examination. Patient denies any chest pain, shortness of breath, dizziness, lightheadedness, nausea or vomiting, or calf pain. Pain is controlled on medications. No adverse overnight events. Postoperatively patient was having some hypotension which has resolved. Blood pressures have been much improved and case was discussed with hospitalist. Okay to resume blood pressure medications on discharge. Patient also had significant rash after applying the wash preoperatively. He states after doing that within 5 minutes he developed a significant rash. He has been on prednisone per medicine which they would like him to do for a total of 5 days postoperatively. Also recommending follow-up with his local [employer] program director for testing. Patient states he will call them to get an appointment. Patient has been on our anemia protocol and he will continue with this with follow-up with his primary care provider. Wound nurse did place a incisional wound VAC which she will keep on for the next 6 days. Patient is ready to go home. He has outpatient physical therapy established. Objective Data Objective Data Vital Signs: Vital Signs Temp Pulse Resp BP Pulse Ox O2 Del Method O2 Flow Rate 98.6 F 87 18 140/78 H 97 Room Air 2 10/31/24 09:37 10/31/24 09:37 10/31/24 09:37 10/31/24 09:37 10/31/24 09:37 10/31/24 09:37 10/29/24 15:06 Oxygen Flow Rate (L/min) 2 Oxygen Delivery Method Room Air Weight: 124.2 kg Body Mass Index (BMI) 37.1 Intake & Output: Intake and Output for Last 24 Hours 10/29/24 10/30/24 10/31/24 23:59 23:59 23:59 Intake Total 5750 / 5750 120 / 120 Output Total 900 / 900 Balance 5750 / 5750 -780 / -780 Lab / Micro Data 10/31/24 06:36 10/31/24 06:36 Labs: Laboratory Results - last 24 hr 10/31/24 06:36: WBC 12.7 H, RBC 2.92 L, Hgb 9.4 L, Hct 28.5 L, MCV 97.6 H, MCH 32.2 H, MCHC 33.0, RDW Std Deviation 48.1 H, RDW Coeff of Rose 13.6, Plt Count 201, MPV 10.7, Sodium 136, Potassium 4.7, Chloride 104, Carbon Dioxide 20.8 L, Anion Gap 11, BUN 25 H, Creatinine 1.17, Estim Creat Clear Calc 75.40, Est GFR (MDRD) Non-Af 65, BUN/Creatinine Ratio 21.4 H, Glucose 134 H, Calcium 8.7 Micro: Microbiology 10/04/24 11:10 Swab (Method) Nasal Screen MRSA/MSSA - Final Physical Exam Narrative Vital signs stable and afebrile. SCDs and GILBERT hose are in place bilaterally Right hip is soft and supple Patient is able to plantarflex and dorsiflex actively. Sensation is intact to light touch to saphenous, sural, superficial and deep peroneal, and tibial distribution. Prevena incisional wound VAC in place with no output/drainage in canister or tubing Negative Homans bilaterally, negative signs and symptoms of DVT. Const alert, oriented x3 and no apparent distress Assessment & Plan Assessment/Plan (1) Status post total hip replacement, right: PLAN: Status post right anterior hip arthroplasty day 2. 1. DVT prophylaxis: Patient will be on aspirin 81 mg twice daily for 4 weeks postoperatively. Patient denies history of DVT, PE. Patient will be wearing GILBERT hose bilaterally for 2 weeks postoperatively removing at night and with showering. Patient was educated to do 5 minutes of movement per every hour. 2. Pain medications: Patient is only required extra strength Tylenol while in the hospital. Patient states he does not need any narcotic for pain control. He does have tramadol at home from previous surgery. Patient will continue with Tylenol primarily for pain control and only use the tramadol at home for breakthrough pain if needed. He voiced understanding agreement with treatment plan. 3. Constipation: We have discontinued the senna as patient has already had 2 bowel movements in the hospital. He will use [id number] stool softener if he experiences any constipation at home. He will contact our office with any concerns. 4. Reactive leukocytosis: White blood cell count is stable currently 12.7. Vital signs are stable and patient is afebrile. Patient did receive Decadron intraoperatively. Patient is also on prednisone postoperatively due to the rash which could contribute as well to the elevated white blood cell count. 5. H&H: 9.4/28.5. Monitoring patient's hemoglobin and hematocrit with postoperative anemia without any intra operative complications. Patient was continuing our anemia protocol preoperatively in which she is using ferrous sulfate and folic acid. Patient will continue taking ferrous sulfate and folic acid as he was prior to surgery. Case was discussed with care management team and we will have patient follow-up with his primary care provider Dr. Bryant in 10-14 days. Outpatient lab order will be placed on his chart. I discussed with the nurse to make sure he gets this. I did advise the patient he should get his lab work done 1-2 days prior to his appointment with his primary care provider. I would defer to the PCP for continued management and treatment. 6. Currently on doxycycline for 2 weeks postoperatively due to preoperative testing positive for staph. I discussed with the patient potential side effects of doxycycline including sensitivity to the sunlight and increased risk of skin burn. Recommend patient take appropriate precautions. Also recommend patient to take probiotic while on the antibiotic. Patient voiced understanding agreement. 7. Physical therapy: Patient will be weightbearing as tolerated with walker with physical therapy. Patient does have outpatient physical therapy scheduled. 8. Incentive spirometry: Patient was encouraged to use incentive spirometer every hour that he is awake for the first week to exercise lungs and decrease risk of postoperative infection. Patient voiced understanding. 9. Prevena wound VAC: Wound VAC was placed by the wound nurse. Patient will keep this on until November 06, 2024. He was instructed on technique of taking the wound VAC off. I did advise him it is disposable. He is to keep this area clean and dry. He is not to get this area wet. Once the wound VAC is off it is okay for him to shower and get the incision wet. The pannus is slightly irritated onto the wound VAC and we will place a ABD for protection of the skin. I did advise him once the wound VAC is off he is to continue to protect this incision from the skin pannus with clean washcloth versus ABD. He voiced understanding. He will do this until well-healed. 10. Case has been discussed with medicine and they are okay with the patient discharging home today. Patient's blood pressure is significantly improved. Medicine is okay with patient resuming his blood pressure medications at home. They are recommending follow-up with the montess[employer] program director which patient sees locally. He will continue on the prednisone for 3 more days. 13. Disposition: Patient will plan on discharge home today. He would like his prescriptions E scribed to [facility] outpatient pharmacy. Patient has outpatient physical therapy established. Case was discussed with the care management team and we will have him follow-up with his PCP in 10-14 days. Lab order will be placed on chart for him to get prior to this appointment for continued management of his anemia. Patient also has a local montess[employer] program director that he will call to schedule appointment. Patient will follow-up per our postoperative instructions. Upon discharge if he has any concerns or questions he is to contact our office. I went over in great detail with the patient the incisional wound VAC and medications. All questions were answered. I did advise patient that he should not take his diclofenac when he is using the prednisone. I would also make sure that his spinning bath person is okay with him using any nonsteroidal anti-inflammatory due to his cardiac history. He did voiced understanding agreement. I have reviewed the [place] Automated Rx Reporting System (OARRS) report for this patient for refill pattern and other prescriber involvement as part of the appropriate surveillance for the provision of acute and chronic controlled medications. The report was requested and reviewed on the date of this entry and was considered in the prescribing process.
--- NOTE | 2024-10-31 10:19 | DCINST_ITS ---
Discharge Instructions Diet Discharge Diet: No restrictions DC O2, CPAP, BIPAP needs Home O2 Discharge instructions: No Dressing / Incision Discharge Activity: May Not Drive (No driving for 6 weeks postoperatively. Must also be off all narcotics and able to walk 100 feet without the use of cane or walker.) and May Not Shower (Do not shower until the Prevena incisional wound VAC has been removed. Okay to sponge bathe.) Ice area for (Minutes): 20 (Every 1-2 hours while awake[address] barrier between ice and skin.) Weight Bearing Status: Weight bearing as tolerated (With walker) Keep extremity elevated above heart level: Operative Extremity Additional Activity Instructions:: Follow [facility] Post-op Instruct ions. Remove Prevena incisional wound VAC on November 06, 2024. Once the wound VAC has been removed only use gentle soap and water over the incision. Do not use any ointments, Neosporin, salves, alcohol pads over the incision for 6 weeks postoperatively. Do not submerge underwater for 6 weeks postoperatively. Wear elastic stockings for 2 weeks. Continue to protect the incision with an ABD or clean washcloth until the incision is well-healed which could take 4 weeks Do NOT use alcohol with narcotic pain medication. Do NOT make important decisions while taking narcotic medication. If you have problems with taking your medication (rash, itching, nausea, etc.) call the office at once. Dressing / Incision Call your doctor if your incision/area has: Continuous Slow Oozing, Sudden Increased Bleeding, Increased Pain/ Swelling, Increased Redness and Foul Smelling Discharge Call your doctor if you observe: Fever of 101 or Higher, Shortness of breath, Chest pain, Calf discomfort and Uncontrolled pain Remove Dressing in: 6 days (Remove Prevena incisional wound VAC on November 06, 2024) Additional Dressing/Incision Instructions:: Follow [facility] Post-op Instructions. Once postoperative dressing has been removed, only use gentle soap and water over the incision. Do not use any ointments, Neosporin, salves, alcohol pads over the incision for 6 weeks postoperatively. Do not submerge underwater for 6 weeks postoperatively. Continue with GILBERT hose/elastic stockings for 2 weeks postoperatively. May remove at nighttime but needs to be placed back on the leg during the day. Do NOT use alcohol with narcotic pain medication. Do NOT make important decisions while taking narcotic medication. If you have problems with taking your medication (rash, itching, nausea, etc.) call the office at once. Follow Up Care Test Results: Test results from this visit will be discussed in further detail at your follow- up appointment, if applicable. Discharge Plan Admission Admit Date/Time: 10/30/24 16:45 Attending Provider: Jay Anne Primary Care Provider: Abisai Bryant Consulting Providers: Giovanni Blank Eric Discharge Orders/Prescriptions Prescriptions: New acetaminophen 500 mg Tablet 1,000 mg PO TID 14 Days Qty: 84 0RF Rx Instructions: Do not take more than 3000 mg Tylenol in a 24-hour period. doxycycline monohydrate 100 mg Capsule 100 mg PO BID 12 Days Qty: 24 0RF prednisone 20 mg Tablet 40 mg PO BREAKFAST 3 Days Qty: 6 0RF Continued cyanocobalamin (vitamin B-12) 1,000 mcg tablet, sublingual 1,000 mcg sublingual DAILY ascorbate calcium (vitamin C) 500 mg tablet 500 mg PO QDAY fexofenadine 60 MG tablet 60 mg PO DAILY glucosamine-chondroitin 480 ML liquid 480 ml PO BID diphenhydramine-acetaminophen [Acetaminophen PM] 25-500 mg tablet 2 tab PO QHS cholecalciferol (vitamin D3) [Vitamin D3] 25 mcg (1,000 unit) capsule 25 mcg PO DAILY aspirin 81 mg capsule 81 mg PO BIDCM 30 Days Qty: 0 0RF Rx Instructions: Take aspirin 81 mg 2 times per day with food for 4 weeks postoperatively. Following 4 weeks patient can resume preoperative dose of aspirin. folic acid 1 mg Tablet 1 mg PO BREAKFAST Qty: 0 0RF ciclopirox 0.77 % cream 1 applic topical DAILY PRN (Reason: rash) tamsulosin 0.4 mg capsule 0.4 mg PO DAILY pantoprazole 40 mg tablet,delayed release (DR/EC) 40 mg PO DAILY tramadol 50 mg Tablet 50 - 100 mg PO Q6H PRN PRN (Reason: As needed for pain) 7 Days Qty: 36 0RF Rx Instructions: Continue as needed for breakthrough pain. hydrochlorothiazide 12.5 mg capsule See Rx Instructions .ROUTE .COMPLEX Qty: 90 3RF Dose Instruction: take 1 capsule by mouth once daily Rx Instructions: take 1 capsule by mouth once daily lisinopril 20 mg tablet 20 mg PO DAILY Qty: 90 3RF carvedilol 6.25 mg tablet 6.25 mg PO BID Qty: 180 3RF atorvastatin 40 mg tablet 40 mg PO QHS Qty: 90 3RF Held diclofenac sodium 75 mg tablet,delayed release (DR/EC) 75 mg PO DAILY Hold Instructions: Resume on 11/05/24. Discontinued acetaminophen 500 mg Tablet 1,000 mg PO TID 14 Days Qty: 90 0RF Rx Instructions: Do not exceed more than 3000 mg in 24 hours. Other Ambulatory Orders: CBC-Complete Blood Cnt No Diff (Routine) Timeframe: 2 Weeks Facility: [facility] - Location: Laboratory Ordered By: Santana FELIPE Referrals / Follow Up: physical,therapy [Other] - 11/02/24 11:00 am Abisai Bryant DO [Primary Care Provider] - (schedule follow up in 12-14 days with PCP) Savanna Centeno PA [Med Staff - Adv Practice Prof] - 11/13/24 3:45 pm Disposition Disposition (needs filled in before D/C Order can be placed): Home, Self Care
--- NOTE | 2024-10-31 11:03 | CASEMGMT ---
Patient has order for discharge. RN CM in to discuss needs at discharge. Patient to discharge home with outpatient therapy and family support. Patient denies additional needs or help at discharge. Patient had no further questions or concerns.
--- NOTE | 2024-10-31 12:19 | PHA.DC.MC.R ---
Pharmacy [facility] has performed discharge medication reconciliation and counseling for this patient. Patient would like medications delivered, this [facility] called and spoke to retail to request delivery. 1. ACETAMINOPHEN 1000MG PO Q8 (told patient to hold Tylenol PM while taking) 2. DOXYCYCLINE 100MG PO BID X 12 DAYS 3. PREDNISONE 40MG PO BREAKFAST X 3 DAYS 4. ASPIRIN 81MG PO BID X 4 WEEKS, THEN RESUME DAILY 5. HOLD DICLOFENAC The patient's discharge medication list was reviewed for discrepancies and discrepancies were resolved. The patient was counseled on the following discharge medications and changes in medications for homegoing were reviewed. The Reason for Use, instructions for use, and potential side effects were reviewed for all new medications. The patient's questions regarding all of their medications were answered. The patient was able to verbally demonstrate an understanding of their discharge medications. Medications at Discharge Home Medications fexofenadine 60 mg tablet 60 mg PO DAILY 11/04/19 glucosamine-chondroitin 1,500 mg -1,200 mg/30 mL oral liquid 480 ml PO BID 11/04/19 cyanocobalamin (vitamin B-12) 1,000 mcg sublingual tablet 1,000 mcg sublingual DAILY 03/08/23 hydrochlorothiazide 12.5 mg capsule See Rx Instructions .Route .COMPLEX #90 caps 11/18/23 lisinopril 20 mg tablet 20 mg PO DAILY #90 tabs 12/14/23 carvedilol 6.25 mg tablet 6.25 mg PO BID #180 tabs 12/27/23 atorvastatin 40 mg tablet 40 mg PO QHS #90 tabs 01/09/24 ascorbate calcium (vitamin C) 500 mg tablet 500 mg PO QDAY 03/05/24 ciclopirox 0.77 % topical cream 1 applic topical DAILY PRN rash 03/05/24 diclofenac sodium 75 mg tablet,delayed release 75 mg PO DAILY 03/05/24 Held on 10/31/24. Instructions: Resume on 11/05/24. cholecalciferol (vitamin D3) 25 mcg (1,000 unit) capsule (Vitamin D3) 25 mcg PO DAILY 07/02/24 diphenhydramine 25 mg-acetaminophen 500 mg tablet (Acetaminophen PM) 2 tab PO QHS 07/02/24 aspirin 81 mg capsule 81 mg PO BIDCM 30 days #0 caps 07/24/24 folic acid 1 mg tablet 1 mg PO BREAKFAST #0 tabs 07/24/24 pantoprazole 40 mg tablet,delayed release 40 mg PO DAILY 10/29/24 tamsulosin 0.4 mg capsule 0.4 mg PO DAILY 10/29/24 acetaminophen 500 mg tablet 1,000 mg (2 x 500 mg) PO TID 14 days #84 tabs 10/31/24 doxycycline monohydrate 100 mg capsule 100 mg PO BID 12 days #24 caps 10/31/24 prednisone 20 mg tablet 40 mg (2 x 20 mg) PO BREAKFAST 3 days #6 tabs 10/31/24 tramadol 50 mg tablet 50 - 100 mg (1 - 2 x 50 mg) PO Q6H PRN PRN As needed for pain 7 days #36 tabs 10/31/24
== END 2024-10-31 13:30 | disposition home or self-care (01) | DRG 470 ==
LOC: SDC 12:34 → MS3 14:25 → PCU 14:25
PROVIDERS: Admitting Provider Specialist; PCP Family Medicine; Referring Provider Specialist; Visit Provider Specialist
PROC: (CPT 27284; principal; 2024-10-29 08:35)
DX: M16.11 Unilateral primary osteoarthritis, right hip (principal); T88.6XXA Anaphylactic reaction due to adverse effect of correct drug or medicament properly administered, initial encounter; Z86.74 Personal history of sudden cardiac arrest; N18.32 Chronic kidney disease, stage 3b; I12.9 Hypertensive chronic kidney disease with stage 1 through stage 4 chronic kidney disease, or unspecified chronic kidney disease; D64.9 Anemia, unspecified; E66.9 Obesity, unspecified; E78.00 Pure hypercholesterolemia, unspecified; G47.33 Obstructive sleep apnea (adult) (pediatric); I25.2 Old myocardial infarction; I25.10 Atherosclerotic heart disease of native coronary artery without angina pectoris; K21.9 Gastro-esophageal reflux disease without esophagitis; L50.0 Allergic urticaria; M54.50 Low back pain, unspecified; J30.2 Other seasonal allergic rhinitis; I95.81 Postprocedural hypotension; T36.1X5A Adverse effect of cephalosporins and other beta-lactam antibiotics, initial encounter; G89.29 Other chronic pain; A49.01 Methicillin susceptible Staphylococcus aureus infection, unspecified site; Z95.5 Presence of coronary angioplasty implant and graft; Z79.82 Long term (current) use of aspirin; Z79.899 Other long term (current) drug therapy; Z96.653 Presence of artificial knee joint, bilateral; Z68.37 Body mass index [BMI] 37.0-37.9, adult; Z91.199 Patient's noncompliance with other medical treatment and regimen due to unspecified reason; Z88.1 Allergy status to other antibiotic agents
CPT/HCPCS: 36415; 73502; 76000; 80048; 82040; 82962; 83735; 85025; 85027; 87081; 88304; 88311; 93005; 94668; 97162; 97166; 97530; 97535; C1776; A4216; J2405; J3475

== ENCOUNTER → 2024-11-14 | Outpatient (CLI) | payer MEDICARE, BC, SELFPAY ==
[2020-01-14 09:21] VITALS: BMI 36.3
[2024-11-14 12:52] LABS: Hematocrit 30.3 % (40-54); Hemoglobin 9.7 g/dL (13.0-16.5); Mean Corpuscular Hgb 31.8 pg (27.0-32.0); Mean Corpuscular Volume 99.3 fL (80-94); Mean Platelet Vol. 10.3 fl (6.2-12.0); Platelet Count 289 K/mm3 (150-450); RBC Distribution Width CV 13.5 % (11.6-14.6); RBC Distribution Width SD 49.4 fl (35.1-43.9); Red Blood Count 3.05 M/mm3 (4.6-6.2); White Blood Count 8.2 K/mm3 (4.4-11.0)
== END | disposition home or self-care (01) ==
LOC: LAB 12:18
PROVIDERS: PCP Family Medicine; Referring Provider Physician Assistant Surgical; Visit Provider Physician Assistant Surgical
DX: D64.9 Anemia, unspecified (principal)
CPT/HCPCS: 36415; 85027

== ENCOUNTER → 2025-05-08 | Outpatient (CLI) | payer MEDICARE, BC, SELFPAY ==
[2020-01-14 09:21] VITALS: BMI 36.3
--- NOTE | 2025-05-08 12:16 | MRI_ITS ---
PROCEDURE: SPINE LUMBAR (ROUTINE) 05/08/2025 REASON FOR EXAM: SECONDARY SCOLIOSIS, LUMBAR REGION, LOW BACK PAIN TECHNIQUE: Procedure Code: MRISPL Modality: MR Procedure: SPINE LUMBAR (ROUTINE) COMPARISON: None. FINDINGS: Vertebrae: Present non signal. Alignment: Retrolisthesis L1 on L2 by 2 mm and L2 on L3 by 3 mm. Anterolisthesis L5 on S1 by 2 mm. Conus Medullaris: Unremarkable. L1-2: Disc bulge. Facet joints arthropathy. Moderate bilateral foramina stenosis. Moderate canal stenosis.. L2-3: Disc bulge. Facet joint arthropathy. Severe bilateral foramina stenosis. Severe canal stenosis. L3-4: Disc bulge. Facet joint arthropathy. Moderate bilateral foramina stenosis. Severe canal stenosis. L4-5: Disc desiccation. Disc bulge. No narrowing of the right subarticular space. Facet joint arthropathy. Severe right and moderate left foramina stenosis. Moderate canal stenosis. L5-S1: Disc desiccation. Disc bulge. Facet joint arthropathy. Moderate bilateral foramina stenosis. No significant canal stenosis. Sacrum: Unremarkable MRI/Spine Lumbar (Routine) IMPRESSION: Degenerate changes predominantly for severe canal stenosis at L2-L3 and L3-L4. Severe bilateral foramina stenosis at L2-L3. Severe right foramina stenosis at L4-L5. Reading Location: [facility]
== END | disposition home or self-care (01) ==
PROVIDERS: PCP Family Medicine; Referring Provider Specialist; Visit Provider Specialist
DX: M54.50 Low back pain, unspecified (principal); M41.56 Other secondary scoliosis, lumbar region
CPT/HCPCS: 72148